=== PATIENT | female | born 1935 | race Caucasian/White ===

== ENCOUNTER 2020-01-28 09:47 | Outpatient (CLI) | payer MEDICARE, SELFPAY ==
[2020-01-28 12:26] LABS: Basophils # 0.1 10^3/uL (0.0-0.1); Basophils % 0.8 %; Eosinophils # 0.2 10^3/uL (0.0-0.8); Eosinophils % 2.9 %; Hematocrit 39.4 % (37.0-47.0); Hemoglobin 11.9 g/dL (11.5-15.3); Lymphocytes # 1.8 10^3/uL (0.8-4.8); Mean Corpuscular HGB Conc 30.2 g/dL (30.0-36.0); Mean Corpuscular Hemoglobin 24.2 pg (28.0-34.0); Mean Corpuscular Volume 80.1 fL (81-99); Mean Platelet Volume 8.7 fL (7.4-10.4); Monocytes # 0.4 10^3/uL (0.2-0.9); Monocytes % 5.3 %; Neutrophils % 68.9 %; Nucleated Red Blood Cells % 0 %; Platelet Count 454 10^3/cmm (130-400); Red Blood Count 4.92 10^6/uL (4.1-5.3)
[2020-01-28 12:47] LABS: Alanine Aminotransferase 14 U/L (0-33); Albumin Level 4.4 g/dL (3.5-5.2); Alkaline Phosphatase 67 IU/L (35-105); Anion Gap 13.6 (5-19); Aspartate Amino Transferase 23 U/L (0-32); Blood Urea Nitrogen 9 mg/dL (8-23); Calcium 9.4 mg/dL (8.5-10.5); Carbon Dioxide 30 mmol/L (22-29); Chloride 97 mmol/L (98-107); Ferritin 48 ng/mL (15-150); Globulin 3.8 g/dL (1.3-4.6); Glucose 113 mg/dL (65-115); Iron 36 ug/dL (37-145); Osmolality Calculated 281 mOsm/kg (285-295); Percent Saturation 10.3 % (20-50); Potassium 3.6 mmol/L (3.5-5.1); Sodium 137 mmol/L (136-145); Total Bilirubin 0.4 mg/dL (0.15-1.2); Total Iron Binding Capacity 349 mcg/dl; Total Protein 8.2 g/dL (6.6-8.7); Unsaturated Iron Binding 313 ug/dL (112-347)
--- NOTE | 2020-01-30 17:14 | ONC FU_ITS ---
Dr. Ramsey follow up note Patient: Natasha Gustafson Unit #: [id number]: 1935 Dicatated By: Megan Ramsey M.D.Date of Visit:Jan 28, 2020 Onc Med Follow-up/Prog Note History of Present Illness: Ms. Sj Kaur , is a 84-year-old female with a history of progressive generalized weakness and fatigue and dizziness went to hospital for evaluation on November 29, 2019, at that time, as per daughter, patient was found to have very low hemoglobin around 7 g, she was given 3 units of packed RBCs, as per daughter her hemoglobin improved up to 9 g and patient felt much better. Patient also underwent CT scan of the abdomen which showed soft tissue thickening involving the area of ileocecal valve but no evidence of metastatic disease, her CEA was checked and it was 1.4, and GI was consulted and underwent EGD and colonoscopy on December 04, 2019 which showed moderately/poorly differentiated adenocarcinoma in the ascending colon subsequently underwent exploratory laparotomy with right hemicolectomy on January 07, 2021 deploy report came back moderately differentiated adenocarcinoma with mucinous and micropapillary features, tumor invades through muscularis propria T2, clear surgical margins, lymphovascular is invasion seen, 5 out of 14 lymph nodes were positive for metastatic disease, N2 Her past medical history significant for hypertension, arthritis, CAD, weight loss,, patient denies alcohol use or smoking. Denies any diarrhea or constipation, denies any jaundice, denies any abdominal pain, denies any nausea vomiting denies any fever chills, appetite is good. Medications: amLODIPine Besylate 1 Tablet (of 5 mg) Oral daily, Aspirin 81 1 Tablet (of 81 mg) Tablet, chewable Oral daily, hydroCHLOROthiazide 1 Tablet (of 25 mg) Oral daily, Metoprolol Succinate ER 1 Tablet (of 25 mg) Tablet SR 24 HR Oral daily, Nitroglycerin 1 Tablet (of 0.4 mg) Tablet, sublingual Sublingual PRN, Rosuvastatin Calcium 1 Tablet (of 40 mg) Oral at bedtime Allergies: Latex Review of Systems: Review of Systems is not available for this patient. Vital Signs: Performed on Jan 28, 2020 11:31 Height - 53.00 in Weight - 120.6 lbs (HIGH) BSA - 1.38 sq.m BMI - 30.19 (HIGH) Temperature - 97.6 F (LOW) Pulse - 72 /min Respiration - 18 /min BP - 196/83 mm(hg) (HIGH) O2 Sat - 98 % Pain - 0 Performance Status: 0 - Fully active, able to carry on all predisease activities without restrictions. (ECOG) Physical Examination: ENMT - No mouth sores, no thrush, no jaundice, Respiratory - Lungs are clear, Cardiovascular - Regular rate and rhythm of heart, Abdomen - Soft, bowel sounds present, Extremities - No visible edema. Lab/Imaging: Most recent lab results are not available for this patient. 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 status post right hemicolectomy done on January 08, 2020 Tumor invades through muscularis propria T2 5 out of 14 lymph node positive for metastatic disease N2 Stage IIIb History of anemia History of arthritis Plan: Discussed with patient regarding her disease status, clinically patient has stage III disease, and is a candidate for adjuvant chemotherapy, considering her age role of oxaliplatin is debatable unless MSI MMR status shows deficient status in that case tumor is usually resistant to 5-FU alone, will check her MSI MMR status and if normal, may consider oral Xeloda for 6 to 8 months if tolerated. We will obtain baseline CBC CMP and then she will return to clinic in 4 weeks for further discussion based on MSI MMR status Signed By: Megan Ramsey M.D. <<Signature on File>>
== END 2020-01-28 09:48 | disposition home or self-care (01) ==
LOC: ONCMED 09:48
PROVIDERS: PCP Family Medicine; Referring Provider Surgery; Visit Provider Internal Medicine Hematology & Oncology
DX: C18.2 Malignant neoplasm of ascending colon (principal); C77.2 Secondary and unspecified malignant neoplasm of intra-abdominal lymph nodes; Z90.49 Acquired absence of other specified parts of digestive tract; Z86.2 Personal history of diseases of the blood and blood-forming organs and certain disorders involving the immune mechanism; Z87.39 Personal history of other diseases of the musculoskeletal system and connective tissue
CPT/HCPCS: 36415; 80053; 82728; 83540; 83550; 85025; 99203

== ENCOUNTER 2020-02-27 08:15 | Outpatient (CLI) | payer MEDICARE, SELFPAY ==
--- NOTE | 2020-02-27 12:00 | ONC FU_ITS ---
Dr. Ramsey follow up note Patient: Natasha Gustafson Unit #: [id number]: 1935 Dicatated By: Megan Ramsey M.D.Date of Visit:Feb 27, 2020 Onc Med Follow-up/Prog Note History of Present Illness: Ms. Sj Kaur , is a 84-year-old female with a history of progressive generalized weakness and fatigue and dizziness went to hospital for evaluation on November 29, 2019, at that time, as per daughter, patient was found to have very low hemoglobin around 7 g, she was given 3 units of packed RBCs, as per daughter her hemoglobin improved up to 9 g and patient felt much better. Patient also underwent CT scan of the abdomen which showed soft tissue thickening involving the area of ileocecal valve but no evidence of metastatic disease, her CEA was checked and it was 1.4, and GI was consulted and underwent EGD and colonoscopy on December 04, 2019 which showed moderately/poorly differentiated adenocarcinoma in the ascending colon subsequently underwent exploratory laparotomy with right hemicolectomy on January 07, 2021 deploy report came back moderately differentiated adenocarcinoma with mucinous and micropapillary features, tumor invades through muscularis propria T2, clear surgical margins, lymphovascular is invasion seen, 5 out of 14 lymph nodes were positive for metastatic disease, N2 With normal expression of DNA mismatch repair proteins Her past medical history significant for hypertension, arthritis, CAD, weight loss,, patient denies alcohol use or smoking. Denies any diarrhea or constipation, denies any jaundice, denies any abdominal pain, denies any nausea vomiting denies any fever chills, appetite is good. Came for follow-up, denies any specific complaints, except generalized weakness and fatigue otherwise no fever chills no nausea or vomiting no diarrhea or constipation no abdominal pain, no melena or hematochezia Medications: amLODIPine Besylate 1 Tablet (of 5 mg) Oral daily, Aspirin 81 1 Tablet (of 81 mg) Tablet, chewable Oral daily, hydroCHLOROthiazide 1 Tablet (of 25 mg) Oral daily, Metoprolol Succinate ER 1 Tablet (of 25 mg) Tablet SR 24 HR Oral daily, Nitroglycerin 1 Tablet (of 0.4 mg) Tablet, sublingual Sublingual PRN, Rosuvastatin Calcium 1 Tablet (of 40 mg) Oral at bedtime Allergies: Latex Review of Systems: Constitutional - Appetite is good and weight is stable. No fever, night sweats, or hot flashes. Energy level is poor, ENMT - No sinus congestion/drainage. No mouth sores. No sore throat or difficulty swallowing, Hematologic/Lymphatic - No abnormal bruising or bleeding, Respiratory - No shortness of breath. No cough. No pleuritic pain or hemoptysis, Cardiovascular - No angina pain. No palpitations, Gastrointestinal - No nausea or vomiting. No heartburn or acid reflux. No diarrhea or constipation. No blood in the stool or black stools, Genitourinary (F) - No dysuria or hematuria. No urinary frequency. No urgency or incontinence, Musculoskeletal - No joint or bone pain, Neurologic - No headache or dizziness. No numbness or tingling. No other focal neurologic symptoms, Psychiatric - No anxiety or depression. No insomnia. Vital Signs: Performed on Feb 27, 2020 08:43 Height - 53.00 in Weight - 121.4 lbs (HIGH) BSA - 1.38 sq.m BMI - 30.39 (HIGH) Temperature - 98.8 F Pulse - 78 /min Respiration - 24 /min BP - 136/70 mm(hg) O2 Sat - 97 % Pain - 0 Performance Status: 0 - Fully active, able to carry on all predisease activities without restrictions. (ECOG) Physical Examination: ENMT - No mouth sores, no thrush, no jaundice, Respiratory - Lungs are clear to auscultation, Cardiovascular - Regular rate and rhythm of heart, Abdomen - Soft, bowel sounds present, Extremities - No visible edema. Lab/Imaging: Most recent lab results are not available for this patient. 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 status post right hemicolectomy done on January 08, 2020 Tumor invades through muscularis propria T2 5 out of 14 lymph node positive for metastatic disease N2 Stage IIIb, Normal expression of DNA mismatch repair proteins History of anemia History of arthritis Plan: Discussed with patient regarding her Labs from January 28, 2020 which shows white blood count 8 hemoglobin 11.9 hematocrit 39.4 platelets 454,000 CMP within normal limits and iron studies shows iron saturation 10.3 ferritin 48 iron 36 TIBC 349 mismatch repair protein testing which showed normal expression in that case, considering her age and overall performance status and comorbid condition, will consider adjuvant chemotherapy with oral Xeloda alone. As far as mild iron deficiency anemia is concerned, patient was advised to start taking oral iron once a day, for better absorption with orange juice on empty stomach and will monitor her hemoglobin as well as iron stores. All the side effects possible benefits associated with Xeloda including but not limited to bone marrow suppression, nausea vomiting, diarrhea, hepatic toxicity, hand-foot syndrome, skin rash, mouth sores were mentioned further teaching done by chemotherapy nurse. At this point will consider starting her on thousand milligram per meter square twice daily day 1 through 14 and repeat every 21 days for 8 cycles. And she will return to clinic 2 weeks after initiation of oral Xeloda therapy with CBC and CMP. Signed By: Megan Ramsey M.D. <<Signature on File>>
== END 2020-02-27 08:16 | disposition home or self-care (01) ==
LOC: ONCMED 08:18
PROVIDERS: PCP Family Medicine; Visit Provider Internal Medicine Hematology & Oncology
DX: C18.2 Malignant neoplasm of ascending colon (principal); C77.2 Secondary and unspecified malignant neoplasm of intra-abdominal lymph nodes; D64.9 Anemia, unspecified; M19.90 Unspecified osteoarthritis, unspecified site; Z90.49 Acquired absence of other specified parts of digestive tract; Z79.899 Other long term (current) drug therapy
CPT/HCPCS: 99214

== ENCOUNTER 2020-03-03 14:13 | Outpatient (CLI) | payer MEDICARE, SELFPAY ==
[2020-03-03 16:02] LABS: Basophils % 0.4 %; Eosinophils # 0.1 10^3/uL (0.0-0.8); Eosinophils % 1.4 %; Hematocrit 36.4 % (37.0-47.0); Hemoglobin 11.2 g/dL (11.5-15.3); Lymphocytes # 1.1 10^3/uL (0.8-4.8); Lymphocytes % 16.2 %; Mean Corpuscular HGB Conc 30.8 g/dL (30.0-36.0); Mean Corpuscular Volume 78.1 fL (81-99); Mean Platelet Volume 8.5 fL (7.4-10.4); Monocytes # 0.4 10^3/uL (0.2-0.9); Monocytes % 5.8 %; Neutrophils # 5.24 10^3/uL (1.8-7.7); Neutrophils % 75.9 %; Nucleated Red Blood Cells % 0 %; Platelet Count 285 10^3/cmm (130-400); Red Blood Count 4.66 10^6/uL (4.1-5.3); Red Cell Distribution Width 18.6 % (12.1-15.1); White Blood Count 6.9 10^3/uL (4.0-10.0)
[2020-03-03 16:39] LABS: Carcinoembryonic Antigen 1.5 ng/mL (0.0-4.7)
[2020-03-03 17:03] LABS: Alanine Aminotransferase 15 U/L (0-33); Albumin Level 3.3 g/dL (3.5-5.2); Alkaline Phosphatase 60 IU/L (35-105); Anion Gap 15.6 (5-19); Aspartate Amino Transferase 32 U/L (0-32); Blood Urea Nitrogen 11 mg/dL (8-23); Calcium 8.6 mg/dL (8.5-10.5); Carbon Dioxide 26 mmol/L (22-29); Chloride 91 mmol/L (98-107); Globulin 3.3 g/dL (1.3-4.6); Glucose 112 mg/dL (65-115); Osmolality Calculated 268 mOsm/kg (285-295); Potassium 3.6 mmol/L (3.5-5.1); Sodium 129 mmol/L (136-145); Total Bilirubin 0.4 mg/dL (0.15-1.2); Total Protein 6.6 g/dL (6.6-8.7)
--- NOTE | 2020-03-08 10:28 | ONC FU_ITS ---
[facility] Patient Note Patient: aNtasha Gustafson Unit #: [id number]: 1935 Dictated By: Varinder MejiaDate of Visit: Mar 03, 2020 Onc MED Follow-Up/Prog Note Chief Complaint: Colon cancer History of Present Illness: Ms. Gustafson is an 84-year-old female with a history of progressive generalized weakness and fatigue and dizziness. She went to hospital for evaluation on November 29, 2019, at that time she was found to have a hemoglobin around 7 g. She was given 3 units of packed RBCs, as per daughter her hemoglobin improved up to 9 g and patient felt much better. Ms Gustafson underwent CT scan of the abdomen which showed soft tissue thickening involving the area of ileocecal valve but no evidence of metastatic disease, her CEA was checked and it was 1.4. 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 She subsequently underwent exploratory laparotomy with right hemicolectomy on January 08, 2020. The report came back as moderately differentiated adenocarcinoma with mucinous and micropapillary features, tumor invades through muscularis propria T2, clear surgical margins, lymphovascular is invasion seen, 5 out of 14 lymph nodes were positive for metastatic disease, N2 With normal expression of DNA mismatch repair proteins Her past medical history significant for hypertension, arthritis, CAD, weight loss. patient denies alcohol use or smoking. Was seen by Dr. Ramsey and it was recommended that she pursue treatment with single agent Xeloda. Her treatment would be day 1 through 14 of a 21-day cycle and the current plan is for 8 cycles. Ms. Gustafson is here today for follow-up. She has received her Xeloda and does plan to start it today or tomorrow. She has no new concerns. She denies any fever or chills. She denies any signs or symptoms of infection. She has had no known COVID exposure. She denies any COVID symptoms. She denies any personal COVID testing. She states she is eating good. She has not had diarrhea or constipation. She states she is taking iron and is tolerating it okay at this point. She denies any nausea or vomiting. She is had no skin rashes. She denies any hematuria. She has had no hematochezia or abdominal pain. Her last hemoglobin on our chart was from January 28, 2020 at which time was 11.9. Her ECOG is 1. Past Medical History: Anemia Arthritis Colon polyps Coronary artery disease Hypercholesterolemia Hypertension Osteoporosis Past Surgical History: Cardiac stents x 2 Cataract excision Excision of skin cancer from face Hysterectomy Left hip Allergies: Latex Medications: amLODIPine Besylate 1 Tablet (of 5 mg) Oral daily Aspirin 81 1 Tablet (of 81 mg) Tablet, chewable Oral daily hydroCHLOROthiazide 1 Tablet (of 25 mg) Oral daily Metoprolol Succinate ER 1 Tablet (of 25 mg) Tablet SR 24 HR Oral daily Nitroglycerin 1 Tablet (of 0.4 mg) Tablet, sublingual Sublingual PRN Rosuvastatin Calcium 1 Tablet (of 40 mg) Oral at bedtime Family History: Ms. Gustafson's father at age 68. Social History: Ms. Gustafson is and she is retired. Ms. Gustafson has never smoked. She has no history of drinking. Review Of Symptoms: Constitutional Denies fevers, chills, night sweats, excessive fatigue or weight loss. Allergic/Immunologic No reactions. Eyes Denies significant visual changes. No diplopia. No amaurosis. ENMT Denies changes in hearing, sore throat, mouth sores, difficulty or changes in swallowing ability, and/or sinus drainage. Hematologic/Lymphatic Denies easy bruising or bleeding. The patient denies any tender or palpable lymph nodes. Respiratory Denies dyspnea on exertion, chest pain, cough or hemoptysis. Denies orthopnea. Cardiovascular Denies anginal chest pain, palpitations or orthopnea. Gastrointestinal Denies nausea, vomiting, diarrhea, GI bleeding, or constipation. Denies change in bowel habits and/or stool color, no heartburn or early satiety. Genitourinary (F) No hematuria, hesitancy, incontinence, vaginal bleeding, discharge or other problems with urination. Musculoskeletal Denies joint pain, swelling or redness. No decreased range of motion. Integumentary Denies chronic rashes, inflammation, ulcerations or skin changes. Neurologic Denies headache, blurred vision, and no areas of focal weakness or numbness. Normal gait. No sensory problems. Psychiatric Denies insomnia, depression, oleksandr or mood swings. Vital Signs: Performed on Mar 03, 2020 15:07 Height - 53.00 in Weight - 123.0 lbs (HIGH) BSA - 1.39 sq.m BMI - 30.79 (HIGH) Temperature - 98.9 F (HIGH) Pulse - 84 /min Respiration - 20 /min BP - 136/69 mm(hg) O2 Sat - 95 % (LOW) Pain - 0,1 - No physically strenuous activity, but ambulatory and able to carry out light or sedentary work (e.g. office work, light house work). (ECOG) Physical Examination: Constitutional Alert, oriented, no acute distress. Skin pink, warm and dry. Head Normocephalic; atraumatic. Eyes Conjunctivae and sclerae are clear and without icterus. Pupils are reactive and equal. Neck Supple without masses or thyromegaly. No jugular venous distension. Hematologic/Lymphatic No petechiae or purpura. No tender or palpable lymph nodes in the cervical or supraclavicular areas. Respiratory Lungs are clear to auscultation without rhonchi or wheezing. Cardiovascular Regular rate and rhythm of heart without murmurs,clicks, gallops or rubs. Back/Spine Non-tender to palpation. Extremities No visible deformities, no cyanosis, clubbing or edema. Musculoskeletal No tenderness or swelling, normal range of motion without obvious weakness. Integumentary No rashes or lesions. Neurologic No sensory or motor deficits, normal cerebellar function, normal gait. Psychiatric Alert and oriented times three. Coherent speech. Verbalizes understanding of our discussions today. Laboratory:Test performed on Mar 03, 2020 15:50 Sodium 129 mmol/L Potassium 3.6 mmol/L Chloride 91 mmol/L CO2 26 mmol/L Anion Gap 15.6 BUN 11 mg/dL Creatinine 0.4 mg/dL Cr Clearance (Est) 90.5700 mL/min Glucose 112 mg/dL Osmolality - Calculated 268 mOsm/kg Calcium 8.6 mg/dL Protein, Total 6.6 g/dL Albumin 3.3 g/dL Globulin 3.3 g/dL Bilirubin, Total 0.4 mg/dL ALT (SGPT) 15 U/L AST (SGOT) 32 U/L Alkaline Phosphatase 60 IU/L WBC 6.9 10 3/uL RBC 4.66 10 6/uL HGB 11.2 g/dL HCT 36.4 % MCV 78.1 fL MCH 24.0 pg MCHC 30.8 g/dL RDW 18.6 % Platelet Count 285 10 3/cmm MPV 8.5 fL Neutrophils 5.24 10 3/uL Lymphocytes 1.1 10 3/uL Monocytes 0.4 10 3/uL Eosinophils 0.1 10 3/uL Basophils 0.0 10 3/uL Neutrophil % 75.9 % Lymphocyte % 16.2 % Monocyte % 5.8 % Eosinophil % 1.4 % Basophils % 0.4 % NRBC % 0 % CEA 1.5 ng/mL 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 In that case, considering her age and overall performance status and comorbid condition, will recommend adjuvant chemotherapy with oral Xeloda alone. At this point will consider starting her on thousand milligram per meter square twice daily day 1 through 14 and repeat every 21 days for 8 cycles. Plan: 1. Proceed with Xeloda 1300 mg twice daily 14 days on and 7 days off. 2. Compazine and Ativan prn antiemetics at home. 3. I requested baseline CBC, CMP today. 4. AVOID GRAPEFRUIT PRODUCTS WITH XELODA. 5. The patient and family were informed of chemotherapy plan and specific drugs were discussed. We also discussed how chemotherapy works and identified common side effects including alopecia; myelosuppression-including neutropenia, anemia, thrombocytopenia; peripheral neuropathy; fatigue; nausea; diarrhea; constipation; bleeding or bruising; skin changes-rash/dryness; mouth sores; drug hypersensitivity/allergic reactions or anaphylaxis and increased risk of blood clots. They have also been informed how to contact the clinic with side effects or symptoms, including but not limited to fever greater than 100.4???, chills, sore throat, bleeding or bruising that is not explained or mouth sores, cough, nasal discharge, diarrhea, constipation, nausea and/or vomiting not relieved with medications on hand at home, as well as any other concern or question they may have. Our hours are 8:00 a.m. to 4:30 p.m. on Sunday through and 8-12:00 on Sunday. However, someone is rhinestone setter 24 hours per day and they have been advised to contact the [facility] at if it is after hours. We have also discussed potential long-term side effects of chemotherapy including secondary cancers, infertility, pulmonary complications, cardiac complications, and again peripheral neuropathy. We have discussed that they certainly need to let us know before taking any antioxidants or herbal or further dietary supplements, as we are unsure of how these agents react with chemotherapy and we request that they avoid these products for now. They were informed that it is okay to take multivitamins at normal doses. They verbally state that they understand to take all medications as directed by their healthcare provider unless otherwise indicated. Instructions for oral care with baking soda and salt water rinses as well as a guide for use of [id number] medication were provided with the treatment plan. They have been given a written patient treatment plan, of which a copy is in the chart, as well as specific drug information. They have no questions and verbalized understanding and are willing to proceed with chemotherapy at this time. The majority of this visit was spent in face to face communication with this patient and/or his/her family in regards to plan of care, side effect identification and management. 6. We will plan to see her back in 2 weeks with CBC CMP. 7. Mrs. Gustafson and her grandson were encouraged to contact us in the interim should questions or problems arise. Signed By: Varinder Mejia-, CHEIKH Ramsey MD <<Signature on File>>
== END 2020-03-03 14:14 | disposition home or self-care (01) ==
LOC: ONCMED 14:15
PROVIDERS: PCP Family Medicine; Visit Provider Nurse Practitioner
DX: C18.2 Malignant neoplasm of ascending colon (principal); C77.2 Secondary and unspecified malignant neoplasm of intra-abdominal lymph nodes; D64.9 Anemia, unspecified; M19.90 Unspecified osteoarthritis, unspecified site; Z79.899 Other long term (current) drug therapy
CPT/HCPCS: 36415; 80053; 82378; 85025; 99215

== ENCOUNTER 2020-03-08 14:27 | Inpatient (IN) | payer MEDICARE, SELFPAY ==
[2020-03-08] VITALS (9 sets, daily range): BP systolic 125–159; BP diastolic 64–95; PULSE 80–102; RESP 16–28; TEMP 36.8–37.1; O2SAT 91–96; BMI 19.8
--- NOTE | 2020-03-08 15:14 | XR_ITS ---
WS: [id number] XR chest 1V portable [id number] REASON FOR EXAM: dyspnea/cough FINDINGS: Compared to previous chest x-ray of 11/29/2019 there has been development of interstitial infiltrativ e change in the lower lung alba and in the right mid lateral lung field. The heart is enlarged. The costophrenic angles and hemidiaphragms contours are obscured. XR/XR chest 1V portable [id number] IMPRESSION: Findings of interval development of congestive heart failure, less likely pneum onitis.
[2020-03-08 15:37] LABS: ABG PCO2 36.6 mmHg (35-45); Alveolar-Arterial Oxygen Gradi 5.3 mmHg (5-10); Arterial Blood Gas Hematocrit 34.3 % (37-47); Base Excess ABG 5.2 mmol/L (-2.0-2.0); Blood Gas Operator Identificat GD; Blood Gas Sample Site Brachial, right; Blood Gas Sample Type Arterial; Carboxyhemoglobin 1.1 %THgb (0.4-20.1); HCO3 ABG 28.6 mmol/L (22-26); HGB O2 Sat 90.8 % (95-100); Ionized Calcium Level - ABG 1.2 mmol/L (1.1-1.4); Methemoglobin 0.7 % (0.4-1.5); Oxygen Device ROOM AIR; Oxygen Saturation ABG 92.5; PO2 ABG 64.3 mmHg (80.0-100.0); Potassium Level - ABG 3.6 mmol/L (3.5-5.0); Total Hemoglobin 11.2 g/dL (12-16)
[2020-03-08 15:49] LABS: Basophils % 0.3 %; Eosinophils % 0.3 %; Hematocrit 36.4 % (37.0-47.0); Hemoglobin 11.2 g/dL (11.5-15.3); Lymphocytes # 0.8 10^3/uL (0.8-4.8); Mean Corpuscular HGB Conc 30.8 g/dL (30.0-36.0); Mean Corpuscular Hemoglobin 24.1 pg (28.0-34.0); Mean Corpuscular Volume 78.4 fL (81-99); Mean Platelet Volume 8.4 fL (7.4-10.4); Monocytes # 0.4 10^3/uL (0.2-0.9); Monocytes % 6.2 %; Neutrophils # 5.37 10^3/uL (1.8-7.7); Neutrophils % 80.7 %; Nucleated Red Blood Cells % 0 %; Platelet Count 283 10^3/cmm (130-400); Red Blood Count 4.64 10^6/uL (4.1-5.3); Red Cell Distribution Width 19.2 % (12.1-15.1); White Blood Count 6.7 10^3/uL (4.0-10.0)
--- NOTE | 2020-03-08 16:27 | ED_ITS ---
Documented by User: TALIB Segundo 03/08/20 17:18 HPI - SOB/Dyspnea General: Chief Complaint: Shortness of Breath/Dyspnea Stated Complaint: SOB, COUGH Time Seen by Provider: 03/08/20 16:01 History of Present Illness: HPI Narrative: 84-year-old female patient presents to the emergency department with complaints of no energy. She reports bowel resection completed January 08, 2020 and has not returned to baseline. She repo rts past 2 weeks with increased shortness of breath, cough, and decreased appetite. She reports weight loss with nausea at the smell of food. She states can tolerate oral fluids but is not able to eat solids with exception of pineapple chunks and grapes. 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 She reports night sweats and fever/chills at night. Has not measured her temperature. Reports under the care of Dr. Ramsey, was to start oral chemotherapy on 03/04/2020 but due to weakness, was not able to do so. She was advised by Dr. Ramsey's office to come to the emergency department for evaluation due to continued weakness and not feeling well. MD elicited complaint: shortness of breath and cough Onset (ago): week(s) (2) Timing: progressively worsening Severity: moderate Associated symptoms: Reports fever(s) and nausea; Deny abdominal pain, chest pain, extremity pain, palpitations or vomiting Treatment prior to arrival: none Review of Systems Const: Reports: fever(s), chills, change in appetite, fatigue, malaise and night sweats Eyes: Denies: change in vision or eye discomfort ENMT: Denies: throat pain, uvular edema, hoarseness, nasal discharge or nasal congestion Card: Denies: chest pain, palpitations, irregular heart rhythm or pre-syncope Resp: Reports: dyspnea and non-productive cough; Denies: wheezing GI: Reports: nausea and early satiety; Denies: abdominal pain, vomiting or bloating Musc: Denies: neck pain, back pain or extremity pain Skin/Breast: Denies: rash, pruritus, erythema or skin tenderness Neuro: Denies: headache(s), numbness in extremities or difficulty walking Psych: Denies: anxiety or depression PFS ED PFSH: Medical History (Updated 03/09/20 @ 01:23 by Coleman Alexa, [employer]) Ascending colon malignant neoplasm Status post right hemicolectomy on 01/08/2020. CAD (coronary artery disease) -s/p stenting x 2 (2005) -on ASA, statin Hypercholesteremia -continue statin -lipid panel noted Hypertension -close monitoring of vital signs -continue oral antihypertensives Iron deficiency anemia -recent blood transfusion due to worsening anemia (11/03/2019) -H/H stable -pending GI w/u by Dr. Lauren -on iron supplementation Postoperative anemia Status post transfusion. Hemoglobin 9.5. Skin cancer of face Vertigo -noted episode of N/V with change in position, nystagmus, has chronic tinnitus and is hard of hearing -orthostatics negative, close monitoring of vital signs -telemetry monitoring -Echo: EF=65%, G1DD, no RWMA, mild pulmonary HTN (39), mild TR -carotid US: no hemodynamically significant stenosis -noted anemia with stable Hg -CT head negative for acute findings; CXR unremarkable for acute changes -gentle IVF hydration; can d/c -fall precautions, up with assist -PT evaluation -antiemetics as needed -UA with pyuria and bacteria; will treat empirically due to patient's advanced age and symptoms -meclizine PRN Surgical History (Updated 03/08/20 @ 23:42 by Kenya Snyder RN) H/O heart artery stent H/O: hysterectomy History of left hip replacement Family History Denies family history of CAD (coronary artery disease) Social History (Updated 11/29/19 @ 17:48 by Inez Moe MD) Smoking and tobacco status: never smoked Alcohol intake: never Household members: spouse Marital status: Current occupational status: retired Physical Exam Const: COMMON NORMALS: no acute distress, patient oriented x3 and alert GENERAL APPEARANCE: cooperative, comfortable, frail appearing and well hydrated NUTRITIONAL APPEARANCE: thin ORIENTATION/CONSCIOUSNESS: Yes awake, Yes oriented to person, Yes oriented to place and Yes oriented to time HENMT: COMMON NORMALS: normocephalic, atraumatic, Normal external nose present and moist oral mucous membranes HEAD & SCALP: normocephalic and atraumatic NOSE: Normal external nose present THROAT: uvula midline; no uvular edema Eye: COMMON NORMALS: Equal, round and reactive pupils present and EOMs intact bilaterally GENERAL EYE: appearance normal, both eyes and all related structures PUPIL: Yes Equal, round and reactive pupils present Neck/C-Spine: COMMON NORMALS: full ROM and no lymphadenopathy GENERAL: Yes normal visual inspection and Yes trachea midline CERVICAL SPINE: Yes cervical ROM normal Lymph: LYMPHATIC: no lymphadenopathy noted Chest: COMMONS NORMALS: normal inspection of the chest and normal palpation of entire chest wall Resp: COMMON NORMALS: normal respiratory effort and clear to auscultation bilaterally EFFORT & INSPECTION: Yes able to speak in complete sentences and Yes symmetric chest movement AUSCULTATION: clear to auscultation bilaterally and diminished lung sounds bilateral in the lower lung alba Cardio: COMMON NORMALS: regular rhythm, S1 normal heart sound present, S2 normal heart sound present and Peripheral pulses 2+ throughout JUGULAR VENOUS DISTENTION: no JVD RHYTHM: regular rhythm HEART SOUNDS: S1 normal heart sound present and S2 normal heart sound present PERIPHERAL PULSES: Peripheral pulses 2+ throughout GI: COMMON NORMALS: Normal to inspection, nondistended, normoactive bowel sounds present, Soft to palpation and non-tender INSPECTION: Yes normal to inspection and Yes other (Midline scar present surrounding the umbilicus, clean dry and intact without erythema, nontender) PALPATION: Yes Soft to palpation : COMMON NORMALS: Yes no CVA tenderness BLADDER/KIDNEY EXAM: Yes no CVA tenderness Back/Pelvis: COMMON NORMALS: no CVA tenderness and thoracic and lumbar spine normal to inspection Extremity: COMMON NORMALS: normal to inspection and capillary refill normal Neuro: COMMON NORMALS: patient oriented x3 and no focal motor deficits SENSORIUM/ORIENTATION: Yes alert, Yes oriented to person, Yes oriented to place and Yes oriented to time Psych: COMMON NORMALS: mental status grossly normal, Normal thought process present and cooperative ACTIVITY/MOTOR BEHAVIOR: Yes appropriate eye contact THOUGHT PROCESS: Normal thought process present Skin: COMMON NORMALS: no rashes or lesions noted and turgor normal GENERAL SKIN EXAM: no rashes or lesions noted and turgor normal Course ED course: 84-year-old female patient presents to the emergency department with 2-week history of increased fatigue and shortness of breath. D-dimer elevated, Wells criteria for points for moderate risk, CT chest pending secondary to elevated d-dimer. She has been comfortable here in the emergency department. Transfer of care to Coleman Liu. Vital Signs: Vital signs: Vital Signs Temperature 98.7 F 03/09/20 00:00 Pulse Rate 80 03/09/20 00:00 Respiratory Rate 24 H 03/09/20 00:00 Blood Pressure 125/64 03/09/20 00:00 Pulse Oximetry 96 03/09/20 00:00 MDM - SOB/Dyspnea Lab Data: Labs: Lab Results 03/08/20 03/08/20 03/08/20 Range/Units 15:20 15:41 15:41 WBC 6.7 (4.0-10.0) 10^3/ uL RBC 4.64 (4.1-5.3) 10^6/u L Hgb 11.2 L (11.5-15.3) g/dL Hct 36.4 L (37.0-47.0) % MCV 78.4 L (81-99) fL MCH 24.1 L (28.0-34.0) pg MCHC 30.8 (30.0-36.0) g/dL RDW 19.2 H (12.1-15.1) % Plt Count 283 (130-400) 10^3/c mm MPV 8.4 (7.4-10.4) fL Neut % (Auto) 80.7 % Lymph % (Auto) 12.0 % [place] % (Auto) 6.2 % Eos % (Auto) 0.3 % Baso % (Auto) 0.3 % Neut # (Auto) 5.37 (1.8-7.7) 10^3/u L Lymph # (Auto) 0.8 (0.8-4.8) 10^3/u L [place] # (Auto) 0.4 (0.2-0.9) 10^3/u L Eos # (Auto) 0.0 (0.0-0.8) 10^3/u L Baso # (Auto) 0.0 (0.0-0.1) 10^3/u L Nucleated RBC % (a uto) 0 % Nucleated RBCs # 0.0 /100WBC D-Dimer (0-0.59) ug/mIFE U Specimen Type Arterial Sample Site Brachial, right ABG pH 7.50 H (7.35-7.45) ABG pCO2 36.6 (35-45) mmHg ABG pO2 64.3 L (80.0-100.0) mmH g ABG HCO3 28.6 H (22-26) mmol/L ABG O2 Saturation 92.5 ABG Base Excess 5.2 H (-2.0-2.0) mmol/ L Mc Test N/a A-a O2 Gradient 5.3 (5-10) mmHg Hematocrit 34.3 L (37-47) % Hgb O2 Saturation 90.8 L (95-100) % Carboxyhemoglobin 1.1 (0.4-20.1) %THgb Methemoglobin 0.7 (0.4-1.5) % Total Hemoglobin 11.2 L (12-16) g/dL Sodium 131.0 130 L (131-143) mmol/L Potassium 3.6 3.5 (3.5-5.0) mmol/L Glucose 105.0 103 (70-115) mg/dL Ionized Calcium 1.2 (1.1-1.4) mmol/L O2 Delivery Device Room air Glass Decorator ID Gd Chloride 93 L (98-107) mmol/L Carbon Dioxide 28 (22-29) mmol/L Anion Gap 12.5 (5-19) BUN 11 (8-23) mg/dL Creatinine 0.5 (0.5-0.9) mg/dL GFR Calculation Not Reportable Estimat Average Gl ucose Hemoglobin A1c (4.0-6.0) % Calculated Osmolal ity 270 L (285-295) mOsm/k g Calcium 8.4 L (8.5-10.5) mg/dL Total Bilirubin 0.4 (0.15-1.2) mg/dL AST 37 H (0-32) U/L ALT 15 (0-33) U/L Alkaline Phosphata se 64 (35-105) IU/L Troponin T Baselin e (0-10) ng/L Troponin T 120 Min [place] (0-10) ng/L Delta Troponin T (0-10) ABS# NT-Pro-B Natriuret Pep (0-450) pg/mL Total Protein 6.3 L (6.6-8.7) g/dL Albumin 3.1 L (3.5-5.2) g/dL Globulin 3.2 (1.3-4.6) g/dL Urine Color (Yellow) Urine Appearance (CLEAR) Urine pH (5-7) Ur Specific Gravit y (1.005-1.030) Urine Protein (Negative) Urine Glucose (UA) (Normal) Urine Ketones (Negative) Urine Blood (Negative) Urine Nitrate (Negative) Urine Bilirubin (Negative) Urine Urobilinogen (Negative) mg/dL Ur Leukocyte Adrianne ase (Negative) Urine RBC (0-2) /hpf Urine WBC (0-5) /hpf Ur Squamous Epith Cells (0-5) /hpf Amorphous Sediment Urine Bacteria (NONE) /hpf Urine Mucus /hpf SARS-CoV-2 Ag (Rap id) (Negative) 03/08/20 03/08/20 03/08/20 Range/Units 15:41 15:41 15:41 WBC (4.0-10.0) 10^3/ uL RBC (4.1-5.3) 10^6/u L Hgb (11.5-15.3) g/dL Hct (37.0-47.0) % MCV (81-99) fL MCH (28.0-34.0) pg MCHC (30.0-36.0) g/dL RDW (12.1-15.1) % Plt Count (130-400) 10^3/c mm MPV (7.4-10.4) fL Neut % (Auto) % Lymph % (Auto) % [place] % (Auto) % Eos % (Auto) % Baso % (Auto) % Neut # (Auto) (1.8-7.7) 10^3/u L Lymph # (Auto) (0.8-4.8) 10^3/u L [place] # (Auto) (0.2-0.9) 10^3/u L Eos # (Auto) (0.0-0.8) 10^3/u L Baso # (Auto) (0.0-0.1) 10^3/u L Nucleated RBC % (a uto) % Nucleated RBCs # /100WBC D-Dimer 3.32 H (0-0.59) ug/mIFE U Specimen Type Sample Site ABG pH (7.35-7.45) ABG pCO2 (35-45) mmHg ABG pO2 (80.0-100.0) mmH g ABG HCO3 (22-26) mmol/L ABG O2 Saturation ABG Base Excess (-2.0-2.0) mmol/ L Mc Test A-a O2 Gradient (5-10) mmHg Hematocrit (37-47) % Hgb O2 Saturation (95-100) % Carboxyhemoglobin (0.4-20.1) %THgb Methemoglobin (0.4-1.5) % Total Hemoglobin (12-16) g/dL Sodium (131-143) mmol/L Potassium (3.5-5.0) mmol/L Glucose (70-115) mg/dL Ionized Calcium (1.1-1.4) mmol/L O2 Delivery Device Glass Decorator ID Chloride (98-107) mmol/L Carbon Dioxide (22-29) mmol/L Anion Gap (5-19) BUN (8-23) mg/dL Creatinine (0.5-0.9) mg/dL GFR Calculation Estimat Average Gl ucose Hemoglobin A1c (4.0-6.0) % Calculated Osmolal ity (285-295) mOsm/k g Calcium (8.5-10.5) mg/dL Total Bilirubin (0.15-1.2) mg/dL AST (0-32) U/L ALT (0-33) U/L Alkaline Phosphata se (35-105) IU/L Troponin T Baselin e 56 H (0-10) ng/L Troponin T 120 Min [place] (0-10) ng/L Delta Troponin T (0-10) ABS# NT-Pro-B Natriuret Pep 216 (0-450) pg/mL Total Protein (6.6-8.7) g/dL Albumin (3.5-5.2) g/dL Globulin (1.3-4.6) g/dL Urine Color (Yellow) Urine Appearance (CLEAR) Urine pH (5-7) Ur Specific Gravit y (1.005-1.030) Urine Protein (Negative) Urine Glucose (UA) (Normal) Urine Ketones (Negative) Urine Blood (Negative) Urine Nitrate (Negative) Urine Bilirubin (Negative) Urine Urobilinogen (Negative) mg/dL Ur Leukocyte Adrianne ase (Negative) Urine RBC (0-2) /hpf Urine WBC (0-5) /hpf Ur Squamous Epith Cells (0-5) /hpf Amorphous Sediment Urine Bacteria (NONE) /hpf Urine Mucus /hpf SARS-CoV-2 Ag (Rap id) (Negative) 03/08/20 03/08/20 03/08/20 Range/Units 15:41 15:56 17:55 WBC (4.0-10.0) 10^3/ uL RBC (4.1-5.3) 10^6/u L Hgb (11.5-15.3) g/dL Hct (37.0-47.0) % MCV (81-99) fL MCH (28.0-34.0) pg MCHC (30.0-36.0) g/dL RDW (12.1-15.1) % Plt Count (130-400) 10^3/c mm MPV (7.4-10.4) fL Neut % (Auto) % Lymph % (Auto) % [place] % (Auto) % Eos % (Auto) % Baso % (Auto) % Neut # (Auto) (1.8-7.7) 10^3/u L Lymph # (Auto) (0.8-4.8) 10^3/u L [place] # (Auto) (0.2-0.9) 10^3/u L Eos # (Auto) (0.0-0.8) 10^3/u L Baso # (Auto) (0.0-0.1) 10^3/u L Nucleated RBC % (a uto) % Nucleated RBCs # /100WBC D-Dimer (0-0.59) ug/mIFE U Specimen Type Sample Site ABG pH (7.35-7.45) ABG pCO2 (35-45) mmHg ABG pO2 (80.0-100.0) mmH g ABG HCO3 (22-26) mmol/L ABG O2 Saturation ABG Base Excess (-2.0-2.0) mmol/ L Mc Test A-a O2 Gradient (5-10) mmHg Hematocrit (37-47) % Hgb O2 Saturation (95-100) % Carboxyhemoglobin (0.4-20.1) %THgb Methemoglobin (0.4-1.5) % Total Hemoglobin (12-16) g/dL Sodium (131-143) mmol/L Potassium (3.5-5.0) mmol/L Glucose (70-115) mg/dL Ionized Calcium (1.1-1.4) mmol/L O2 Delivery Device Glass Decorator ID Chloride (98-107) mmol/L Carbon Dioxide (22-29) mmol/L Anion Gap (5-19) BUN (8-23) mg/dL Creatinine (0.5-0.9) mg/dL GFR Calculation Estimat Average Gl ucose 120 Hemoglobin A1c 5.8 (4.0-6.0) % Calculated Osmolal ity (285-295) mOsm/k g Calcium (8.5-10.5) mg/dL Total Bilirubin (0.15-1.2) mg/dL AST (0-32) U/L ALT (0-33) U/L Alkaline Phosphata se (35-105) IU/L Troponin T Baselin e (0-10) ng/L Troponin T 120 Min [place] 54.05 H (0-10) ng/L Delta Troponin T -1.95 L (0-10) ABS# NT-Pro-B Natriuret Pep (0-450) pg/mL Total Protein (6.6-8.7) g/dL Albumin (3.5-5.2) g/dL Globulin (1.3-4.6) g/dL Urine Color Yellow (Yellow) Urine Appearance Sl hazy (CLEAR) Urine pH 5 (5-7) Ur Specific Gravit y 1.015 (1.005-1.030) Urine Protein Neg (Negative) Urine Glucose (UA) Norm (Normal) Urine Ketones 1+ H (Negative) Urine Blood Neg (Negative) Urine Nitrate Negative (Negative) Urine Bilirubin Neg (Negative) Urine Urobilinogen Norm (Negative) mg/dL Ur Leukocyte Adrianne ase 2+ H (Negative) Urine RBC 0-4 H (0-2) /hpf Urine WBC 55-80 H (0-5) /hpf Ur Squamous Epith Cells 0-4 H (0-5) /hpf Amorphous Sediment Not Reportable Urine Bacteria Trace (NONE) /hpf Urine Mucus 2+ /hpf SARS-CoV-2 Ag (Rap id) (Negative) 03/08/20 Range/Units 20:00 WBC (4.0-10.0) 10^3/ uL RBC (4.1-5.3) 10^6/u L Hgb (11.5-15.3) g/dL Hct (37.0-47.0) % MCV (81-99) fL MCH (28.0-34.0) pg MCHC (30.0-36.0) g/dL RDW (12.1-15.1) % Plt Count (130-400) 10^3/c mm MPV (7.4-10.4) fL Neut % (Auto) % Lymph % (Auto) % [place] % (Auto) % Eos % (Auto) % Baso % (Auto) % Neut # (Auto) (1.8-7.7) 10^3/u L Lymph # (Auto) (0.8-4.8) 10^3/u L [place] # (Auto) (0.2-0.9) 10^3/u L Eos # (Auto) (0.0-0.8) 10^3/u L Baso # (Auto) (0.0-0.1) 10^3/u L Nucleated RBC % (a uto) % Nucleated RBCs # /100WBC D-Dimer (0-0.59) ug/mIFE U Specimen Type Sample Site ABG pH (7.35-7.45) ABG pCO2 (35-45) mmHg ABG pO2 (80.0-100.0) mmH g ABG HCO3 (22-26) mmol/L ABG O2 Saturation ABG Base Excess (-2.0-2.0) mmol/ L Mc Test A-a O2 Gradient (5-10) mmHg Hematocrit (37-47) % Hgb O2 Saturation (95-100) % Carboxyhemoglobin (0.4-20.1) %THgb Methemoglobin (0.4-1.5) % Total Hemoglobin (12-16) g/dL Sodium (131-143) mmol/L Potassium (3.5-5.0) mmol/L Glucose (70-115) mg/dL Ionized Calcium (1.1-1.4) mmol/L O2 Delivery Device Glass Decorator ID Chloride (98-107) mmol/L Carbon Dioxide (22-29) mmol/L Anion Gap (5-19) BUN (8-23) mg/dL Creatinine (0.5-0.9) mg/dL GFR Calculation Estimat Average Gl ucose Hemoglobin A1c (4.0-6.0) % Calculated Osmolal ity (285-295) mOsm/k g Calcium (8.5-10.5) mg/dL Total Bilirubin (0.15-1.2) mg/dL AST (0-32) U/L ALT (0-33) U/L Alkaline Phosphata se (35-105) IU/L Troponin T Baselin e (0-10) ng/L Troponin T 120 Min [place] (0-10) ng/L Delta Troponin T (0-10) ABS# NT-Pro-B Natriuret Pep (0-450) pg/mL Total Protein (6.6-8.7) g/dL Albumin (3.5-5.2) g/dL Globulin (1.3-4.6) g/dL Urine Color (Yellow) Urine Appearance (CLEAR) Urine pH (5-7) Ur Specific Gravit y (1.005-1.030) Urine Protein (Negative) Urine Glucose (UA) (Normal) Urine Ketones (Negative) Urine Blood (Negative) Urine Nitrate (Negative) Urine Bilirubin (Negative) Urine Urobilinogen (Negative) mg/dL Ur Leukocyte Adrianne ase (Negative) Urine RBC (0-2) /hpf Urine WBC (0-5) /hpf Ur Squamous Epith Cells (0-5) /hpf Amorphous Sediment Urine Bacteria (NONE) /hpf Urine Mucus /hpf SARS-CoV-2 Ag (Rap id) Negative (Negative) Imaging Data^: CXR: Radiologist's impression: [address] [address] XRay Report Signed Patient: Natasha Gustafson #: [id number] : 1935cct#:[id number] Age/Sex: 84 / FADM Date: 03/08/20 Loc: ERRoom/Bed: Attending Dr: Ordering Provider/Ordering MD: Asad Torres DO Date of Service: 03/08/20 Procedure(s): XR chest 1V portable 19452 Accession Number(s): [id number] Report Number: [id number] WS: [id number] XR chest 1V portable [id number] REASON FOR EXAM: dyspnea/cough FINDINGS: Compared to previous chest x-ray of 11/29/2019 there has been development of interstitial infiltrative change in the lower lung alba and in the right mid lateral lung field. The heart is enlarged. The costophrenic angles and hemidiaphragms contours are obscured. XR/XR chest 1V portable [id number] IMPRESSION: Findings of interval development of congestive heart failure, less likely pneumonitis. Dictated By:Simón Dye Jr, MD Signed By:Simón Dye Jr MDSigned Date/Time:03/08/20 1551 DD/ 1548 Discharge Plan Discharge Patient Disposition: Admitted As Inpatient Admit Provider: Clayton Purvis Clinical Impression: Multifocal pneumonia Condition: Stable Interventions: ED Discharge Assessment Last Done: 03/08/20 22:19 ED Charges Last Done: 03/08/20 22:19 Discharge Date/Time: 03/08/20 22:55 Coding Level of Care Code ED Circulating Process Inspector for Chg Fwd Exam Comprehensive Documented by User: ARNIE Lorenzana 03/09/20 01:23 HPI - SOB/Dyspnea General: Chief Complaint: Shortness of Breath/Dyspnea Stated Complaint: SOB, COUGH Time Seen by Provider: 03/08/20 16:01 [facility] ED PFSH: Medical History (Updated 03/09/20 @ 01:23 by ARNIE Lorenzana) Ascending colon malignant neoplasm Status post right hemicolectomy on 01/08/2020. CAD (coronary artery disease) -s/p stenting x 2 (2005) -on ASA, statin Hypercholesteremia -continue statin -lipid panel noted Hypertension -close monitoring of vital signs -continue oral antihypertensives Iron deficiency anemia -recent blood transfusion due to worsening anemia (11/03/2019) -H/H stable -pending GI w/u by Dr. Lauren -on iron supplementation Postoperative anemia Status post transfusion. Hemoglobin 9.5. Skin cancer of face Vertigo -noted episode of N/V with change in position, nystagmus, has chronic tinnitus and is hard of hearing -orthostatics negative, close monitoring of vital signs -telemetry monitoring -Echo: EF=65%, G1DD, no RWMA, mild pulmonary HTN (39), mild TR -carotid US: no hemodynamically significant stenosis -noted anemia with stable Hg -CT head negative for acute findings; CXR unremarkable for acute changes -gentle IVF hydration; can d/c -fall precautions, up with assist -PT evaluation -antiemetics as needed -UA with pyuria and bacteria; will treat empirically due to patient's advanced age and symptoms -meclizine PRN Surgical History (Updated 03/08/20 @ 23:42 by Kenya Snyder, [place]) H/O heart artery stent H/O: hysterectomy History of left hip replacement Family History Denies family history of CAD (coronary artery disease) Social History (Updated 11/29/19 @ 17:48 by Inez Moe MD) Smoking and tobacco status: never smoked Alcohol intake: never Household members: spouse Marital status: Current occupational status: retired Course Vital Signs: Vital signs: Vital Signs Temperature 98.7 F 03/09/20 00:00 Pulse Rate 80 03/09/20 00:00 Respiratory Rate 24 H 03/09/20 00:00 Blood Pressure 125/64 03/09/20 00:00 Pulse Oximetry 96 03/09/20 00:00 MDM - SOB/Dyspnea MDM Narrative: Medical decision making narrative: I spoke with Dr. Kim about admission awaiting rapid COVID test Lab Data: Labs: Lab Results 03/08/20 03/08/20 03/08/20 Range/Units 15:20 15:41 15:41 WBC 6.7 (4.0-10.0) 10^3/ uL RBC 4.64 (4.1-5.3) 10^6/u L Hgb 11.2 L (11.5-15.3) g/dL Hct 36.4 L (37.0-47.0) % MCV 78.4 L (81-99) fL MCH 24.1 L (28.0-34.0) pg MCHC 30.8 (30.0-36.0) g/dL RDW 19.2 H (12.1-15.1) % Plt Count 283 (130-400) 10^3/c mm MPV 8.4 (7.4-10.4) fL Neut % (Auto) 80.7 % Lymph % (Auto) 12.0 % [place] % (Auto) 6.2 % Eos % (Auto) 0.3 % Baso % (Auto) 0.3 % Neut # (Auto) 5.37 (1.8-7.7) 10^3/u L Lymph # (Auto) 0.8 (0.8-4.8) 10^3/u L [place] # (Auto) 0.4 (0.2-0.9) 10^3/u L Eos # (Auto) 0.0 (0.0-0.8) 10^3/u L Baso # (Auto) 0.0 (0.0-0.1) 10^3/u L Nucleated RBC % (a uto) 0 % Nucleated RBCs # 0.0 /100WBC D-Dimer (0-0.59) ug/mIFE U Specimen Type Arterial Sample Site Brachial, right ABG pH 7.50 H (7.35-7.45) ABG pCO2 36.6 (35-45) mmHg ABG pO2 64.3 L (80.0-100.0) mmH g ABG HCO3 28.6 H (22-26) mmol/L ABG O2 Saturation 92.5 ABG Base Excess 5.2 H (-2.0-2.0) mmol/ L Mc Test N/a A-a O2 Gradient 5.3 (5-10) mmHg Hematocrit 34.3 L (37-47) % Hgb O2 Saturation 90.8 L (95-100) % Carboxyhemoglobin 1.1 (0.4-20.1) %THgb Methemoglobin 0.7 (0.4-1.5) % Total Hemoglobin 11.2 L (12-16) g/dL Sodium 131.0 130 L (131-143) mmol/L Potassium 3.6 3.5 (3.5-5.0) mmol/L Glucose 105.0 103 (70-115) mg/dL Ionized Calcium 1.2 (1.1-1.4) mmol/L O2 Delivery Device Room air Glass Decorator ID Gd Chloride 93 L (98-107) mmol/L Carbon Dioxide 28 (22-29) mmol/L Anion Gap 12.5 (5-19) BUN 11 (8-23) mg/dL Creatinine 0.5 (0.5-0.9) mg/dL GFR Calculation Not Reportable Estimat Average Gl ucose Hemoglobin A1c (4.0-6.0) % Calculated Osmolal ity 270 L (285-295) mOsm/k g Calcium 8.4 L (8.5-10.5) mg/dL Total Bilirubin 0.4 (0.15-1.2) mg/dL AST 37 H (0-32) U/L ALT 15 (0-33) U/L Alkaline Phosphata se 64 (35-105) IU/L Troponin T Baselin e (0-10) ng/L Troponin T 120 Min [place] (0-10) ng/L Delta Troponin T (0-10) ABS# NT-Pro-B Natriuret Pep (0-450) pg/mL Total Protein 6.3 L (6.6-8.7) g/dL Albumin 3.1 L (3.5-5.2) g/dL Globulin 3.2 (1.3-4.6) g/dL Urine Color (Yellow) Urine Appearance (CLEAR) Urine pH (5-7) Ur Specific Gravit y (1.005-1.030) Urine Protein (Negative) Urine Glucose (UA) (Normal) Urine Ketones (Negative) Urine Blood (Negative) Urine Nitrate (Negative) Urine Bilirubin (Negative) Urine Urobilinogen (Negative) mg/dL Ur Leukocyte Adrianne ase (Negative) Urine RBC (0-2) /hpf Urine WBC (0-5) /hpf Ur Squamous Epith Cells (0-5) /hpf Amorphous Sediment Urine Bacteria (NONE) /hpf Urine Mucus /hpf SARS-CoV-2 Ag (Rap id) (Negative) 03/08/20 03/08/20 03/08/20 Range/Units 15:41 15:41 15:41 WBC (4.0-10.0) 10^3/ uL RBC (4.1-5.3) 10^6/u L Hgb (11.5-15.3) g/dL Hct (37.0-47.0) % MCV (81-99) fL MCH (28.0-34.0) pg MCHC (30.0-36.0) g/dL RDW (12.1-15.1) % Plt Count (130-400) 10^3/c mm MPV (7.4-10.4) fL Neut % (Auto) % Lymph % (Auto) % [place] % (Auto) % Eos % (Auto) % Baso % (Auto) % Neut # (Auto) (1.8-7.7) 10^3/u L Lymph # (Auto) (0.8-4.8) 10^3/u L [place] # (Auto) (0.2-0.9) 10^3/u L Eos # (Auto) (0.0-0.8) 10^3/u L Baso # (Auto) (0.0-0.1) 10^3/u L Nucleated RBC % (a uto) % Nucleated RBCs # /100WBC D-Dimer 3.32 H (0-0.59) ug/mIFE U Specimen Type Sample Site ABG pH (7.35-7.45) ABG pCO2 (35-45) mmHg ABG pO2 (80.0-100.0) mmH g ABG HCO3 (22-26) mmol/L ABG O2 Saturation ABG Base Excess (-2.0-2.0) mmol/ L Mc Test A-a O2 Gradient (5-10) mmHg Hematocrit (37-47) % Hgb O2 Saturation (95-100) % Carboxyhemoglobin (0.4-20.1) %THgb Methemoglobin (0.4-1.5) % Total Hemoglobin (12-16) g/dL Sodium (131-143) mmol/L Potassium (3.5-5.0) mmol/L Glucose (70-115) mg/dL Ionized Calcium (1.1-1.4) mmol/L O2 Delivery Device Glass Decorator ID Chloride (98-107) mmol/L Carbon Dioxide (22-29) mmol/L Anion Gap (5-19) BUN (8-23) mg/dL Creatinine (0.5-0.9) mg/dL GFR Calculation Estimat Average Gl ucose Hemoglobin A1c (4.0-6.0) % Calculated Osmolal ity (285-295) mOsm/k g Calcium (8.5-10.5) mg/dL Total Bilirubin (0.15-1.2) mg/dL AST (0-32) U/L ALT (0-33) U/L Alkaline Phosphata se (35-105) IU/L Troponin T Baselin e 56 H (0-10) ng/L Troponin T 120 Min [place] (0-10) ng/L Delta Troponin T (0-10) ABS# NT-Pro-B Natriuret Pep 216 (0-450) pg/mL Total Protein (6.6-8.7) g/dL Albumin (3.5-5.2) g/dL Globulin (1.3-4.6) g/dL Urine Color (Yellow) Urine Appearance (CLEAR) Urine pH (5-7) Ur Specific Gravit y (1.005-1.030) Urine Protein (Negative) Urine Glucose (UA) (Normal) Urine Ketones (Negative) Urine Blood (Negative) Urine Nitrate (Negative) Urine Bilirubin (Negative) Urine Urobilinogen (Negative) mg/dL Ur Leukocyte Adrianne ase (Negative) Urine RBC (0-2) /hpf Urine WBC (0-5) /hpf Ur Squamous Epith Cells (0-5) /hpf Amorphous Sediment Urine Bacteria (NONE) /hpf Urine Mucus /hpf SARS-CoV-2 Ag (Rap id) (Negative) 03/08/20 03/08/20 03/08/20 Range/Units 15:41 15:56 17:55 WBC (4.0-10.0) 10^3/ uL RBC (4.1-5.3) 10^6/u L Hgb (11.5-15.3) g/dL Hct (37.0-47.0) % MCV (81-99) fL MCH (28.0-34.0) pg MCHC (30.0-36.0) g/dL RDW (12.1-15.1) % Plt Count (130-400) 10^3/c mm MPV (7.4-10.4) fL Neut % (Auto) % Lymph % (Auto) % [place] % (Auto) % Eos % (Auto) % Baso % (Auto) % Neut # (Auto) (1.8-7.7) 10^3/u L Lymph # (Auto) (0.8-4.8) 10^3/u L [place] # (Auto) (0.2-0.9) 10^3/u L Eos # (Auto) (0.0-0.8) 10^3/u L Baso # (Auto) (0.0-0.1) 10^3/u L Nucleated RBC % (a uto) % Nucleated RBCs # /100WBC D-Dimer (0-0.59) ug/mIFE U Specimen Type Sample Site ABG pH (7.35-7.45) ABG pCO2 (35-45) mmHg ABG pO2 (80.0-100.0) mmH g ABG HCO3 (22-26) mmol/L ABG O2 Saturation ABG Base Excess (-2.0-2.0) mmol/ L Mc Test A-a O2 Gradient (5-10) mmHg Hematocrit (37-47) % Hgb O2 Saturation (95-100) % Carboxyhemoglobin (0.4-20.1) %THgb Methemoglobin (0.4-1.5) % Total Hemoglobin (12-16) g/dL Sodium (131-143) mmol/L Potassium (3.5-5.0) mmol/L Glucose (70-115) mg/dL Ionized Calcium (1.1-1.4) mmol/L O2 Delivery Device Glass Decorator ID Chloride (98-107) mmol/L Carbon Dioxide (22-29) mmol/L Anion Gap (5-19) BUN (8-23) mg/dL Creatinine (0.5-0.9) mg/dL GFR Calculation Estimat Average Gl ucose 120 Hemoglobin A1c 5.8 (4.0-6.0) % Calculated Osmolal ity (285-295) mOsm/k g Calcium (8.5-10.5) mg/dL Total Bilirubin (0.15-1.2) mg/dL AST (0-32) U/L ALT (0-33) U/L Alkaline Phosphata se (35-105) IU/L Troponin T Baselin e (0-10) ng/L Troponin T 120 Min [place] 54.05 H (0-10) ng/L Delta Troponin T -1.95 L (0-10) ABS# NT-Pro-B Natriuret Pep (0-450) pg/mL Total Protein (6.6-8.7) g/dL Albumin (3.5-5.2) g/dL Globulin (1.3-4.6) g/dL Urine Color Yellow (Yellow) Urine Appearance Sl hazy (CLEAR) Urine pH 5 (5-7) Ur Specific Gravit y 1.015 (1.005-1.030) Urine Protein Neg (Negative) Urine Glucose (UA) Norm (Normal) Urine Ketones 1+ H (Negative) Urine Blood Neg (Negative) Urine Nitrate Negative (Negative) Urine Bilirubin Neg (Negative) Urine Urobilinogen Norm (Negative) mg/dL Ur Leukocyte Adrianne ase 2+ H (Negative) Urine RBC 0-4 H (0-2) /hpf Urine WBC 55-80 H (0-5) /hpf Ur Squamous Epith Cells 0-4 H (0-5) /hpf Amorphous Sediment Not Reportable Urine Bacteria Trace (NONE) /hpf Urine Mucus 2+ /hpf SARS-CoV-2 Ag (Rap id) (Negative) 03/08/20 Range/Units 20:00 WBC (4.0-10.0) 10^3/ uL RBC (4.1-5.3) 10^6/u L Hgb (11.5-15.3) g/dL Hct (37.0-47.0) % MCV (81-99) fL MCH (28.0-34.0) pg MCHC (30.0-36.0) g/dL RDW (12.1-15.1) % Plt Count (130-400) 10^3/c mm MPV (7.4-10.4) fL Neut % (Auto) % Lymph % (Auto) % [place] % (Auto) % Eos % (Auto) % Baso % (Auto) % Neut # (Auto) (1.8-7.7) 10^3/u L Lymph # (Auto) (0.8-4.8) 10^3/u L [place] # (Auto) (0.2-0.9) 10^3/u L Eos # (Auto) (0.0-0.8) 10^3/u L Baso # (Auto) (0.0-0.1) 10^3/u L Nucleated RBC % (a uto) % Nucleated RBCs # /100WBC D-Dimer (0-0.59) ug/mIFE U Specimen Type Sample Site ABG pH (7.35-7.45) ABG pCO2 (35-45) mmHg ABG pO2 (80.0-100.0) mmH g ABG HCO3 (22-26) mmol/L ABG O2 Saturation ABG Base Excess (-2.0-2.0) mmol/ L Mc Test A-a O2 Gradient (5-10) mmHg Hematocrit (37-47) % Hgb O2 Saturation (95-100) % Carboxyhemoglobin (0.4-20.1) %THgb Methemoglobin (0.4-1.5) % Total Hemoglobin (12-16) g/dL Sodium (131-143) mmol/L Potassium (3.5-5.0) mmol/L Glucose (70-115) mg/dL Ionized Calcium (1.1-1.4) mmol/L O2 Delivery Device Glass Decorator ID Chloride (98-107) mmol/L Carbon Dioxide (22-29) mmol/L Anion Gap (5-19) BUN (8-23) mg/dL Creatinine (0.5-0.9) mg/dL GFR Calculation Estimat Average Gl ucose Hemoglobin A1c (4.0-6.0) % Calculated Osmolal ity (285-295) mOsm/k g Calcium (8.5-10.5) mg/dL Total Bilirubin (0.15-1.2) mg/dL AST (0-32) U/L ALT (0-33) U/L Alkaline Phosphata se (35-105) IU/L Troponin T Baselin e (0-10) ng/L Troponin T 120 Min [place] (0-10) ng/L Delta Troponin T (0-10) ABS# NT-Pro-B Natriuret Pep (0-450) pg/mL Total Protein (6.6-8.7) g/dL Albumin (3.5-5.2) g/dL Globulin (1.3-4.6) g/dL Urine Color (Yellow) Urine Appearance (CLEAR) Urine pH (5-7) Ur Specific Gravit y (1.005-1.030) Urine Protein (Negative) Urine Glucose (UA) (Normal) Urine Ketones (Negative) Urine Blood (Negative) Urine Nitrate (Negative) Urine Bilirubin (Negative) Urine Urobilinogen (Negative) mg/dL Ur Leukocyte Adrianne ase (Negative) Urine RBC (0-2) /hpf Urine WBC (0-5) /hpf Ur Squamous Epith Cells (0-5) /hpf Amorphous Sediment Urine Bacteria (NONE) /hpf Urine Mucus /hpf SARS-CoV-2 Ag (Rap id) Negative (Negative) Discharge Plan Discharge Patient Disposition: Admitted As Inpatient Admit Provider: Clayton Purvis Clinical Impression: Multifocal pneumonia Condition: Stable Interventions: ED Discharge Assessment Last Done: 03/08/20 22:19 ED Charges Last Done: 03/08/20 22:19 Discharge Date/Time: 03/08/20 22:55 Coding Level of Care Code ED Circulating Process Inspector for Chg Fwd Exam Comprehensive
[2020-03-08 16:29] LABS: Glucose Urine UA Norm (Normal); Ketones Urine 1+ (Negative); Protein Urine Neg (Negative); Specific Gravity, Urine 1.015 (1.005-1.030); Urine Appearance SL Hazy (CLEAR); Urine Color Yellow (Yellow); pH Urine 5 (5-7)
[2020-03-08 16:30] LABS: Add Urine Microscopic? YES; Bilirubin Urine Neg (Negative); Blood Urine Neg (Negative); Leukocyte Esterase Urine 2+ (Negative); Nitrate Urine Negative (Negative); Urobilinogen Urine Norm (Negative)
[2020-03-08 16:33] LABS: Add Urine Culture? Yes; Bacteria Urine TRACE /hpf; Mucus Urine 2+ /hpf; RBC Urine 0-4 /hpf (0-2); Squamous Epithelial Cell Urine 0-4 /hpf (0-5); WBC Urine 55-80 /hpf (0-5)
--- NOTE | 2020-03-08 16:35 | ECG_ITS ---
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 Measurements Intervals [place] Rate: 86 P: 25 [place]: 183 QRS: 46 QRSD: 89 T: 39 QT: 361 QTc: 434 Interpretive Statements SINUS RHYTHM Some nonspecific T wave changes Compared to ECG 11/29/2019 15:06:06 First degree AV block no longer present Electronically Signed On 03-09-2020 20:51:55 CDT by Matthew Pandey M.D. [id number] f
[2020-03-08 16:36] LABS: Alanine Aminotransferase 15 U/L (0-33); Albumin Level 3.1 g/dL (3.5-5.2); Alkaline Phosphatase 64 IU/L (35-105); Anion Gap 12.5 (5-19); Aspartate Amino Transferase 37 U/L (0-32); Blood Urea Nitrogen 11 mg/dL (8-23); Calcium 8.4 mg/dL (8.5-10.5); Carbon Dioxide 28 mmol/L (22-29); Chloride 93 mmol/L (98-107); Globulin 3.2 g/dL (1.3-4.6); Glucose 103 mg/dL (65-115); Osmolality Calculated 270 mOsm/kg (285-295); Potassium 3.5 mmol/L (3.5-5.1); Sodium 130 mmol/L (136-145); Total Bilirubin 0.4 mg/dL (0.15-1.2); Total Protein 6.3 g/dL (6.6-8.7)
[2020-03-08 17:03] LABS: D Dimer 3.32 ug/mIFEU (0-0.59)
--- NOTE | 2020-03-08 17:09 | CTR_ITS ---
PROCEDURE INFORMATION: Exam: CT Angiography Chest With Contrast Exam date and time: 03/08/2020 6:01 PM Age: 84 years old Clinical indication: Shortness of breath; Prior surgery; Surgery type: Stents; Additional info: SOB, + CA TECHNIQUE: Imaging protocol: Computed tomographic angiography of the chest with intravenous contrast. 3D rendering (Not supervised by radiologist): MIP and/or 3D reconstructed images were created by the technologist. Radiation optimization: All CT scans at this facility use at least one of these dose optimization techniques: automated exposure control; mA and/or kV adjustment per patient size (includes targeted exams where dose is matched to clinical indication); or iterative reconstruction. Contrast material: OMNI 350; Contrast volume: 68 ml; Contrast route: INTRAVENOUS (IV); COMPARISON: CR XR chest 1V portable [id number] 03/08/2020 3:38 PM RADIATION DOSE METRICS: Total DLP (mGy-cm): 433.01 FINDINGS: Pulmonary arteries: Normal. No pulmonary emboli. Aorta: Unremarkable. No aortic aneurysm. No aortic dissection. 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 Moderate-severe stenosis in the proximal superior mesenteric artery. Thyroid: 1.2 cm right thyroid nodule. No follow-up is recommended. Lungs: Dense patchy consolidation involving the lower lobes and right middle lobe. Patchy ground-glass opacities in the posterior and peripheral right upper lobe. Mild atelectasis in the lingula. The left upper lobe is otherwise clear. Pleural space: Small bilateral pleural effusions. Heart: Cardiomegaly. Lymph nodes: Mediastinal and bilateral hilar lymph nodes, measuring up to 1.5 cm short axis. Calcified mediastinal lymph nodes. Bones/joints: Mild T4 and T5 compression fractures with kyphosis. Soft tissues: Unremarkable. CT/CT angio chest PE protcl [id number] IMPRESSION: 1. No evidence for pulmonary embolus. 2. Bilateral multilobar pneumonia versus aspiration. 3. Small bilateral pleural effusions. 4. Mediastinal and hilar lymphadenopathy is most likely reactive. 5. 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 COMMENTS: Consistent with the [employer]'s Incidental Findings Committee white paper (J Am Silas Radiol 2015): In patients aged 35 years and older with an incidental thyroid nodule equal to or greater than 1.[address], MRI or extrathyroidal US, further evaluation with dedicated thyroid US is recommended for patients with normal life expectancy and without comorbidities. For smaller nodules without suspicious features, no further evaluation or follow up is recommended. Radiation Dose CTDIVOL = (mGy): DLP = 433.01 (mGy-cm)
[2020-03-08] MEDS: sodium chloride 0.9% 1,000 ML 125 ML IV (18:01)
[2020-03-08] MEDS: cefTRIAXone 1,000 MG in sodium chloride 0.9% (plus) 50 ML 100 MG IV (18:01)
[2020-03-08] MEDS: iohexol 350 mg/mL 100 mL Btl IV (18:13)
[2020-03-08 18:25] LABS: Troponin 5 2HR 54.05 ng/L (0-10)
--- NOTE | 2020-03-08 18:35 | ECG_ITS ---
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 Measurements Intervals [place] Rate: 89 P: 63 [place]: 218 QRS: 61 QRSD: 80 T: 52 QT: 362 QTc: 440 Interpretive Statements SINUS RHYTHM WITH SINUS ARRHYTHMIA WITH FIRST DEGREE AV BLOCK MINIMAL ST DEPRESSION [0.025+ mV ST DEPRESSION] Compared to ECG 03/08/2020 16:43:16 First degree AV block now present ST (T wave) deviation now present Electronically Signed On 03-09-2020 20:57:56 CDT by Matthew Pandey M.D. [id number] f
[2020-03-08 18:51] LABS: Troponin(5th) Baseline 56 ng/L (0-10)
[2020-03-08 18:58] LABS: NT Pro B Type Natriuretic Pept 216 pg/mL (0-450)
[2020-03-08 19:42] LABS: Troponin 5 2HR Delta -1.95 ABS# (0-10)
--- NOTE | 2020-03-08 20:03 | PC.NURSE ---
PT swabbed for covid and test taken to lab.
[2020-03-08 20:32] LABS: SARS Covid-2 Antigen Negative (Negative)
--- NOTE | 2020-03-08 21:11 | P.HP_ITS ---
Providers/Chief Complaint Primary Care Provider: Scar Bedoya Jr, MD Chief Complaint: SOB, COUGH History of Present Illness Natasha Gustafson is a 84 year old female is a pleasant 84-year-old female with a past medical history of CAD status post stenting x2, hypertension, ascending colon malignant neoplasm status post right hemicolectomy who presents to [facility] due to complaints of fatigue, malaise, shortness of breath, cough, weakness, weight loss, poor appetite. Patient lives in [place], with her , who has moderate dementia, he relies on her. Patient tells me that she started to go downhill since her left hip replacement, she started to develop fatigue, weakness, shortness of breath. 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 She stated that she improved a bit after her surgery, but continues to have fatigue, weakness, malaise, weight loss, has roughly lost 20 pounds in the 6 months. She tells me that the reason that she came to the emergency room today was that she started to develop worsening shortness of breath, shortness of breath with exertion, nonproductive cough, fevers, chills. No lightheadedness, no dizziness, no nausea, no vomiting, no chest pain, no palpitations. Has a cardiac history, 2 stents placed in her heart, denies chest pain, denies palpitations, stents p laced in 2005. No lung history, no history of pulmonary embolism, no recent history of pneumonia. No history of strokes. States that she stays at home, no recent history of travel, no known exposure to COVID-19. No history of dysphagia, odynophagia, globus sensation, choking. Review of Systems Const: Denies: fever(s), chills, fatigue or malaise Eyes: Denies: change in vision or blurry vision ENMT: Denies: nasal congestion Resp: Denies: dyspnea, productive cough, non-productive cough or wheezing GI: Denies: abdominal pain, nausea, vomiting, hematemesis, diarrhea, con stipation, hematochezia or melena : Denies: flank pain, dysuria or urinary frequency Musc: Denies: neck pain or back pain Skin/Breast: Denies: rash Neuro: Denies: headache(s), dizziness or vertigo Psych: Denies: anxiety or depression Endo: Denies: polyuria or polydipsia Medications/Allergies Home Medications Medication Instructions Recorded Confirmed Last Taken Type amlodipine 5 mg PO DAILY 11/03/19 03/08/20 03/08/20 History aspirin [Aspir-81] 81 mg PO DAILY 11/03/19 03/08/20 03/08/20 History hydrochlorothiazide 25 mg PO DAILY 11/03/19 03/08/20 03/08/20 History metoprolol tartrate 25 mg PO DAILY 11/03/19 03/08/20 03/08/20 History rosuvastatin 40 mg PO QPM 11/03/19 03/08/20 03/07/20 History Zeal Powder 1 packet PO DAILY 11/29/19 03/08/20 01/05/20 History acetaminophen [Tylenol Extra 500 mg PO PRN 03/08/20 03/08/20 Unknown History Strength] capecitabine [Xeloda] See Rx Instructions .ROUTE .COMPLEX 03/08/20 03/08/20 Unknown History capecitabine [Xeloda] See Rx Instructions .ROUTE .COMPLEX 03/08/20 03/08/20 Unknown History lorazepam 0.5 - 1 mg PO Q4H PRN 03/08/20 03/08/20 Unknown History prochlorperazine maleate 10 mg PO Q4H PRN 03/08/20 03/08/20 Unknown History Allergies Allergy/AdvReac Type Severity Reaction Status Date / Time latex Allergy ALGY-Rash Verified 03/08/20 16:11 PFSH Acute PFSH: Medical History (Updated 03/08/20 @ 21:24 by Clayton Purvis MD) Ascending colon malignant neoplasm Status post right hemicolectomy on 01/08/2020. CAD (coronary artery disease) -s/p stenting x 2 (2005) -on ASA, statin Hypercholesteremia -continue statin -lipid panel noted Hypertension -close monitoring of vital signs -continue oral antihypertensives Iron deficiency anemia -recent blood transfusion due to worsening anemia (11/03/2019) -H/H stable -pending GI w/u by Dr. Lauren -on iron supplementation Postoperative anemia Status post transfusion. Hemoglobin 9.5. Skin cancer of face Vertigo -noted episode of N/V with change in position, nystagmus, has chronic tinnitus and is hard of hearing -orthostatics negative, close monitoring of vital signs -telemetry monitoring -Echo: EF=65%, G1DD, no RWMA, mild pulmonary HTN (39), mild TR -carotid US: no hemodynamically significant stenosis -noted anemia with stable Hg -CT head negative for acute findings; CXR unremarkable for acute changes -gentle IVF hydration; can d/c -fall precautions, up with assist -PT evaluation -antiemetics as needed -UA with pyuria and bacteria; will treat empirically due to patient's advanced age and symptoms -meclizine PRN Surgical History (Updated 11/29/19 @ 17:47 by Inez Moe MD) H/O heart artery stent H/O: hysterectomy History of left hip replacement Family History Denies family history of CAD (coronary artery disease) Social History (Updated 11/29/19 @ 17:48 by Inez Moe MD) Smoking and tobacco status: never smoked Alcohol intake: never Household members: spouse Marital status: Current occupational status: retired Vitals/I&O/Wt Last Vital Signs Temp 98.3 F 03/08/20 14:37 Pulse 91 03/08/20 19:56 Resp 18 03/08/20 19:56 BP 149/85 03/08/20 19:56 Pulse Ox 92 03/08/20 19:56 Weight last 48 hrs Weight 55.792 kg Physical Exam Const: COMMON NORMALS: no acute distress and patient oriented x3 GENERAL APPEARANCE: cooperative and comfortable HENMT: COMMON NORMALS: normocephalic HEAD & SCALP: normocephalic Eye: COMMON NORMALS: Equal, round and reactive pupils present and no papilledema GENERAL EYE: appearance normal, both eyes and all related structures PUPIL: Yes Equal, round and reactive pupils present Neck/C-Spine: COMMON NORMALS: full ROM, no lymphadenopathy, no JVD and Thyroid normal THYROID: Thyroid normal Lymph: LYMPHATIC: no lymphadenopathy noted Resp: COMMON NORMALS: No retractions, No use of accessory muscles and clear to auscultation bilaterally AUSCULTATION: crackles, rales and wheezes Cardio: COMMON NORMALS: no JVD, regular rate, regular rhythm, S1 normal heart sound present, S2 normal heart sound present, No gallops present (Cardio), No clicks present (Cardio) and No murmurs present (Cardio) RATE: regular rate RHYTHM: regular rhythm HEART SOUNDS: S1 normal heart sound present and S2 normal heart sound present GI: COMMON NORMALS: Normal to inspection, nondistended, normoactive bowel sounds present, Soft to palpation, non-tender and No hepatosplenomegaly present PALPATION: Yes Soft to palpation and Yes No hepatosplenomegaly present Extremity: COMMON NORMALS: normal to inspection, full ROM and no pedal edema Neuro: COMMON NORMALS: patient oriented x3, CN's II-XII intact bilaterally, moves all extremities and no focal motor deficits Psych: COMMON NORMALS: mental status grossly normal, Normal thought process present and cooperative THOUGHT PROCESS: Normal thought process present Data : 03/08/20 15:41 03/08/20 15:41 A&P Assessment and plan (1) Multifocal pneumonia: -Review of CT angiogram with contrast scan shows extensive multifocal pneumonia, possible underlying aspiration pneumonitis/pneumonia, bilateral pleural effusions -WBC 11.2, d-dimer 3.32, - saturating 90% 2 L nasal cannula -Pro-Paresh CRP are pending -Rapid COVID is negative -Has a history of colon cancer, status post surgical intervention, has not started chemotherapy yet Plan: -Admit to general medical floors -COVID precautions -Order COVID PCR -Broad-spectrum antibiotics azithromycin and Rocephin, sputum cultures, blood cultures -Monitor respiratory status, monitor clinical status -PT OT -Full code -Lovenox for DVT prophylaxis -I have kept patient on dysphasia diet, aspiration precautions, consider doing a barium swallow -I would also review scans with pulmonary tomorrow, given history of colon cance Status: Acute (2) UTI (urinary tract infection): -Urine culture, on Rocephin Status: Acute (3) Hyponatremia: -Likely secondary to dehydration, start start gentle IV hydration Status: Acute (4) NSTEMI (non-ST elevated myocardial infarction): -Has a history of 2 cardiac stents, last placed 2005 -First troponin 56, 120-minute 54.05 -EKG no acute ST-T wave changes -No active chest pain -Telemetry monitoring -Will trend troponins, serial EKGs, aspirin, statin, beta-juventino -We will order cardiac echocardiogram Status: Acute (5) Hypertension: Status: Inactive Qualifiers: Hypertension type: essential hypertension Qualified Code(s): I10 - Essential (primary) hypertension (6) Hypercholesteremia: Status: Inactive (7) CAD (coronary artery disease): Status: Inactive Qualifiers: Coronary Disease-Associated Artery/Lesion type: [place] artery [place] vs. transplanted heart: [place] heart Associated angina: without angina Qualified Code(s): I25.10 - Atherosclerotic heart disease of [place] coronary artery without angina pectoris (8) Ascending colon malignant neoplasm: -Status post right hemicolectomy, has not started chemotherapy as of yet Status: Resolved (9) Weakness: -Acute on chronic weakness, fatigue, weight loss -We will order CT scan of the abdomen given history of colon cancer status post resection Status: Acute Attestations Medical Necessity Statement*: Cards hospitalization, inpatient, greater than 2 midnights, for multifocal pneumonia, hyponatremia, UTI, and NSTEMI Coding Level of Care Code 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 transplanted heart: [place] heart Associated angina: without angina Ascending colon malignant neoplasm C18.2 Weakness R53.1
[2020-03-08 22:26] LABS: Troponin 5 6HR 51.15 ng/L (0-10)
[2020-03-08 22:32] LABS: Troponin 5 6HR Delta -4.85 ng/L (0-12)
--- NOTE | 2020-03-08 22:35 | ECG_ITS ---
[facility] Test Date: 2020-03-08 Pat Name: Natasha Gustafson Department: Room: 256 Gender: Female Clinical Unit Coordinator: : 1935 Requested By: Nisha Tamayo Order Number: [id number] Marly MD: Matthew Pandey M.D. Measurements Intervals [place] Rate: 82 P: 47 [place]: 209 QRS: 42 QRSD: 90 T: 37 QT: 378 QTc: 442 Interpretive Statements SINUS RHYTHM WITH OCCASIONAL SUPRAVENTRICULAR PREMATURE COMPLEXES Compared to ECG 03/08/2020 18:51:34 Sinus arrhythmia no longer present First degree AV block no longer present ST (T wave) deviation no longer present Electronically Signed On 03-10-2020 21:37:03 CDT by Matthew Pandey M.D. [id number]
[2020-03-08 23:22] LABS: NT Pro B Type Natriuretic Pept 188 pg/mL (0-450); Procalcitonin 0.07 ng/mL (0-0.5)
[2020-03-08 23:33] LABS: Ferritin 80 ng/mL (15-150)
[2020-03-08 23:36] LABS: Lactic Sepsis W/Reflex 1.4 mmol/L (0.5-2.2)
[2020-03-08 23:47] LABS: Estmated Average Glucose 120; Hemoglobin A1C 5.8 % (4.0-6.0)
[2020-03-09] VITALS: BP 125/64; PULSE 80; RESP 24; TEMP 37.1; O2SAT 96
[2020-03-09 00:05] LABS: Thyroid Stimulating Hormone 0.85 uIU/mL (0.27-4.20)
[2020-03-09 00:35] LABS: Influenza A by IFA Negative (Negative); Influenza B by IFA Negative (Negative)
[2020-03-09] MEDS: sodium chloride 0.9% 1,000 ML 75 ML IV ×2 (00:38→17:57)
[2020-03-09] MEDS: enoxaparin 40 mg/0.4 mL Syringe SUBCUT ×2 (00:38→22:37)
[2020-03-09 04:00] VITALS: BP 121/61; PULSE 71; RESP 17; TEMP 37.2; O2SAT 94
[2020-03-09 05:53] LABS: Basophils % 0.2 %; Eosinophils # 0.1 10^3/uL (0.0-0.8); Eosinophils % 1.4 %; Hematocrit 30.9 % (37.0-47.0); Hemoglobin 9.4 g/dL (11.5-15.3); Lymphocytes # 0.7 10^3/uL (0.8-4.8); Lymphocytes % 14.6 %; Mean Corpuscular HGB Conc 30.4 g/dL (30.0-36.0); Mean Corpuscular Hemoglobin 23.8 pg (28.0-34.0); Mean Corpuscular Volume 78.2 fL (81-99); Mean Platelet Volume 8.7 fL (7.4-10.4); Monocytes # 0.3 10^3/uL (0.2-0.9); Monocytes % 6.3 %; Neutrophils # 3.81 10^3/uL (1.8-7.7); Neutrophils % 77.3 %; Nucleated Red Blood Cells % 0 %; Platelet Count 251 10^3/cmm (130-400); Red Blood Count 3.95 10^6/uL (4.1-5.3); Red Cell Distribution Width 19.1 % (12.1-15.1); White Blood Count 4.9 10^3/uL (4.0-10.0)
[2020-03-09 06:21] LABS: Alanine Aminotransferase 12 U/L (0-33); Albumin Level 2.4 g/dL (3.5-5.2); Alkaline Phosphatase 53 IU/L (35-105); Anion Gap 9.4 (5-19); Aspartate Amino Transferase 29 U/L (0-32); Blood Urea Nitrogen 10 mg/dL (8-23); Calcium 7.7 mg/dL (8.5-10.5); Carbon Dioxide 26 mmol/L (22-29); Chloride 98 mmol/L (98-107); Globulin 2.7 g/dL (1.3-4.6); Glucose 88 mg/dL (65-115); Magnesium 1.8 mg/dL (1.7-2.3); Osmolality Calculated 268 mOsm/kg (285-295); Phosphorus 3.8 mg/dL (2.5-4.5); Potassium 3.4 mmol/L (3.5-5.1); Sodium 130 mmol/L (136-145); Total Bilirubin 0.3 mg/dL (0.15-1.2); Total Protein 5.1 g/dL (6.6-8.7)
[2020-03-09 08:00] VITALS: BP 111/64; PULSE 93; RESP 18; TEMP 36.4; O2SAT 95
[2020-03-09] MEDS: aspirin 81 mg EC Tablet PO (08:32)
[2020-03-09] MEDS: amlodipine 5 mg Tablet PO (08:32)
[2020-03-09] MEDS: azithromycin 500 MG in sodium chloride 0.9% 250 ML 250 MG IV (08:33)
[2020-03-09] MEDS: hydroCHLOROthiazide 25 mg Tablet PO (08:33)
[2020-03-09] MEDS: metoprolol tartrate 25 mg Tablet PO (08:33)
--- NOTE | 2020-03-09 10:00 | USCV_ITS ---
Natasha Gustafson Age: 84 Gender: F : 1935 Exam Date: 03/09/2020 10:35 Ordering Phys: Clayton Purvis MD Technologist: El Brown [place] [facility] [place] SOB BP: 121 / 61 HR: 71 Rhythm: Sinus Technical Quality: Adequate MEASUREMENTS (Male / Female) Normal Values 2D ECHO LV Diastolic Diameter PLAX 3.9 cm 4.2 - 5.9 / 3.9 - 5.3 cm LV Systolic Diameter PLAX 2.4 cm IVS Diastolic Thickness 1.2 cm 0.6 - 1.0 / 0.6 - 0.9 cm IVS Systolic Thickness 1.4 cm LVPW Diastolic Thickness 1.2 cm 0.6 - 1.0 / 0.6 - 0.9 cm LVPW Systolic Thickness 1.2 cm LVOT Diameter 1.9 cm LV Ejection Fraction 2D Teich 71.2 % LV Ejection Fraction MOD 2C 73.2 % LV Ejection Fraction 2C AL 73.3 % LA Diameter 2.8 cm LA Width 3.4 cm LA Height 4.6 cm RA Width 2.9 cm RA Height 3.9 cm Aorta at Sinotubular Diameter 1.1 cm M-MODE LV Diastolic Diameter MM 3.7 cm 4.2 - 5.9 / 3.9 - 5.3 cm LV Systolic Diameter MM 2.4 cm LV Ejection Fraction MM Teich 64.6 % IVS Diastolic Thickness MM 0.8 cm 0.6 - 1.0 / 0.6 - 0.9 cm IVS Systolic Thickness MM 1.4 cm LVPW Diastolic Thickness MM 1.2 cm 0.6 - 1.0 / 0.6 - 0.9 cm LVPW Systolic Thickness MM 1.7 cm RV Diastolic Diameter MM 1.6 cm Aortic Annulus Diameter 2.9 cm LA Ao Ratio MM 1.0 MV E Point Septal Separation 0.9 cm DOPPLER AV Peak Velocity 159.7 cm/s LVOT Peak Velocity 89.0 cm/s AV Area Cont Eq vti 1.6 cm squared AV Area Cont Eq pk 1.6 cm squared MV Area PHT 3.1 cm squared Mitral E to A Ratio 1.1 MV E' Velocity 51.5 cm/s Mitral E to MV E' Ratio 10.4 Mitral E to LV E' Lateral Ratio 10.6 Mitral E to LV E' Septal Ratio 10.2 TR Peak Velocity 260.0 cm/s TR Peak Gradient 27.0 mmHg TV Peak E Velocity 95.0 cm/s Right Atrial Pressure 3.0 mmHg Pulmonary Artery Systolic Pressu 30.0 mmHg PV Peak Velocity 90.0 cm/s FINDINGS Left Ventricle Normal left ventricular size and systolic function, EF 70 %. Mild left ventricular hypertrophy. Grade II/IV diastolic dysfunction, moderately elevated filling pressures. No regional wall motion abnormalities. Right Ventricle Normal right ventricular size and systolic function. Right Atrium Normal right atrial size. Left Atrium Mildly increased left atrial size. Mitral Valve Thickened mitral valve. Mild mitral annular calcification. Aortic Valve Thickened aortic valve. Tricuspid Valve Mild tricuspid valve regurgitation. Pulmonic Valve No pulmonic regurgitation. Pericardium No pericardial effusion. Aorta Normal aortic annulus size. CONCLUSIONS Normal left ventricular size and systolic function, EF 70 %. No regional wall motion abnormalities. Mild left ventricular hypertrophy. Grade II/IV diastolic dysfunction, moderately elevated filling pressures. Mildly increased left atrial size. Thickened mitral valve. Mild mitral annular calcification. Thickened aortic valve. There is no pericardial effusion. There are no intracardiac masses. No previous study is available for comparison. Dr Matthew Pandey MD [facility] (Electronically Signed) Final Date: 09 March 2020 20:22 S
[2020-03-09 16:00] VITALS: BP 113/55; PULSE 81; RESP 18; TEMP 37.2; O2SAT 94
[2020-03-09] MEDS: cefTRIAXone 1,000 MG in sodium chloride 0.9% (plus) 50 ML 100 MG IV (17:57)
[2020-03-09 20:00] VITALS: BP 136/55; PULSE 82; RESP 18; TEMP 36.9; O2SAT 94
--- NOTE | 2020-03-09 20:38 | PM.PN ---
Subjective Subjective: Interval history: She says she is doing all right. Has been walking in her room, and in fact walked to the restroom unassisted. Did not take oxygen with her, but did put the cannula back on after returning. Denies chest pain. Vitals/I&O/Wt Last Vital Signs Temp 98.9 F 03/09/20 16:00 Pulse 81 03/09/20 16:00 Resp 18 03/09/20 16:00 BP 113/55 03/09/20 16:00 Pulse Ox 94 03/09/20 16:00 03/09/20 03/09/20 03/09/20 06:59 14:59 22:59 Intake Total 1100 / 1100 400 / 1500 Output Total 125 / 125 Balance -125 / -125 1100 / 1100 400 / 1500 Weight last 48 hrs Weight 55.792 kg Physical Exam Const: COMMON NORMALS: no acute distress and patient oriented x3 HENMT: COMMON NORMALS: oropharynx normal Neck/C-Spine: COMMON NORMALS: no JVD Resp: COMMON NORMALS: normal respiratory effort AUSCULTATION: diminished lung sounds on the right Cardio: COMMON NORMALS: no JVD, regular rhythm, S1 normal heart sound present, S2 normal heart sound present and No murmurs present (Cardio) RHYTHM: regular rhythm HEART SOUNDS: S1 normal heart sound present and S2 normal heart sound present GI: COMMON NORMALS: Normal to inspection, nondistended, normoactive bowel sounds present, Soft to palpation and non-tender PALPATION: Yes Soft to palpation Extremity: COMMON NORMALS: no joint enlargement and no pedal edema Neuro: COMMON NORMALS: patient oriented x3 and moves all extremities Skin: COMMON NORMALS: no rashes or lesions noted GENERAL SKIN EXAM: no rashes or lesions noted Data : 03/09/20 05:30 03/09/20 05:30 Micro: Microbiology 03/08/20 23:10 Blood Culture - Preliminary Blood SPECIMEN COLLECTED 03/08/20 23:05 Blood Culture - Preliminary Blood SPECIMEN COLLECTED A&P Assessment and plan (1) Multifocal pneumonia: Oxygenation appears stable on several liters of nasal cannula flow. Symptomatically she is now feeling worse. Diminished air tree noted on the right. Pending COVID-19 PCR. Continue antibiotics. Follow cultures. Currently on dysphasia diet, aspiration precautions, consider doing a barium swallow Consider review scans with pulmonary tomorrow given history of colon cancer Status: Acute (2) UTI (urinary tract infection): -Urine culture, on Rocephin Status: Acute (3) Hyponatremia: Stay well. Hold further IVF. Status: Acute (4) NSTEMI (non-ST elevated myocardial infarction): No chest pain. Troponin moderately elevated every 56-54-51. No acute rise. Nonspecific ST changes. Suspect this may be more likely due to mismatch and demand supply. Echocardiogram with grade 2 diastolic dysfunction. No regional wall motion abnormalities. Continue current medications at this time. Limited but from nonemergent additional assessment for coronary disease. Status: Acute (5) Hypertension: At goal. Monitor. Status: Inactive Qualifiers: Hypertension type: essential hypertension Qualified Code(s): I10 - Essential (primary) hypertension (6) Hypercholesteremia: Statin Status: Inactive (7) CAD (coronary artery disease): Continue aspirin, statin, beta-juventino Status: Inactive Qualifiers: Coronary Disease-Associated Artery/Lesion type: [place] artery [place] vs. transplanted heart: [place] heart Associated angina: without angina Qualified Code(s): I25.10 - Atherosclerotic heart disease of [place] coronary artery without angina pectoris (8) Ascending colon malignant neoplasm: -Status post right hemicolectomy, has not started chemotherapy as of yet Status: Resolved (9) Weakness: -Acute on chronic weakness, fatigue, weight loss -CT scan of the abdomen with postoperative changes, no evidence of recurrent mass, progressed small bilateral pleural effusions, compressive atelectasis right greater than left, hazy infiltrates in the right middle lobe and lingula compatible with pneumonia. Correlate for viral pneumonia. Incidentally noted stable cholelithiasis. Diverticulosis. Status: Acute Attestations Medical Necessity Statement*: Continue admission for assessment management of pneumonia, UTI Coding Level of Care Code Acute Hospital Technician for [facility] Fwd Diagnoses Multifocal pneumonia J18.9 UTI (urinary tract infection) N39.0 Hyponatremia E87.1 NSTEMI (non-ST elevated myocardial infarction) I21.4 Hypertension I10 Hypertension type: essential hypertension Hypercholesteremia E78.00 CAD (coronary artery disease) I25.10 Coronary Disease-Associated Artery/Lesion type: [place] artery [place] vs. transplanted heart: [place] heart Associated angina: without angina Ascending colon malignant neoplasm C18.2 Weakness R53.1
--- NOTE | 2020-03-09 22:50 | CT_ITS ---
WS: [id number] CT ABDOMEN PELVIS TECHNIQUE: Noncontrast CT of the abdomen and pelvis with coronal and sagittal reformatted images. CLINICAL INFORMATION: weightloss, fatigue COMPARISON: December 04, 2019 DLP: 257.[address] scans at [facility] use at least one of these dose optimization techniques: automat ed exposure control; mA and/or kV adjustment per patient size (includes targeted exams where dose is matched to clinical indication); or iterative reconstruction. FINDINGS: Diffuse fatty infiltration of the liver. Prominent gallbladder calculus measuring 10 mm unchanged. No rmal GE junction. Normal noncontrast spleen. Noncontrast pancreas is normal. Adrenal glands are ag l. Small bilateral pleural effusions with compressive atelectasis in the right greater than left lung bases. This appears progressed since March 08, 2020. Additional hazy groundglass infiltrates in th e right middle lobe. Air bronchograms within both lower lobes. Additional subsegmental atelectasis an d slight infiltrates in the lingula. Adrenal glands are normal. No hydronephrosis. Residual contrast in the ureters and bladder. Ureters a re decompressed. Left LUIS degrades images in the pelvis. Sigmoid diverticulosis. No evidence of acute diverticulitis. Postoperative changes are new since the prior examination with ileocolic anastomosis. Cecum is normal in appearance. Normal colon. No evidence of large or small bowel obstruction. Aortic calcification. Normal caliber abdominal aorta. No abdominal or pelvic lymphadenopathy. No inguinal lymphadenopathy. Stable grade 1 anterolisthesis L [address]/CT abdomen pelvis wo con [id number] IMPRESSION: 1. Postoperative changes are new since the prior examination with ileocolic re section and anastomosis. 2. No evidence of recurrent mass or disease at the ileocecal junction or cecum . Normal small and large bowel. 3. Progressed small bilateral pleural effusions with compressive atelectasis i n the right greater than left lower lobes. Additional hazy infiltrates in the r ight middle lobe and lingula. Findings compatible with pneumonia. Recommend cor relation for viral pneumonia. 4. Cholelithiasis with stable prominent gallstone measuring 10 mm. 5. No abdominal or pelvic lymphadenopathy. 6. Residual contrast in the ureters and bladder. No hydronephrosis. 7. Sigmoid diverticulosis. No evidence of acute diverticulitis. 8. No other significant interval changes.
[2020-03-10] VITALS: BP 141/67; PULSE 87; RESP 17; TEMP 37; O2SAT 92
[2020-03-10 04:00] VITALS: BP 106/54; PULSE 77; RESP 19; TEMP 36.8; O2SAT 94
[2020-03-10 05:22] LABS: Basophils % 0.6 %; Eosinophils # 0.2 10^3/uL (0.0-0.8); Eosinophils % 3.7 %; Hemoglobin 9.2 g/dL (11.5-15.3); Lymphocytes # 0.8 10^3/uL (0.8-4.8); Lymphocytes % 15.9 %; Mean Corpuscular HGB Conc 30.7 g/dL (30.0-36.0); Mean Corpuscular Volume 78.1 fL (81-99); Monocytes # 0.3 10^3/uL (0.2-0.9); Monocytes % 6.3 %; Neutrophils # 3.75 10^3/uL (1.8-7.7); Neutrophils % 73.3 %; Nucleated Red Blood Cells % 0 %; Platelet Count 260 10^3/cmm (130-400); Red Blood Count 3.84 10^6/uL (4.1-5.3); Red Cell Distribution Width 19.2 % (12.1-15.1); White Blood Count 5.1 10^3/uL (4.0-10.0)
[2020-03-10 06:01] LABS: Alanine Aminotransferase 13 U/L (0-33); Albumin Level 2.1 g/dL (3.5-5.2); Alkaline Phosphatase 53 IU/L (35-105); Anion Gap 11.5 (5-19); Aspartate Amino Transferase 27 U/L (0-32); Blood Urea Nitrogen 10 mg/dL (8-23); Calcium 7.9 mg/dL (8.5-10.5); Carbon Dioxide 24 mmol/L (22-29); Chloride 101 mmol/L (98-107); Globulin 2.7 g/dL (1.3-4.6); Glucose 95 mg/dL (65-115); Magnesium 1.8 mg/dL (1.7-2.3); Osmolality Calculated 275 mOsm/kg (285-295); Phosphorus 3.5 mg/dL (2.5-4.5); Potassium 3.5 mmol/L (3.5-5.1); Sodium 133 mmol/L (136-145); Total Bilirubin 0.3 mg/dL (0.15-1.2); Total Protein 4.8 g/dL (6.6-8.7)
[2020-03-10 07:56] VITALS: BP 138/71; PULSE 110; RESP 20; TEMP 36.7; O2SAT 91
[2020-03-10] MEDS: azithromycin 500 MG in sodium chloride 0.9% 250 ML 250 MG IV ×2 (08:53→09:41)
[2020-03-10] MEDS: aspirin 81 mg EC Tablet PO (09:11)
[2020-03-10] MEDS: amlodipine 5 mg Tablet PO (09:11)
[2020-03-10] MEDS: hydroCHLOROthiazide 25 mg Tablet PO (09:11)
[2020-03-10] MEDS: metoprolol tartrate 25 mg Tablet PO (09:11)
[2020-03-10] MEDS: atorvastatin 40 mg Tablet PO (09:11)
[2020-03-10 11:35] VITALS: BP 110/61; PULSE 68; RESP 18; TEMP 36.7; O2SAT 97
[2020-03-10 15:22] VITALS: BP 118/59; PULSE 75; RESP 16; TEMP 36.7; O2SAT 96
[2020-03-10] MEDS: cefTRIAXone 1,000 MG in sodium chloride 0.9% (plus) 50 ML 100 MG IV (17:10)
--- NOTE | 2020-03-10 17:58 | PC.NURSE ---
pt has had a good day. pt has a cough but states can not cough any up. pt reports no pain or concerns.
[2020-03-10 20:00] VITALS: BP 148/62; PULSE 70; RESP 19; TEMP 36.8; O2SAT 94
--- NOTE | 2020-03-10 20:07 | PM.PN ---
Subjective Subjective: Interval history: She continues to cough. Says that she has been coughing some things off currently. Otherwise breathing is comfortable on nasal cannula. Denies new symptoms. No chest pain. Vitals/I&O/Wt Last Vital Signs Temp 98.1 F 03/10/20 15:22 Pulse 75 03/10/20 15:22 Resp 16 03/10/20 15:22 BP 118/59 03/10/20 15:22 Pulse Ox 96 03/10/20 15:22 03/10/20 03/10/20 03/10/20 06:59 14:59 22:59 Intake Total 1480 / 1480 Balance 1480 / 1480 Physical Exam Const: COMMON NORMALS: no acute distress, patient oriented x3 and alert ORIENTATION/CONSCIOUSNESS: Yes awake OTHER: Pleasant, conversant. Slightly hard of hearing. HENMT: COMMON NORMALS: oropharynx normal Neck/C-Spine: COMMON NORMALS: no JVD Resp: COMMON NORMALS: normal respiratory effort AUSCULTATION: rhonchi (Mild.) and diminished lung sounds on the right in the lower lung alba Cardio: COMMON NORMALS: no JVD, regular rhythm, S1 normal heart sound present, S2 normal heart sound present and No murmurs present (Cardio) RHYTHM: regular rhythm HEART SOUNDS: S1 normal heart sound present and S2 normal heart sound present GI: COMMON NORMALS: Normal to inspection, nondistended, normoactive bowel sounds present, Soft to palpation and non-tender PALPATION: Yes Soft to palpation Extremity: COMMON NORMALS: no joint enlargement and no pedal edema Neuro: COMMON NORMALS: patient oriented x3 and moves all extremities SENSORIUM/ORIENTATION: Yes alert Skin: COMMON NORMALS: no rashes or lesions noted GENERAL SKIN EXAM: no rashes or lesions noted Data : 03/10/20 05:00 03/10/20 05:00 Micro: Microbiology 03/08/20 15:56 Urine Culture - Preliminary Urine,Clean Catch Enterococcus species 03/09/20 22:46 Gram Stain - Final Sputum - Expectorated Sputum 03/08/20 23:10 Blood Culture - Preliminary Blood NEGATIVE TO DATE 03/08/20 23:05 Blood Culture - Preliminary Blood NEGATIVE TO DATE A&P Assessment and plan (1) Multifocal pneumonia: She is doing about the same. Still requiring oxygen. On 2 L. Sitting up at the side of the bed. Overall clinically to be stable. If remains stable, discussed with her we could backslash transition to oral antibiotic will discharge home tomorrow. She is not normally on oxygen, and so he is likely to require her oxygen on discharge, which will need to be assessed. Oxygenation appears stable on several liters of nasal cannula flow. Symptomatically she is now feeling worse. Diminished air tree noted on the right. Pending COVID-19 PCR. No PE. Continue antibiotics. Follow cultures. She is doing well on bedside swallow evaluation. Requested to advance her diet to regular consistency. Will get speech therapy to see her. Consider review scans with pulmonary given history of colon cancer Status: Acute (2) UTI (urinary tract infection): Enterococcus, 10-20,000. Small contamination. Status: Acute (3) Hyponatremia: Improving. Hold further IVF. Status: Acute (4) NSTEMI (non-ST elevated myocardial infarction): No chest pain. Troponin moderately elevated every 56-54-51. No acute rise. Nonspecific ST changes. Suspect this may be more likely due to mismatch and demand supply. Echocardiogram with grade 2 diastolic dysfunction. No regional wall motion abnormalities. Continue current medications at this time. Limited but from nonemergent additional assessment for coronary disease. Status: Acute (5) Hypertension: At goal. Monitor. Status: Inactive Qualifiers: Hypertension type: essential hypertension Qualified Code(s): I10 - Essential (primary) hypertension (6) Hypercholesteremia: Statin Status: Inactive (7) CAD (coronary artery disease): Continue aspirin, statin, beta-juventino Status: Inactive Qualifiers: Coronary Disease-Associated Artery/Lesion type: [place] artery [place] vs. transplanted heart: [place] heart Associated angina: without angina Qualified Code(s): I25.10 - Atherosclerotic heart disease of [place] coronary artery without angina pectoris (8) Ascending colon malignant neoplasm: -Status post right hemicolectomy, has not started chemotherapy as of yet Status: Resolved (9) Weakness: -Acute on chronic weakness, fatigue, weight loss -CT scan of the abdomen with postoperative changes, no evidence of recurrent mass, progressed small bilateral pleural effusions, compressive atelectasis right greater than left, hazy infiltrates in the right middle lobe and lingula compatible with pneumonia. Correlate for viral pneumonia. Incidentally noted stable cholelithiasis. Diverticulosis. Status: Acute Attestations Medical Necessity Statement*: Continue admission for assessment management of multilobar pneumonia, hypoxia. Coding Level of Care Code Acute [employer] Coke Drawer for [facility] Fwd Diagnoses Multifocal pneumonia J18.9 UTI (urinary tract infection) N39.0 Hyponatremia E87.1 NSTEMI (non-ST elevated myocardial infarction) I21.4 Hypertension I10 Hypertension type: essential hypertension Hypercholesteremia E78.00 CAD (coronary artery disease) I25.10 Coronary Disease-Associated Artery/Lesion type: [place] artery [place] vs. transplanted heart: [place] heart Associated angina: without angina Ascending colon malignant neoplasm C18.2 Weakness R53.1
[2020-03-10] MEDS: enoxaparin 40 mg/0.4 mL Syringe SUBCUT (22:40)
[2020-03-11] VITALS (7 sets, daily range): BP systolic 141–170; BP diastolic 59–83; PULSE 70–110; RESP 16–18; TEMP 36.6–37.4; O2SAT 89–93
[2020-03-11] MEDS: acetaminophen 500 mg Tablet PO (05:10)
--- NOTE | 2020-03-11 05:27 | PC.NURSE ---
This nurse called lab to verify Covid 19 PCR test. Holly from lab looked up the results in the computer and manual records and stated that there was no record of the Covid 19 PCR swab sent out. The only thing pending was the Interleukin 6 test. Holly from lab stated what she thinks happened is that since the Covid 19 PCR swab and the Interleukin 6 were on the same requisition, she believes only the Interleukin 6 test was sent out without realizing it had the second part of the requisition, which was a Covid 19 swab. This nurse spoke with Dr. Purvis regarding the incident requesting if he wants another swab on the pt, another Covid 19 PCR test was ordered. Information was relayed to pt about having another test ordered. Pt seemed a little frustrated because of the wait from when the test was to be sent out originally. Pt allowed this nurse to swab pt, but pt was tearful due to her frustration. This nurse spoke with Holly in Lab again to see if another order needed to be put in for the new swab. Holly stated that she was just going separate the previous requisition and place the Covid 19 PCR swab on a separate requisition. Swab was sent down to lab after speaking with Holly at 0519.
[2020-03-11 05:46] LABS: Basophils % 0.3 %; Eosinophils # 0.2 10^3/uL (0.0-0.8); Hematocrit 30.4 % (37.0-47.0); Hemoglobin 9.2 g/dL (11.5-15.3); Lymphocytes # 0.8 10^3/uL (0.8-4.8); Lymphocytes % 13.9 %; Mean Corpuscular HGB Conc 30.3 g/dL (30.0-36.0); Mean Corpuscular Hemoglobin 23.7 pg (28.0-34.0); Mean Corpuscular Volume 78.4 fL (81-99); Mean Platelet Volume 9.3 fL (7.4-10.4); Monocytes # 0.3 10^3/uL (0.2-0.9); Monocytes % 5.2 %; Neutrophils # 4.62 10^3/uL (1.8-7.7); Neutrophils % 77.1 %; Nucleated Red Blood Cells % 0 %; Platelet Count 283 10^3/cmm (130-400); Red Blood Count 3.88 10^6/uL (4.1-5.3); Red Cell Distribution Width 19.4 % (12.1-15.1)
[2020-03-11 06:34] LABS: Alanine Aminotransferase 15 U/L (0-33); Albumin Level 2.2 g/dL (3.5-5.2); Alkaline Phosphatase 61 IU/L (35-105); Aspartate Amino Transferase 31 U/L (0-32); Blood Urea Nitrogen 9 mg/dL (8-23); Calcium 8.2 mg/dL (8.5-10.5); Carbon Dioxide 23 mmol/L (22-29); Chloride 100 mmol/L (98-107); Globulin 2.7 g/dL (1.3-4.6); Glucose 92 mg/dL (65-115); Magnesium 1.8 mg/dL (1.7-2.3); Osmolality Calculated 272 mOsm/kg (285-295); Phosphorus 3.2 mg/dL (2.5-4.5); Sodium 132 mmol/L (136-145); Total Bilirubin 0.3 mg/dL (0.15-1.2); Total Protein 4.9 g/dL (6.6-8.7)
[2020-03-11 06:35] LABS: Anion Gap 12.7 (5-19); Potassium 3.7 mmol/L (3.5-5.1)
[2020-03-11] MEDS: aspirin 81 mg EC Tablet PO (10:11)
[2020-03-11] MEDS: metoprolol tartrate 25 mg Tablet PO (10:11)
[2020-03-11] MEDS: hydroCHLOROthiazide 25 mg Tablet PO (10:11)
[2020-03-11] MEDS: amlodipine 5 mg Tablet PO (10:11)
--- NOTE | 2020-03-11 10:35 | PC.SOCIAL ---
Pg 2 IMM Explained to pt Pg 2 IMM. No questions voiced. Provided pt a copy. Signed, dated, & timed a copy & placed in chart.
--- NOTE | 2020-03-11 13:04 | PM.DCS ---
Discharge Providers Date of Admission: 03/08/20 21:10 Date of Discharge: March 11, 2020 Attending Provider at Admission: Clayton Purvis MD Attending Provider at Discharge: Hima Santana Primary Care Provider: Scar Bedoya Jr, MD Diagnoses at Discharge Discharge Diagnosis (1) Multifocal pneumonia: Status: Acute Problem details: Noted on CT. No PE. Reviewed images with pulmonology, no obvious sign of metastatic lesions. Follow-up CT scan in 6 weeks for resolution. Follow-up with pulmonology in office. Home oxygen evaluation. At rest has been comfortable on room air. Coronavirus PCR test had to be resent and is pending at time of discharge, please follow-up results. Rapid antigen was negative. (2) UTI (urinary tract infection): Status: Acute Problem details: Concern for UTI on presentation to do dirty UA, but only small amount of enterococcus 10-20,000 CFU growing in urine, and may be contamination given she has had no urinary symptoms. Please follow-up for any symptomatology. (3) Hyponatremia: Status: Acute Problem details: Improved up to 132. However, for now HCTZ dose decreased down to 12.5. Please follow-up levels. (4) NSTEMI (non-ST elevated myocardial infarction): Status: Acute Problem details: Concern for non-STEMI with initial troponin 55. Flat trend with troponins in the 50s. No chest pain. No evidence of acute CA. Suspected demand ischemia. Please discuss further assessment for progression of coronary artery disease once she recovers from acute illness. (5) Hypertension: Status: Inactive Problem details: Due to HCTZ dose being decreased to 12.5 from amlodipine dose increased to 10 mg. Qualifiers: Hypertension type: essential hypertension Qualified Code(s): I10 - Essential (primary) hypertension (6) Hypercholesteremia: Status: Inactive Problem details: Continue statin. (7) CAD (coronary artery disease): Status: Inactive Problem details: -s/p stenting x 2 (2005) Qualifiers: Coronary Disease-Associated Artery/Lesion type: [place] artery [place] vs. transplanted heart: [place] heart Associated angina: without angina Qualified Code(s): I25.10 - Atherosclerotic heart disease of [place] coronary artery without angina pectoris (8) Ascending colon malignant neoplasm: Status: Resolved Problem details: Status post right hemicolectomy on 01/08/2020. Follow-up with oncology. (9) Weakness: Status: Acute Reason for Visit Reason for Visit: SOB, COUGH Hospital Course Hospital Course: Pleasant 84-year-old lady recently underwent hemicolectomy due to adenocarcinoma of the colon with clean margins at resection, with 5/14 lymph nodes involved. She has been following up with oncology with plans for adjuvant chemotherapy. She was admitted to the hospital due to symptoms of shortness of breath and cough with finding of multifocal pneumonia. Per review of imaging with pulmonology does not appear to have some nodules or masses, however, will order CT to follow-up for resolution in 6 weeks. No PE was seen on CTA chest. Mediastinal and hilar lymphadenopathy thought to be reactive. While in the hospital has been treated with Rocephin and azithromycin. Has been requiring low flow oxygen by nasal cannula, improving down to 2 L, and this morning has felt comfortable on room air (although saturation in the low 90s). Blood cultures have been negative. Sputum culture with few gram-positive cocci in clusters, final cultures pending. On presentation she was assessed by rapid COVID-19 antigen which was negative. PCR for COVID-19 was requested, but appears sample did not get collected, and so had to be reordered and recollected on it support consultant 03/11, and so is currently pending. She has overall been feeling much better, has been taking care of her ADLs, did well with therapy, and has been getting around the room. Her oxygen saturation has still been borderline, and she has been continued on IV antibiotics, however, got very upset about having to have COVID-19 testing done again, and also IV was lost, and declined to have the IV replaced, and insisted that she is returning home today. Discussed with her concerns for decrease in oxygenation. Discussed with her warning signs to watch for, as well as discussed with her son who said her family will be checking up on her. We will give her course of Levaquin to complete for pneumonia, and she is referred to pulmonology to follow-up in office. Please follow-up CT scan results to ensure resolution of pneumonia and no underlying lesions given colon cancer. Her COVID-19 results are currently pending as discussed with her and she is instructed to isolate for now until the results are available. She did state that she has been isolating at home, and so likelihood of her having COVID-19 is rather low. Still encouraged caution and to return to ER in case of any progression of symptoms or any concerns. Initially urinalysis was suspicious for possible UTI. She was treated with Rocephin here, however, cultures are growing only scant amount of enterococcus 10-20,000 CFU which is suspected to be rather contamination given she has had no urinary symptoms. Since Levaquin would not likely cover sufficiently for enterococcal infection, please reassess for any urinary symptoms that may suggest an active UTI. She is also noted to have improvement in hyponatremia which was seen on presentation, currently sodium level up to 132. Still to prevent further hyponatremia HCTZ dose was decreased to 12.5 mg, and amlodipine dose increased to 10 mg for now to aid in control of her blood pressures. On presentation her troponin was found to be mildly elevated up to 50, initially concern was for possible non-STEMI, but without acute rise in troponin, no chest pain, this was likely demand ischemia given acute infection, hypoxia. She does have history of coronary disease, and so was continued on CAD medications. Once she recovers from acute illness, please consider additional assessment with regards to coronary artery disease and possible progression. She is encouraged to resume follow-up with her oncologist in office. On CT abdomen pelvis incidentally noted to have stable 10 mm gallstone. Sigmoid diverticulosis. Please see report for full incidental findings. 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 Please see full report for details. Physical Exam Const: COMMON NORMALS: no acute distress, patient oriented x3 and alert ORIENTATION/CONSCIOUSNESS: Yes awake OTHER: Sitting up in chair, fully dressed in her home clothes. HENMT: COMMON NORMALS: oropharynx normal Neck/C-Spine: COMMON NORMALS: no JVD Resp: COMMON NORMALS: normal respiratory effort and clear to auscultation bilaterally AUSCULTATION: clear to auscultation bilaterally Cardio: COMMON NORMALS: no JVD, regular rhythm, S1 normal heart sound present, S2 normal heart sound present and No murmurs present (Cardio) RHYTHM: regular rhythm HEART SOUNDS: S1 normal heart sound present and S2 normal heart sound present GI: COMMON NORMALS: Normal to inspection, nondistended, normoactive bowel sounds present, Soft to palpation and non-tender PALPATION: Yes Soft to palpation Extremity: COMMON NORMALS: no joint enlargement and no pedal edema Neuro: COMMON NORMALS: patient oriented x3 and moves all extremities SENSORIUM/ORIENTATION: Yes alert Skin: COMMON NORMALS: no rashes or lesions noted GENERAL SKIN EXAM: no rashes or lesions noted Discharge Data Data Completed and Pending: Completed Studies During Hospitalization Category Date Time Status CT abdomen pelvis wo con [id number] Stat Cat Scan 03/09/20 22:[address] angio chest PE protcl [id number] Urge nt Cat Scan 03/08/20 17:09 Completed XR chest 1V sherry ble [id number] Stat Exams 03/08/20 15:14 Completed CV echo complete* [id number] Routine Ultrasound 03/09/20 10:00 Completed Pending at discharge Category Date Time Status Blood Culture Sta t Lab 03/08/20 23:10 Results Coronavirus Lab T est PTC Routine Lab 03/11/20 05:22 Received Interleukin 6 (IL -6) Serum Stat Lab 03/08/20 23:05 Received Sputum Culture an d Gram Stain Stat Lab 03/09/20 22:46 Results Urine Culture Sta t Lab 03/08/20 15:56 Results Labs from last 24 hours 03/11/20 03/11/20 03/11/20 05:22 04:57 04:57 WBC 6.0 RBC 3.88 L Hgb 9.2 L Hct 30.4 L MCV 78.4 L MCH 23.7 L MCHC 30.3 RDW 19.4 H Plt Count 283 MPV 9.3 Neut % (Auto) 77.1 Lymph % (Auto) 13.9 [place] % (Auto) 5.2 Eos % (Auto) 3.0 Baso % (Auto) 0.3 Neut # (Auto) 4.62 Lymph # (Auto) 0.8 [place] # (Auto) 0.3 Eos # (Auto) 0.2 Baso # (Auto) 0.0 Nucleated RBC % (a uto) 0 Nucleated RBCs # 0.0 Sodium 132 L Potassium 3.7 Chloride 100 Carbon Dioxide 23 Anion Gap 12.7 BUN 9 Creatinine 0.4 L GFR Calculation Not Reportable Glucose 92 Calculated Osmolal ity 272 L Calcium 8.2 L Phosphorus 3.2 Magnesium 1.8 Total Bilirubin 0.3 AST 31 ALT 15 Alkaline Phosphata se 61 Total Protein 4.9 L Albumin 2.2 L Globulin 2.7 Interleukin 6 Nasal/Oral COVID-1 9 PCR Pending 03/08/20 23:05 WBC RBC Hgb Hct MCV MCH MCHC RDW Plt Count MPV Neut % (Auto) Lymph % (Auto) [place] % (Auto) Eos % (Auto) Baso % (Auto) Neut # (Auto) Lymph # (Auto) [place] # (Auto) Eos # (Auto) Baso # (Auto) Nucleated RBC % (a uto) Nucleated RBCs # Sodium Potassium Chloride Carbon Dioxide Anion Gap BUN Creatinine GFR Calculation Glucose Calculated Osmolal ity Calcium Phosphorus Magnesium Total Bilirubin AST ALT Alkaline Phosphata se Total Protein Albumin Globulin Interleukin 6 Pending Nasal/Oral COVID-1 9 PCR Cancelled Vitals: Last Vital Signs Temp 97.8 F 03/11/20 12:00 Pulse 75 03/11/20 12:00 Resp 16 03/11/20 12:00 BP 145/80 03/11/20 12:00 Pulse Ox 92 03/11/20 12:00 Discharge Plan Discharge Patient Disposition: Home Condition: Fair Prescriptions: New levofloxacin 750 mg tablet 750 mg PO DAILY 7 Days Qty: 7 RF: 0 Continued prochlorperazine maleate 10 mg tablet 10 mg PO Q4H PRN (Reason: Nausea) RF: 0 Xeloda 500 mg Tablet See Rx Instructions .ROUTE .COMPLEX RF: 0 Tylenol Extra Strength 500 mg Tablet 500 mg PO PRN RF: 0 Xeloda 150 mg Tablet See Rx Instructions .ROUTE .COMPLEX RF: 0 lorazepam 1 mg tablet 0.5 - 1 mg PO Q4H PRN (Reason: Nausea) RF: 0 aspirin [Aspir-81] 81 mg Tablet,Delayed Release (Dr/Ec) 81 mg PO DAILY RF: 0 rosuvastatin 40 mg Tablet 40 mg PO QPM RF: 0 metoprolol tartrate 25 mg Tablet 25 mg PO DAILY RF: 0 Zeal Powder 1 packet PO DAILY RF: 0 Changed amlodipine 5 mg Tablet 10 mg PO DAILY Qty: 0 RF: 0 hydrochlorothiazide 25 mg Tablet 12.5 mg PO DAILY Qty: 0 RF: 0 Discharge Orders: Discharge Order (Routine); Ordered 03/11/20 Ordered By: Hima Santana Other Ambulatory Orders: CT chest wo con [id number] (Routine) Timeframe: 6 Weeks Facility: [facility] - Location: Rad[facility] Ordered By: Hima Santana DME: Oxygen (Order) Location: None Selected Ordered By: Hima Santana Referrals: Jessicar,Kingsley Philip MD [Physician] - 04/22/20 9:00 am (PNA, Hx colon cancer) Megan Ramsey MD [Staff Physician] - 03/17/20 2:30 pm Barcenas,ЮлияARNIE [Referring] - 03/18/20 10:00 am Discharge Diet: Regular Discharge Activity: Increase activity as tolerated, Limit activity as instructed and Oxygen as instructed Patient Instructions: Levofloxacin (By mouth), Hyponatremia, Myocardial Infarction (GEN), Urinary Tract Infection in Women (GEN), Coronary Artery Disease in Women (DC), Community-acquired Pneumonia (DC), Hypoxia (GEN), Using Oxygen at Home Activity Restrictions/Additional Instructions: Please be very cautious and do not overexert yourself. Please monitor your oxygen levels, target saturation 92% or above. If your saturation remains at 88% or below, especially even if you are just resting, please go to ER. Similarly if you are having increased frequency of breathing, getting very tired with basic activities, having any color change in your fingers or lips, any fainting episode or other concerning symptoms, please seek medical attention immediately. Your coronavirus test results are still pending, and are likely to be coming back tomorrow. Until they are back, please assume that you potentially (although small chance) may have the infection, and potentially may spread to others. So please isolate until the results are available. Please complete your antibiotic course. Please follow-up in [address] of the chest to confirm resolution of pneumonia, and follow-up with lung doctor in office. Please follow-up with your primary care provider within 1 week. Once you are feeling better resume follow-up with Dr. Ramsey in the office. Please continue to monitor your blood pressures at home, record values to bring to her appointment. For now your HCTZ dose is decreased down to 12.5 mg due to low sodium levels when you came into the hospital. This had improved (up to 132), but to prevent further decrease for now HCTZ will continue at a lower dose. Due to this for now your amlodipine dose is increased up to 10 mg to help with management of your blood pressure. During hospitalization your troponin was mildly elevated to around 50, without rise, however, please discuss with your primary care doctor for consideration of additional assessment for progression of coronary artery disease once you recover from pneumonia. Please also discuss with your primary care doctor regarding small amount of enterococcus growing in the urine. This was felt to be contamination, however, if you experience any urinary symptoms, please contact your doctor's office since antibiotic you are on is not likely to provide good coverage for infection with this organism. 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 transplanted heart: [place] heart Associated angina: without angina Ascending colon malignant neoplasm C18.2 Weakness R53.1
--- NOTE | 2020-03-11 16:43 | PC.NURSE ---
went over discharge instructions with pt, questions answered about dosage changes on home medications, instructions given on new medications along with Dr. Appointments gone over with pt. Pt had no other questions but on medication changes and this nurse answered them. Pt informed to call if any other questions arise.
[2020-03-11 22:15] LABS: Coronavirus Lab Test PTC Negative
[2020-03-12 22:38] LABS: Interleukin 6 (IL-6) Serum 39.42 pg/mL (<5.00)
== END 2020-03-11 16:46 | disposition home or self-care (01) | DRG 194 ==
LOC: ER 18:17 → MEDSURG 21:34
PROVIDERS: Family Medicine; Nurse Practitioner Family; Admitting Provider Family Medicine; PCP Family Medicine; Visit Provider Internal Medicine
DX: J18.9 Pneumonia, unspecified organism (principal); C18.2 Malignant neoplasm of ascending colon; N39.0 Urinary tract infection, site not specified; E87.1 Hypo-osmolality and hyponatremia; J90 Pleural effusion, not elsewhere classified; I24.8 Other forms of acute ischemic heart disease; I25.10 Atherosclerotic heart disease of native coronary artery without angina pectoris; Z95.5 Presence of coronary angioplasty implant and graft; I10 Essential (primary) hypertension; Z90.49 Acquired absence of other specified parts of digestive tract; Z96.642 Presence of left artificial hip joint; E78.00 Pure hypercholesterolemia, unspecified; D50.9 Iron deficiency anemia, unspecified; Z85.828 Personal history of other malignant neoplasm of skin; R42 Dizziness and giddiness; K80.20 Calculus of gallbladder without cholecystitis without obstruction; K57.30 Diverticulosis of large intestine without perforation or abscess without bleeding; Z79.82 Long term (current) use of aspirin; Z79.01 Long term (current) use of anticoagulants
CPT/HCPCS: 12345; 36415; 36600; 71045; 71275; 74176; 80051; 80053; 81001; 82728; 82810; 83036; 83520; 83605; 83735; 83880; 83986; 84100; 84145; 84443; 84484; 85025; 85378; 86140; 87040; 87070; 87077; 87086; 87186; 87205; 87426; 87635; 87804; 92610; 93005; 93306; 96372; 97161; 97165; 99283; J0456; J0696; J1650; J7030; J7050; Q9967

== ENCOUNTER 2020-03-22 14:15 | Inpatient (IN) | payer MEDICARE, SELFPAY ==
[2020-03-22] VITALS (7 sets, daily range): BP systolic 114–137; BP diastolic 53–70; PULSE 84–93; RESP 14–26; TEMP 36.8; O2SAT 95–99; BMI 19.8
--- NOTE | 2020-03-22 14:43 | PC.NURSE ---
Pt moved to room 5, titrated to 2LNC and is 96-99% on 2LNC. Pt placed on telemetry monitor.
--- NOTE | 2020-03-22 14:57 | ECG_ITS ---
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 Measurements Intervals [place] Rate: 87 P: 61 ND: 208 QRS: 41 QRSD: 92 T: 42 QT: 355 QTc: 427 Interpretive Statements SINUS RHYTHM WITH SINUS ARRHYTHMIA LOW QRS VOLTAGE IN PRECORDIAL LEADS [QRS DEFLECTION < 1.0 mV IN CHEST LEADS] Compared to ECG 03/08/2020 23:36:04 Low QRS voltage now present Electronically Signed On 03-22-2020 21:41:35 CDT by Matthew Pandey M.D. [id number]
--- NOTE | 2020-03-22 14:57 | XRR_ITS ---
PROCEDURE INFORMATION: Exam: XR Chest, 1 View Exam date and time: 03/22/2020 2:58 PM Age: 84 years old Clinical indication: Condition or disease; Lung condition and disease; Pneumonia TECHNIQUE: Imaging protocol: XR of the chest Views: 1 view. COMPARISON: CR XR chest 1V portable [id number] 03/08/2020 3:38 PM FINDINGS: Lungs: Right perihilar and lower lobe parenchymal consolidation consistent with pneumonia. Stable left lower lobe interstitial congestion. Pleural space: Bilateral lower lobe pleural effusion. This finding has increased since prior No pneumothorax. Heart/Mediastinum: Unremarkable. No cardiomegaly. Bones/joints: Unremarkable. XR/XR chest 1V portable [id number] IMPRESSION: 1. Right perihilar and lower lobe pneumonia increased since prior examination. 2. Left lower lobe interstitial congestion stable since prior 3. Bilateral lower lobe pleural effusion increased since prior
--- NOTE | 2020-03-22 15:26 | CTR_ITS ---
PROCEDURE INFORMATION: Exam: CT Angiography Chest With Contrast Exam date and time: 03/22/2020 3:40 PM Age: 84 years old Clinical indication: Shortness of breath; Prior surgery; Surgery type: Stents; Additional info: Pneumonia TECHNIQUE: Imaging protocol: Computed tomographic angiography of the chest with intravenous contrast. 3D rendering (Not supervised by radiologist): MIP and/or 3D reconstructed images were created by the technologist. Radiation optimization: All CT scans at this facility use at least one of these dose optimization techniques: automated exposure control; mA and/or kV adjustment per patient size (includes targeted exams where dose is matched to clinical indication); or iterative reconstruction. Contrast material: OMNI 350; Contrast volume: 70 ml; Contrast route: INTRAVENOUS (IV); COMPARISON: CT angio chest PE protcl [id number] 03/08/2020 6:06 PM RADIATION DOSE METRICS: Total DLP (mGy-cm): 494.11 FINDINGS: Pulmonary arteries: Pulmonary arteries are well opacified. Pulmonary arteries are normal in caliber. No filling defects are demonstrated. No evidence of pulmonary embolism. Aorta: Atherosclerosis of the thoracic aorta. No aortic aneurysm or dissection. Thyroid: Nonspecific 11 mm hypodense nodule in the right lobe of the thyroid. Lungs: Areas of consolidation are noted in the bilateral lower lobes, the right upper lobe, the right middle lobe, and the lingula. Pleural space: Small to moderate-sized bilateral pleural effusions. Heart: Mild cardiomegaly is noted. No pericardial effusion. Lymph nodes: Mildly enlarged, nonspecific mediastinal lymph nodes, measuring up to 1.4 cm short axis. Bones/joints: Old moderate T5 compression fracture. No acute osseous abnormality. Soft tissues: The soft tissues appear unremarkable. CT/CT angio chest PE protcl [id number] IMPRESSION: 1. No evidence of pulmonary embolism. 2. No evidence of aortic dissection. 3. Mildly enlarged, nonspecific mediastinal lymph nodes, measuring up to 1.4 cm short axis. This is likely reactive adenopathy. 4. Areas of consolidation are noted in the bilateral lower lobes, the right upper lobe, the right middle lobe, and the lingula. Overall pulmonary disease appears to have worsened slightly when compared to 03/08/2020. 5. Small to moderate-sized bilateral pleural effusions. The effusions have increased in size slightly when compared to 03/08/2020. 6. Nonspecific 11 mm hypodense nodule in the right lobe of the thyroid. No follow-up is required. 7. Mild cardiomegaly is noted. No pericardial effusion. COMMENTS: Consistent with the [employer]'s Incidental Findings Committee white paper (J Am Silas Radiol 2015): In patients aged 35 years and older with an incidental thyroid nodule equal to or greater than 1.[address], MRI or extrathyroidal US, further evaluation with dedicated thyroid US is recommended for patients with normal life expectancy and without comorbidities. For smaller nodules without suspicious features, no further evaluation or follow up is recommended. Radiation Dose CTDIVOL = (mGy): DLP = 494.11 (mGy-cm)
[2020-03-22 15:55] LABS: Add Urine Microscopic? YES; Bilirubin Urine Neg (Negative); Blood Urine 2+ (Negative); Glucose Urine UA Norm (Normal); Ketones Urine Negative (Negative); Leukocyte Esterase Urine Negative (Negative); Nitrate Urine Negative (Negative); Protein Urine Trace (Negative); Urine Appearance Cloudy (CLEAR); Urine Color Yellow (Yellow); Urobilinogen Urine Norm (Negative); pH Urine 5 (5-7)
[2020-03-22 15:56] LABS: RBC Urine 0-4 /hpf (0-2)
[2020-03-22 15:57] LABS: Bacteria Urine 1+ /hpf; Mucus Urine 1+ /hpf; Squamous Epithelial Cell Urine 0-4 /hpf (0-5); Transitional Epi Cells Urine 0-4 /hpf
[2020-03-22 15:58] LABS: Add Urine Culture? No; Amorphous Sediment Urine 1+ /hpf; Coarse Granular Casts Urine 25-40 /lpf
[2020-03-22 16:24] LABS: Basophils % 0.5 %; Eosinophils # 0.1 10^3/uL (0.0-0.8); Eosinophils % 0.8 %; Hematocrit 34.2 % (37.0-47.0); Hemoglobin 10.5 g/dL (11.5-15.3); Lymphocytes # 0.8 10^3/uL (0.8-4.8); Lymphocytes % 9.4 %; Mean Corpuscular HGB Conc 30.7 g/dL (30.0-36.0); Mean Corpuscular Hemoglobin 23.9 pg (28.0-34.0); Mean Corpuscular Volume 77.9 fL (81-99); Mean Platelet Volume 8.8 fL (7.4-10.4); Monocytes # 0.6 10^3/uL (0.2-0.9); Monocytes % 7.7 %; Neutrophils # 6.79 10^3/uL (1.8-7.7); Neutrophils % 81.4 %; Nucleated Red Blood Cells % 0 %; Platelet Count 290 10^3/cmm (130-400); Red Blood Count 4.39 10^6/uL (4.1-5.3); Red Cell Distribution Width 19.9 % (12.1-15.1); White Blood Count 8.3 10^3/uL (4.0-10.0)
[2020-03-22] MEDS: iohexol 350 mg/mL 100 mL Btl IV (16:29)
[2020-03-22 16:46] LABS: SARS Covid-2 Antigen Negative (Negative)
--- NOTE | 2020-03-22 16:57 | ECG_ITS ---
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 Measurements Intervals [place] Rate: 88 P: 63 MA: 226 QRS: 65 QRSD: 97 T: 62 QT: 358 QTc: 434 Interpretive Statements SINUS RHYTHM WITH FIRST DEGREE AV BLOCK WITH OCCASIONAL SUPRAVENTRICULAR PREMATURE COMPLEXES LOW QRS VOLTAGE IN PRECORDIAL LEADS [QRS DEFLECTION < 1.0 mV IN CHEST LEADS] Compared to ECG 03/22/2020 16:06:09 First degree AV block now present Sinus arrhythmia no longer present Electronically Signed On 03-22-2020 21:48:14 CDT by Matthew Pandey M.D. [id number]
[2020-03-22 17:05] LABS: Procalcitonin 0.12 ng/mL (0-0.5)
[2020-03-22 17:07] LABS: Troponin(5th) Baseline 141 ng/L (0-10)
[2020-03-22 17:16] LABS: Alanine Aminotransferase 34 U/L (0-33); Albumin Level 2.2 g/dL (3.5-5.2); Alkaline Phosphatase 69 IU/L (35-105); Aspartate Amino Transferase 70 U/L (0-32); Blood Urea Nitrogen 15 mg/dL (8-23); Calcium 7.5 mg/dL (8.5-10.5); Carbon Dioxide 25 mmol/L (22-29); Chloride 91 mmol/L (98-107); Globulin 3.1 g/dL (1.3-4.6); Glucose 96 mg/dL (65-115); Osmolality Calculated 265 mOsm/kg (285-295); Sodium 127 mmol/L (136-145); Total Bilirubin 0.3 mg/dL (0.15-1.2); Total Protein 5.3 g/dL (6.6-8.7)
[2020-03-22 17:39] LABS: Anion Gap 15.5 (5-19); Potassium 4.5 mmol/L (3.5-5.1)
--- NOTE | 2020-03-22 18:57 | ED_ITS ---
HPI - SOB/Dyspnea General: Chief Complaint: Shortness of Breath/Dyspnea Stated Complaint: SOB, WEAKNESS Time Seen by Provider: 03/22/20 14:29 History of Present Illness: HPI Narrative: This patient is an 84-year-old female who presents today with shortness of breath and weakness. She was here about a week ago with pneumonia. At that time she had negative Covid testing. She was sent home on Levaquin but feels like she continues to get worse. She was also started on oxygen during that hospitalization and has been on 2 L at home. Today per EMS her sat was in the high 80s on her normal 2 L. On 4 L she is in the mid 90s. She said she really has been able to eat or be active. She is frustrated that she is not getting any better. MD elicited complaint: shortness of breath and cough Pertinent past history: pneumonia Onset (ago): week(s) (2) Context: recent illness Timing: constant Severity: severe Exacerbating factors: lying flat and exertion Relieving factors: oxygen Associated symptoms: Deny abdominal pain, chest pain, fever(s), nausea or vomiting Review of Systems General: Reports: 10 or more systems reviewed and unremarkable except in HPI and below Const: Reports: fatigue and malaise; Denies: fever(s) or chills Eyes: Denies: change in vision ENMT: Denies: odynophagia Card: Denies: chest pain or swelling of feet/ankles Resp: Reports: dyspnea and productive cough; Denies: non-productive cough GI: Denies: abdominal pain, nausea or vomiting : Denies: flank pain or difficulty voiding Musc: Denies: neck pain or back pain Skin/Breast: Denies: rash Neuro: Reports: weakness in extremities (Generalized); Denies: headache(s) or numbness in extremities Harvey/Lymph: Denies: easy bruising or easy bleeding PFS ED PFSH: Medical History Ascending colon malignant neoplasm Status post right hemicolectomy on 01/08/2020. Follow-up with oncology. CAD (coronary artery disease) -s/p stenting x 2 (2005) Hypercholesteremia Continue statin. Hypertension Due to HCTZ dose being decreased to 12.5 from amlodipine dose increased to 10 mg. Iron deficiency anemia -recent blood transfusion due to worsening anemia (11/03/2019) -H/H stable -pending GI w/u by Dr. Lauren -on iron supplementation Postoperative anemia Status post transfusion. Hemoglobin 9.5. Skin cancer of face Vertigo -noted episode of N/V with change in position, nystagmus, has chronic tinnitus and is hard of hearing -orthostatics negative, close monitoring of vital signs -telemetry monitoring -Echo: EF=65%, G1DD, no RWMA, mild pulmonary HTN (39), mild TR -carotid US: no hemodynamically significant stenosis -noted anemia with stable Hg -CT head negative for acute findings; CXR unremarkable for acute changes -gentle IVF hydration; can d/c -fall precautions, up with assist -PT evaluation -antiemetics as needed -UA with pyuria and bacteria; will treat empirically due to patient's advanced age and symptoms -meclizine PRN Surgical History H/O heart artery stent H/O: hysterectomy History of left hip replacement Family History Denies family history of CAD (coronary artery disease) Social History Smoking and tobacco status: never smoked Alcohol intake: never Household members: spouse Marital status: Current occupational status: retired Physical Exam Const: COMMON NORMALS: no acute distress, patient oriented x3, no limitations and alert GENERAL APPEARANCE: cooperative HENMT: HEAD & SCALP: normal to inspection FACE & SINUS: normal facial exam Eye: GENERAL EYE: appearance normal, both eyes and all related structures Neck/C-Spine: COMMON NORMALS: supple, no meningeal signs and no JVD Chest: COMMONS NORMALS: normal inspection of the chest Resp: COMMON NORMALS: normal respiratory effort, No use of accessory muscles and clear to auscultation bilaterally AUSCULTATION: clear to auscultation bilaterally and diminished lung sounds (Bilateral bases) Cardio: COMMON NORMALS: no JVD, regular rate, regular rhythm and No murmurs present (Cardio) RATE: regular rate RHYTHM: regular rhythm GI: COMMON NORMALS: Normal to inspection, nondistended, normoactive bowel sounds present, Soft to palpation and non-tender INSPECTION: Yes normal to inspection AUSCULTATION: Yes normoactive bowel sounds PALPATION: Yes Soft to palpation Back/Pelvis: COMMON NORMALS: thoracic and lumbar spine normal to inspection Extremity: COMMON NORMALS: normal to inspection Neuro: COMMON NORMALS: patient oriented x3, moves all extremities, no focal motor deficits and no sensory deficits noted SENSORIUM/ORIENTATION: Yes alert MENINGEAL SIGNS: Yes no meningeal signs Psych: COMMON NORMALS: mental status grossly normal, cooperative and normal affect Skin: COMMON NORMALS: no rashes or lesions noted and turgor normal GENERAL SKIN EXAM: no rashes or lesions noted and turgor normal Course ED course: Patient had another Covid swab done which was negative. She had a repeat chest x-ray which showed worsening of the pneumonia. Repeat CT also showed worsening of the pneumonia and a significant effusion on both sides. She will be readmitted to the hospital. Have given her a dose of Zosyn. She will be admitted to Dr. Santana who knows her from her last admission. Vital Signs: Vital signs: Vital Signs Temperature 98.3 F 03/22/20 14:21 Pulse Rate 89 03/22/20 17:57 Respiratory Rate 26 H 03/22/20 17:57 Blood Pressure 114/59 03/22/20 17:57 Pulse Oximetry 95 03/22/20 17:57 MDM - SOB/Dyspnea Lab Data: Labs: Lab Results 03/22/20 03/22/20 03/22/20 Range/Units 15:18 16:10 16:10 WBC 8.3 (4.0-10.0) 10^3/ uL RBC 4.39 (4.1-5.3) 10^6/u L Hgb 10.5 L (11.5-15.3) g/dL Hct 34.2 L (37.0-47.0) % MCV 77.9 L (81-99) fL MCH 23.9 L (28.0-34.0) pg MCHC 30.7 (30.0-36.0) g/dL RDW 19.9 H (12.1-15.1) % Plt Count 290 (130-400) 10^3/c mm MPV 8.8 (7.4-10.4) fL Neut % (Auto) 81.4 % Lymph % (Auto) 9.4 % Glenn % (Auto) 7.7 % Eos % (Auto) 0.8 % Baso % (Auto) 0.5 % Neut # (Auto) 6.79 (1.8-7.7) 10^3/u L Lymph # (Auto) 0.8 (0.8-4.8) 10^3/u L Glenn # (Auto) 0.6 (0.2-0.9) 10^3/u L Eos # (Auto) 0.1 (0.0-0.8) 10^3/u L Baso # (Auto) 0.0 (0.0-0.1) 10^3/u L Nucleated RBC % (a uto) 0 % Nucleated RBCs # 0.0 /100WBC Sodium 127 L (136-145) mmol/L Potassium 4.5 (3.5-5.1) mmol/L Chloride 91 L (98-107) mmol/L Carbon Dioxide 25 (22-29) mmol/L Anion Gap 15.5 (5-19) BUN 15 (8-23) mg/dL Creatinine 0.5 (0.5-0.9) mg/dL GFR Calculation Not Reportable Glucose 96 (65-115) mg/dL Calculated Osmolal ity 265 L (285-295) mOsm/k g Calcium 7.5 L (8.5-10.5) mg/dL Total Bilirubin 0.3 (0.15-1.2) mg/dL AST 70 H (0-32) U/L ALT 34 H (0-33) U/L Alkaline Phosphata se 69 (35-105) IU/L Troponin T Baselin e (0-10) ng/L C-Reactive Protein 39.0 H (0.0-4.9) mg/L Total Protein 5.3 L (6.6-8.7) g/dL Albumin 2.2 L (3.5-5.2) g/dL Globulin 3.1 (1.3-4.6) g/dL Procalcitonin 0.12 (0-0.5) ng/mL Urine Color Yellow (Yellow) Urine Appearance Cloudy (CLEAR) Urine pH 5 (5-7) Ur Specific Gravit y 1.020 (1.005-1.030) Urine Protein Trace (Negative) Urine Glucose (UA) Norm (Normal) Urine Ketones Negative (Negative) Urine Blood 2+ H (Negative) Urine Nitrate Negative (Negative) Urine Bilirubin Neg (Negative) Urine Urobilinogen Norm (Negative) mg/dL Ur Leukocyte Adrianne ase Negative (Negative) Urine RBC 0-4 H (0-2) /hpf Urine WBC 5-10 H (0-5) /hpf Ur Squamous Epith Cells 0-4 H (0-5) /hpf Ur Transition Epit h Cell 0-4 /hpf Amorphous Sediment 1+ /hpf Urine Bacteria 1+ H (NONE) /hpf Coarse Granular Ca sts 25-40 H /lpf Urine Mucus 1+ /hpf SARS-CoV-2 Ag (Rap id) (Negative) 03/22/20 03/22/20 Range/Units 16:10 16:10 WBC (4.0-10.0) 10^3/ uL RBC (4.1-5.3) 10^6/u L Hgb (11.5-15.3) g/dL Hct (37.0-47.0) % MCV (81-99) fL MCH (28.0-34.0) pg MCHC (30.0-36.0) g/dL RDW (12.1-15.1) % Plt Count (130-400) 10^3/c mm MPV (7.4-10.4) fL Neut % (Auto) % Lymph % (Auto) % Glenn % (Auto) % Eos % (Auto) % Baso % (Auto) % Neut # (Auto) (1.8-7.7) 10^3/u L Lymph # (Auto) (0.8-4.8) 10^3/u L Glenn # (Auto) (0.2-0.9) 10^3/u L Eos # (Auto) (0.0-0.8) 10^3/u L Baso # (Auto) (0.0-0.1) 10^3/u L Nucleated RBC % (a uto) % Nucleated RBCs # /100WBC Sodium (136-145) mmol/L Potassium (3.5-5.1) mmol/L Chloride (98-107) mmol/L Carbon Dioxide (22-29) mmol/L Anion Gap (5-19) BUN (8-23) mg/dL Creatinine (0.5-0.9) mg/dL GFR Calculation Glucose (65-115) mg/dL Calculated Osmolal ity (285-295) mOsm/k g Calcium (8.5-10.5) mg/dL Total Bilirubin (0.15-1.2) mg/dL AST (0-32) U/L ALT (0-33) U/L Alkaline Phosphata se (35-105) IU/L Troponin T Baselin e 141 H* (0-10) ng/L C-Reactive Protein (0.0-4.9) mg/L Total Protein (6.6-8.7) g/dL Albumin (3.5-5.2) g/dL Globulin (1.3-4.6) g/dL Procalcitonin (0-0.5) ng/mL Urine Color (Yellow) Urine Appearance (CLEAR) Urine pH (5-7) Ur Specific Gravit y (1.005-1.030) Urine Protein (Negative) Urine Glucose (UA) (Normal) Urine Ketones (Negative) Urine Blood (Negative) Urine Nitrate (Negative) Urine Bilirubin (Negative) Urine Urobilinogen (Negative) mg/dL Ur Leukocyte Adrianne ase (Negative) Urine RBC (0-2) /hpf Urine WBC (0-5) /hpf Ur Squamous Epith Cells (0-5) /hpf Ur Transition Epit h Cell /hpf Amorphous Sediment /hpf Urine Bacteria (NONE) /hpf Coarse Granular Ca sts /lpf Urine Mucus /hpf SARS-CoV-2 Ag (Rap id) Negative (Negative) Discharge Plan Discharge Admit Provider: Hima Santana Coding Level of Care Code ED Emergency Veterinary Technician for g Aylin
[2020-03-22] MEDS: piperacillin-tazobactam 3.375 GM in sodium chloride 0.9% (plus) 50 ML IV (18:59)
[2020-03-22 19:04] LABS: Troponin 5 2HR 137.6 ng/L (0-10); Troponin 5 2HR Delta -3.4 ABS# (0-10)
--- NOTE | 2020-03-22 19:22 | P.HP_ITS ---
Providers/Chief Complaint Admitting Physician: Hima Santana Primary Care Provider: Scar Bedoya Jr, MD Chief Complaint: SOB, WEAKNESS History of Present Illness Natasha Gustafson is a 84 year old lady recently hospitalized for treatment of pneumonia, treated with Rocephin, azithromycin while in the hospital, assessed via rapid COVID-19 antigen as well as PCR testing, with both negative, with no growth on blood or sputum cultures, with improvement while in the hospital, on d ischarge was given course of Levaquin to take home, and set up with 2 L of oxygen by nasal cannula. Her images were reviewed at the time, without sign to suggest obvious metastatic disease given recent colon adenocarcinoma with noted positive lymph nodes on biopsy. She has been planned to start Xeloda with Dr. Ramsey, however, has not started so far. She returns to the hospital due to lack of improvement, continues to have weakness, shortness of breath, intermittent cough, although nonproductive. In ER she is noted to be afebrile, no leukocytosis, no tachycardia, somewhat more hypoxic than previously requiring 4 L of oxygen by nasal cannula. Noted to have consolidation in A number of loc ations on CTIncluding bilateral lower lobes, right upper lobe, right middle lobe, and lingula. Overall pulmonary disease is worse than during prior images. Mild cardiomegaly is noted. Again nonspecific mildly enlarged mediastinal lymph nodes thought to be reactive. 11 mm hypodense thyroid nodule, no follow- up required. No evidence of PE. Major vessels intact. Also noted small to moderate bilateral pleural effusions.She is also noted to have elevation of troponin at 141, with second result coming back at 137.6. She has no chest pain. EKG with nonspecific changes. She denies orthopnea, PND. Has had ankle swelling. Per discussion with her son she has had very poor oral intake/appetite. They will intermittently get her to drink half of Ensure, a little bit of broth. She has not been very active. Her sodium was noted to be low on most recent appointment. Per discussion with her grandson her amlodipine was recently decreased to 5 mg, HCTZ discontinued. Review of Systems Const: Reports: fatigue; Denies: fever(s), chills, body aches or malaise Eyes: Denies: change in vision or eye redness ENMT: Denies: throat pain, oral sores or ear or mastoid pain Card: Reports: edema; Denies: chest pain, pre-syncope or dyspnea on exertion Resp: Reports: dyspnea and non-productive cough; Denies: productive cough, change in phlegm color or hemoptysis GI: Denies: abdominal pain, nausea, vomiting, diarrhea, constipation, hematochezia or melena : Denies: flank pain, urinary frequency or hematuria Musc: Denies: back pain, joint swelling or joint redness Skin/Breast: Denies: rash, sores or new lesions Neuro: Denies: headache(s), numbness in extremities, weakness in extremities, dizziness, confusion or seizure-like activity Endo: Denies: polyuria or polydipsia Harvey/Lymph: Denies: easy bleeding or purpura All/Imm: Denies: urticaria, throat swelling or tongue swelling Medications/Allergies Home Medications Medication Instructions Recorded Confirmed Last Taken Type aspirin [Aspir-81] 81 mg PO DAILY 11/03/19 03/08/20 03/08/20 History metoprolol tartrate 25 mg PO DAILY 11/03/19 03/08/20 03/08/20 History rosuvastatin 40 mg PO QPM 11/03/19 03/08/20 03/07/20 History Zeal Powder 1 packet PO DAILY 11/29/19 03/08/20 01/05/20 History Tylenol Extra Strength 500 mg PO PRN 03/08/20 03/08/20 Unknown History Xeloda See Rx Instructions .ROUTE .COMPLEX 03/08/20 03/08/20 Unknown History Xeloda See Rx Instructions .ROUTE .COMPLEX 03/08/20 03/08/20 Unknown History lorazepam 0.5 - 1 mg PO Q4H PRN 03/08/20 03/08/20 Unknown History prochlorperazine maleate 10 mg PO Q4H PRN 03/08/20 03/08/20 Unknown History amlodipine 10 mg PO DAILY #0 tab 03/11/20 03/08/20 03/08/20 Rx hydrochlorothiazide 12.5 mg PO DAILY #0 tab 03/11/20 03/08/20 03/08/20 Rx Allergies Allergy/AdvReac Type Severity Reaction Status Date / Time atorvastatin [From Lipitor] Allergy ADR-Cough Verified 03/10/20 09:45 latex Allergy ALGY-Rash Verified 03/08/20 16:11 PFSH Acute PFSH: Medical History Ascending colon malignant neoplasm Status post right hemicolectomy on 01/08/2020. Follow-up with oncology. CAD (coronary artery disease) -s/p stenting x 2 (2005) Hypercholesteremia Continue statin. Hypertension Due to HCTZ dose being decreased to 12.5 from amlodipine dose increased to 10 mg. Iron deficiency anemia -recent blood transfusion due to worsening anemia (11/03/2019) -H/H stable -pending GI w/u by Dr. Lauren -on iron supplementation Postoperative anemia Status post transfusion. Hemoglobin 9.5. Skin cancer of face Vertigo -noted episode of N/V with change in position, nystagmus, has chronic tinnitus and is hard of hearing -orthostatics negative, close monitoring of vital signs -telemetry monitoring -Echo: EF=65%, G1DD, no RWMA, mild pulmonary HTN (39), mild TR -carotid US: no hemodynamically significant stenosis -noted anemia with stable Hg -CT head negative for acute findings; CXR unremarkable for acute changes -gentle IVF hydration; can d/c -fall precautions, up with assist -PT evaluation -antiemetics as needed -UA with pyuria and bacteria; will treat empirically due to patient's advanced age and symptoms -meclizine PRN Surgical History H/O heart artery stent H/O: hysterectomy History of left hip replacement Family History Denies family history of CAD (coronary artery disease) Social History Smoking and tobacco status: never smoked Alcohol intake: never Household members: spouse Marital status: Marital status details: Takes care of her at home who has Alzheimer's dementia. Current occupational status: retired Vitals/I&O/Wt Last Vital Signs Temp 98.3 F 03/22/20 14:21 Pulse 89 03/22/20 17:57 Resp 26 H 03/22/20 17:57 BP 114/59 03/22/20 17:57 Pulse Ox 95 03/22/20 17:57 Weight last 48 hrs Weight 55.792 kg Physical Exam Const: COMMON NORMALS: no acute distress and patient oriented x3 HENMT: COMMON NORMALS: oropharynx normal Neck/C-Spine: COMMON NORMALS: no JVD Resp: COMMON NORMALS: normal respiratory effort and clear to auscultation bilaterally AUSCULTATION: clear to auscultation bilaterally Cardio: COMMON NORMALS: no JVD, regular rhythm, S1 normal heart sound present, S2 normal heart sound present and No murmurs present (Cardio) RHYTHM: regular rhythm HEART SOUNDS: S1 normal heart sound present and S2 normal heart sound present GI: COMMON NORMALS: Normal to inspection, nondistended, normoactive bowel sounds present, Soft to palpation and non-tender PALPATION: Yes Soft to palpation Extremity: COMMON NORMALS: no joint enlargement and no pedal edema Neuro: COMMON NORMALS: patient oriented x3 and moves all extremities Skin: COMMON NORMALS: no rashes or lesions noted GENERAL SKIN EXAM: no rashes or lesions noted Data : 03/22/20 16:10 03/22/20 16:10 A&P Assessment and plan (1) Persistent pneumonia: Discussed with her, her son and her grandson. Appears to have worsened consolidation and multifocal distribution on CTA. No PE. Troponin somewhat elevated, but no chest pain. Discussed the possibility of ongoing pneumonia which did not respond to antibiotic, noncontributory less likely viral pneumonia which is still ongoing, or other indolent pneumonia. Discussed possibility of other causes, including CHF. We will admit her to the hospital, start on broad-spectrum antibiotics with cefepime, vancomycin, Levaquin for now. Cough is not productive, will see if RT is able to induce some sputum. Collect blood culture. Has history of colon cancer, although not currently on edith motherapy, plans were to start Xeloda which has not yet been initiated. Will request for galactomannan, B-D glucan. PJP, although probably less likely given he is not on immunosuppression, and degree of hypoxia. Discussed with her and family, highly doubt that there is ongoing viral infection. More likely possibility is superimposed bacterial infection. She was tested for COVID-19 with rapid antigen during this evaluation which was negative. Previously tested with rapid antigen and PCR both of which were negative. We will also assess by echocardiogram given peripheral edema, history of CAD, troponin elevation. It was discussed with her family, heart failure is a possibility given history of grade 2 diastolic dysfunction seen back in March. This may be a likely possibility as well given she has no signs of sepsis, procalcitonin is normal. Monitor volume status, ALYSSA, as well as hyponatremia. Status: Acute (2) Troponin level elevated: Troponin up to 141, subsequently 137. She has no chest pain. Has history of CAD. Currently as troponin without rise, suspicion is more likely for demand ischemia given worsened hypoxia. Assessed by LIVIA. Complete troponin EKG series. Continue CAD medications. As discussed previously would benefit from additional risk stratification by stress testing once her condition improves, unless starts or any other symptoms. Status: Acute (3) Lower extremity edema: Assess lower extremity duplex. No evidence of PE on CTA. Status: Acute (4) Hyponatremia: Down to 127. Discussed with her and her family. Difficult to pinpoint etiology. Poor oral intake, so may be low solute, but also appears to have lower extremity edema, concern for possible CHF, so possibility of fluid overload as well. In addition HCTZ was likely contributing, and discontinued at this time. Also possibility of SIADH secondary to ongoing pulmonary problem. Status: Acute Additional A&P Information Anxiety: Prescription with her grandson requests that we have Ativan available for which she takes at home as needed, previously was taking for nausea, but sometimes also taking for anxiety. Generalized weakness: Assess and treat for possible ongoing pneumonia as above, abscess or possible CHF as above. We will also check TSH. Check CK for possibility of rhabdomyolysis given she is on 40 mg Crestor, with AST elevation, troponin elevation. Incidentally noted mediastinal lymph nodes thought to be reactive. Incidentally noted thyroid nodule, no follow-up recommended. Adenocarcinoma of colon status post hemicolectomy, with noted positive lymph nodes on biopsy. Follows with Dr. Ramsey in office. Has not yet initiated Xeloda. 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 Abdomen is entirely soft on examination. Check lactic acid, however, suspicion for ischemic bowel is very low at this time. Previously incidentally noted 10 mm gallstone which was stable. No right upper quadrant discomfort at this time. HTN: Has been at goal. Monitor. For now hold amlodipine due to lower extremity edema. Hold HCTZ which was recently discontinued due to hyponatremia. Possible UTI noted during prior admission, although only 10-20,000 Enterococcus growing in urine and without symptoms. Still denies any symptoms, but due to generalized weakness will repeat urine culture. Check blood culture as well. Anemia, hemoglobin appears to be somewhat better than previously at 10.5. Previously known iron deficiency anemia for which arrangements were being made for iron infusions. Hold off for now until clears any ongoing infection. Attestations Medical Necessity Statement*: Admission of over 2 midnights is going to be needed versus management of persistent pneumonia, possible CHF, hyponatremia, troponin abnormality in a patient with recently resected colon malignancy and a number of comorbidities. Coding Level of Care Code Acute Photographic Plate Maker for [place] Diagnoses Persistent pneumonia J18.9 Troponin level elevated R77.8 Lower extremity edema R60.0 Hyponatremia E87.1
--- NOTE | 2020-03-22 19:30 | PC.NURSE ---
Patient arrived from ER. Patient oriented to the room and belongings with her. Call light in reach. Patient placed on telemetry and vitals obtained.
--- NOTE | 2020-03-22 20:39 | PC.PHAR ---
Pharmacokinetic dosing service Date: 03/22/20 Time: 2100 Objective: Patient: Natasha Gustafson Floor: 101-1 Age: 84 yo Serum creatinine: 0.5 mg/dL Height: 66.0 Inches Weight (kg): 55.792 Diagnosis: Relevant medical/social history: Cultures and sensitivities: Other labs: Assessment: IBW (kg): 59.30 Dosing wt(kg): 55.792 Estimated Creatinine clearance (ml/min): 72.5 CRCL method: Cockcroft and Gault using ibw(default). Drug selected: Vancomycin Loading dose (mg): 0 Vd (liters): 50.2 (factor used: 0.9 L/kg) Beny (hr-1): 0.065 Half life (hrs): 10.66 Recommended dose: 1000 mg Interval: 12 hrs Infusion time (hrs): 1.5 Predicted peak (mcg/mL): 35.0 Predicted trough (mcg/mL): 17.69 Total body weight is being used for vancomycin dosing. Renal function is stable [ ] /unstable [ ] Recommendations: Give Vancomycin 1000 mg q 12 hrs with an expected Cpeak of 35.0 mcg/ml and an expected Ctrough of 17.69 mcg/ml Renal dosing of other antibiotics (review renal dosing of other medications and list guidelines here): Thank you for the consult, will continue to follow. Signature: Mariaelena Nelson [facility]
[2020-03-22] MEDS: heparin 5,000 unit/mL INJ 1 mL 5000 UNIT SUBCUT (20:53)
[2020-03-22 20:57] LABS: Lactic Sepsis W/Reflex 1.1 mmol/L (0.5-2.2)
--- NOTE | 2020-03-22 20:57 | ECG_ITS ---
[facility] Test Date: 2020-03-23 Pat Name: Natasha Gustafson Department: Room: 101 Gender: Female Assistant Media Buyer: : 1935 Requested By: Cheyanne Thomson Order Number: [id number] Marly MD: Olga Lidia Steward M.D. Measurements Intervals [place] Rate: 89 P: 56 ND: 206 QRS: 36 QRSD: 90 T: 25 QT: 347 QTc: 424 Interpretive Statements SINUS RHYTHM WITH SINUS ARRHYTHMIA Compared to ECG 03/22/2020 17:45:26 First degree AV block no longer present Electronically Signed On 03-23-2020 16:34:56 CDT by Olga Lidia Steward M.D. [id number]
[2020-03-22] MEDS: cefepime 2,000 MG in sodium chloride 0.9% (plus) 50 ML 100 MG IV (21:35)
[2020-03-22] MEDS: vancomycin 1,000 MG in sodium chloride 0.9% 250 ML 250 MG IV (22:03)
[2020-03-22 22:38] LABS: Creatine Phosphokinase 228 U/L (26-192); NT Pro B Type Natriuretic Pept 254 pg/mL (0-450)
[2020-03-22] MEDS: levofloxacin-dextrose 5 % 750 MG/150 ML PREMIX 100 MG IV (23:26)
[2020-03-22 23:43] LABS: Troponin 5 6HR 134.1 ng/L (0-10); Troponin 5 6HR Delta -6.9 ng/L (0-12)
[2020-03-23] VITALS (9 sets, daily range): BP systolic 107–127; BP diastolic 47–70; PULSE 86–100; RESP 16–32; TEMP 36.7–36.9; O2SAT 90–100; BMI 21.3
[2020-03-23] MEDS: acetaminophen 325 mg Tablet 650 MG PO (02:20)
[2020-03-23] MEDS: heparin 5,000 unit/mL INJ 1 mL 5000 UNIT SUBCUT (04:39)
[2020-03-23 05:35] LABS: Basophils % 0.4 %; Eosinophils # 0.1 10^3/uL (0.0-0.8); Eosinophils % 0.8 %; Hematocrit 30.3 % (37.0-47.0); Hemoglobin 9.2 g/dL (11.5-15.3); Lymphocytes # 0.5 10^3/uL (0.8-4.8); Lymphocytes % 6.3 %; Mean Corpuscular HGB Conc 30.4 g/dL (30.0-36.0); Mean Corpuscular Hemoglobin 23.6 pg (28.0-34.0); Mean Corpuscular Volume 77.7 fL (81-99); Mean Platelet Volume 8.9 fL (7.4-10.4); Monocytes # 0.5 10^3/uL (0.2-0.9); Monocytes % 6.7 %; Neutrophils # 6.77 10^3/uL (1.8-7.7); Neutrophils % 85.3 %; Nucleated Red Blood Cells % 0 %; Platelet Count 263 10^3/cmm (130-400); Red Cell Distribution Width 19.9 % (12.1-15.1); White Blood Count 7.9 10^3/uL (4.0-10.0)
[2020-03-23 06:07] LABS: Alanine Aminotransferase 31 U/L (0-33); Albumin Level 1.8 g/dL (3.5-5.2); Alkaline Phosphatase 62 IU/L (35-105); Aspartate Amino Transferase 56 U/L (0-32); Blood Urea Nitrogen 15 mg/dL (8-23); Calcium 8.2 mg/dL (8.5-10.5); Carbon Dioxide 25 mmol/L (22-29); Chloride 95 mmol/L (98-107); Globulin 3.1 g/dL (1.3-4.6); Glucose 94 mg/dL (65-115); Osmolality Calculated 265 mOsm/kg (285-295); Sodium 127 mmol/L (136-145); Thyroid Stimulating Hormone 1.96 uIU/mL (0.27-4.20); Total Bilirubin 0.3 mg/dL (0.15-1.2); Total Protein 4.9 g/dL (6.6-8.7)
--- NOTE | 2020-03-23 07:00 | USCV_ITS ---
Natasha Gustafson Age: 84 Gender: F : 1935 Exam Date: 03/23/2020 05:59 Ordering Phys: Hima Santana MD Technologist: Caroline Goodrich Exam Location: [facility] – [place] Indication: SWELLING BP: 107 / 47 HR: 86 Rhythm: Sinus Technical Quality: Adequate MEASUREMENTS (Male / Female) Normal Values 2D ECHO LV Diastolic Diameter PLAX 2.9 cm 4.2 - 5.9 / 3.9 - 5.3 cm LV Systolic Diameter PLAX 2.5 cm LV Chamber Size 2.5 cm IVS Diastolic Thickness 1.5 cm 0.6 - 1.0 / 0.6 - 0.9 cm IVS Systolic Thickness 1.3 cm LVPW Diastolic Thickness 1.7 cm 0.6 - 1.0 / 0.6 - 0.9 cm LVPW Systolic Thickness 1.8 cm RV Chamber Size 3.6 cm LVOT Diameter 2.1 cm LV Ejection Fraction 2D Teich 35.4 % LV Ejection Fraction MOD 2C 62.7 % LV Ejection Fraction 2C AL 64.4 % LA Diameter 2.2 cm LA Width 2.3 cm LA Height 3.1 cm RA Width 2.2 cm RA Height 2.9 cm Aorta at Sinotubular Diameter 2.4 cm M-MODE LV Diastolic Diameter MM 5.0 cm 4.2 - 5.9 / 3.9 - 5.3 cm LV Systolic Diameter MM 3.4 cm LV Ejection Fraction MM Teich 59.8 % IVS Diastolic Thickness MM 0.8 cm 0.6 - 1.0 / 0.6 - 0.9 cm IVS Systolic Thickness MM 1.2 cm LVPW Diastolic Thickness MM 1.0 cm 0.6 - 1.0 / 0.6 - 0.9 cm LVPW Systolic Thickness MM 1.2 cm Aortic Annulus Diameter 2.7 cm LA Ao Ratio MM 0.9 MV E Point Septal Separation 0.3 cm FINDINGS Left Ventricle Normal left ventricular size and systolic function, EF 63 %. No regional wall motion abnormalities. Mild left ventricular hypertrophy. Right Ventricle Normal right ventricular size and systolic function. Right Atrium Normal right atrial size. Left Atrium Normal left atrial size. Mitral Valve No gross abnormalities noted Aortic Valve Thickened aortic valve. Tricuspid Valve Structurally normal tricuspid valve. Pulmonic Valve No gross abnormalities noted Pericardium No pericardial effusion. Aorta Normal aortic annulus size. CONCLUSIONS Normal left ventricular size and systolic function, EF 63 %. No regional wall motion abnormalities. Mild left ventricular hypertrophy. Thickened aortic valve. There is no pericardial effusion. There are no intracardiac masses. Compared to the study from 03/09/2020, there may not be a significant change Dr Matthew Pandey MD FAC (Electronically Signed) Final Date: 23 March 2020 17:18 S
--- NOTE | 2020-03-23 07:00 | USCV_ITS ---
Natasha Gustafson Age: 84 Gender: F : 1935 Exam Date: 03/23/2020 05:54 Ordering Phys: Hima Santana MD Technologist: Caroline Goodrich Exam Location: [facility] – [place] Indication: SWELLING HISTORY: Lower extremity swelling. PROCEDURES: Venous duplex imaging was performed in only the left lower extremity. The following venous structures were evaluated: common femoral vein, profunda vein, proximal portion of the greater saphenous vein, superficial femoral vein, and the popliteal vein. In addition, the posterior tibial and peroneal trunk were evaluated. Serial compression, augmentation maneuvers, and spectral Doppler flow evaluation were performed. FINDINGS: Normal 2-D Doppler and augmentation and compressibility throughout the lower extremity venous structures. Additional imaging through the proximal calf veins also reveals no thrombus. Limited evaluation of the greater saphenous vein is patent with no thrombus.. CONCLUSIONS No evidence of DVT in the above-mentioned identifiable veins. Dr Matthew Pandey MD [facility] (Electronically Signed) Final Date: 24 March 2020 20:00 S
--- NOTE | 2020-03-23 07:17 | P.CONIM_ITS ---
Providers/Reason For Consult Consulting Physican/Specialty*: Datar/Pulmonary Critical Care Reason for Consult*: persistent pneumonia with bilateral effusion Attending Physician: Hima Santana Primary Care Provider: Scar Bedoya Jr, MD History of Present Illness History of Present Illness Natasha Gustafson is a 84 year old lady with past medical history of moderately differentiated adenocarcinoma of ascending colon, HTN, arthritis, CAD, recently underwent exploratory laparotomy 01/08/2020 with right hemicolectomy on January 07, 2021 deploy report came back moderately differentiated adenocarcinoma with mucinous and micropapillary features, tumor invades through muscularis propria T2, clear surgical margins, lymphovascular is invasion seen, 5 out of 14 lymph nodes were positive for metastatic disease, N2 With normal expression of DNA mismatch repair proteins hospitalized in early march for treatment of pneumonia, treated with Rocephin, azithromycin while in the hospital, assessed via rapid COVID-19 antigen as well as PCR testing, with both negative, with no growth on blood or sputum cultures, with improvement while in the hospital, on discharge was given course of Levaquin to take home, and set up with 2 L of oxygen by nasal cannula. Her images were reviewed at the time, without sign to suggest obvious metastatic disease given recent colon adenocarcinoma with noted positive lymph nodes on biopsy. She has been planned to start Xeloda with Dr. Ramsey, however, has not started so far. She returns to the hospital due to lack of improvement, continues to have weakness, shortness of breath, intermittent cough, although nonproductive. In ER she is noted to be afebrile, no leukocytosis, no tachycardia, somewhat more hypoxic than previously requiring 4 L of oxygen by nasal cannula. Noted to have consolidation in A number of locations on CTIncluding bilateral lower lobes, right upper lobe, right middle lobe, and lingula. Overall pulmonary disease is worse than during prior images. Mild cardiomegaly is noted. Again nonspecific mildly enlarged mediastinal lymph nodes thought to be reactive. Also noted small to moderate bilateral pleural effusions. She is also noted to have elevation of troponin at 141, with second result coming back at 137.6. She has no chest pain. EKG with nonspecific changes. She denies orthopnea, PND but has ankle swelling. Pulmonary consulted for non resolving multifocal pneumonia and bilateral pleural effusions. Today at bedside pt, appears comfortable with mild respiratory distress saturating 92% on 5 L nasal cannula. Reported being short of breath and says that she is tired. Had Left lung thoracentesis today and drained 600 cc straw colored fluid adn sent for various labs. Review of Systems General: Reports: 10 or more systems reviewed and unremarkable except in HPI and below Meds/Allergies Home Medications and Allergies Home Medications Medication Instructions Recorded Confirmed Last Taken Type aspirin [Aspir-81] 81 mg PO DAILY 11/03/19 03/23/20 03/08/20 History metoprolol tartrate 25 mg PO DAILY 11/03/19 03/23/20 03/08/20 History rosuvastatin 40 mg PO QPM 11/03/19 03/23/20 03/07/20 History Zeal Powder 1 packet PO DAILY 11/29/19 03/23/20 01/05/20 History acetaminophen [Tylenol Extra 500 mg PO PRN 03/08/20 03/23/20 Unknown History Strength] capecitabine [Xeloda] See Rx Instructions .ROUTE .COMPLEX 03/08/20 03/23/20 Unknown History capecitabine [Xeloda] See Rx Instructions .ROUTE .COMPLEX 03/08/20 03/23/20 Unknown History lorazepam 0.5 - 1 mg PO Q4H PRN 03/08/20 03/23/20 Unknown History prochlorperazine maleate 10 mg PO Q4H PRN 03/08/20 03/23/20 Unknown History amlodipine 10 mg PO DAILY #0 tab 03/11/20 03/23/20 03/08/20 Rx hydrochlorothiazide 12.5 mg PO DAILY #0 tab 03/11/20 03/23/20 03/08/20 Rx sennosides-docusate sodium 1 - 2 tab PO PRN 03/23/20 03/23/20 Unknown History [Senna-S] Allergies Allergy/AdvReac Type Severity Reaction Status Date / Time atorvastatin [From Lipitor] Allergy ADR-Cough Verified 03/10/20 09:45 latex Allergy ALGY-Rash Verified 03/08/20 16:11 Current Medications Current Medications Generic Name Dose Route Start Last Admin Trade Name Freq PRN Reason Stop Dose Admin Acetaminophen 650 mg 03/22/20 19:27 03/23/20 02:20 Tylenol PO 650 mg Q6H PRN Administration Mild/Mod Pain Or Temp >/= 101 Heparin Sodium (Beef Lung) 5,000 unit 03/22/20 19:45 03/23/20 04:39 Heparin SUBCUT 5,000 unit Q8H LUIS E Administration Cefepime HCl 2,000 mg/ Sodium 50 mls @ 100 mls/hr 03/22/20 20:30 03/22/20 22:05 Chloride IV Infused Q12H LUIS E Infusion Protocol Levofloxacin/Dextrose 750 mg in 150 mls @ 100 mls/hr 03/22/20 21:30 03/23/20 01:46 Levaquin-D5w IV Infused Q24H LUIS E Infusion Protocol Vancomycin HCl 1,000 mg/ 250 mls @ 250 mls/hr 03/22/20 21:00 03/22/20 23:28 Sodium Chloride IV Infused Q12H LUIS E Infusion PFSH Acute PFSH: Medical History Ascending colon malignant neoplasm Status post right hemicolectomy on 01/08/2020. Follow-up with oncology. CAD (coronary artery disease) -s/p stenting x 2 (2005) Hypercholesteremia Continue statin. Hypertension Due to HCTZ dose being decreased to 12.5 from amlodipine dose increased to 10 mg. Iron deficiency anemia -recent blood transfusion due to worsening anemia (11/03/2019) -H/H stable -pending GI w/u by Dr. Lauren -on iron supplementation Postoperative anemia Status post transfusion. Hemoglobin 9.5. Skin cancer of face Vertigo -noted episode of N/V with change in position, nystagmus, has chronic tinnitus and is hard of hearing -orthostatics negative, close monitoring of vital signs -telemetry monitoring -Echo: EF=65%, G1DD, no RWMA, mild pulmonary HTN (39), mild TR -carotid US: no hemodynamically significant stenosis -noted anemia with stable Hg -CT head negative for acute findings; CXR unremarkable for acute changes -gentle IVF hydration; can d/c -fall precautions, up with assist -PT evaluation -antiemetics as needed -UA with pyuria and bacteria; will treat empirically due to patient's advanced age and symptoms -meclizine PRN Surgical History H/O heart artery stent H/O: hysterectomy History of left hip replacement Family History Denies family history of CAD (coronary artery disease) Social History Smoking and tobacco status: never smoked Alcohol intake: never Household members: spouse Marital status: Marital status details: Takes care of her at home who has Alzheimer's dementia. Current occupational status: retired Vitals/I&O/Wt Last Vital Signs Temp 98.0 F 03/23/20 06:40 Pulse 90 03/23/20 06:40 Resp 26 H 03/23/20 06:40 BP 118/62 03/23/20 06:40 Pulse Ox 94 03/23/20 06:40 03/22/20 03/23/20 03/23/20 22:59 06:59 14:59 Intake Total 170 / 170 520 / 690 Output Total 400 / 400 Balance 170 / 170 120 / 290 Weight last 48 hrs Weight 132 lb 5 oz Weight 123 lb Physical Exam Narrative: EXAM NARRATIVE: General: alert, mild respiratory distress saturating 92% on 5 L nasal cannula HEENT: conj clear, EOMI, PERRL, mmm, Neck: supple, no meningismus Heme: no cervical LAP Pulmonary: Reduced breath sounds bilaterally lower lungs cardiovascular: rrr, nl s1s2, no mrg Abdomen: soft, nt, nd, no r/g, bs+ Extremities: pulses +, no edema, no c/c : no CVA tenderness Skin: intact, no rash MSK: no back or neck pain Neurologic: grossly intact Data Micro: Micro: Microbiology 03/22/20 22:45 Blood Culture - Pr eliminary Blood SPECIMEN [facility] 03/22/20 22:40 Blood Culture - Pr eliminary Blood SPECIMEN [facility] Other Data: Other data: Reviewed imaging labs and other investigations in [facility] A&P Assessment and plan (1) Troponin level elevated: Status: Acute (2) Persistent pneumonia: Status: Acute (3) Multifocal pneumonia: Status: Acute (4) Ascending colon malignant neoplasm: Status: Acute (5) CAD (coronary artery disease): Status: Acute Qualifiers: Coronary Disease-Associated Artery/Lesion type: [place] artery [place] vs. transplanted heart: [place] heart Associated angina: without angina Qualified Code(s): I25.10 - Atherosclerotic heart disease of [place] coronary artery without angina pectoris (6) Pleural effusion, bilateral: Status: Acute # bilateral pleural effusions inpatient recently treated for community-a cquired pneumonia and repeat CT chest showing multifocal pneumonia of unclear etiology - afebrile, no leucocytosis. procalcitonin 0.12 -Currently saturating 92% on 5 L - Currently on vancomycin, cefepime, Levaquin, -Covid PCR negative, sputum cultures negative so far - Worsened consolidation and multifocal distribution on CTA. No PE. -Troponinemia but normal BNP; today echo normal LV systolic and diastolic function with EF 63% also clinically does not look volume overloaded; previous echo grade 2 diastolic dysfunction - underlying CHF less likely -Please send for MRSA nares; urine bacterial antigens, and Respiratory viral panel -With history of colon cancer, although not currently on chemotherapy, plans were to start Xeloda which has not yet been initiated. -We will follow-up on galactomannan, B-D glucan. PJP, although probably less likely given he is not on immunosuppression, and degree of hypoxia. -Status post left thoracentesis-600 cc straw-colored fluid drained and sent for cultures, cell count, fluid analysis, cytology - will follow up # Adenocarcinoma of colon status post hemicolectomy, with noted positive lymph nodes on biopsy. Follows with Dr. Ramsey in office. Has not yet initiated Xeloda. - recommendations conveyed to Hospitalist covering the patient. -Medical condition, labs, investigations, medications, and plan of care- everything explained in detail to the patient, son and grandson (upon pt request). Patient verbalized understanding and agreed with the plan of care. Consult Attestations Medical Necessity Statement: Multifocal pneumonia requiring iv antibiotics and o2 supplementation Time Spent in Patient Care: Greater than 35 minutes (>than 50% of time spent in counselling and/or direct pt care on unit) . 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 transplanted heart: [place] heart Associated angina: without angina Pleural effusion, bilateral J90 Time Spent (min) 90 Comment including bedside sono assesssment of pleural effusions, later thoracentesis
[2020-03-23] MEDS: cefepime 2,000 MG in sodium chloride 0.9% (plus) 50 ML 100 MG IV ×2 (08:23→20:38)
[2020-03-23] MEDS: metoprolol tartrate 25 mg Tablet 12.5 MG PO ×2 (08:28→18:02)
[2020-03-23] MEDS: aspirin 81 mg EC Tablet PO (08:28)
[2020-03-23] MEDS: vancomycin 1,000 MG in sodium chloride 0.9% 250 ML 250 MG IV ×2 (08:46→21:24)
--- NOTE | 2020-03-23 08:59 | PC.NURSE ---
Addendum entered by Anali Phan RN 03/23/20 11:11: verbal instructions given to hold next dose of heparin Original Note: Dr Murphy at bedside for assessment and discussion of plan of care ultra sound performed by Dr Murphy to check plural spaces, discussed with patient about a thoracentisis patient verbalizes understanding how ever would like for grandson to be called and it all explained to him
--- NOTE | 2020-03-23 13:57 | PC.NURSE ---
1315 patient refused to work with PT at this time
[2020-03-23] MEDS: LORazepam 0.5 mg Tablet PO (15:17)
--- NOTE | 2020-03-23 15:48 | PM.PN ---
Subjective Subjective: Interval history: She is doing about the same. Feeling generally weak. Coughing. Breathing is not at baseline. Had a good discussion with the pulmonology doctor this morning, subsequently also discussed with her grandson and she says both were in agreement with proceeding with thoracentesis. Vitals/I&O/Wt Last Vital Signs Temp 98.1 F 03/23/20 15:05 Pulse 99 03/23/20 15:05 Resp 32 H 03/23/20 15:05 BP 124/58 03/23/20 15:05 Pulse Ox 98 03/23/20 15:05 03/23/20 03/23/20 03/23/20 06:59 14:59 22:59 Intake Total 520 / 690 780 / 780 Output Total 400 / 400 400 / 400 Balance 120 / 290 380 / 380 Weight last 48 hrs Weight 60.016 kg Weight 55.792 kg Physical Exam Const: COMMON NORMALS: no acute distress and patient oriented x3 HENMT: COMMON NORMALS: oropharynx normal Neck/C-Spine: COMMON NORMALS: no JVD Resp: COMMON NORMALS: normal respiratory effort AUSCULTATION: diminished lung sounds bilateral in the lower lung alba Cardio: COMMON NORMALS: no JVD, S1 normal heart sound present, S2 normal heart sound present and No murmurs present (Cardio) RATE: tachycardic HEART SOUNDS: S1 normal heart sound present and S2 normal heart sound present GI: COMMON NORMALS: Normal to inspection, nondistended, normoactive bowel sounds present, Soft to palpation and non-tender PALPATION: Yes Soft to palpation Extremity: COMMON NORMALS: no joint enlargement and no pedal edema Neuro: COMMON NORMALS: patient oriented x3 and moves all extremities Skin: COMMON NORMALS: no rashes or lesions noted GENERAL SKIN EXAM: no rashes or lesions noted Data : 03/23/20 05:11 03/23/20 05:11 Micro: Microbiology 03/22/20 22:45 Blood Culture - Preliminary Blood SPECIMEN COLLECTED 03/22/20 22:40 Blood Culture - Preliminary Blood SPECIMEN COLLECTED A&P Assessment and plan (1) Persistent pneumonia: She is afebrile. No leukocytosis. Reports she continues to cough. Nonproductive cough. RT will attempt to induce a sample for sputum (also discussed with her grandson yesterday.) Assess by pulmonology today. She is agreeable to proceed with thoracentesis. For now continue broad-spectrum antibiotics. Procalcitonin is 0.12. May still have infection, however, cytology will be added to pleural fluid studies as well per discussion with pulmonology due to concern whether there may be some malignant involvement. Worsened consolidation and multifocal distribution on CTA. No PE. Troponin somewhat elevated, but no chest pain. Discussed the possibility of ongoing pneumonia which did not respond to antibiotic, noncontributory less likely viral pneumonia which is still ongoing, or other indolent pneumonia. Discussed possibility of other causes, including CHF. Lower extremity edema appears better today after holding amlodipine. So far no organism on blood culture. Has history of colon cancer, although not currently on chemotherapy, plans were to start Xeloda which has not yet been initiated. I requested for galactomannan, B-D glucan. PJP, although probably less likely given he is not on immunosuppression, and degree of hypoxia. Doubt that there is ongoing viral infection. More likely possibility is superimposed bacterial infection. She was tested for COVID-19 with rapid antigen during this evaluation which was negative. Previously tested with rapid antigen and PCR both of which were negative. Also requested echocardiogram given peripheral edema, history of CAD, troponin elevation. Here BNP was normal, however, and otherwise does not have orthopnea. I do not see JVD. LE edema is much better today. Does have history of grade 2 diastolic dysfunction seen back in March. Status: Acute (2) Troponin level elevated: Troponin up to 141, subsequently 137, then 134. She has no chest pain. Has history of CAD. Currently as troponin without rise, suspicion is more likely for demand ischemia given worsened hypoxia. Assessed by TTE. Continue CAD medications. Hold statin for now given CK elevation, generalized weakness, transaminitis. Would benefit from additional risk stratification by stress testing once her condition improves, unless starts or any other symptoms. Status: Acute (3) Lower extremity edema: Pending lower extremity duplex. No evidence of PE on CTA. Status: Acute (4) Hyponatremia: Sodium stable at 127. At this time continue regular diet. Will be going for thoracentesis today. To avoid large sodium shifts we will hold off for now on any diuretic. Difficult to pinpoint etiology. Poor oral intake, so may be low solute, but also appears to have lower extremity edema, concern for possible CHF, so possibility of fluid overload as well although this appears less likely. In addition HCTZ was likely contributing, and discontinued at this time. Also possibility of SIADH secondary to ongoing pulmonary problem. Status: Acute Additional A&P Information Generalized weakness: Hold statin for now given generalized weakness, CK elevation, transaminitis. Possible statin induced myopathy. Assess and treat for possible ongoing pneumonia as above, assess for possible CHF as above. TSH is normal. Incidentally noted mediastinal lymph nodes thought to be reactive. Incidentally noted thyroid nodule, no follow-up recommended. Adenocarcinoma of colon status post hemicolectomy, with noted positive lymph nodes on biopsy. Follows with Dr. Ramsey in office. Has not yet initiated Xeloda. 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 Abdomen is entirely soft on examination. Normal lactic acid, suspicion for acutely ischemic bowel is very low at this time. Previously incidentally noted 10 mm gallstone which was stable. No right upper quadrant discomfort at this time. HTN: Has been at goal. Monitor. For now hold amlodipine due to lower extremity edema. Hold HCTZ which was recently discontinued due to hyponatremia. Possible UTI noted during prior admission, although only 10-20,000 Enterococcus growing in urine and without symptoms. Still denies any symptoms, but due to generalized weakness will repeat urine culture. Blood culture in process. Anemia, hemoglobin appears stable. Previously known iron deficiency anemia for which arrangements were being made for iron infusions. Hold off for now until clears any ongoing infection. Anxiety: Prescription with her grandson requests that we have Ativan available for which she takes at home as needed, previously was taking for nausea, but sometimes also taking for anxiety. Attestations Medical Necessity Statement*: Continue admission for assessment management of persistent pneumonia unresponsive to prior treatment, generalized weakness, hyponatremia, recently resected colon malignancy. 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
--- NOTE | 2020-03-23 16:00 | PC.NURSE ---
spoke with Dr starr and a supply list was given to get ready for procedure that was discussed with patient this morning during rounding awaiting further instructions
--- NOTE | 2020-03-23 18:08 | XRR_ITS ---
PROCEDURE INFORMATION: Exam: XR Chest, 1 View Exam date and time: 03/23/2020 6:46 PM Age: 84 years old Clinical indication: Screening exam; Other screening; Additional info: Post thoracentesis TECHNIQUE: Imaging protocol: XR of the chest Views: 1 view. COMPARISON: CR XR chest 1V portable [id number] 03/22/2020 3:11 PM FINDINGS: Lungs: There is bibasilar consolidation especially on the right side which is consistent with pneumonia. The left basilar consolidation has improved when compared to previous study from 03/22/2020. Pleural space: Bilateral pleural effusions are present greater on the right side. The right effusion has increase since previous study but there has been significant decrease in the left effusion. No pneumothorax is seen. Heart/Mediastinum: The heart is enlarged but unchanged. There is calcification of the aortic arch. Bones/joints: Unremarkable. XR/XR chest 1V portable [id number] IMPRESSION: 1. Bibasilar pneumonia with bilateral pleural effusions. 2. When compared to previous study there is significant improvement of the left basilar consolidation and effusion.
--- NOTE | 2020-03-23 18:19 | P.OP_ITS ---
Operative Report Date of procedure: March 23, 2020 Pulmonary & Critical Care Medicine Procedure - Thoracentesis Procedure: Thoracentesis Indication: Left Pleural effusion Fish Conservationist(s): Kingsley Murphy MD Consent: Signed and placed in chart Anesthesia: 10 cc 1% lidocaine without epinephrine Description: Left pleural effusion was localized using ultrasound guidance and the site was marked accordingly. After chlorhexidine skin prep, area was draped in a sterile manner. 1% lidocaine was used for local anesthesia. Thoracentesis catheter was then inserted into the pleural space with aspiration of 600 cc of pleural fluid. Appearance was straw colored. Ultrasound guidance used: yes. Image saved to ultrasound machine EBL: 5 cc Complications: None CXR: pending Pre-op Diagnosis: Pneumonia
--- NOTE | 2020-03-23 20:12 | PC.NURSE ---
Rounding: Patient resting in bed. patient states she is breathing much better. patient denies any pain.
[2020-03-23 20:18] LABS: Body Fluid Polynuclear #Cells 0.015; Body Fluid WBC 100 /uL; Monocytes # Body Fluid 0.085; RBC, Body Fluid 0 10^3/uL
[2020-03-23 20:46] LABS: Albumin Body Fluid 1.1 g/dL; Amylase Body Fluid 21 U/L; Cholesterol Body Fluid 12 mg/dL (0-200); Fluid Alkaline Phos. 14 IU/L; LDH Body Fluid 139 U/L; Triglycerides Body Fluid 10 mg/dL (0-150); Uric Acid Body Fluid 3 mg/dL
--- NOTE | 2020-03-23 21:30 | PC.NURSE ---
Patient request for something dry lips. Orders received for lanolin PRN from Dr. Morin. Read back verbal order.
[2020-03-23 21:49] LABS: Apprearance, Body Fluid CLEAR; Color, Body Fluid YELLOW
[2020-03-23] MEDS: lanolin oint 7 gm 1 APPLIC TOPICAL (21:51)
[2020-03-23] MEDS: levofloxacin-dextrose 5 % 750 MG/150 ML PREMIX 100 MG IV (22:35)
[2020-03-24] VITALS (11 sets, daily range): BP systolic 111–140; BP diastolic 53–81; PULSE 80–98; RESP 16–30; TEMP 36.4–37; O2SAT 89–99; BMI 21.6
[2020-03-24] MEDS: LORazepam 0.5 mg Tablet PO (00:09)
[2020-03-24 05:21] LABS: Basophils % 0.4 %; Eosinophils # 0.1 10^3/uL (0.0-0.8); Eosinophils % 1.7 %; Hematocrit 32.8 % (37.0-47.0); Hemoglobin 9.9 g/dL (11.5-15.3); Lymphocytes # 0.7 10^3/uL (0.8-4.8); Lymphocytes % 8.1 %; Mean Corpuscular HGB Conc 30.2 g/dL (30.0-36.0); Mean Corpuscular Hemoglobin 23.6 pg (28.0-34.0); Mean Corpuscular Volume 78.1 fL (81-99); Mean Platelet Volume 9.4 fL (7.4-10.4); Monocytes # 0.6 10^3/uL (0.2-0.9); Monocytes % 6.9 %; Neutrophils # 6.66 10^3/uL (1.8-7.7); Neutrophils % 82.5 %; Nucleated Red Blood Cells % 0 %; Platelet Count 301 10^3/cmm (130-400); Red Cell Distribution Width 20.1 % (12.1-15.1); White Blood Count 8.1 10^3/uL (4.0-10.0)
[2020-03-24 05:55] LABS: Alanine Aminotransferase 30 U/L (0-33); Albumin Level 1.8 g/dL (3.5-5.2); Alkaline Phosphatase 59 IU/L (35-105); Anion Gap 11.1 (5-19); Aspartate Amino Transferase 53 U/L (0-32); Blood Urea Nitrogen 16 mg/dL (8-23); Calcium 8.3 mg/dL (8.5-10.5); Carbon Dioxide 25 mmol/L (22-29); Chloride 96 mmol/L (98-107); Globulin 3.1 g/dL (1.3-4.6); Glucose 91 mg/dL (65-115); Osmolality Calculated 267 mOsm/kg (285-295); Potassium 4.1 mmol/L (3.5-5.1); Sodium 128 mmol/L (136-145); Total Bilirubin 0.3 mg/dL (0.15-1.2); Total Protein 4.9 g/dL (6.6-8.7)
[2020-03-24 06:18] LABS: Lactate Dehydrogenase 335 U/L (135-214)
[2020-03-24] MEDS: metoprolol tartrate 25 mg Tablet 12.5 MG PO ×2 (08:48→18:32)
[2020-03-24] MEDS: cefepime 2,000 MG in sodium chloride 0.9% (plus) 50 ML 100 MG IV ×2 (08:48→20:43)
[2020-03-24] MEDS: aspirin 81 mg EC Tablet PO (08:48)
[2020-03-24] MEDS: vancomycin 1,000 MG in sodium chloride 0.9% 250 ML 250 MG IV ×2 (09:28→21:43)
[2020-03-24] MEDS: FUROsemide 10 mg/mL SDV 2mL 20 MG IVP (20:43)
[2020-03-24] MEDS: acetaminophen 325 mg Tablet 650 MG PO (21:43)
--- NOTE | 2020-03-24 21:50 | PM.PN ---
Subjective Subjective: Interval history: She is not feeling much better. Denies chest pain. Noted to be generally weak by nursing staff. Vitals/I&O/Wt Last Vital Signs Temp 98.1 F 03/24/20 20:00 Pulse 82 03/24/20 20:00 Resp 23 H 03/24/20 20:00 BP 114/65 03/24/20 20:00 Pulse Ox 93 03/24/20 20:00 03/24/20 03/24/20 03/24/20 06:59 14:59 22:59 Intake Total 350 / 1430 420 / 420 Output Total 200 / 855 100 / 100 350 / 450 Balance 150 / 575 320 / 320 -350 / -30 Weight last 48 hrs Weight 60.781 kg Weight 60.016 kg Physical Exam Const: COMMON NORMALS: no acute distress and patient oriented x3 HENMT: COMMON NORMALS: oropharynx normal Neck/C-Spine: COMMON NORMALS: no JVD Resp: COMMON NORMALS: normal respiratory effort AUSCULTATION: diminished lung sounds bilateral in the lower lung alba Cardio: COMMON NORMALS: no JVD, S1 normal heart sound present, S2 normal heart sound present and No murmurs present (Cardio) RATE: tachycardic HEART SOUNDS: S1 normal heart sound present and S2 normal heart sound present GI: COMMON NORMALS: Normal to inspection, nondistended, normoactive bowel sounds present, Soft to palpation and non-tender PALPATION: Yes Soft to palpation Extremity: COMMON NORMALS: no joint enlargement GENERAL: Yes edema (trace) Neuro: COMMON NORMALS: patient oriented x3 and moves all extremities Skin: COMMON NORMALS: no rashes or lesions noted GENERAL SKIN EXAM: no rashes or lesions noted Data : 03/24/20 04:50 03/24/20 04:50 Micro: Microbiology 03/23/20 11:45 Gram Stain - Final Sputum - Expectorated Sputum Sputum Culture - Preliminary 03/22/20 15:18 Urine Culture - Preliminary Urine,Clean Catch Staphylococcus sp coag neg 03/23/20 17:45 Gram Stain - Final Pleural Fluid 03/24/20 04:10 Bacterial Antigens - Final Urine,Voided 03/22/20 22:45 Blood Culture - Preliminary Blood NEGATIVE TO DATE 03/22/20 22:40 Blood Culture - Preliminary Blood NEGATIVE TO DATE A&P Assessment and plan (1) Persistent pneumonia: Pleurl fluid appears to be transudative. Discussed w patient and pulmonology. Will give a dose of Lasix and reassess response. Continue broad spectrum antibiotics. Follow up ID studies. She is afebrile. No leukocytosis. Reports she continues to cough. Nonproductive cough. RT will attempt to induce a sample for sputum (also discussed with her grandson yesterday.) Assess by pulmonology today. She is agreeable to proceed with thoracentesis. For now continue broad-spectrum antibiotics. Procalcitonin is 0.12. May still have infection, however, cytology will be added to pleural fluid studies as well per discussion with pulmonology due to concern whether there may be some malignant involvement, although probably less likely with fluid analysis. Follow up cytology. Worsened consolidation and multifocal distribution on CTA. No PE. Troponin somewhat elevated, but no chest pain. Discussed the possibility of ongoing pneumonia which did not respond to antibiotic, noncontributory less likely viral pneumonia which is still ongoing, or other indolent pneumonia. Less convincing but still possible CHF. Lower extremity edema appears better today after holding amlodipine. So far no organism on blood culture. Has history of colon cancer, although not currently on chemotherapy, plans were to start Xeloda which has not yet been initiated. I requested for galactomannan, B-D glucan. PJP, although probably less likely given he is not on immunosuppression, and degree of hypoxia. Doubt that there is ongoing viral infection. More likely possibility is superimposed bacterial infection. She was tested for COVID-19 with rapid antigen during this evaluation which was negative. Previously tested with rapid antigen and PCR both of which were negative. Urine bacterial antigens. MRSA PCR. Viral panel. Status: Acute (2) Troponin level elevated: Troponin up to 141, subsequently 137, then 134. She has no chest pain. Has history of CAD. Currently as troponin without rise, suspicion is more likely for demand ischemia given worsened hypoxia. Normal EF on TTE. No RWMA. Continue CAD medications. Hold statin for now given CK elevation, generalized weakness, transaminitis. Would benefit from additional risk stratification by stress testing once her condition improves, unless starts or any other symptoms. Status: Acute (3) Lower extremity edema: No DVT on lower extremity duplex. No evidence of PE on CTA. Status: Acute (4) Hyponatremia: Sodium stable at 127. Lasix challenge. Reassess. At this time continue regular diet. Difficult to pinpoint etiology. Poor oral intake, so may be low solute, but also appears to have lower extremity edema, concern for possible CHF, so possibility of fluid overload as well although this appears less likely. In addition HCTZ was likely contributing, and discontinued at this time. Also possibility of SIADH secondary to ongoing pulmonary problem. Status: Acute Additional A&P Information Generalized weakness: Hold statin for now given generalized weakness, CK elevation, transaminitis. Possible statin induced myopathy. Assess and treat for possible ongoing pneumonia as above, assess for possible CHF as above. TSH is normal. Coagulase negative staph in urine. Possible UTI: Continue vancomycin. Follow culture. Repeat blood culture. Incidentally noted mediastinal lymph nodes thought to be reactive. Incidentally noted thyroid nodule, no follow-up recommended. Adenocarcinoma of colon status post hemicolectomy, with noted positive lymph nodes on biopsy. Follows with Dr. Ramsey in office. Has not yet initiated Xeloda. 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 Abdomen is entirely soft on examination. Normal lactic acid, suspicion for acutely ischemic bowel is very low at this time. Previously incidentally noted 10 mm gallstone which was stable. No right upper quadrant discomfort at this time. HTN: Has been at goal. Monitor. For now hold amlodipine due to lower extremity edema. Hold HCTZ which was recently discontinued due to hyponatremia. Possible UTI noted during prior admission, although only 10-20,000 Enterococcus growing in urine and without symptoms. Anemia, hemoglobin appears stable. Previously known iron deficiency anemia for which arrangements were being made for iron infusions. Hold off for now until clears any ongoing infection. Anxiety: Prescription with her grandson requests that we have Ativan available for which she takes at home as needed, previously was taking for nausea, but sometimes also taking for anxiety. Attestations Medical Necessity Statement*: Continue admission of persistent pneumonia, generalized weakness. Coding Level of Care Code Acute Coke Handling Supervisor for Chg Fwd Diagnoses Persistent pneumonia J18.9 Troponin level elevated R77.8 Lower extremity edema R60.0 Hyponatremia E87.1
--- NOTE | 2020-03-24 22:22 | PC.NURSE ---
Lasix retimed by pharmacy and late due to [facility] being down
[2020-03-24] MEDS: levofloxacin-dextrose 5 % 750 MG/150 ML PREMIX 100 MG IV (22:56)
[2020-03-25] VITALS (8 sets, daily range): BP systolic 110–130; BP diastolic 55–75; PULSE 82–90; RESP 19–30; TEMP 36.3–36.7; O2SAT 92–99
[2020-03-25] MEDS: LORazepam 0.5 mg Tablet PO ×3 (00:12→22:58)
--- NOTE | 2020-03-25 00:44 | PC.NURSE ---
Patient stated her IV was uncomfortable during Levaquin infusion. Noticed IV catheter was kinked and partially out. NO redness or swelling noted to site. IV to RAC was discontinued with catheter intact and dressing applied. patient tolerated well.
[2020-03-25 05:08] LABS: Basophils % 0.4 %; Eosinophils # 0.2 10^3/uL (0.0-0.8); Eosinophils % 2.3 %; Hematocrit 30.7 % (37.0-47.0); Hemoglobin 9.3 g/dL (11.5-15.3); Lymphocytes # 0.7 10^3/uL (0.8-4.8); Lymphocytes % 9.4 %; Mean Corpuscular HGB Conc 30.3 g/dL (30.0-36.0); Mean Corpuscular Hemoglobin 23.8 pg (28.0-34.0); Mean Corpuscular Volume 78.5 fL (81-99); Mean Platelet Volume 9.9 fL (7.4-10.4); Monocytes # 0.6 10^3/uL (0.2-0.9); Monocytes % 8.1 %; Neutrophils # 5.97 10^3/uL (1.8-7.7); Neutrophils % 79.4 %; Nucleated Red Blood Cells % 0 %; Platelet Count 301 10^3/cmm (130-400); Red Blood Count 3.91 10^6/uL (4.1-5.3); Red Cell Distribution Width 20.3 % (12.1-15.1); White Blood Count 7.5 10^3/uL (4.0-10.0)
[2020-03-25 05:43] LABS: Alanine Aminotransferase 30 U/L (0-33); Albumin Level 1.8 g/dL (3.5-5.2); Alkaline Phosphatase 58 IU/L (35-105); Aspartate Amino Transferase 51 U/L (0-32); Blood Urea Nitrogen 19 mg/dL (8-23); Calcium 8.4 mg/dL (8.5-10.5); Carbon Dioxide 25 mmol/L (22-29); Chloride 94 mmol/L (98-107); Glucose 89 mg/dL (65-115); Osmolality Calculated 266 mOsm/kg (285-295); Sodium 127 mmol/L (136-145); Total Bilirubin 0.3 mg/dL (0.15-1.2); Total Protein 4.8 g/dL (6.6-8.7)
[2020-03-25 05:50] LABS: Anion Gap 12.2 (5-19); Potassium 4.2 mmol/L (3.5-5.1)
--- NOTE | 2020-03-25 06:14 | PC.NURSE ---
End of shift: Patient remians alert oriented. Patient has rested well. Denies any pain or needs at this time.
--- NOTE | 2020-03-25 08:09 | P.PN_ITS ---
Subjective Subjective: Interval history: complaining of weakness says her breathing is somewhat improved after left thoracentesis Vitals/I&O/Wt Last Vital Signs Temp 97.8 F 03/25/20 07:40 Pulse 89 03/25/20 07:40 Resp 28 H 03/25/20 07:40 BP 125/55 03/25/20 07:40 Pulse Ox 95 03/25/20 07:40 03/24/20 03/25/20 03/25/20 22:59 06:59 14:59 Intake Total 300 / 720 Output Total 350 / 450 250 / 700 Balance -350 / -30 50 / 20 Weight last 48 hrs Weight 137 lb 9.6 oz Weight 134 lb Physical Exam Narrative: EXAM NARRATIVE: General: alert, mild respiratory distress saturating 92% on 6 L nasal cannula HEENT: conj clear, EOMI, PERRL, mmm, Neck: supple, no meningismus Heme: no cervical LAP Pulmonary: improved breath sounds on left side, reduced on right lower lungs cardiovascular: rrr, nl s1s2, no mrg Abdomen: soft, nt, nd, no r/g, bs+ Extremities: pulses +, no edema, no c/c : no CVA tenderness Skin: intact, no rash MSK: no back or neck pain Neurologic: grossly intact Data : 03/25/20 03:52 03/25/20 03:52 Micro: Microbiology 03/24/20 23:15 Blood Culture - Preliminary Blood SPECIMEN COLLECTED 03/24/20 23:10 Blood Culture - Preliminary Blood SPECIMEN COLLECTED 03/23/20 11:45 Gram Stain - Final Sputum - Expectorated Sputum Sputum Culture - Preliminary 03/22/20 15:18 Urine Culture - Preliminary Urine,Clean Catch Staphylococcus sp coag neg 03/23/20 17:45 Gram Stain - Final Pleural Fluid 03/24/20 04:10 Bacterial Antigens - Final Urine,Voided A&P Assessment and plan (1) Troponin level elevated: Status: Acute (2) Persistent pneumonia: Status: Acute (3) Multifocal pneumonia: Status: Acute (4) Ascending colon malignant neoplasm: Status: Acute (5) CAD (coronary artery disease): Status: Acute Qualifiers: Associated angina: without angina Coronary Disease-Associated Artery/Lesion type: [place] artery [place] vs. transplanted heart: [place] heart Qualified Code(s): I25.10 - Atherosclerotic heart disease of [place] coronary artery without angina pectoris (6) Pleural effusion, bilateral: Status: Acute # bilateral pleural effusions inpatient recently treated for community- acquired pneumonia and repeat CT chest showing multifocal pneumonia of unclear etiology - afebrile, no leucocytosis. procalcitonin 0.12 -Currently saturating 92% on 3 L - Currently on vancomycin, cefepime, Levaquin, - -Covid PCR negative, sputum cultures negative so far - Worsened consolidation and multifocal distribution on CTA. No PE. - Please send for urine bacterial antigens, MRSA nares and if negative can DC vancomycin; , and Respiratory viral panel pending -With history of colon cancer, although not currently on chemotherapy, plans were to start Xeloda which has not yet been initiated. -We will follow-up on galactomannan, B-D glucan, Induced sputum for PCP -Status post left thoracentesis-600 cc straw-colored fluid drained - transudative in nature - awaiting culture and cytology results -Troponinemia but normal BNP; today echo normal LV systolic and diastolic func tion with EF 63% also clinically does not look volume overloaded; previous echo grade 2 diastolic dysfunction - can give lasix 20 mg daily as pleural effusions are transudative - monitor sodium as pt it is 127 now - please repeat BNP, Troponin and UA # complaing of weakness - likely due to Adenocarcinoma of colon status post hemicolectomy, with noted positive lymph nodes on biopsy. - Follows with Dr. Ramsey in office. Has not yet initiated Xeloda. - recommendations conveyed to Hospitalist covering the patient. -Medical condition, labs, investigations, medications, and plan of care- everything explained in detail to the patient, son and grandson (upon pt request ). Patient verbalized understanding and agreed with the plan of care. Attestations Medical Necessity Statement*: Acute hypoxic respiratory failure requiring 6 L of oxygen due to underlying pneumonia/ CHF exacerbation in patient with recent diagnosis of adenocarcinoma of colon polyp Time Spent in Patient Care: 16 - 35 minutes (>than 50% of time spent in counselling and/or direct pt care on unit) . Coding Level of Care Code Acute Instructional Technology Coach for g Fwd Diagnoses Troponin level elevated R77.8 Persistent pneumonia J18.9 Multifocal pneumonia J18.9 Ascending colon malignant neoplasm C18.2 CAD (coronary artery disease) I25.10 Associated angina: without angina Coronary Disease-Associated Artery/Lesion type: [place] artery [place] vs. transplanted heart: [place] heart Pleural effusion, bilateral J90
[2020-03-25] MEDS: cefepime 2,000 MG in sodium chloride 0.9% (plus) 50 ML 100 MG IV (08:38)
[2020-03-25] MEDS: aspirin 81 mg EC Tablet PO (08:39)
[2020-03-25] MEDS: metoprolol tartrate 25 mg Tablet 12.5 MG PO ×2 (08:39→17:59)
--- NOTE | 2020-03-25 09:22 | DCPLANNER ---
IMM completed on 03/25/2020 @ 0914. Copy of rights given to pt.
[2020-03-25] MEDS: vancomycin 1,000 MG in sodium chloride 0.9% 250 ML 250 MG IV ×2 (10:36→20:13)
--- NOTE | 2020-03-25 15:50 | XR_ITS ---
WS: [id number] Portable AP upright chest, 03/25/2020 Clinical Data: hypoxia Comparison: Chest, 03/23/2020. Findings: The right basilar consolidation along with right pleural effusion remain the same. There is no change in the left basilar consolidation and left effusion. The heart is enlarged. The aortic arc h and the descending aorta show calcification and tortuosity. Monitor leads are on the chest wall. XR/XR chest 1V portable [id number] Impression: 1. No change in bibasilar pneumonia and bilateral pleural effusions with more c onsolidation on the right than the left. 2. Cardiomegaly.
--- NOTE | 2020-03-25 15:51 | ECG_ITS ---
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 Measurements Intervals [place] Rate: 90 P: 41 NC: 207 QRS: 23 QRSD: 88 T: 15 QT: 349 QTc: 429 Interpretive Statements SINUS RHYTHM WITH SINUS ARRHYTHMIA Compared to ECG 03/23/2020 00:19:43 No significant changes Electronically Signed On 03-25-2020 18:21:37 CDT by Rajan Holt M.D. [id number] f
--- NOTE | 2020-03-25 15:55 | PC.NURSE ---
Pt called and stated she does not feel good. Pt stated, I just feel weak. Pt looked weak and tired, noted increase work of breathing and holding her chest. Asked her if she has any chest pain or chest discomfort, she replied, It feels indigestion. When I drink the water it feels like it stopped here. I want my nerve pill. while pointing to her sternum. Noted VS= HR sinus tachycardia in 95 to 110s, SpO2=84 to 86% on 4 L/min NC, BP-116/66, coarse crackles on bilateral lungs. Called RT to bedside. Notified Dr. Santana via voalte phone on pt's condition/assessment. He discuss in putting orders for stat portable Xray, Trops, EKGs. Dr. livingstoned to give Ativan as prn order. RT increase oxygen to 6 L/min NC. Spo2 increase to 92 to 95%.
[2020-03-25] MEDS: acetaminophen 325 mg Tablet 650 MG PO (16:03)
[2020-03-25] MEDS: pantoprazole DR 40 mg Tablet PO (16:03)
[2020-03-25] MEDS: enoxaparin 40 mg/0.4 mL Syringe SUBCUT (16:04)
--- NOTE | 2020-03-25 16:17 | PC.NURSE ---
HR-90-95s Sinus Tach SpO2-93-97% on 5 L via NC in humidifier. Repositioned pt on right side minimally as pt tolerated it well. Will keep monitoring.
[2020-03-25 17:16] LABS: Troponin(5th) Baseline 136 ng/L (0-10)
--- NOTE | 2020-03-25 17:51 | ECG_ITS ---
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 Measurements Intervals [place] Rate: 85 P: 58 TN: 216 QRS: 23 QRSD: 101 T: 28 QT: 370 QTc: 442 Interpretive Statements SINUS RHYTHM WITH SINUS ARRHYTHMIA WITH FIRST DEGREE AV BLOCK Compared to ECG 03/25/2020 15:54:48 First degree AV block now present Electronically Signed On 03-25-2020 18:27:25 CDT by Rajan Holt M.D. [id number] f
[2020-03-25 18:31] LABS: Troponin 5 2HR 133.5 ng/L (0-10); Troponin 5 2HR Delta -2.5 ABS# (0-10)
[2020-03-25 19:07] LABS: NT Pro B Type Natriuretic Pept 464 pg/mL (0-450)
--- NOTE | 2020-03-25 19:10 | P.PN_ITS ---
Subjective Subjective: Interval history: This morning she did not feel a whole little better. Denies any pain. Has been having some cough. Vitals/I&O/Wt Last Vital Signs Temp 98.0 F 03/25/20 18:58 Pulse 85 03/25/20 18:58 Resp 22 H 03/25/20 18:58 BP 110/75 03/25/20 18:58 Pulse Ox 95 03/25/20 18:58 03/25/20 03/25/20 03/25/20 06:59 14:59 22:59 Intake Total 300 / 720 860 / 860 Output Total 250 / 700 300 / 300 Balance 50 / 20 560 / 560 Weight last 48 hrs Weight 62.414 kg Weight 60.781 kg Physical Exam Const: COMMON NORMALS: no acute distress and patient oriented x3 HENMT: COMMON NORMALS: oropharynx normal Neck/C-Spine: COMMON NORMALS: no JVD Resp: COMMON NORMALS: normal respiratory effort AUSCULTATION: diminished lung sounds on the right in the lower lung alba Cardio: COMMON NORMALS: no JVD, S1 normal heart sound present, S2 normal heart sound present and No murmurs present (Cardio) RATE: tachycardic HEART SOUNDS: S1 normal heart sound present and S2 normal heart sound present GI: COMMON NORMALS: Normal to inspection, nondistended, normoactive bowel sounds present, Soft to palpation and non-tender PALPATION: Yes Soft to palpation Extremity: COMMON NORMALS: no joint enlargement GENERAL: Yes edema (trace) Neuro: COMMON NORMALS: patient oriented x3 and moves all extremities Skin: COMMON NORMALS: no rashes or lesions noted GENERAL SKIN EXAM: no rashes or lesions noted Data : 03/25/20 03:52 03/25/20 03:52 Micro: Microbiology 03/23/20 17:45 Gram Stain - Final Pleural Fluid Anaerobic Culture - Preliminary Body Fluid Culture - Preliminary 03/23/20 11:45 Gram Stain - Final Sputum - Expectorated Sputum Sputum Culture - Final 03/24/20 23:15 Blood Culture - Preliminary Blood SPECIMEN COLLECTED 03/24/20 23:10 Blood Culture - Preliminary Blood SPECIMEN COLLECTED A&P Assessment and plan (1) Persistent pneumonia: She has not been feeling a whole lot better. This afternoon transiently felt worse, was requiring some more oxygen up to 6 L by nasal cannula, subsequently a little bit better and back to full 4 L. Denies chest pain. Chest x-ray repeated with stable appearance of pneumonia, pleural effusions with more consolidation on the right than the left. Troponin and EKG checked. Troponin I 36-133. BNP 426. Giving her additional dose of 20 mg IV Lasix. Discussed with pulmonology. Continue empiric coverage with antibiotics at this time. They may try to draw out fluid on the right with thoracentesis tomorrow. Discussed also with her grandson as well. Discussed also regarding coagulase- negative staph in urine, although blood cultures have been negative so far. Discussed regarding incidental finding of celiac trunk and SMA stenosis during last admission, although she has had no abdominal pain and her lactic acid was normal. Do not suspect intestinal ischemia, and not sure this would influence findings in the lung. However, if there should be elevation of troponin, chest pain, or other concerning symptoms maintain low threshold for initiation of treatment for ischemic heart disease/months, including therapeutic anticoagul ation. He is in agreement. Per discussion with him and pulmonology service we will go and repeat c oronavirus PCR. Discussed also the last admission on CT noticed may be an appearance of possible aspiration. I did not observe her coughing while having some of her dinner, however, given persistent findings suspicious of pneumonia, worsened right side, will additionally assess by MBS. Follow up ID studies including viral panel, pleural fluid, blood, sputum, pneumocystis PCR. For now continue broad-spectrum antibiotics. Procalcitonin is 0.12. May still have infection, however, cytology will be added to pleural fluid studies as well per discussion with pulmonology due to concern whether there may be some malignant involvement, although probably less likely with fluid analysis. Follow up cytology. Status: Acute (2) Troponin level elevated: Troponin up to 141, subsequently 137, then 134. She has no chest pain. Has history of CAD. Currently as troponin without rise, suspicion is more likely for demand ischemia given worsened hypoxia. Normal EF on repeat limited TTE. No RWMA. Continue CAD medications. Hold statin for now given CK elevation, generalized weakness, transaminitis. Would benefit from additional risk stratification by stress testing once her condition improves, unless starts or any other symptoms. Discussed with her grandson per her request. Status: Acute (3) Lower extremity edema: No DVT on lower extremity duplex. No evidence of PE on CTA. Status: Acute (4) Hyponatremia: Sodium stable at 127. Lasix challenge. Reassess. At this time continue regular diet. Difficult to pinpoint etiology. Poor oral intake, so may be low solute, but also appears to have lower extremity edema, concern for possible CHF, so possibility of fluid overload as well although this appears less likely. In addition HCTZ was likely contributing, and discontinued at this time. Also possibility of SIADH secondary to ongoing pulmonary problem. Status: Acute Additional A&P Information Generalized weakness: Hold statin for now given generalized weakness, CK elevation, transaminitis. Possible statin induced myopathy. Assess and treat for possible ongoing pneumonia as above, assess for possible CHF as above. TSH is normal. Coagulase negative staph in urine. Discussed with her grandson. Continue empiric coverage with vancomycin at this time. Follow-up final urine control. Possible UTI: Continue vancomycin. Follow culture. Repeated blood culture. No blood cultures positive from last ordered this admission. Consider CT abdomen pelvis with oral contrast if recurrent UTI with Enterococcus. Incidentally noted mediastinal lymph nodes thought to be reactive. Incidentally noted thyroid nodule, no follow-up recommended. Adenocarcinoma of colon status post hemicolectomy, with noted positive lymph nodes on biopsy. Follows with Dr. Ramsey in office. Has not yet initiated Xeloda. 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 Abdomen is entirely soft on examination. Normal lactic acid, suspicion for acutely ischemic bowel is very low at this time. Previously incidentally noted 10 mm gallstone which was stable. No right upper quadrant discomfort at this time. HTN: Has been at goal. Monitor. For now hold amlodipine due to lower extremity edema. Hold HCTZ which was recently discontinued due to hyponatremia. Possible UTI noted during prior admission, although only 10-20,000 Enterococcus growing in urine and without symptoms. Anemia, hemoglobin appears stable. Previously known iron deficiency anemia for which arrangements were being made for iron infusions. Hold off for now until clears any ongoing infection. Anxiety: Ativan available for which she takes at home as needed, previously was taking for nausea, but sometimes also taking for anxiety. Attestations Medical Necessity Statement*: Continue admission for assessment management of hypoxia, generalized weakness, persistent pneumonia. Coding Level of Care Code Acute Automat Car Attendant for [facility] Fwd Diagnoses Persistent pneumonia J18.9 Troponin level elevated R77.8 Lower extremity edema R60.0 Hyponatremia E87.1
[2020-03-25] MEDS: FUROsemide 10 mg/mL SDV 2mL 20 MG IVP (19:33)
[2020-03-25 20:27] LABS: Add Urine Microscopic? NO
[2020-03-25 20:46] LABS: Glucose Urine UA Norm (Normal); Protein Urine Neg (Negative); Specific Gravity, Urine 1.015 (1.005-1.030); Urine Appearance Clear (CLEAR); Urine Color Yellow (Yellow)
[2020-03-25 20:47] LABS: Bilirubin Urine Neg (Negative); Blood Urine Neg (Negative); Ketones Urine 1+ (Negative); Leukocyte Esterase Urine Negative (Negative); Nitrate Urine Negative (Negative); Urobilinogen Urine Norm (Negative)
[2020-03-25] MEDS: levofloxacin-dextrose 5 % 750 MG/150 ML PREMIX 100 MG IV (21:17)
--- NOTE | 2020-03-25 22:36 | PC.NURSE ---
Patient resting in bed with eyes closed. No complaints of pain at this time. Call light within reach. Continue care.
[2020-03-25 22:38] LABS: Troponin 5 6HR Delta 11.5 ng/L (0-12)
[2020-03-25 22:48] LABS: Troponin 5 6HR 147.5 ng/L (0-10)
[2020-03-26] VITALS (8 sets, daily range): BP systolic 101–146; BP diastolic 59–91; PULSE 84–98; RESP 16–27; TEMP 36.1–36.8; O2SAT 92–97
--- NOTE | 2020-03-26 01:02 | PC.NURSE ---
Patient reports being restless despite taking ativan. Patient lying in room with eyes open requesting Tylenol to help relax. Administered per orders, continue care.
[2020-03-26] MEDS: acetaminophen 325 mg Tablet 650 MG PO (01:08)
[2020-03-26 05:02] LABS: Basophils % 0.4 %; Eosinophils # 0.2 10^3/uL (0.0-0.8); Eosinophils % 3.2 %; Hematocrit 28.6 % (37.0-47.0); Hemoglobin 8.9 g/dL (11.5-15.3); Lymphocytes # 0.6 10^3/uL (0.8-4.8); Lymphocytes % 8.5 %; Mean Corpuscular HGB Conc 31.1 g/dL (30.0-36.0); Mean Corpuscular Volume 77.1 fL (81-99); Mean Platelet Volume 9.4 fL (7.4-10.4); Monocytes # 0.6 10^3/uL (0.2-0.9); Monocytes % 7.5 %; Neutrophils # 6.03 10^3/uL (1.8-7.7); Neutrophils % 79.9 %; Nucleated Red Blood Cells % 0 %; Platelet Count 300 10^3/cmm (130-400); Red Blood Count 3.71 10^6/uL (4.1-5.3); Red Cell Distribution Width 20.1 % (12.1-15.1); White Blood Count 7.6 10^3/uL (4.0-10.0)
[2020-03-26 05:32] LABS: Alanine Aminotransferase 30 U/L (0-33); Albumin Level 1.8 g/dL (3.5-5.2); Alkaline Phosphatase 55 IU/L (35-105); Anion Gap 9.8 (5-19); Aspartate Amino Transferase 46 U/L (0-32); Blood Urea Nitrogen 20 mg/dL (8-23); Calcium 8.2 mg/dL (8.5-10.5); Carbon Dioxide 25 mmol/L (22-29); Chloride 97 mmol/L (98-107); Globulin 2.7 g/dL (1.3-4.6); Glucose 100 mg/dL (65-115); Osmolality Calculated 269 mOsm/kg (285-295); Potassium 3.8 mmol/L (3.5-5.1); Sodium 128 mmol/L (136-145); Total Bilirubin 0.2 mg/dL (0.15-1.2); Total Protein 4.5 g/dL (6.6-8.7)
--- NOTE | 2020-03-26 06:12 | PC.NURSE ---
SHIFT SUMMARY: Patient restless in the beginning of the shift, and requested medication to help rest. Staff repositioned patient several times to try to make comfortable. Patient finally was able to go to sleep around 0200. Patient rested quietly for the remainder of the shift. Patients troponin levels were elevated, Dr. Morin notified, no new orders received. Patient is currently resting in bed with eyes closed, no s/s of distress noted. Call light within reach. Continue care.
[2020-03-26] MEDS: cefepime 2,000 MG in sodium chloride 0.9% (plus) 50 ML 100 MG IV (09:10)
[2020-03-26] MEDS: aspirin 81 mg EC Tablet PO (09:11)
[2020-03-26] MEDS: pantoprazole DR 40 mg Tablet PO (09:11)
[2020-03-26] MEDS: metoprolol tartrate 25 mg Tablet 12.5 MG PO ×2 (09:12→18:25)
[2020-03-26] MEDS: vancomycin 1,000 MG in sodium chloride 0.9% 250 ML 150 MG IV (10:05)
--- NOTE | 2020-03-26 13:22 | PM.PN ---
Subjective Subjective: Interval history: Patient examined difficulty breathing and he was saturating 92% on 6 L of oxygen. Hospitalist was concerned about respiratory status and so checked with ultrasound at bedside and removed 900 cc of straw-colored fluid from right chest as well. Patient tolerated procedure well and she reported slight improvement in her breathing. Immediate post procedure chest x-ray did not show any complications. Otherwise patient is still complaining of weakness and decreased appetite all could be secondary to her underlying cancer. She has been trying to drink some Ensure and Glucerna Vitals/I&O/Wt Last Vital Signs Temp 97 F L 03/26/20 08:00 Pulse 88 03/26/20 08:04 Resp 27 H 03/26/20 08:00 BP 113/65 03/26/20 08:00 Pulse Ox 97 03/26/20 08:04 03/25/20 03/26/20 03/26/20 22:59 06:59 14:59 Intake Total 250 / 1110 150 / 1260 460 / 460 Balance 250 / 810 150 / 960 460 / 460 Weight last 48 hrs Weight 136 lb 3.2 oz Weight 137 lb 9.6 oz Physical Exam Narrative: EXAM NARRATIVE: General: alert, mild respiratory distress saturating 96-97% on 3 L nasal cannula HEENT: conj clear, EOMI, PERRL, mmm, Neck: supple, no meningismus Heme: no cervical LAP Pulmonary: improved breath sounds bilaterally after thoracentesis cardiovascular: rrr, nl s1s2, no mrg Abdomen: soft, nt, nd, no r/g, bs+ Extremities: pulses +, 1+ pedal edema, no c/c : no CVA tenderness Skin: intact, no rash MSK: no back or neck pain Neurologic: grossly intact Data : 03/26/20 04:48 03/26/20 04:48 Micro: Microbiology 03/22/20 15:18 Urine Culture - Final Urine,Clean Catch Staphylococcus epidermidis 03/25/20 13:40 MRSA Culture - Final Nose 03/23/20 17:45 Gram Stain - Final Pleural Fluid Anaerobic Culture - Preliminary Body Fluid Culture - Preliminary 03/23/20 17:45 Fungal Smear - Preliminary Pleural Fluid 03/23/20 17:45 Mycobacterial Smear - Preliminary Body Fluids - Pleura,Lt Lung 03/24/20 23:15 Blood Culture - Preliminary Blood NEGATIVE TO DATE 03/24/20 23:10 Blood Culture - Preliminary Blood NEGATIVE TO DATE 03/23/20 11:45 Gram Stain - Final Sputum - Expectorated Sputum Sputum Culture - Final A&P Assessment and plan (1) Troponin level elevated: Status: Acute (2) Persistent pneumonia: Status: Acute (3) Multifocal pneumonia: Status: Acute (4) Ascending colon malignant neoplasm: Status: Acute (5) CAD (coronary artery disease): Status: Acute Qualifiers: Associated angina: without angina Coronary Disease-Associated Artery/Lesion type: [place] artery [place] vs. transplanted heart: [place] heart Qualified Code(s): I25.10 - Atherosclerotic heart disease of [place] coronary artery without angina pectoris (6) Pleural effusion, bilateral: Status: Acute # bilateral pleural effusions inpatient recently treated for community-acquired pneumonia and repeat CT chest showing multifocal pneumonia of unclear etiology - afebrile, no leucocytosis. procalcitonin 0.12 -Postprocedure patient is saturating 96-97% 3 L nasal cannula -All cultures negative so far, urine bacterial antigens, MRSA nares negative,Covid PCR negative -Respiratory viral panel pending -Recommended to DC vancomycin other antibiotics as patient does not have any fevers or leukocytosis -CTA on admission showed worsened consolidation and multifocal distribution with no PE. Bilateral pleural effusions -Left thoracentesis yielded 600 cc of straw-colored fluid which was transudative on 03/23/2020 -Due to respiratory discomfort and concern for trapped lung -attempted right side thoracentesis today 03/26/2020 and able to drain 800 cc. Patient tolerated procedure well no trapped lung from previous infection which can also yield persistent transudative fluid. -Bilateral effusions are transudative -likely secondary to CHF/hypoalbuminemia -In the context of troponinemia with elevated BNP; although this admission echo normal LV systolic and diastolic function with EF 63%; previous echo grade 2 diastolic dysfunction - can give lasix 40 mg daily as pleural effusions are transudative - monitor sodium as pt it is 127 now -Albumin 1.8-strongly recommend to give protein supplements - With history of colon cancer, although not currently on chemotherapy, plans were to start Xeloda which has not yet been initiated. -Follow-up on galactomannan, B-D glucan, Induced sputum for PCP -Awaiting cytology for bilateral pleural effusions but with transudative fluid so does not expect to be malignant - #Adenocarcinoma of colon status post hemicolectomy, with noted positive lymph nodes on biopsy. - Follows with Dr. Ramsey in office. Has not yet initiated Xeloda. - recommendations conveyed to Hospitalist covering the patient. -Medical condition, labs, investigations, medications, and plan of care-everything explained in detail to the patient, son and grandson (upon pt request). Patient verbalized understanding and agreed with the plan of care. Attestations Medical Necessity Statement*: Bilateral pleural effusion likely secondary to hypoalbuminemia/CHF. Patient requiring O2 supplementation. Time Spent in Patient Care: Greater than 35 minutes (>than 50% of time spent in counselling and/or direct pt care on unit). 75 minutes including time spent for ultrasound-guided right thoracentesis Coding Level of Care Code Established Pt Acute [place] Tower Loader for Chg Fwd Patient Type Established History Comprehensive Exam Comprehensive Medical Decision Making Moderate Complexity Diagnoses Troponin level elevated R77.8 Persistent pneumonia J18.9 Multifocal pneumonia J18.9 Ascending colon malignant neoplasm C18.2 CAD (coronary artery disease) I25.10 Associated angina: without angina Coronary Disease-Associated Artery/Lesion type: [place] artery [place] vs. transplanted heart: [place] heart Pleural effusion, bilateral J90 Time Spent (min) 75 Comment Including time spent for right thoracentesis
--- NOTE | 2020-03-26 15:27 | XRR_ITS ---
PROCEDURE INFORMATION: Exam: XR Chest, 1 View Exam date and time: 03/26/2020 3:44 PM Age: 84 years old Clinical indication: Condition or disease; Other: Post thoracentesis; Additional info: Post thoracentesis, SOB TECHNIQUE: Imaging protocol: XR of the chest Views: 1 view. COMPARISON: CR XR chest 1V portable [id number] 03/25/2020 3:55 PM FINDINGS: Lungs: Improving aeration in both lungs suggesting resolving atelectasis/pneumonia. Pleural space: Near complete resolution of a right pleural effusion after thoracentesis. Stable small left pleural effusion. No pneumothorax. Heart/Mediastinum: Stable moderate enlargement of the cardiac silhouette. Mediastinal contours are unremarkable. Vasculature: Stable vascular calcifications in the aorta. Stable tortuosity of the aorta. Bones/joints: Unremarkable for age. XR/XR chest 1V portable [id number] IMPRESSION: 1. Improving aeration in both lungs suggesting resolving atelectasis/pneumonia. Recommend followup chest imaging in 4-6 weeks to insure resolution of these findings. 2. Near complete resolution of a right pleural effusion after thoracentesis. No pneumothorax. 3. Stable small left pleural effusion. 4. Incidental/nonacute findings are listed in the report.
--- NOTE | 2020-03-26 15:35 | PM.OP ---
Operative Report Date of procedure: March 26, 2020 Pulmonary & Critical Care Medicine Procedure - Right side Thoracentesis Procedure: Thoracentesis Indication: Right pleural effusion; concern for trapped lung in view of recent infection [employer](s): Kingsley Murphy MD Consent: Signed and placed in chart Anesthesia: 10 cc 1% lidocaine without epinephrine Description: Right pleural effusion was localized using ultrasound guidance and the site was marked accordingly. After chlorhexidine skin prep, area was draped in a sterile manner. 1% lidocaine was used for local anesthesia. Thoracentesis catheter was then inserted into the pleural space with aspiration of 800 cc of pleural fluid. Appearance was straw-colored. Patient tolerated procedure well. Ultrasound guidance used: Yes. Image saved to ultrasound machine yes. EBL: 5 cc Complications: None CXR: No pneumothorax Pre-op Diagnosis: Pneumonia
--- NOTE | 2020-03-26 16:36 | P.PN_ITS ---
Subjective Subjective: Interval history: This morning states that her breathing's not feeling very good. Denies chest pressure. Says could not get comfortable in bed with her bottom hurting and occasional back ache. When asked about cough says - some. Appetite is not very good. She has been trying to drink some Ensure, although says it is very sweet. Asked about Ensure clear, although unfortunately I do not see that we have this available. Discussed with her we could try Glucerna and she agrees. Vitals/I&O/Wt Last Vital Signs Temp 97 F L 03/26/20 08:00 Pulse 90 03/26/20 15:02 Resp 18 03/26/20 15:02 BP 146/91 03/26/20 15:02 Pulse Ox 92 03/26/20 15:02 03/26/20 03/26/20 03/26/20 06:59 14:59 22:59 Intake Total 150 / 1260 700 / 700 Output Total 280 / 280 Balance 150 / 960 420 / 420 Weight last 48 hrs Weight 61.779 kg Weight 62.414 kg Physical Exam Const: COMMON NORMALS: no acute distress, patient oriented x3 and alert ORIENTATION/CONSCIOUSNESS: Yes awake OTHER: Conversant. HENMT: COMMON NORMALS: oropharynx normal Neck/C-Spine: COMMON NORMALS: no JVD Resp: COMMON NORMALS: normal respiratory effort AUSCULTATION: diminished lung sounds on the right in the lower lung alba Cardio: COMMON NORMALS: no JVD, S1 normal heart sound present, S2 normal heart sound present and No murmurs present (Cardio) RATE: tachycardic HEART SOUNDS: S1 normal heart sound present and S2 normal heart sound present GI: COMMON NORMALS: Normal to inspection, nondistended, normoactive bowel sounds present, Soft to palpation and non-tender PALPATION: Yes Soft to palpation Extremity: COMMON NORMALS: no joint enlargement GENERAL: Yes edema (trace) Neuro: COMMON NORMALS: patient oriented x3 and moves all extremities SENSORIUM/ORIENTATION: Yes alert Skin: COMMON NORMALS: no rashes or lesions noted GENERAL SKIN EXAM: no rashes or lesions noted Data : 03/26/20 04:48 03/26/20 04:48 Micro: Microbiology 03/22/20 15:18 Urine Culture - Final Urine,Clean Catch Staphylococcus epidermidis 03/25/20 13:40 MRSA Culture - Final Nose 03/23/20 17:45 Gram Stain - Final Pleural Fluid Anaerobic Culture - Preliminary Body Fluid Culture - Preliminary 03/23/20 17:45 Fungal Smear - Preliminary Pleural Fluid 03/23/20 17:45 Mycobacterial Smear - Preliminary Body Fluids - Pleura,Lt Lung 03/24/20 23:15 Blood Culture - Preliminary Blood NEGATIVE TO DATE 03/24/20 23:10 Blood Culture - Preliminary Blood NEGATIVE TO DATE 03/23/20 11:45 Gram Stain - Final Sputum - Expectorated Sputum Sputum Culture - Final A&P Assessment and plan (1) Persistent pneumonia: With hypoxia, although oxygen requirement appears to be variable. Requiring up to 6 L last night, day down to 3. Subjectively breathing still does not feel very good. Occasional cough. Underwent additional thoracentesis on the right side today with pulmonology. Additional pleural fluid studies sent. She did well. Appreciate assessment of IVC. Per discussion may benefit from some diuresis. Blood pressure has been steady. Will give 40 mg IV Lasix at this time has she appears to be in positive balance, and not losing weight. Monitor sodium. With hypoalbuminemia. She has been having poor appetite and oral intake. Denies any pain with oral intake. Has been trying to drink some Ensure, but says it is very sweet. We will switch up to Glucerna. Continue to encourage protein supplementation. Troponin series 136-133-147. Will recheck additional level. Has had no chest pain. Continue aspirin, beta-juventino. Would benefit from additional assessment by stress testing once able to tolerate. BNP 426. Pending coronavirus PCR. Could not have MBS, but did well with FEES. Follow up ID studies including viral panel, pleural fluid, blood, sputum, pneumocystis PCR. For now continue broad-spectrum antibiotics. Procalcitonin is 0.12. May still have infection, however, cytology will be added to pleural fluid studies as well per discussion with pulmonology due to concern whether there may be some malignant involvement, although probably less likely with fluid analysis. Follow up cytology. Status: Acute (2) Troponin level elevated: Troponin series 136-133-147. Will recheck additional level. Has had no chest pain. Continue aspirin, beta-juventino. Would benefit from additional assessment by stress testing once able to tolerate. Does not appear to regain a whole lot of strength after holding statin. Recheck CK. Suspicion is more likely for demand ischemia given worsened hypoxia. Normal EF on repeat limited TTE. No RWMA. Continue CAD medications. Holding statin for now given CK elevation, generalized weakness, transaminitis. Would benefit from additional risk stratification by stress testing once her condition improves, unless starts or any other symptoms. Status: Acute (3) Lower extremity edema: No DVT on lower extremity duplex. No evidence of PE on CTA. Status: Acute (4) Hyponatremia: Sodium stable at 128. Lasix challenge. 40 mg today. Reassess. At this time continue regular diet. Difficult to pinpoint etiology. Poor oral intake, so may be low solute, but also appears to have lower extremity edema, concern for possible CHF, so possibility of fluid overload as well although this appears less likely. In addition HCTZ was likely contributing, and discontinued at this time. Also possibility of SIADH secondary to ongoing pulmonary problem. Status: Acute Additional A&P Information Generalized weakness: Hold statin for now given generalized weakness, CK elevation, transaminitis. Possible statin induced myopathy. Assess and treat for possible ongoing pneumonia as above, assess for possible CHF as above. TSH is normal. Staph epidermidis in urine. Continue empiric coverage with vancomycin at this time. Possible UTI: Staph epidermidis in urine culture 60-70,000 on 03/22. Continue vancomycin. Continue vancomycin. Enterococcus growing in urine during prior admission only 10-20,000 on 03/08. Follow repeated blood cultures. No blood cultures positive from last or this admission. Incidentally noted mediastinal lymph nodes thought to be reactive. Incidentally noted thyroid nodule, no follow-up recommended. Adenocarcinoma of colon status post hemicolectomy, with noted positive lymph nodes on biopsy. Follows with Dr. Ramsey in office. Has not yet initiated Xeloda. 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 Abdomen is entirely soft on examination. Normal lactic acid, suspicion for acutely ischemic bowel is very low at this time. Previously incidentally noted 10 mm gallstone which was stable. No right upper quadrant discomfort at this time. HTN: Has been at goal. Monitor. For now hold amlodipine due to lower extremity edema. Hold HCTZ which was recently discontinued due to hyponatremia. Anemia, hemoglobin appears stable. Previously known iron deficiency anemia for which arrangements were being made for iron infusions. Hold off for now until clears any ongoing infection. Anxiety: Ativan available for which she takes at home as needed, previously was taking for nausea, but sometimes also taking for anxiety. Attestations Medical Necessity Statement*: Continue admission for assessment management of respiratory failure, persistent pneumonia, acute CHF with preserved ejection fraction, generalized weakness, functional decline. 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
[2020-03-26 16:46] LABS: Body Fluid Polynuclear #Cells 0.012; Body Fluid WBC 61 /uL; Monocytes # Body Fluid 0.049; RBC, Body Fluid 0 10^3/uL
[2020-03-26] MEDS: enoxaparin 40 mg/0.4 mL Syringe SUBCUT (16:54)
[2020-03-26] MEDS: FUROsemide 10 mg/mL SDV 4mL 40 MG IVP (16:54)
[2020-03-26 17:14] LABS: Amylase Body Fluid 20 U/L; Apprearance, Body Fluid CLEAR; Cholesterol Body Fluid 12 mg/dL (0-200); Color, Body Fluid PALE YELLOW; Fluid Alkaline Phos. 13 IU/L; LDH Body Fluid 116 U/L; Triglycerides Body Fluid 9 mg/dL (0-150); Uric Acid Body Fluid 3 mg/dL
[2020-03-26 17:15] LABS: Total Protein Pleural Fluid 1.9 g/dL
[2020-03-26 22:03] LABS: Vancomycin Trough 23.6 ug/mL (10-15)
[2020-03-26] MEDS: levofloxacin-dextrose 5 % 750 MG/150 ML PREMIX 100 MG IV (22:35)
--- NOTE | 2020-03-26 22:58 | PC.NURSE ---
VANCOMYCIN TROUGH 23.6 PHARMACY TO HOLD 2100 VANCOMYCIN DOSE. WILL CONTINUE TO MONITOR.
--- NOTE | 2020-03-26 23:01 | PC.NURSE ---
ASSUMED CARE AT SHIFT CHANGE. PT IS WEAK AND HARD OF HEARING. PT DENIES PAIN. PT NEEDED SOME ASSISTANCE TO BSC. WILL CONTINUE TO MONITOR.
[2020-03-27] VITALS (7 sets, daily range): BP systolic 110–131; BP diastolic 55–72; PULSE 77–95; RESP 12–26; TEMP 36.7–37; O2SAT 86–99; BMI 21.9
[2020-03-27] MEDS: LORazepam 0.5 mg Tablet PO ×2 (00:12→16:07)
--- NOTE | 2020-03-27 01:27 | PC.PHAR ---
Pharmacokinetic dosing service Date: 03/27/20 Time: 129 Patient: Sj Kaur Floor: 101-1 Weight: 61.779 Kilograms Vancomycin single level analysis: Current dose being given: 1000 mg Current dosing interval: 12 hrs Current infusion time (hrs): 1 Single level Trough Data: Trough level obtained: 23.6 mcg/ml Timing of trough - # of hrs before next dose: 0.15 Hrs Desired peak: 40 mcg/ml Desired trough: 15 mcg/ml Diagnosis: Relevant medical/social history: Cultures and sensitivities: Other labs: Estimated PK Parameters: New rate constant (rodri): 0.058 hr-1 Half-life: 11.95 Hours Vd from levels: 43.25 Liters (0.7 L/kg) CLvanco= 2.509 L/hr Estimated New Dose and Interval Recommended dose: 1150.1 mg Recommended interval: 17.9 Hrs Patient response: Patient is responding to treatment [yes/no] wbc decreasing, S/SX reduced [yes/no] Renal function is stable/unstable Recommendations: Give Vancomycin 1000 mg q 18 hrs. Infuse over 1.5 hrs Expected Cpeak: 34.2 mcg/mL Expected Ctrough: 13.1 mcg/mL AUC 0-24 /RANDALL Data: RANDALL 0.5 mcg/mL: AUC/RANDALL: 1062.8 RANDALL 1.0 mcg/mL: AUC/RANDALL: 531.4 Recommended labs and intervals: Measure Bun and Scr 3 times/week. Renal dosing of other antibiotics (review renal dosing of other medications and list guidelines here): Thank you for the consult, will continue to follow. Signature: Mariaelena Nelson [facility]
[2020-03-27] MEDS: vancomycin 1,000 MG in sodium chloride 0.9% 250 ML 250 MG IV (03:46)
--- NOTE | 2020-03-27 05:20 | PC.NURSE ---
PT STILL FEELS EXHAUSTED. PT DENIES PAIN. PT IS STILL WEAK AND NEEDS SBA. WILL CONTINUE TO MONITOR.
[2020-03-27 07:48] LABS: Basophils % 0.4 %; Eosinophils # 0.1 10^3/uL (0.0-0.8); Eosinophils % 0.5 %; Hematocrit 28.9 % (37.0-47.0); Hemoglobin 8.7 g/dL (11.5-15.3); Lymphocytes # 0.8 10^3/uL (0.8-4.8); Mean Corpuscular HGB Conc 30.1 g/dL (30.0-36.0); Mean Corpuscular Hemoglobin 23.8 pg (28.0-34.0); Mean Corpuscular Volume 79.2 fL (81-99); Mean Platelet Volume 8.7 fL (7.4-10.4); Monocytes # 0.8 10^3/uL (0.2-0.9); Monocytes % 8.9 %; Neutrophils # 7.66 10^3/uL (1.8-7.7); Neutrophils % 81.9 %; Nucleated Red Blood Cells % 0 %; Platelet Count 268 10^3/cmm (130-400); Red Blood Count 3.65 10^6/uL (4.1-5.3); Red Cell Distribution Width 20.6 % (12.1-15.1); White Blood Count 9.4 10^3/uL (4.0-10.0)
[2020-03-27 08:21] LABS: Creatine Phosphokinase 153 U/L (26-192)
[2020-03-27 08:22] LABS: Alanine Aminotransferase 27 U/L (0-33); Albumin Level 1.9 g/dL (3.5-5.2); Alkaline Phosphatase 51 IU/L (35-105); Anion Gap 11.1 (5-19); Aspartate Amino Transferase 42 U/L (0-32); Blood Urea Nitrogen 22 mg/dL (8-23); Calcium 7.9 mg/dL (8.5-10.5); Carbon Dioxide 23 mmol/L (22-29); Chloride 97 mmol/L (98-107); Globulin 2.6 g/dL (1.3-4.6); Glucose 95 mg/dL (65-115); Osmolality Calculated 267 mOsm/kg (285-295); Potassium 4.1 mmol/L (3.5-5.1); Sodium 127 mmol/L (136-145); Total Bilirubin 0.3 mg/dL (0.15-1.2); Total Protein 4.5 g/dL (6.6-8.7)
[2020-03-27 08:36] LABS: Troponin T (5th) Once 154 ng/L (0-10)
[2020-03-27] MEDS: cefepime 2,000 MG in sodium chloride 0.9% (plus) 50 ML 100 MG IV (09:32)
[2020-03-27] MEDS: metoprolol tartrate 25 mg Tablet 12.5 MG PO ×2 (09:34→17:19)
[2020-03-27] MEDS: aspirin 81 mg EC Tablet PO (09:34)
[2020-03-27] MEDS: pantoprazole DR 40 mg Tablet PO (09:34)
[2020-03-27] MEDS: enoxaparin 60 mg/0.6 mL Syringe SUBCUT ×2 (10:57→21:08)
--- NOTE | 2020-03-27 12:59 | DCPLANNER ---
Pg 2 of IM updated and reviewed with pt. No questions. Copy provided.
--- NOTE | 2020-03-27 14:58 | PC.NURSE ---
pt working with physical therapy. oxygen saturation noted to be in 80's. pt turned up to 5 L and saturation in 90's. nurse then helped pt to bedside commode and oxygen dropping to high 80's. when pt was back in bed resting saturation recovered but took a decent amount of time to get back to mid 90's. call light within reach and will continue to monitor.
--- NOTE | 2020-03-27 18:12 | PC.NURSE ---
pt coughed up mucus into tissue. there was some blood tinge to it. pt informed to let staff know if this happened again. pt thought the blood tinge came from her nose, but pt noted to have a sore on her lip. will continue to monitor.
--- NOTE | 2020-03-27 19:42 | P.PN_ITS ---
Subjective Subjective: Interval history: Reports she has been somewhat weak, gets tired with exertion. Shortness of breath is perhaps slightly better. Is currently no chest pain, but was may be having some earlier which was vague. Denies that it feels like chest pressure or that it is sharp. Vitals/I&O/Wt Last Vital Signs Temp 98.1 F 03/27/20 18:53 Pulse 77 03/27/20 18:53 Resp 18 03/27/20 18:53 BP 113/60 03/27/20 18:53 Pulse Ox 97 03/27/20 18:53 03/27/20 03/27/20 03/27/20 06:59 14:59 22:59 Intake Total 400 / 1150 410 / 410 100 / 510 Output Total 600 / 880 400 / 400 Balance -200 / 270 100 / 110 Weight last 48 hrs Weight 61.643 kg Weight 61.779 kg Physical Exam Const: COMMON NORMALS: no acute distress, patient oriented x3 and alert ORIENTATION/CONSCIOUSNESS: Yes awake HENMT: COMMON NORMALS: oropharynx normal Neck/C-Spine: COMMON NORMALS: no JVD Resp: COMMON NORMALS: normal respiratory effort and clear to auscultation bilaterally AUSCULTATION: clear to auscultation bilaterally Cardio: COMMON NORMALS: no JVD, S1 normal heart sound present, S2 normal heart sound present and No murmurs present (Cardio) RATE: tachycardic HEART SOUNDS: S1 normal heart sound present and S2 normal heart sound present GI: COMMON NORMALS: Normal to inspection, nondistended, normoactive bowel sounds present, Soft to palpation and non-tender PALPATION: Yes Soft to palpation Extremity: COMMON NORMALS: no joint enlargement GENERAL: Yes edema (trace) Neuro: COMMON NORMALS: patient oriented x3 and moves all extremities SENSORIUM/ORIENTATION: Yes alert Skin: COMMON NORMALS: no rashes or lesions noted GENERAL SKIN EXAM: no rashes or lesions noted Data : 03/27/20 07:42 03/27/20 07:42 Micro: Microbiology 03/23/20 17:45 Gram Stain - Final Pleural Fluid Anaerobic Culture - Preliminary Body Fluid Culture - Final 03/26/20 15:20 Gram Stain - Final Pleural Fluid Body Fluid Culture - Preliminary A&P Assessment and plan (1) Persistent pneumonia: Discussed with her and her grandson. Findings so far are not supportive of bacterial infection. Prescription with pulmonology discontinued antibiotics. Today appears to have higher troponin still at 154. Has been somewhat vague about chest discomfort. No overt chest pain or pressure. Initiate treatment for possible non-STEMI with therapeutic anticoagulation. Continue aspirin. Beta-juventino. Appreciate additional assessment by cardiology. Discussed with her and her grandson. With hypoxia, although oxygen requirement appears to be variable. 3-5L today. Subjectively breathing perhaps slightly better. Does still get coughing spells. Tired easily. Underwent additional thoracentesis on the right side 03/26 with pulmonology. Additional pleural fluid studies sent. She did well. With hypoalbuminemia. Continue to encourage oral intake with protein supplementation. Troponin elevated. Continue aspirin, beta-juventino. Would benefit from javier tional assessment by stress testing once able to tolerate. BNP 426. Pending coronavirus PCR. Did well with FEES. Follow up ID studies including viral panel, pleural fluid, blood, sputum, pneumocystis PCR. For now continue broad-spectrum antibiotics. Procalcitonin is 0.12. May still have infection, however, cytology will be added to pleural fluid studies as well per discussion with pulmonology due to concern whether there may be some malignant involvement, although probably less likely with fluid analysis. Follow up cytology. Status: Acute (2) Troponin level elevated: Today appears to have higher troponin still at 154. Has been somewhat vague about chest discomfort. No overt chest pain or pressure. Initiate treatment for possible non-STEMI with therapeutic anticoagulation. Continue aspirin. Beta-juventino. Appreciate additional assessment by cardiology. Discussed with her and her grandson. Continue aspirin, beta-juventino. Would benefit from additional assessment by stress testing once able to tolerate. Does not appear to regain a whole lot of strength after holding statin. Recheck CK normal. Normal EF on repeat limited TTE. No RWMA. Status: Acute (3) Lower extremity edema: No DVT on lower extremity duplex. No evidence of PE on CTA. Status: Acute (4) Hyponatremia: Sodium stable at 127-128. Lasix challenge. Repeat 40 mg today. Reassess. Continue regular diet. Difficult to pinpoint etiology. Poor oral intake, so may be low solute, but also appears to have lower extremity edema, concern for possible CHF, so possibility of fluid overload as well although this appears less likely. In addition HCTZ was likely contributing, and discontinued at this time. Also possibility of SIADH secondary to ongoing pulmonary problem. Status: Acute Additional A&P Information Generalized weakness: Hold statin for now given generalized weakness, CK elevation, transaminitis. Possible statin induced myopathy. Assess and treat for possible ongoing pneumonia as above, assess for possible CHF as above. TSH is normal. Staph epidermidis in urine. Continue empiric coverage with vancomycin at this time. Treat possible NSTEMI. Additional cardiac assessment. Possible UTI: Staph epidermidis in urine culture 60-70,000 on 03/22. Continue vancomycin. Completed 5d vancomycin. Enterococcus growing in urine during prior admission only 10-20,000 on 03/08. No blood cultures positive from last or this admission. Incidentally noted mediastinal lymph nodes thought to be reactive. Incidentally noted thyroid nodule, no follow-up recommended. Adenocarcinoma of colon status post hemicolectomy, with noted positive lymph nodes on biopsy. Follows with Dr. Ramsey in office. Has not yet initiated Xeloda. 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 Abdomen is entirely soft on examination. Normal lactic acid, suspicion for acutely ischemic bowel is very low at this time. Previously incidentally noted 10 mm gallstone which was stable. No right upper quadrant discomfort at this time. HTN: Has been at goal. Monitor. For now hold amlodipine due to lower extremity edema. Hold HCTZ which was recently discontinued due to hyponatremia. Anemia, hemoglobin appears stable. Previously known iron deficiency anemia for which arrangements were being made for iron infusions. Hold off for now until clears any ongoing infection. Anxiety: Ativan available for which she takes at home as needed, previously was taking for nausea, but sometimes also taking for anxiety. Attestations Medical Necessity Statement*: Continue admission for assessment and management of possible non-STEMI, hypoxia, generalized weakness, possible persistent pneumonia, hyponatremia. Coding Level of Care Code Acute [employer] Diagnoses Persistent pneumonia J18.9 Troponin level elevated R77.8 Lower extremity edema R60.0 Hyponatremia E87.1
[2020-03-27 20:23] LABS: Adenovirus Not Detected (Not Detected); Human Metapneumovirus Not Detected (Not Detected); Human Parainflu Virus 1 Not Detected (Not Detected); Human Parainflu Virus 2 Not Detected (Not Detected); Human Parainflu Virus 3 Not Detected (Not Detected); Human Rsv A Not Detected (Not Detected); Influenza A Not Detected (Not Detected); Influenza B Not Detected (Not Detected); Rhinovirus/Enterovirus Not Detected (Not Detected)
[2020-03-27] MEDS: FUROsemide 10 mg/mL SDV 4mL 40 MG IVP (21:09)
--- NOTE | 2020-03-27 21:32 | PC.NURSE ---
ASSUMED CARE AT SHIFT CHANGE. PT DENIES PAIN. PT HAS 0 C/O. PT STATES THAT THEY JUST WANT SOME SLEEP. WILL CONTINUE TO MONITOR.
--- NOTE | 2020-03-27 21:42 | P.CONIM_ITS ---
Providers/Reason For Consult Consulting Physican/Specialty*: Dr. Steward, cardiology Reason for Consult*: Elevated troponin Attending Physician: Hima Santana Primary Care Provider: Scar Bedoya Jr, MD History of Present Illness History of Present Illness Natasha Gustafson is a 84 year old female with PMHx of CAD s/p stents x 2 in 2005, recent hospitalization for pneumonia, treated with Rocephin, azithromycin with rapid COVID-19 antigen as well as PCR testing negative. She has h/o recent colon adenocarcinoma with noted positive lymph nodes on biopsy being followed by Dr. Ramsey. She returned to the hospital due to continued weakness, shortness of breath, intermittent non productive cough. In ER she was noted to be afebrile, no leukocytosis, no tachycardia, somewhat more hypoxic than previously requiring 4 L of oxygen by nasal cannula. She was also noted to have elevation of troponin at 141 peaked to 153. She has had no chest pain. EKG with no ST-T wave changes. She denies orthopnea, PND. + ankle swelling. I have been asked to evaluate the patient due to elevated troponin. Review of Systems General: Reports: 10 or more systems reviewed and unremarkable except in HPI and below Const: Reports: fever(s) (subjective), body aches, fatigue and malaise; Denies: chills ENMT: Denies: epistaxis Card: Denies: chest pain, palpitations, irregular heart rhythm or orthopnea Resp: Reports: dyspnea and non-productive cough GI: Denies: diarrhea or hematochezia : Denies: dysuria or hematuria Musc: Reports: extremity swelling Skin/Breast: Denies: rash Neuro: Denies: headache(s) Psych: Reports: depression Harvey/Lymph: Denies: petechiae or purpura Meds/Allergies Home Medications and Allergies Home Medications Medication Instructions Recorded Confirmed Last Taken Type aspirin [Aspir-81] 81 mg PO DAILY 11/03/19 03/23/20 03/08/20 History metoprolol tartrate 25 mg PO DAILY 11/03/19 03/23/20 03/08/20 History rosuvastatin 40 mg PO QPM 11/03/19 03/23/20 03/07/20 History Zeal Powder 1 packet PO DAILY 11/29/19 03/23/20 01/05/20 History acetaminophen [Tylenol Extra 500 mg PO PRN 10/05/20 10/20/20 Unknown History Strength] capecitabine [Xeloda] See Rx Instructions .ROUTE .COMPLEX 03/08/20 03/23/20 Unknown History capecitabine [Xeloda] See Rx Instructions .ROUTE .COMPLEX 03/08/20 03/23/20 Unknown History lorazepam 0.5 - 1 mg PO Q4H PRN 03/08/20 03/23/20 Unknown History prochlorperazine maleate 10 mg PO Q4H PRN 03/08/20 03/23/20 Unknown History amlodipine 10 mg PO DAILY #0 tab 03/11/20 03/23/20 03/08/20 Rx hydrochlorothiazide 12.5 mg PO DAILY #0 tab 03/11/20 03/23/20 03/08/20 Rx sennosides-docusate sodium 1 - 2 tab PO PRN 03/23/20 03/23/20 Unknown History [Senna-S] Allergies Allergy/AdvReac Type Severity Reaction Status Date / Time atorvastatin [From Lipitor] Allergy ADR-Cough Verified 03/10/20 09:45 latex Allergy ALGY-Rash Verified 03/08/20 16:11 Current Medications Current Medications Generic Name Dose Route Start Last Admin Trade Name Freq PRN Reason Stop Dose Admin Acetaminophen 650 mg 03/22/20 19:27 03/26/20 01:08 Tylenol PO 650 mg Q6H PRN Administration Mild/Mod Pain Or Temp >/= 101 Aspirin 81 mg 03/23/20 09:00 03/27/20 09:34 Aspirin Ec PO 81 mg DAILY LUIS E Administration Enoxaparin Sodium 60 mg 03/27/20 10:00 03/27/20 21:08 Lovenox SUBCUT 60 mg Q12H LUIS E Administration Lanolin 1 applic 03/23/20 21:30 03/23/20 21:51 Lanolin Oint TOPICAL 1 applic PRN PRN Administration DRYNESS Lorazepam 0.5 mg 03/22/20 19:43 03/27/20 16:07 Ativan PO 0.5 mg Q5H PRN Administration ANXIETY Metoprolol Tartrate 12.5 mg 03/23/20 09:00 03/27/20 17:19 Lopressor PO 12.5 mg BID LUIS E Administration Pantoprazole Sodium 40 mg 03/25/20 15:55 03/27/20 09:34 Protonix PO 40 mg DAILY LUIS E Administration PFSH Acute PFSH: Medical History Ascending colon malignant neoplasm Status post right hemicolectomy on 01/08/2020. Follow-up with oncology. CAD (coronary artery disease) -s/p stenting x 2 (2005) Hypercholesteremia Continue statin. Hypertension Due to HCTZ dose being decreased to 12.5 from amlodipine dose increased to 10 mg. Iron deficiency anemia -recent blood transfusion due to worsening anemia (11/03/2019) -H/H stable -pending GI w/u by Dr. Lauren -on iron supplementation Postoperative anemia Status post transfusion. Hemoglobin 9.5. Skin cancer of face Vertigo -noted episode of N/V with change in position, nystagmus, has chronic tinnitus and is hard of hearing -orthostatics negative, close monitoring of vital signs -telemetry monitoring -Echo: EF=65%, G1DD, no RWMA, mild pulmonary HTN (39), mild TR -carotid US: no hemodynamically significant stenosis -noted anemia with stable Hg -CT head negative for acute findings; CXR unremarkable for acute changes -gentle IVF hydration; can d/c -fall precautions, up with assist -PT evaluation -antiemetics as needed -UA with pyuria and bacteria; will treat empirically due to patient's advanced age and symptoms -meclizine PRN Surgical History H/O heart artery stent H/O: hysterectomy History of left hip replacement Family History Denies family history of CAD (coronary artery disease) Social History Smoking and tobacco status: never smoked Alcohol intake: never Household members: spouse Marital status: Marital status details: Takes care of her at home who has Alzheimer's dementia. Current occupational status: retired Vitals/I&O/Wt Last Vital Signs Temp 98.1 F 03/27/20 18:53 Pulse 77 03/27/20 18:53 Resp 18 03/27/20 18:53 BP 113/60 10/24/20 18:53 Pulse Ox 97 03/27/20 18:53 03/27/20 03/27/20 03/27/20 06:59 14:59 22:59 Intake Total 400 / 1150 410 / 410 160 / 570 Output Total 600 / 880 400 / 400 100 / 500 Balance -200 / 270 60 / 70 Weight last 48 hrs Weight 135 lb 14.4 oz Weight 136 lb 3.2 oz Physical Exam Const: COMMON NORMALS: no acute distress, patient oriented x3 and alert GENERAL APPEARANCE: cooperative, comfortable, well kempt and well hydrated HENMT: COMMON NORMALS: normocephalic, atraumatic, hearing grossly normal bilaterally, external ears normal and Normal external nose present HEAD & SCALP: normocephalic and atraumatic FACE & SINUS: normal facial exam; no edema NOSE: Normal external nose present EXTERNAL EAR: Yes external ears normal Eye: COMMON NORMALS: Equal, round and reactive pupils present, EOMs intact bilaterally, conjunctivae normal and no scleral icterus GENERAL EYE: appearance normal, both eyes and all related structures ALIGNMENT: Yes alignment normal PERIORBITAL: periorbital findings normal EYELID: eyelids normal CONJUNCTIVA: Yes conjunctivae normal SCLERA: sclerae normal P UPIL: Yes Equal, round and reactive pupils present Neck/C-Spine: COMMON NORMALS: no lymphadenopathy, supple and no JVD GENERAL: Yes normal visual inspection, Yes trachea midline and No Mass present (neck) CAROTIDS: Yes normal carotid upstroke CERVICAL SPINE: Yes cervical ROM normal Chest: COMMONS NORMALS: normal inspection of the chest and normal palpation of entire chest wall CHEST: Yes Symmetrical chest wall rise, No mass, No tenderness and No rash Resp: AUSCULTATION: crackles (bilateral coarse crackles), no rales, no rhonchi, no wheezes and vesicular breath sounds OTHER: decreased bilateral air entry more at bases Cardio: COMMON NORMALS: no JVD, regular rate, regular rhythm, S1 normal heart sound present, S2 normal heart sound present and Peripheral pulses 2+ throughout PALPATION: normal PMI RATE: regular rate RHYTHM: regular rhythm HEART SOUNDS: S1 normal heart sound present, S2 normal heart sound present, no gallops and no murmurs BRUITS: no carotid bruits PERIPHERAL PULSES: Peripheral pulses 2+ throughout, radial pulses present, posterior tibial pulses present and dorsalis pedis present GI: COMMON NORMALS: Soft to palpation AUSCULTATION: Yes normoactive bowel sounds PALPATION: Yes Soft to palpation, No Tenderness to palpation present (GI), No Guarding due to palpation present (GI) and No Rigid due to palpation Extremity: GENERAL: No calf tenderness, No cyanosis, Yes edema (trace) and No pallor Neuro: COMMON NORMALS: patient oriented x3 and no focal motor deficits SENSORIUM/ORIENTATION: Yes alert Psych: COMMON NORMALS: Normal thought process present and speech normal APPEARANCE: Yes well kempt SPEECH: Yes normal speech MOOD & AFFECT: Yes euthymic mood THOUGHT PROCESS: Normal thought process present THOUGHT CONTENT: Yes Normal thought content present Skin: HAIR: normal NAILS: normal and no clubbing Data Micro: Micro: Microbiology 03/23/20 17:45 Gram Stain - Final Pleural Fluid Anaerobic Culture - Preliminary Body Fluid Culture - Final 03/26/20 15:20 Gram Stain - Final Pleural Fluid Body Fluid Culture - Preliminary Imaging^: CTA Chest: Radiologist's impression: IMPRESSION: 1. No evidence of pulmonary embolism. 2. No evidence of aortic dissection. 3. Mildly enlarged, nonspecific mediastinal lymph nodes, measuring up to 1.4 cm short axis. This is likely reactive adenopathy. 4. Areas of consolidation are noted in the bilateral lower lobes, the right upper lobe, the right middle lobe, and the lingula. Overall pulmonary disease appears to have worsened slightly when compared to 03/08/2020. 5. Small to moderate-sized bilateral pleural effusions. The effusions have increased in size slightly when compared to 03/08/2020. 6. Nonspecific 11 mm hypodense nodule in the right lobe of the thyroid. No follow-up is required. 7. Mild cardiomegaly is noted. No pericardial effusion. CXR: Radiologist's impression: IMPRESSION: 1. Improving aeration in both lungs suggesting resolving atelectasis/pneumonia. Recommend followup chest imaging in 4-6 weeks to insure resolution of these findings. 2. Near complete resolution of a right pleural effusion after thoracentesis. No pneumothorax. 3. Stable small left pleural effusion. 4. Incidental/nonacute findings are listed in the report. # TTE (03/09/20) CONCLUSIONS Normal left ventricular size and systolic function, EF 70 %. No regional wall motion abnormalities. Mild left ventricular hypertrophy. Grade II/IV diastolic dysfunction, moderately elevated filling pressures. Mildly increased left atrial size. Thickened mitral valve. Mild mitral annular calcification. Thickened aortic valve. There is no pericardial effusion. There are no intracardiac masses. No previous study is available for comparison. A&P Assessment and plan (1) CHF (NYHA class III, ACC/AHA stage C): Acute diastolic CHF. -received lasix 40 mg IV x 1 earlier. -I will get her started on lasix 40 mg iV BID. -f/u on BMP. I/O charting. Status: Acute (2) Troponin level elevated: NSTEMI -continue ASA, metoprolol and lovenox. -Plan for further testing once she is diursed some. Status: Acute (3) Pleural effusion, bilateral: s/p Left thoracentesis that yielded 600 cc of straw-colored fluid on 03/23/2020 -s/p right sided thoracentesis on 03/26/2020 with drainage of 800 cc. -Bilateral effusions ( transudative) Status: Acute (4) Multifocal pneumonia: Antibiotics have been stopped. Status: Acute (5) CAD (coronary artery disease): Status: Acute Qualifiers: Coronary Disease-Associated Artery/Lesion type: [place] artery [place] vs. transplanted heart: [place] heart Associated angina: without angina Qualified Code(s): I25.10 - Atherosclerotic heart disease of [place] coronary artery without angina pectoris (6) Ascending colon malignant neoplasm: Status post right hemicolectomy on 01/08/2020. Status: Acute Additional A&P Information Hyponatremia Anemia Thank you for allowing me to participate in patient's care. Please feel free to call with questions or concerns. Coding Level of Care Code New Pt Acute [employer] Patient Type New History Comprehensive Exam Comprehensive Medical Decision Making High Complexity Diagnoses CHF (NYHA class III, ACC/AHA stage C) I50.9 Troponin level elevated R77.8 Pleural effusion, bilateral J90 Multifocal pneumonia J18.9 CAD (coronary artery disease) I25.10 Coronary Disease-Associated Artery/Lesion type: [place] artery [place] vs. transplanted heart: [place] heart Associated angina: without angina Ascending colon malignant neoplasm C18.2 Time Spent (min) 45
[2020-03-28 03:05] VITALS: BP 130/62; PULSE 79; RESP 23; TEMP 36.8; O2SAT 97
[2020-03-28 05:17] LABS: Basophils # 0.1 10^3/uL (0.0-0.1); Basophils % 0.6 %; Eosinophils # 0.1 10^3/uL (0.0-0.8); Hematocrit 30.8 % (37.0-47.0); Hemoglobin 9.4 g/dL (11.5-15.3); Lymphocytes # 0.7 10^3/uL (0.8-4.8); Lymphocytes % 9.1 %; Mean Corpuscular HGB Conc 30.5 g/dL (30.0-36.0); Mean Corpuscular Hemoglobin 24.1 pg (28.0-34.0); Mean Platelet Volume 8.9 fL (7.4-10.4); Monocytes # 0.8 10^3/uL (0.2-0.9); Monocytes % 10.1 %; Neutrophils % 78.4 %; Nucleated Red Blood Cells % 0 %; Platelet Count 267 10^3/cmm (130-400); Red Cell Distribution Width 20.7 % (12.1-15.1); White Blood Count 7.8 10^3/uL (4.0-10.0)
[2020-03-28 05:36] LABS: Alanine Aminotransferase 31 U/L (0-33); Albumin Level 1.8 g/dL (3.5-5.2); Alkaline Phosphatase 58 IU/L (35-105); Anion Gap 11.8 (5-19); Aspartate Amino Transferase 45 U/L (0-32); Blood Urea Nitrogen 25 mg/dL (8-23); Calcium 8.3 mg/dL (8.5-10.5); Carbon Dioxide 24 mmol/L (22-29); Chloride 98 mmol/L (98-107); Globulin 3.1 g/dL (1.3-4.6); Glucose 99 mg/dL (65-115); Osmolality Calculated 274 mOsm/kg (285-295); Potassium 3.8 mmol/L (3.5-5.1); Sodium 130 mmol/L (136-145); Total Bilirubin 0.3 mg/dL (0.15-1.2); Total Protein 4.9 g/dL (6.6-8.7)
--- NOTE | 2020-03-28 06:07 | PC.NURSE ---
PT STATES THAT THEY FEEL A LITTLE BIT BETTER. DENIES PAIN AT THIS TIME. PT STATES THAT THEY JUST WANT TO SLEEP A LITTLE LONGER. WILL CONTINUE TO MONITOR.
--- NOTE | 2020-03-28 07:00 | PC.NURSE ---
while performing assessment pt stated that she couldnt get comfortable and was anxious. vital signs stable and offered prn with other medications when nurse brought them back and pt agreed that she needed something for anxiety. will administer prn with morning meds. call light within reach, will continue to monitor.
[2020-03-28 08:00] VITALS: BP 104/63; PULSE 104; RESP 26; TEMP 36.5; O2SAT 93
[2020-03-28] MEDS: LORazepam 0.5 mg Tablet PO ×2 (08:12→22:29)
[2020-03-28] MEDS: FUROsemide 10 mg/mL SDV 4mL 40 MG IVP ×2 (08:12→20:34)
[2020-03-28] MEDS: aspirin 81 mg EC Tablet PO (08:12)
[2020-03-28] MEDS: pantoprazole DR 40 mg Tablet PO (08:13)
[2020-03-28] MEDS: metoprolol tartrate 25 mg Tablet 12.5 MG PO ×2 (08:13→18:36)
--- NOTE | 2020-03-28 08:39 | PC.NURSE ---
pt assisted to bedside commode with stand by assist. and then transferred back to bed. pt oxygen saturation dropped with exertion but recovered when back resting in bed. pt coughing up clear thick sputum while nurse was in the room. call light placed within reach, will continue to monitor.
[2020-03-28] MEDS: enoxaparin 60 mg/0.6 mL Syringe SUBCUT ×2 (09:30→22:29)
[2020-03-28 10:34] LABS: Coronavirus Lab Test PTC Negative
--- NOTE | 2020-03-28 11:18 | PM.PN ---
Subjective Subjective: Interval history: She had a urine output of 1100 mL. She continues to have shortness of breath and appears tachypneic. Medications: Reviewed: Yes Medication Review Details: Current Medications Acetaminophen (Tylenol) 650 mg PO Q6H PRN PRN Reason: Mild/Mod Pain Or Temp >/= 101 Last Admin: 03/26/20 01:08 Dose: 650 mg Documented by: Aspirin (Aspirin) 325 mg PO DAILY [facility] Enoxaparin Sodium (Lovenox) 60 mg SUBCUT Q12H [facility] Last Admin: 03/27/20 21:08 Dose: 60 mg Documented by: Furosemide (Lasix) 40 mg IVP Q12H [facility] Last Admin: 03/28/20 08:12 Dose: 40 mg Documented by: Lanolin (Lanolin Oint) 1 applic TOPICAL PRN PRN PRN Reason: DRYNESS Last Admin: 03/23/20 21:51 Dose: 1 applic Documented by: Lorazepam (Ativan) 0.5 mg PO Q5H PRN PRN Reason: ANXIETY Last Admin: 03/28/20 08:12 Dose: 0.5 mg Documented by: Metoprolol Tartrate (Lopressor) 12.5 mg PO BID [facility] Last Admin: 03/28/20 08:13 Dose: 12.5 mg Documented by: Nitroglycerin (Nitro-Bid) 0.5 inch TOPICAL Q6H [facility] Pantoprazole Sodium (Protonix) 40 mg PO DAILY [facility] Last Admin: 03/28/20 08:13 Dose: 40 mg Documented by: Vitals/I&O/Wt Last Vital Signs Temp 97.7 F 03/28/20 08:00 Pulse 104 H 03/28/20 08:00 Resp 26 H 03/28/20 08:00 BP 104/63 03/28/20 08:00 Pulse Ox 93 03/28/20 08:00 03/27/20 03/28/20 03/28/20 22:59 06:59 14:59 Intake Total 160 / 570 100 / 100 Output Total 100 / 500 600 / 600 Balance 60 / 70 -500 / -500 Weight last 48 hrs Weight 133 lb 11.2 oz Weight 135 lb 14.4 oz Physical Exam Const: COMMON NORMALS: no acute distress, patient oriented x3 and alert GENERAL APPEARANCE: cooperative, comfortable, well kempt and well hydrated HENMT: COMMON NORMALS: normocephalic, atraumatic, hearing grossly normal bilaterally, external ears normal and Normal external nose present HEAD & SCALP: normocephalic and atraumatic FACE & SINUS: normal facial exam; no edema NOSE: Normal external nose present EXTERNAL EAR: Yes external ears normal Eye: COMMON NORMALS: Equal, round and reactive pupils present, EOMs intact bilaterally, conjunctivae normal and no scleral icterus GENERAL EYE: appearance normal, both eyes and all related structures ALIGNMENT: Yes alignment normal PERIORBITAL: periorbital findings normal EYELID: eyelids normal CONJUNCTIVA: Yes conjunctivae normal SCLERA: sclerae normal PUPIL: Yes Equal, round and reactive pupils present Neck/C-Spine: COMMON NORMALS: no lymphadenopathy, supple and no JVD GENERAL: Yes normal visual inspection, Yes trachea midline and No Mass present (neck) CAROTIDS: Yes normal carotid upstroke CERVICAL SPINE: Yes cervical ROM normal Chest: COMMONS NORMALS: normal inspection of the chest and normal palpation of entire chest wall CHEST: Yes Symmetrical chest wall rise, No mass, No tenderness and No rash Resp: AUSCULTATION: crackles (bilateral coarse crackles), no rales, no rhonchi and no wheezes OTHER: decreased bilateral air entry more at bases Cardio: COMMON NORMALS: no JVD, regular rate, regular rhythm, S1 normal heart sound present, S2 normal heart sound present and Peripheral pulses 2+ throughout PALPATION: normal PMI RATE: regular rate RHYTHM: regular rhythm HEART SOUNDS: S1 normal heart sound present, S2 normal heart sound present, no gallops and no murmurs BRUITS: no carotid bruits PERIPHERAL PULSES: Peripheral pulses 2+ throughout, radial pulses present, posterior tibial pulses present and dorsalis pedis present GI: COMMON NORMALS: Soft to palpation AUSCULTATION: Yes normoactive bowel sounds PALPATION: Yes Soft to palpation, No Tenderness to palpation present (GI), No Guarding due to palpation present (GI) and No Rigid due to palpation Extremity: GENERAL: No calf tenderness, No cyanosis, Yes edema (trace) and No pallor Neuro: COMMON NORMALS: patient oriented x3 and no focal motor deficits SENSORIUM/ORIENTATION: Yes alert Psych: COMMON NORMALS: Normal thought process present and speech normal APPEARANCE: Yes well kempt SPEECH: Yes normal speech MOOD & AFFECT: Yes euthymic mood THOUGHT PROCESS: Normal thought process present THOUGHT CONTENT: Yes Normal thought content present Skin: HAIR: normal NAILS: normal and no clubbing Data : 03/28/20 04:55 03/28/20 04:55 Other Labs: Laboratory Tests 03/25/20 03/25/20 03/25/20 16:10 17:40 17:40 Sodium Chloride BUN Creatinine Calcium AST Troponin T Gen 5 ng/L Troponin T Baseline 136 H* Troponin T 120 Minute 133.5 H Troponin T Hi Sens 6Hr NT-Pro-B Natriuret Pep 464 H Total Protein Albumin 03/25/20 03/27/20 03/27/20 22:00 07:42 07:42 Sodium 127 L Chloride 97 L BUN 22 Creatinine 0.8 Calcium 7.9 L AST 42 H Troponin T Gen 5 ng/L 154 H* Troponin T Baseline Troponin T 120 Minute Troponin T Hi Sens 6Hr 147.5 H NT-Pro-B Natriuret Pep Total Protein 4.5 L Albumin 1.9 L Micro: Microbiology 03/26/20 15:20 Gram Stain - Final Pleural Fluid Body Fluid Culture - Preliminary 03/22/20 22:45 Blood Culture - Final Blood NO GROWTH AFTER 5 DAYS 03/22/20 22:40 Blood Culture - Final Blood NO GROWTH AFTER 5 DAYS 03/23/20 17:45 Gram Stain - Final Pleural Fluid Anaerobic Culture - Preliminary Body Fluid Culture - Final A&P Assessment and plan (1) CHF (NYHA class III, ACC/AHA stage C): Acute diastolic CHF. -received lasix 40 mg IV x 1 earlier. -I will get her started on lasix 40 mg iV BID. -f/u on BMP. I/O charting. Status: Acute (2) Troponin level elevated: NSTEMI -continue ASA, metoprolol and lovenox. -Plan for further testing once she is diursed some. Status: Acute (3) Pleural effusion, bilateral: s/p Left thoracentesis that yielded 600 cc of straw-colored fluid on 03/23/2020 -s/p right sided thoracentesis on 03/26/2020 with drainage of 800 cc. -Bilateral effusions ( transudative) Status: Acute (4) Multifocal pneumonia: Antibiotics have been stopped. Status: Acute (5) CAD (coronary artery disease): Status: Acute Qualifiers: Coronary Disease-Associated Artery/Lesion type: [place] artery [place] vs. 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 Status: Acute Additional A&P Information Hyponatremia Anemia Thank you for allowing me to participate in patient's care. Please feel free to call with questions or concerns. Attestations Medical Necessity Statement*: As per primary team. Coding Level of Care Code Acute Benzene Operator for [facility] Diagnoses CHF (NYHA class III, ACC/AHA stage C) I50.9 Troponin level elevated R77.8 Pleural effusion, bilateral J90 Multifocal pneumonia J18.9 CAD (coronary artery disease) I25.10 Coronary Disease-Associated Artery/Lesion type: [place] artery [place] vs. transplanted heart: [place] heart Associated angina: without angina Ascending colon malignant neoplasm C18.2
[2020-03-28] MEDS: nitroglycerin 1 gm/inch oint Pkt 0.5 INCH TOPICAL ×3 (11:38→22:30)
[2020-03-28 11:41] VITALS: BP 107/57; PULSE 86; RESP 15; TEMP 36.5; O2SAT 98
--- NOTE | 2020-03-28 14:38 | PM.PN ---
Subjective Subjective: Interval history: Reports has not been feeling much better. Says had an episode of some discomfort in her earlier. Denies any current chest pain or pressure. Still having episodes of cough. Feels like she cannot spit up phlegm. Vitals/I&O/Wt Last Vital Signs Temp 97.7 F 03/28/20 11:41 Pulse 86 03/28/20 11:41 Resp 15 03/28/20 11:41 BP 107/57 03/28/20 11:41 Pulse Ox 98 03/28/20 11:41 03/27/20 03/28/20 03/28/20 22:59 06:59 14:59 Intake Total 160 / 570 200 / 200 Output Total 100 / 500 850 / 850 Balance 60 / 70 -650 / -650 Weight last 48 hrs Weight 60.645 kg Weight 61.643 kg Physical Exam Const: COMMON NORMALS: no acute distress, patient oriented x3 and alert ORIENTATION/CONSCIOUSNESS: Yes awake OTHER: Sitting up in bed. Having some breakfast. HENMT: COMMON NORMALS: oropharynx normal Neck/C-Spine: COMMON NORMALS: no JVD Resp: COMMON NORMALS: normal respiratory effort and clear to auscultation bilaterally AUSCULTATION: clear to auscultation bilaterally Cardio: COMMON NORMALS: no JVD, S1 normal heart sound present, S2 normal heart sound present and No murmurs present (Cardio) RATE: tachycardic HEART SOUNDS: S1 normal heart sound present and S2 normal heart sound present GI: COMMON NORMALS: Normal to inspection, nondistended, normoactive bowel sounds present, Soft to palpation and non-tender PALPATION: Yes Soft to palpation Extremity: COMMON NORMALS: no joint enlargement GENERAL: Yes edema (trace) Neuro: COMMON NORMALS: patient oriented x3 and moves all extremities SENSORIUM/ORIENTATION: Yes alert Skin: COMMON NORMALS: no rashes or lesions noted GENERAL SKIN EXAM: no rashes or lesions noted Data : 03/28/20 04:55 03/28/20 04:55 Micro: Microbiology 03/23/20 17:45 Gram Stain - Final Pleural Fluid Anaerobic Culture - Preliminary Body Fluid Culture - Final 03/26/20 15:20 Gram Stain - Final Pleural Fluid Body Fluid Culture - Preliminary 03/22/20 22:45 Blood Culture - Final Blood NO GROWTH AFTER 5 DAYS 03/22/20 22:40 Blood Culture - Final Blood NO GROWTH AFTER 5 DAYS A&P Assessment and plan (1) Hypoxia: Continues on 5 L nasal cannula. Saturating in high 90s. Continues to have generalized weakness. Is somewhat vague about her respiratory symptoms, but does get dyspnea on exertion, reports persistent episodes of cough. Feels like she cannot bring up sputum. Is off antibiotics. Afebrile. No leukocytosis. Blood cultures negative. Pleural fluid from 03/26 sterile. 03/23 fluid without acid-fast bacilli so far. No fungi. No bacterial growth. Few normal silvano on sputum culture 03/23. MRSA PCR negative. Negative urine bacterial antigens, Legionella. Repeat coronavirus PCR negative. Extended viral panel negative. Pending PJP. Fungitell. Galactomannan. Left side fluid cytology negative for malignancy. Has been having some remaining peripheral edema. BNP was higher at 464. Rising troponin. Additional Lasix given last night. Appreciate business technology architect Lasix 40 mg IV twice daily for acute diastolic CHF. Additional assessment for non-STEMI once respiratory status and volume status optimized. At this time continue medical treatment. Status: Acute (2) Persistent pneumonia: Discussed with her and her grandson. Findings so far are not supportive of bacterial and possibly other infectious etiology. Per discussion with pulmonology monitoring off antibiotics. Did well with no noted aspiration on FEES. Follow up ID studies including viral panel, pleural fluid mycobacterial and fungal, blood, sputum, pneumocystis PCR. Follow-up cytology. For now continue off antibiotics. Procalcitonin is 0.12. May still have infection, however, malignancy is also possibility, although based on pleural fluids appears less likely. Status: Acute (3) Troponin level elevated: Continue medical management of possible non-STEMI. Additional assessment to be done once respiratory status and volume status are better. Continue aspirin, beta-juventino. Would benefit from additional assessment by stress testing once able to tolerate. Does not appear to regain a whole lot of strength after holding statin. Recheck CK normal. Normal EF on repeat limited TTE. No RWMA. Status: Acute (4) Lower extremity edema: No DVT on lower extremity duplex. No evidence of PE on CTA. Status: Acute (5) Hyponatremia: With improvement with diuresis. Reassess. Continue regular diet. Difficult to pinpoint etiology. Poor oral intake, so may be low solute, but also appears to have lower extremity edema, concern for possible CHF, so possibility of fluid overload as well although this appears less likely. In addition HCTZ was likely contributing, and discontinued at this time. Also possibility of SIADH secondary to ongoing pulmonary problem. Status: Acute Additional A&P Information Generalized weakness: Hold statin for now given generalized weakness, CK elevation, transaminitis. Possible statin induced myopathy. Assess and treat for possible ongoing pneumonia as above, assess for possible CHF as above. TSH is normal. Staph epidermidis in urine. Continue empiric coverage with vancomycin at this time. Treat possible NSTEMI. Additional cardiac assessment. Possible UTI: Staph epidermidis in urine culture 60-70,000 on 03/22. Completed 5d vancomycin. Enterococcus growing in urine during prior admission only 10-20,000 on 03/08. No blood cultures positive from last or this admission. Incidentally noted mediastinal lymph nodes thought to be reactive. Incidentally noted thyroid nodule, no follow-up recommended. Adenocarcinoma of colon status post hemicolectomy, with noted positive lymph nodes on biopsy. Follows with Dr. Ramsey in office. Has not yet initiated Xeloda. 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 Abdomen is entirely soft on examination. Normal lactic acid, suspicion for acutely ischemic bowel is very low at this time. Previously incidentally noted 10 mm gallstone which was stable. No right upper quadrant discomfort at this time. HTN: Has been at goal. Monitor. For now hold amlodipine due to lower extremity edema. Hold HCTZ which was recently discontinued due to hyponatremia. Anemia, hemoglobin appears stable. Previously known iron deficiency anemia for which arrangements were being made for iron infusions. Hold off for now until clears any ongoing infection. Anxiety: Ativan available for which she takes at home as needed, previously was taking for nausea, but sometimes also taking for anxiety. Attestations Medical Necessity Statement*: Continue admission for assessment of management of hypoxia, additional assessment of pulmonary condition which appears to be persistent, with dyspnea on exertion, cough, generalized weakness. Continue assess management of possible non-STEMI, acute diastolic CHF. Coding Level of Care Code Acute Environmental Health Inspector for [facility] Diagnoses Hypoxia R09.02 Persistent pneumonia J18.9 Troponin level elevated R77.8 Lower extremity edema R60.0 Hyponatremia E87.1
[2020-03-28 16:00] VITALS: BP 130/63; PULSE 89; RESP 9; TEMP 36.3; O2SAT 97
--- NOTE | 2020-03-28 17:20 | PC.NURSE ---
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 nurse informed family that she would let the dr know this. dr oakley notified, and family at bedside during visiting hours.
[2020-03-28] MEDS: guaiFENesin 600 mg Tablet PO (18:36)
[2020-03-28 19:07] VITALS: PULSE 94; O2SAT 96
--- NOTE | 2020-03-28 19:25 | PC.NURSE ---
ASSUMED CARE AT SHIFT CHANGE. PT C/O PAIN IN HAND THAT IS WRAPPED IN COBAN. COBAN IN PLACE TO SECURE IV. REWRAPPED IV. PT STATES THAT IS MUCH BETTER, BUT WOULD LIKE SOME TYLENOL. PT RESTING IN BED. WILL CONTINUE TO MONITOR.
[2020-03-28] MEDS: acetaminophen 325 mg Tablet 650 MG PO (19:34)
--- NOTE | 2020-03-28 19:39 | PC.NURSE ---
PRN TYLENOL WAS GIVEN FOR PAIN IN THE LEFT HAND 08/11. WILL CONTINUE TO MONITOR.
[2020-03-28 19:41] VITALS: BP 123/61; PULSE 85; RESP 12; TEMP 36.5; O2SAT 98
[2020-03-29] VITALS: BP 109/51; PULSE 73; RESP 15; TEMP 36.4; O2SAT 95
[2020-03-29 04:00] VITALS: BP 132/62; PULSE 85; RESP 17; TEMP 36.4; O2SAT 95
[2020-03-29] MEDS: nitroglycerin 1 gm/inch oint Pkt 0.5 INCH TOPICAL ×3 (04:57→17:22)
[2020-03-29 05:40] LABS: Basophils # 0.1 10^3/uL (0.0-0.1); Basophils % 0.7 %; Eosinophils # 0.2 10^3/uL (0.0-0.8); Eosinophils % 2.9 %; Hematocrit 29.2 % (37.0-47.0); Hemoglobin 9.2 g/dL (11.5-15.3); Lymphocytes # 0.7 10^3/uL (0.8-4.8); Lymphocytes % 9.5 %; Mean Corpuscular HGB Conc 31.5 g/dL (30.0-36.0); Mean Corpuscular Hemoglobin 24.4 pg (28.0-34.0); Mean Corpuscular Volume 77.5 fL (81-99); Mean Platelet Volume 9.4 fL (7.4-10.4); Monocytes # 0.7 10^3/uL (0.2-0.9); Monocytes % 8.9 %; Neutrophils # 5.91 10^3/uL (1.8-7.7); Neutrophils % 77.6 %; Nucleated Red Blood Cells % 0 %; Platelet Count 270 10^3/cmm (130-400); Red Blood Count 3.77 10^6/uL (4.1-5.3); Red Cell Distribution Width 20.8 % (12.1-15.1); White Blood Count 7.6 10^3/uL (4.0-10.0)
[2020-03-29 05:57] VITALS: BMI 21.7
--- NOTE | 2020-03-29 05:58 | PC.NURSE ---
PT STATES THAT THEY FEEL A LITTLE BIT BETTER. PT STATES THAT THEY JUST NEED TO GET A BIT STRONGER BEFORE GOING HOME. DENIES PAIN AT THIS TIME. PT WANT TO SLEEP A LITTLE LONGER. WILL CONTINUE TO MONITOR.
[2020-03-29 06:04] LABS: Alanine Aminotransferase 31 U/L (0-33); Alkaline Phosphatase 69 IU/L (35-105); Anion Gap 8.6 (5-19); Aspartate Amino Transferase 42 U/L (0-32); Blood Urea Nitrogen 30 mg/dL (8-23); Calcium 8.5 mg/dL (8.5-10.5); Carbon Dioxide 28 mmol/L (22-29); Chloride 96 mmol/L (98-107); Globulin 2.8 g/dL (1.3-4.6); Glucose 97 mg/dL (65-115); Osmolality Calculated 274 mOsm/kg (285-295); Potassium 3.6 mmol/L (3.5-5.1); Sodium 129 mmol/L (136-145); Total Bilirubin 0.3 mg/dL (0.15-1.2); Total Protein 4.8 g/dL (6.6-8.7)
[2020-03-29 07:03] VITALS: BP 124/70; PULSE 88; RESP 24; TEMP 36.7; O2SAT 98
--- NOTE | 2020-03-29 07:30 | PC.NURSE ---
pt up to chair to eat breakfast. pt tolerated well. call light within reach, will continue to monitor.
[2020-03-29] MEDS: metoprolol tartrate 25 mg Tablet 12.5 MG PO ×2 (09:06→17:21)
[2020-03-29] MEDS: pantoprazole DR 40 mg Tablet PO (09:06)
[2020-03-29] MEDS: guaiFENesin 600 mg Tablet PO ×2 (09:06→17:20)
[2020-03-29] MEDS: aspirin 325 mg Tablet PO (09:06)
[2020-03-29] MEDS: FUROsemide 10 mg/mL SDV 4mL 40 MG IVP (09:06)
--- NOTE | 2020-03-29 09:11 | PC.SOCIAL ---
IMM Updated Updated pt on Pg 2 IMM. Provided pt a copy. No questions voiced. Signed, dated, & timed copy in chart.
[2020-03-29] MEDS: enoxaparin 60 mg/0.6 mL Syringe SUBCUT ×2 (10:03→22:14)
[2020-03-29 10:54] VITALS: BP 101/58; PULSE 83; RESP 29; TEMP 36.3; O2SAT 100
--- NOTE | 2020-03-29 11:22 | P.PN_ITS ---
Subjective Subjective: Interval history: clinically stayed same. seen in chair and says that sitting makes her feel better. Otherwise no appetite, trying to take 2 ensure daily. offered no new complaints. Medications: Reviewed: Yes Medication Review Details: Current Medications Acetaminophen (Tylenol) 650 mg PO Q6H PRN PRN Reason: Mild/Mod Pain Or Temp >/= 101 Last Admin: 03/26/20 01:08 Dose: 650 mg Documented by: Aspirin (Aspirin) 325 mg PO DAILY [facility] Enoxaparin Sodium (Lovenox) 60 mg SUBCUT Q12H [facility] Last Admin: 03/27/20 21:08 Dose: 60 mg Documented by: Furosemide (Lasix) 40 mg IVP Q12H [facility] Last Admin: 03/28/20 08:12 Dose: 40 mg Documented by: Lanolin (Lanolin Oint) 1 applic TOPICAL PRN PRN PRN Reason: DRYNESS Last Admin: 03/23/20 21:51 Dose: 1 applic Documented by: Lorazepam (Ativan) 0.5 mg PO Q5H PRN PRN Reason: ANXIETY Last Admin: 03/28/20 08:12 Dose: 0.5 mg Documented by: Metoprolol Tartrate (Lopressor) 12.5 mg PO BID [facility] Last Admin: 03/28/20 08:13 Dose: 12.5 mg Documented by: Nitroglycerin (Nitro-Bid) 0.5 inch TOPICAL Q6H [facility] Pantoprazole Sodium (Protonix) 40 mg PO DAILY [facility] Last Admin: 03/28/20 08:13 Dose: 40 mg Documented by: Vitals/I&O/Wt Last Vital Signs Temp 97.4 F L 03/29/20 10:54 Pulse 83 03/29/20 10:54 Resp 29 H 03/29/20 10:54 BP 101/58 03/29/20 10:54 Pulse Ox 100 03/29/20 10:54 03/28/20 03/29/20 03/29/20 22:59 06:59 14:59 Output Total 400 / 1250 800 / 2050 400 / 400 Balance -400 / -1050 -800 / -1850 -400 / -400 Weight last 48 hrs Weight 134 lb 3.2 oz Weight 133 lb 11.2 oz Physical Exam Narrative: EXAM NARRATIVE: General: alert, mild respiratory distress saturating >95% on 3 L nasal cannula HEENT: conj clear, EOMI, PERRL, mmm, Neck: supple, no meningismus Heme: no cervical LAP Pulmonary: improved breath sounds bilaterally after thoracentesis cardiovascular: rrr, nl s1s2, no mrg Abdomen: soft, nt, nd, no r/g, bs+ Extremities: pulses +, 2+ pedal edema, no c/c : no CVA tenderness Skin: intact, no rash MSK: no back or neck pain Neurologic: grossly intact Data : 03/29/20 05:16 03/29/20 05:16 Micro: Microbiology 03/23/20 17:45 Gram Stain - Final Pleural Fluid Anaerobic Culture - Preliminary Body Fluid Culture - Final 03/26/20 15:20 Gram Stain - Final Pleural Fluid Body Fluid Culture - Preliminary A&P Assessment and plan (1) Troponin level elevated: Status: Acute (2) Persistent pneumonia: Status: Acute (3) Multifocal pneumonia: Status: Acute (4) Ascending colon malignant neoplasm: Status: Acute (5) CAD (coronary artery disease): Status: Acute Qualifiers: Coronary Disease-Associated Artery/Lesion type: [place] artery [place] vs. transplanted heart: [place] heart Associated angina: without angina Qualified Code(s): I25.10 - Atherosclerotic heart disease of [place] coronary artery without angina pectoris (6) Pleural effusion, bilateral: Status: Acute # Transudative bilateral pleural effusions likely due to diastolic heart failure vs hypoalbumnemia - afebrile, no leucocytosis. procalcitonin 0.12 -Postprocedure patient is saturating 96-97% 3 L nasal cannula -All cultures negative so far, urine bacterial antigens, MRSA nares negative,Covid PCR negative -Respiratory viral panel negative -off antibiotics; no fever, no leucocytosis and clinically unchanged -CTA on admission showed worsened consolidation and multifocal distribution with no PE. Bilateral pleural effusions -Left thoracentesis yielded 600 cc of straw-colored fluid which was transudative on 03/23/2020 -Due to respiratory discomfort and concern for trapped lung -attempted right side thoracentesis 03/26/2020 and able to drain 800 cc. Patient tolerated procedure well no trapped lung from previous infection which can also yield persistent transudative fluid. -Bilateral effusions are transudative -likely secondary to CHF/hypoalbuminemia -In the context of troponinemia with elevated BNP; although this admission echo normal LV systolic and diastolic function with EF 63%; previous echo grade 2 diastolic dysfunction - - Lasix as tolerated - can give lasix 40 mg daily as pleural effusions are transudative - monitor sodium as pt it is 127 now -Albumin 1.8 >. 2 -strongly recommend to give protein supplements - With history of colon cancer, although not currently on chemotherapy, plans were to start Xeloda which has not yet been initiated. -Follow-up on galactomannan, B-D glucan, Induced sputum for PCP - although now seems less likely fungal -Awaiting cytology for right pleural effusions but with transudative fluid does not expect to be malignant - #Adenocarcinoma of colon status post hemicolectomy, with noted positive lymph nodes on biopsy. - Follows with Dr. Ramsey in office. Has not yet initiated Xeloda. - recommendations conveyed to Hospitalist covering the patient. -Medical condition, labs, investigations, medications, and plan of care- everything explained in detail to the patient, son and grandson (upon pt request). Patient verbalized understanding and agreed with the plan of care. Attestations Medical Necessity Statement*: Bilateral pleural effusions likely due to di astolic heart failure/hypoalbunemia in a pt with recently diagnosis of [place] adenocarcinoma Time Spent in Patient Care: 16 - 35 minutes (>than 50% of time spent in counselling and/or direct pt care on unit) . Critical Care Time: Critical Care Time (min): 25 Coding Level of Care Code Acute Ore Roaster for [facility] Diagnoses Troponin level elevated R77.8 Persistent pneumonia J18.9 Multifocal pneumonia J18.9 Ascending colon malignant neoplasm C18.2 CAD (coronary artery disease) I25.10 Coronary Disease-Associated Artery/Lesion type: [place] artery [place] vs. transplanted heart: [place] heart Associated angina: without angina Pleural effusion, bilateral J90
--- NOTE | 2020-03-29 12:13 | XR_ITS ---
WS: [id number] Exam: XR chest 1V portable [id number] Date/Time of Exam: 03/29/2020 12:13 PM Reason For Exam: hypoxia Comparison 03/26/2020. The heart enlarged. There is pulmonary vascular congestion suggesting CHF. Increasing infiltrate seen in the lower two thirds of the right lung since prior study. Increasing bilateral pleural effusions. No pneumothorax. Monitoring leads superimpose the chest. The mediastinum and bony thorax are unremar kable. XR/XR chest 1V portable [id number] IMPRESSION: 1. Cardiac enlargement with pulmonary vascular congestion suggesting CHF. 2. Increasing airspace infiltrates in the right lung since prior study. Superim posed pneumonia is not excluded. 3. Increasing bilateral pleural effusion since previous exam.
[2020-03-29 14:54] LABS: Magnesium 1.8 mg/dL (1.7-2.3)
--- NOTE | 2020-03-29 15:39 | P.PN_ITS ---
Subjective Subjective: Interval history: She had a urine output of 2000 mL. She continues to have shortness of breath and appears tachypneic while speaking. She was seen sitting in the chair. Medications: Reviewed: Yes Medication Review Details: Current Medications Acetaminophen (Tylenol) 650 mg PO Q6H PRN PRN Reason: Mild/Mod Pain Or Temp >/= 101 Last Admin: 03/26/20 01:08 Dose: 650 mg Documented by: Aspirin (Aspirin) 325 mg PO DAILY [facility] Enoxaparin Sodium (Lovenox) 60 mg SUBCUT Q12H [facility] Last Admin: 03/27/20 21:08 Dose: 60 mg Documented by: Furosemide (Lasix) 40 mg IVP Q12H [facility] Last Admin: 03/28/20 08:12 Dose: 40 mg Documented by: Lanolin (Lanolin Oint) 1 applic TOPICAL PRN PRN PRN Reason: DRYNESS Last Admin: 03/23/20 21:51 Dose: 1 applic Documented by: Lorazepam (Ativan) 0.5 mg PO Q5H PRN PRN Reason: ANXIETY Last Admin: 03/28/20 08:12 Dose: 0.5 mg Documented by: Metoprolol Tartrate (Lopressor) 12.5 mg PO BID [facility] Last Admin: 03/28/20 08:13 Dose: 12.5 mg Documented by: Nitroglycerin (Nitro-Bid) 0.5 inch TOPICAL Q6H [facility] Pantoprazole Sodium (Protonix) 40 mg PO DAILY [facility] Last Admin: 03/28/20 08:13 Dose: 40 mg Documented by: Vitals/I&O/Wt Last Vital Signs Temp 97.4 F L 03/29/20 10:54 Pulse 83 03/29/20 10:54 Resp 29 H 03/29/20 10:54 BP 101/58 03/29/20 10:54 Pulse Ox 100 03/29/20 10:54 03/29/20 03/29/20 03/29/20 06:59 14:59 22:59 Output Total 800 / 2050 400 / 400 Balance -800 / -1850 -400 / -400 Weight last 48 hrs Weight 134 lb 3.2 oz Weight 133 lb 11.2 oz Physical Exam Const: COMMON NORMALS: patient oriented x3 and alert GENERAL APPEARANCE: cooperative, comfortable, well kempt and well hydrated NUTRITIONAL APPEARANCE: thin ORIENTATION/CONSCIOUSNESS: Yes Other orientation findings OTHER: appears in respiratory distres HENMT: COMMON NORMALS: normocephalic, atraumatic, external ears normal and Normal external nose present HEAD & SCALP: normocephalic and atraumatic FACE & SINUS: normal facial exam; no edema NOSE: Normal external nose present EXTERNAL EAR: Yes external ears normal Eye: COMMON NORMALS: Equal, round and reactive pupils present, EOMs intact bilaterally, conjunctivae normal and no scleral icterus GENERAL EYE: appearance normal, both eyes and all related structures ALIGNMENT: Yes alignment normal PERIORBITAL: periorbital findings normal EYELID: eyelids normal CONJUNCTIVA: Yes conjunctivae normal SCLERA: sclerae normal PUPIL: Yes Equal, round and reactive pupils present Neck/C-Spine: COMMON NORMALS: no lymphadenopathy, supple and no JVD GENERAL: Yes normal visual inspection, Yes trachea midline and No Mass present (neck) CAROTIDS: Yes normal carotid upstroke CERVICAL SPINE: Yes cervical ROM normal Chest: COMMONS NORMALS: normal inspection of the chest and normal palpation of entire chest wall CHEST: Yes Symmetrical chest wall rise, No mass, No tenderness and No rash Resp: AUSCULTATION: crackles (bilateral coarse crackles), no rales, no rhonchi and no wheezes OTHER: decreased bilateral air entry more at bases Cardio: COMMON NORMALS: no JVD, regular rate, regular rhythm, S1 normal heart sound present, S2 normal heart sound present and Peripheral pulses 2+ throughout PALPATION: normal PMI RATE: regular rate RHYTHM: regular rhythm HEART SOUNDS: S1 normal heart sound present, S2 normal heart sound present, no gallops and no murmurs BRUITS: no carotid bruits PERIPHERAL PULSES: Mary pheral pulses 2+ throughout, radial pulses present, posterior tibial pulses present and dorsalis pedis present GI: COMMON NORMALS: Soft to palpation AUSCULTATION: Yes normoactive bowel sounds PALPATION: Yes Soft to palpation, No Tenderness to palpation present (GI), No Guarding due to palpation present (GI) and No Rigid due to palpation Extremity: GENERAL: No calf tenderness, No cyanosis, Yes edema (trace-1+) and No pallor Neuro: COMMON NORMALS: patient oriented x3 SENSORIUM/ORIENTATION: Yes alert Psych: COMMON NORMALS: Normal thought process present and speech normal APPEARANCE: Yes well kempt SPEECH: Yes normal speech MOOD & AFFECT: Yes euthymic mood THOUGHT PROCESS: Normal thought process present THOUGHT CONTENT: Yes Normal thought content present Skin: HAIR: normal NAILS: normal and no clubbing Data : 03/29/20 05:16 03/29/20 05:16 Micro: Microbiology 03/26/20 15:20 Gram Stain - Final Pleural Fluid Body Fluid Culture - Final 03/23/20 17:45 Gram Stain - Final Pleural Fluid Anaerobic Culture - Preliminary Body Fluid Culture - Final A&P Assessment and plan (1) Hypoxia: -However unclear as to what the underlying etiology of her hypoxia is. -COVID ruled out. Antibiotics D/C ed as no fever, cx negative and no other markers per [facility]. -Currently being diuresed. -Bilateral pleural effusion drained. -Cx and cytology negative so far. -On 3-4 L of oxygen Status: Acute (2) CHF (NYHA class III, ACC/AHA stage C): Acute diastolic CHF. -received lasix 40 mg IV x 1 earlier. -continue with IV lasix today. May have to hold. CXR with worsening effusion and pulmonary congestion. -f/u on BMP. I/O charting. Status: Acute (3) Troponin level elevated: NSTEMI -She does have prior h/o CAD, EKG with no acute abnormality. -ischemia causing decompensated CHF is a possibility. -continue ASA, metoprolol and lovenox. -Plan for further testing once she is diursed some. Status: Acute (4) Pleural effusion, bilateral: s/p Left thoracentesis that yielded 600 cc of straw-colored fluid on 03/23/2020 -s/p right sided thoracentesis on 03/26/2020 with drainage of 800 cc. -Bilateral effusions ( transudative) Status: Acute (5) Multifocal pneumonia: Antibiotics have been stopped. Status: Acute (6) CAD (coronary artery disease): Status: Acute Qualifiers: Coronary Disease-Associated Artery/Lesion type: [place] artery [place] vs. 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 Status: Acute Additional A&P Information Hyponatremia Anemia Thank you for allowing me to participate in patient's care. Please feel free to call with questions or concerns. Attestations Medical Necessity Statement*: Continue admission for hypoxia, non-STEMI and CHF. 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 transplanted heart: [place] heart Associated angina: without angina Ascending colon malignant neoplasm C18.2 Time Spent (min) 40 Comment Greater than 50% time spent talking to the patient and family.
[2020-03-29 16:00] VITALS: BP 129/64; PULSE 88; RESP 16; TEMP 37.1; O2SAT 98
[2020-03-29] MEDS: acetaminophen 325 mg Tablet 650 MG PO (17:21)
--- NOTE | 2020-03-29 17:45 | PC.NURSE ---
pt assisted to bedside commode and wanted to go back to bed. pt was stand by assist only. pt tolerated activity okay. oxygen saturation dips into high 80's with exertion. call light within reach, will continue to monitor.
--- NOTE | 2020-03-29 17:47 | PC.NURSE ---
pt has visitor at bedside. medications administered as order and prn tylenol for bottom aching. call light within reach, will continue to monitor.
[2020-03-29 19:31] VITALS: BP 120/65; PULSE 83; RESP 24; TEMP 36.6; O2SAT 96
--- NOTE | 2020-03-29 20:14 | P.PN_ITS ---
Subjective Subjective: Interval history: Today she is sitting up in chair, box of Ensure opening for her with straw in place. Says that she is actually feeling a tiny bit better today. Oxygen has been actually a little bit better as well. She also did better today with drinking protein supplement then last several days, this is also confirmed by her nurse. She denies chest pain. Discussed with her checked in again with [facility], and still no beds available. She states he is not sure that she actually wants to transfer, and definitely would not want to have to redo any tests. Vitals/I&O/Wt Last Vital Signs Temp 98 F 03/29/20 19:31 Pulse 83 03/29/20 19:31 Resp 24 H 03/29/20 19:31 BP 120/65 03/29/20 19:31 Pulse Ox 96 03/29/20 19:31 03/29/20 03/29/20 03/29/20 06:59 14:59 22:59 Intake Total 150 / 150 Output Total 800 / 2050 400 / 400 150 / 550 Balance -800 / -1850 -400 / -400 0 / -400 Weight last 48 hrs Weight 60.872 kg Weight 60.645 kg Physical Exam Const: COMMON NORMALS: no acute distress, patient oriented x3 and alert ORIENTATION/CONSCIOUSNESS: Yes awake OTHER: Sitting up in chair. Today in better spirits. Hard of hearing. HENMT: COMMON NORMALS: oropharynx normal Neck/C-Spine: COMMON NORMALS: no JVD Resp: COMMON NORMALS: normal respiratory effort AUSCULTATION: diminished lung sounds (Mildly) Cardio: COMMON NORMALS: no JVD, S1 normal heart sound present, S2 normal heart sound present and No murmurs present (Cardio) RATE: tachycardic HEART SOUNDS: S1 normal heart sound present and S2 normal heart sound present GI: COMMON NORMALS: Normal to inspection, nondistended, normoactive bowel sounds present, Soft to palpation and non-tender PALPATION: Yes Soft to palpation Extremity: COMMON NORMALS: no joint enlargement GENERAL: Yes edema (2+) Neuro: COMMON NORMALS: patient oriented x3 and moves all extremities SENSORIUM/ORIENTATION: Yes alert Skin: COMMON NORMALS: no rashes or lesions noted GENERAL SKIN EXAM: no rashes or lesions noted Data : 03/29/20 05:16 03/29/20 05:16 Micro: Microbiology 10/20/20 17:45 Gram Stain - Final Pleural Fluid Anaerobic Culture - Preliminary Body Fluid Culture - Final 03/26/20 15:20 Gram Stain - Final Pleural Fluid Body Fluid Culture - Final A&P Assessment and plan (1) Hypoxia: Today she is actually feeling a tiny bit better. Chest x-ray per discussion with with pulmonology with repeat. Appears to be somewhat worse than yesterday, however, per discussion findings most likely related to CHF. General keyanna afebrile, without leukocytosis. If spike fevers, or developing signs of sepsis, restart antibiotics. While sitting upright appears to have pretty pronounced bilateral lower extrem ity edema. He is responding well to diuresis, and today documented in negative balance, although intake does not seem accurate. Continue to diurese. Encourage oral protein intake. Oxygenation with some improvement, despite vascular congestive changes and some return of pleural effusions on chest x-ray. Now on 4 L nasal cannula. Saturating in high 90s. Generalized weakness. Is somewhat vague about her respiratory symptoms, but does get dyspnea on exertion, reports persistent episodes of cough. Feels like she cannot bring up sputum. Mucinex, cough syrup ordered. Is off antibiotics. Afebrile. No leukocytosis. Blood cultures negative. Pleural fluid from 03/26 sterile. 03/23 fluid without acid-fast bacilli so far. No fungi. No bacterial growth. Few normal silvano on sputum culture 03/23. MRSA PCR negative. Negative urine bacterial antigens, Legionella. Repeat coronavirus PCR negative. Extended viral panel negative. Pending PJP. Fungitell. Galactomannan. Left side fluid cytology negative for malignancy. Has been having some remaining peripheral edema. BNP was higher at 464. Rising troponin. Additional Lasix given last night. 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 Additional assessment for non-STEMI once respiratory status and volume status optimized. At this time continue medical treatment. There was request related to by nursing staff from family to see if there is possibly transfer to [facility] where her business practices supervisor is, Dr. Beltran. We have asked yesterday and today, and no abdominal or telemetry beds have been a vailable. She states is not very much interested in transfer is only if would have to redo any tests. At this time agreeable to continue care here, would revisit again with patient and family and if still interested re check in case beds become available. Status: Acute (2) Persistent pneumonia: As discussed with her and her grandson previously, as well as with her son yesterday findings so far are not supportive of bacterial and possibly other infectious etiology. Per discussion with pulmonology monitoring off antibiotics. Did well with no noted aspiration on FEES. Follow up ID studies including viral panel, pleural fluid mycobacterial and fungal, blood, sputum, pneumocystis PCR. Follow-up cytology from the right. No malignancy noted on cytology from the left For now continue off antibiotics. Procalcitonin is 0.12. May still have infection, however, malignancy is also possibility, although based on pleural fluids appears less likely. Status: Acute (3) Troponin level elevated: Continue medical management of possible non-STEMI. Additional assessment to be done once respiratory status and volume status are better. Continue aspirin, beta-juventino. Would benefit from additional assessment by stress testing once able to tolerate. Does not appear to regain a whole lot of strength after holding statin. Recheck CK normal. Normal EF on repeat limited TTE. No RWMA. Status: Acute (4) Lower extremity edema: No DVT on lower extremity duplex. No evidence of PE on CTA. Status: Acute (5) Hyponatremia: With improvement with diuresis. Reassess. Continue regular diet. Difficult to pinpoint etiology. Poor oral intake, so may be low solute, but also appears to have lower extremity edema, concern for possible CHF, so possibility of fluid overload as well although this appears less likely. In addition HCTZ was likely contributing, and discontinued at this time. Also possibility of SIADH secondary to ongoing pulmonary problem. Status: Acute Additional A&P Information Generalized weakness: Today perhaps slightly better. Continue treatment of CHF. Possible non-STEMI. Held statin for now given generalized weakness, CK elevation, transaminitis on admit. Possible statin induced myopathy. Assess and treat for possible ongoing pneumonia as above, assess for possible CHF as above. TSH is normal. Staph epidermidis in urine. Completed 5 days of coverage with vancomycin. Possible UTI: Staph epidermidis in urine culture 60-70,000 on 03/22. Completed 5d vancomycin. Enterococcus growing in urine during prior admission only 10-2 0,000 on 03/08. No blood cultures positive from last or this admission. Incidentally noted mediastinal lymph nodes thought to be reactive. Incidentally noted thyroid nodule, no follow-up recommended. Adenocarcinoma of colon status post hemicolectomy, with noted positive lymph nodes on biopsy. Follows with Dr. Ramsey in office. Has not yet initiated Xeloda. 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 Abdomen is entirely soft on examination. Normal lactic acid, suspicion for acutely ischemic bowel is very low at this time. Previously incidentally noted 10 mm gallstone which was stable. No right upper quadrant discomfort at this time. HTN: Has been at goal. Monitor. For now hold amlodipine due to lower extremity edema. Hold HCTZ which was recently discontinued due to hyponatremia. Anemia, hemoglobin appears stable. Previously known iron deficiency anemia for which arrangements were being made for iron infusions. Hold off for now until clears any ongoing infection. Anxiety: Ativan available for which she takes at home as needed, previously was taking for nausea, but sometimes also taking for anxiety. Attestations Medical Necessity Statement*: Continue admission for assessment management of hypoxia, generalized weakness, CHF, possible non-STEMI, additional evaluation of recurrent pulmonary opacities in the setting of prior pneumonia, in the setting of recent treatment for colon malignancy, with a number of additional comorbidities as stated above. 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
[2020-03-29] MEDS: LORazepam 0.5 mg Tablet PO (22:21)
[2020-03-30] VITALS (9 sets, daily range): BP systolic 105–132; BP diastolic 58–70; PULSE 80–95; RESP 16–26; TEMP 36.5–36.9; O2SAT 92–98
[2020-03-30] MEDS: nitroglycerin 1 gm/inch oint Pkt 0.5 INCH TOPICAL ×5 (00:18→23:47)
[2020-03-30 04:59] LABS: Basophils # 0.1 10^3/uL (0.0-0.1); Basophils % 0.7 %; Eosinophils # 0.4 10^3/uL (0.0-0.8); Hematocrit 31.1 % (37.0-47.0); Hemoglobin 9.4 g/dL (11.5-15.3); Lymphocytes # 0.9 10^3/uL (0.8-4.8); Mean Corpuscular HGB Conc 30.2 g/dL (30.0-36.0); Mean Corpuscular Hemoglobin 24.1 pg (28.0-34.0); Mean Corpuscular Volume 79.7 fL (81-99); Mean Platelet Volume 9.5 fL (7.4-10.4); Monocytes # 0.6 10^3/uL (0.2-0.9); Monocytes % 8.6 %; Neutrophils # 5.37 10^3/uL (1.8-7.7); Neutrophils % 73.2 %; Nucleated Red Blood Cells % 0 %; Platelet Count 270 10^3/cmm (130-400); White Blood Count 7.3 10^3/uL (4.0-10.0)
--- NOTE | 2020-03-30 05:08 | PC.NURSE ---
End of shift: Patient has rested well this shift. Gotten up with stand by assist to BSC. PAtient vitals are stable.
[2020-03-30 05:37] LABS: Alanine Aminotransferase 27 U/L (0-33); Albumin Level 1.9 g/dL (3.5-5.2); Alkaline Phosphatase 65 IU/L (35-105); Anion Gap 8.9 (5-19); Aspartate Amino Transferase 38 U/L (0-32); Blood Urea Nitrogen 32 mg/dL (8-23); Calcium 8.4 mg/dL (8.5-10.5); Carbon Dioxide 27 mmol/L (22-29); Chloride 98 mmol/L (98-107); Globulin 2.9 g/dL (1.3-4.6); Glucose 92 mg/dL (65-115); Osmolality Calculated 277 mOsm/kg (285-295); Potassium 3.9 mmol/L (3.5-5.1); Sodium 130 mmol/L (136-145); Total Bilirubin 0.3 mg/dL (0.15-1.2); Total Protein 4.8 g/dL (6.6-8.7)
[2020-03-30] MEDS: aspirin 325 mg Tablet PO (08:27)
[2020-03-30] MEDS: FUROsemide 10 mg/mL SDV 4mL 40 MG IVP (08:27)
[2020-03-30] MEDS: guaiFENesin 600 mg Tablet PO ×2 (08:27→17:14)
[2020-03-30] MEDS: pantoprazole DR 40 mg Tablet PO (08:28)
[2020-03-30] MEDS: metoprolol tartrate 25 mg Tablet 12.5 MG PO ×2 (08:28→17:14)
--- NOTE | 2020-03-30 10:52 | PM.PN ---
Subjective Subjective: Interval history: No acute events overnight. On examination patient sitting in chair, hard of hearing. States she is not hungry and confirms poor appetite. States she feels bloated when she eats. Denies of having nausea, vomiting. Complaining of bowel movements mostly diarrhea whenever she goes to pass urine. Has remained hemodynamically stable and afebrile. Saturating 94% on 4 L nasal cannula oxygen supplementation. Vitals/I&O/Wt Last Vital Signs Temp 97.8 F 03/30/20 07:20 Pulse 83 03/30/20 07:20 Resp 20 H 03/30/20 07:20 BP 127/67 03/30/20 07:20 Pulse Ox 97 03/30/20 07:20 03/29/20 03/30/20 03/30/20 22:59 06:59 14:59 Intake Total 150 / 150 100 / 250 120 / 120 Output Total 350 / 750 200 / 950 Balance -200 / -600 -100 / -700 120 / 120 Weight last 48 hrs Weight 60.328 kg Weight 60.872 kg Physical Exam Const: COMMON NORMALS: no acute distress, patient oriented x3 and alert ORIENTATION/CONSCIOUSNESS: Yes awake OTHER: Sitting up in chair. Today in better spirits. Hard of hearing. HENMT: COMMON NORMALS: oropharynx normal Neck/C-Spine: COMMON NORMALS: no JVD Resp: COMMON NORMALS: normal respiratory effort AUSCULTATION: diminished lung sounds (Mildly) on the right in the lower lung alba Cardio: COMMON NORMALS: no JVD, S1 normal heart sound present, S2 normal heart sound present and No murmurs present (Cardio) RATE: tachycardic HEART SOUNDS: S1 normal heart sound present and S2 normal heart sound present GI: COMMON NORMALS: Normal to inspection, nondistended, normoactive bowel sounds present, Soft to palpation and non-tender PALPATION: Yes Soft to palpation Extremity: COMMON NORMALS: no joint enlargement GENERAL: Yes edema (2+) Neuro: COMMON NORMALS: patient oriented x3 and moves all extremities SENSORIUM/ORIENTATION: Yes alert Skin: COMMON NORMALS: no rashes or lesions noted GENERAL SKIN EXAM: no rashes or lesions noted Data : 03/30/20 04:15 03/30/20 04:15 Micro: Microbiology 03/24/20 23:15 Blood Culture - Final Blood NO GROWTH AFTER 5 DAYS 03/24/20 23:10 Blood Culture - Final Blood NO GROWTH AFTER 5 DAYS 03/23/20 17:45 Gram Stain - Final Pleural Fluid Anaerobic Culture - Preliminary Body Fluid Culture - Final 03/26/20 15:20 Gram Stain - Final Pleural Fluid Body Fluid Culture - Final A&P Assessment and plan (1) Hypoxia: Status: Acute (2) Pleural effusion, bilateral: Status: Acute (3) Edema due to hypoalbuminemia: Status: Acute (4) Persistent pneumonia: As discussed with her and her grandson previously, as well as with her son yesterday findings so far are not supportive of bacterial and possibly other infectious etiology. Per discussion with pulmonology monitoring off antibiotics. Did well with no noted aspiration on FEES. Follow up ID studies including viral panel, pleural fluid mycobacterial and fungal, blood, sputum, pneumocystis PCR. Follow-up cytology from the right. No malignancy noted on cytology from the left For now continue off antibiotics. Procalcitonin is 0.12. May still have infection, however, malignancy is also possibility, although based on pleural fluids appears less likely. Status: Acute (5) Troponin level elevated: Continue medical management of possible non-STEMI. Additional assessment to be done once respiratory status and volume status are better. Continue aspirin, beta-juventino. Would benefit from additional assessment by stress testing once able to tolerate. Does not appear to regain a whole lot of strength after holding statin. Recheck CK normal. Normal EF on repeat limited TTE. No RWMA. Status: Acute (6) CAD (coronary artery disease): Status: Acute Qualifiers: Associated angina: without angina Coronary Disease-Associated Artery/Lesion type: [place] artery [place] vs. transplanted heart: [place] heart Qualified Code(s): I25.10 - Atherosclerotic heart disease of [place] coronary artery without angina pectoris (7) Ascending colon malignant neoplasm: Status: Acute (8) Hyponatremia: With improvement with diuresis. Reassess. Continue regular diet. Difficult to pinpoint etiology. Poor oral intake, so may be low solute, but also appears to have lower extremity edema, concern for possible CHF, so possibility of fluid overload as well although this appears less likely. In addition HCTZ was likely contributing, and discontinued at this time. Also possibility of SIADH secondary to ongoing pulmonary problem. Status: Acute (9) Lower extremity edema: No DVT on lower extremity duplex. No evidence of PE on CTA. Status: Acute Additional A&P Information Hypoxia: Multifactorial. Most likely a combination of bilateral pleural effusion, congestive heart failure along with hypoalbuminemia and osmotic diarrhea in setting of colon cancer. CTA chest ruled out PE. Chances of persistent pneumonia are low at present. Procalcitonin negative, blood culture, fluid cultures from thoracocentesis have remained negative. Studies regarding bacterial antigen, Legionella, PCP, Fungitell, galactomannan, viral panel, coronavirus PCR and antigen have remained negative. Patient has been off antibiotics for last 3 to 4 days and has remained hemodynamically stable, afebrile without leukocytosis. Patient had thoracocentesis done bilaterally on March 23 and March 26. Fluid cytology negative for malignancy bilaterally. Patient developing CONTRERAS along with contraction alkalosis now. On examination looks euvolemic to mildly dehydrated. Will discuss with cardiology regarding decreasing the dose of Lasix to 40 mg IV daily. Strict input output charting. Charted urine output around 915 last 24 hours. Daily weights. For hypoalbuminemia: Patient has poor oral intake. Patient complains of feeling bloated and decreased appetite at present. Will add Remeron 15 mg daily for now as appetite enhancer. We will continue to monitor. Continue with protein shakes along with each meal. Change diet to GI soft diet for now. Stool studies to rule out infectious cause. Once C. difficile is negative can start patient on Lomotil to decrease the osmotic diarrhea. Oxygen supplementation keeping saturation over 90%. Physical therapy/Occupational Therapy evaluation and treatment. Patient does have incidental mediastinal lymph nodes which are thought to be reactive. Though unlikely but will check MARGARITA levels to rule out sarcoidosis. Elevated troponin: Concerns of non-ST elevation on admission. Continue with home dose of aspirin and beta-juventino. Holding statins for now given severe deconditioning. No regional wall motion abnormality and a normal EF seen on echocardiogram. Patient has received full dose Lovenox for 4 days now. Will discuss with cardiology regarding twitching over to prophylactic dose. Generalized weakness: Severe generalized deconditioning: TSH within normal limits. CPK normal. We will check vitamin B12 and folate levels as well. Most likely because of combination of depression along with prolonged multiple admissions and baseline colon cancer in setting of hyponatremia. Staph epidermidis in urine. Completed 5 days of coverage with vancomycin. Hyponatremia: Resolving. Start patient on 1 g salt tablets. Incidentally noted mediastinal lymph nodes thought to be reactive. Incidentally noted thyroid nodule, no follow-up recommended. Adenocarcinoma of colon status post hemicolectomy, with noted positive lymph nodes on biopsy. Follows with Dr. Ramsey in office. Has not yet initiated Xeloda. 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 Abdomen is entirely soft on examination. Normal lactic acid, suspicion for acutely ischemic bowel is very low at this time. Previously incidentally noted 10 mm gallstone which was stable. No right upper quadrant discomfort at this time. HTN: Has been at goal. Monitor. For now hold amlodipine due to lower extremity edema. Hold HCTZ which was recently discontinued due to hyponatremia. Anemia, hemoglobin appears stable. Previously known iron deficiency anemia for which arrangements were being made for iron infusions. Hold off for now until clears any ongoing infection. Anxiety: Ativan available for which she takes at home as needed, previously was taking for nausea, but sometimes also taking for anxiety. Discharge planning: We will get physical therapy and Occupational Therapy evaluation. We will discuss with family regarding possible discharge to SNF for further rehabilitation because of severe generalized deconditioning. Limited resuscitation. Full dose Lovenox for now for non-ST elevation NM. GI soft high-protein diet. Patient's care discussed in detail with her grandson Mr. Ferguson on [phone]. All the questions were answered. He will be getting in touch with his whole family and updating them regarding her health. Attestations Medical Necessity Statement*: Further hospitalization for management of hypoxia due to bilateral pleural effusion, congestive heart failure, CONTRERAS, severe generalized deconditioning, hyponatremia Time Spent in Patient Care: Greater than 35 minutes (>than 50% of time spent in counselling and/or direct pt care on unit). 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 transplanted heart: [place] heart Ascending colon malignant neoplasm C18.2 Hyponatremia E87.1 Lower extremity edema R60.0
[2020-03-30] MEDS: enoxaparin 60 mg/0.6 mL Syringe SUBCUT ×2 (11:01→21:03)
--- NOTE | 2020-03-30 12:34 | P.PN_ITS ---
Subjective Subjective: Interval history: She had a urine output of 950 mL. She continues to have shortness of breath and appears tachypneic while speaking. She was seen sitting in the chair. She expresses desire to go to [facility] but does not want to go through all the tests. Medications: Reviewed: Yes Medication Review Details: Current Medications Acetaminophen (Tylenol) 650 mg PO Q6H PRN PRN Reason: Mild/Mod Pain Or Temp >/= 101 Last Admin: 03/26/20 01:08 Dose: 650 mg Documented by: Aspirin (Aspirin) 325 mg PO DAILY [facility] Enoxaparin Sodium (Lovenox) 60 mg SUBCUT Q12H [facility] Last Admin: 03/27/20 21:08 Dose: 60 mg Documented by: Furosemide (Lasix) 40 mg IVP Q12H [facility] Last Admin: 03/28/20 08:12 Dose: 40 mg Documented by: Lanolin (Lanolin Oint) 1 applic TOPICAL PRN PRN PRN Reason: DRYNESS Last Admin: 03/23/20 21:51 Dose: 1 applic Documented by: Lorazepam (Ativan) 0.5 mg PO Q5H PRN PRN Reason: ANXIETY Last Admin: 03/28/20 08:12 Dose: 0.5 mg Documented by: Metoprolol Tartrate (Lopressor) 12.5 mg PO BID [facility] Last Admin: 03/28/20 08:13 Dose: 12.5 mg Documented by: Nitroglycerin (Nitro-Bid) 0.5 inch TOPICAL Q6H LUIS E Pantoprazole Sodium (Protonix) 40 mg PO DAILY [facility] Last Admin: 03/28/20 08:13 Dose: 40 mg Documented by: Vitals/I&O/Wt Last Vital Signs Temp 97.8 F 03/30/20 07:20 Pulse 95 03/30/20 12:32 Resp 18 03/30/20 12:31 BP 127/67 03/30/20 07:20 Pulse Ox 92 03/30/20 12:31 03/29/20 03/30/20 03/30/20 22:59 06:59 14:59 Intake Total 150 / 150 100 / 250 120 / 120 Output Total 350 / 750 200 / 950 150 / 150 Balance -200 / -600 -100 / -700 -30 / -30 Weight last 48 hrs Weight 133 lb Weight 134 lb 3.2 oz Physical Exam Const: COMMON NORMALS: patient oriented x3 and alert GENERAL APPEARANCE: cooperative, comfortable, well kempt and well hydrated NUTRITIONAL APPEARANCE: thin ORIENTATION/CONSCIOUSNESS: Yes Other orientation findings OTHER: appears in respiratory distres HENMT: COMMON NORMALS: normocephalic, atraumatic, external ears normal and Normal external nose present HEAD & SCALP: normocephalic and atraumatic FACE & SINUS: normal facial exam; no edema NOSE: Normal external nose present EXTERNAL EAR: Yes external ears normal Eye: COMMON NORMALS: Equal, round and reactive pupils present, EOMs intact bilaterally, conjunctivae normal and no scleral icterus GENERAL EYE: appearance normal, both eyes and all related structures ALIGNMENT: Yes alignment normal PERIORBITAL: periorbital findings normal EYELID: eyelids normal CONJUNCTIVA: Yes conjunctivae normal SCLERA: sclerae normal PUPIL: Yes Equal, round and reactive pupils present Neck/C-Spine: COMMON NORMALS: no lymphadenopathy, supple and no JVD GENERA L: Yes normal visual inspection, Yes trachea midline and No Mass present (neck) CAROTIDS: Yes normal carotid upstroke CERVICAL SPINE: Yes cervical ROM normal Chest: COMMONS NORMALS: normal inspection of the chest and normal palpation of entire chest wall CHEST: Yes Symmetrical chest wall rise, No mass, No tenderness and No rash Resp: AUSCULTATION: crackles (bilateral coarse crackles), no rales, no rhonchi and no wheezes OTHER: decreased bilateral air entry more at bases Cardio: COMMON NORMALS: no JVD, regular rate, regular rhythm, S1 normal heart sound present, S2 normal heart sound present and Peripheral pulses 2+ throughout PALPATION: normal PMI RATE: regular rate RHYTHM: regular rhythm HEART SOUNDS: S1 normal heart sound present, S2 normal heart sound present, no gallops and no murmurs BRUITS: no carotid bruits PERIPHERAL PULSES: Peripheral pulses 2+ throughout, radial pulses present, posterior tibial pulses present and dorsalis pedis present GI: COMMON NORMALS: Soft to palpation AUSCULTATION: Yes normoactive bowel sounds PALPATION: Yes Soft to palpation, No Tenderness to palpation present (GI), No Guarding due to palpation present (GI) and No Rigid due to palpation Extremity: GENERAL: No calf tenderness, No cyanosis, Yes edema (trace-1+) and No pallor Neuro: COMMON NORMALS: patient oriented x3 SENSORIUM/ORIENTATION: Yes alert Psych: COMMON NORMALS: Normal thought process present and speech normal APPEARANCE: Yes well kempt SPEECH: Yes normal speech MOOD & AFFECT: Yes euthymic mood THOUGHT PROCESS: Normal thought process present THOUGHT CONTENT: Yes Normal thought content present Skin: HAIR: normal NAILS: normal and no clubbing Data : 03/30/20 04:15 03/30/20 04:15 Micro: Microbiology 03/24/20 23:15 Blood Culture - Final Blood NO GROWTH AFTER 5 DAYS 03/24/20 23:10 Blood Culture - Final Blood NO GROWTH AFTER 5 DAYS 03/23/20 17:45 Gram Stain - Final Pleural Fluid Anaerobic Culture - Preliminary Body Fluid Culture - Final 03/26/20 15:20 Gram Stain - Final Pleural Fluid Body Fluid Culture - Final A&P Assessment and plan (1) Hypoxia: -However unclear as to what the underlying etiology of her hypoxia is. -COVID ruled out. Antibiotics D/C ed as no fever, cx negative and no other markers per Dr. Murphy. Viral PNA is still a possibility. -Currently being diuresed. -Bilateral pleural effusion drained. -Cx and cytology negative so far. -On 3-4 L of oxygen Status: Acute (2) CHF (NYHA class III, ACC/AHA stage C): Acute diastolic CHF. -received lasix 40 mg IV x 1 earlier. -continue with IV lasix daily. May have to hold. CXR with worsening effusion and pulmonary congestion. -f/u on BMP. I/O charting. Status: Acute (3) Troponin level elevated: NSTEMI, I am not sure this is type 1 NSTEMI we are dealing with here. Normal lexiscan stres test in 05/2019 before hip Sx per patient. I will request fro records from [facility] in [facility]. -She does have prior h/o CAD, EKG with no acute abnormality. -ischemia causing decompensated CHF is a possibility; but less likely. -continue ASA, metoprolol. May stop lovenox. -Plan for further testing once she is diuresed some. Status: Acute (4) Pleural effusion, bilateral: s/p Left thoracentesis that yielded 600 cc of straw-colored fluid on 03/23/2020 -s/p right sided thoracentesis on 03/26/2020 with drainage of 800 cc. -Bilateral effusions ( transudative) . -Hypoalbunemia likely is contributing as well. Status: Acute (5) Multifocal pneumonia: Antibiotics have been stopped. Status: Acute (6) CAD (coronary artery disease): Status: Acute Qualifiers: Coronary Disease-Associated Artery/Lesion type: [place] artery [place] vs. transplanted heart: [place] heart Associated angina: without angina Qualified Code(s): I25.10 - Atherosclerotic heart disease of [place] coronary artery without angina pectoris (7) Ascending colon malignant neoplasm: Status post right hemicolectomy on 01/08/2020. Status: Acute Additional A&P Information Hyponatremia Anemia Hypoalbunemia I had a long discussion with her son Lang by bedside. Thank you for allowing me to participate in patient's care. Please feel free to call with questions or concerns. 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 transplanted heart: [place] heart Associated angina: without angina Ascending colon malignant neoplasm C18.2
[2020-03-30] MEDS: sodium chloride 1 gm Tablet PO (17:14)
[2020-03-30] MEDS: ferrous sulfate EC 325 mg Tablet PO (17:14)
[2020-03-30 18:46] LABS: Vitamin B12 413 pg/mL (232-1245)
[2020-03-30 18:46] LABS: Folate Level 10.2 ng/mL (4.8-37.3)
--- NOTE | 2020-03-30 19:27 | PC.NURSE ---
Rounding: Patient up to bed side commode with assistance. Patient is alert and oriented. vitals are stable.
[2020-03-30] MEDS: acetaminophen 325 mg Tablet 650 MG PO (19:53)
[2020-03-30] MEDS: mirtazapine 15 mg Tablet PO (21:03)
--- NOTE | 2020-03-30 23:39 | PC.NURSE ---
Unable to measure urine void due to toilet paper.
[2020-03-31] VITALS (7 sets, daily range): BP systolic 105–148; BP diastolic 56–82; PULSE 83–94; RESP 8–32; TEMP 36.6–36.8; O2SAT 91–99
--- NOTE | 2020-03-31 05:00 | USCV_ITS ---
Natasha Gustafson Age: 84 Gender: F : 1935 Exam Date: 03/31/2020 06:15 Ordering Phys: Alfonso William MD Technologist: Gabrielle Nick Exam Location: [facility] [place] Indication: Obstruction, low urinary output Aortic Velocity @ SMA (cm/s) 159 RIGHT KIDNEY LEFT KIDNEY Velocity (cm/s) Velocity (cm/s) Sys/Street Sys/Street Resistive Index Resistive Index 91.7 / 21.2 0.77 Proximal Renal Artery 114.7 / 24.7 0.78 128.8 / 24.7 0.81 Mid Renal Artery 105.8 / 30.0 0.72 88.2 / 15.9 0.82 Distal Renal Artery 127.0 / 26.5 0.79 65.2 / 15.8 0.76 Hilar 38.7 / 6.1 0.84 35.8 / 8.0 0.78 Upper Pole 34.9 / 7.5 0.78 34.5 / 8.0 0.77 Mid Pole 43.8 / 9.6 0.78 37.2 / 8.4 0.78 Lower Pole 50.6 / 12.3 0.76 0.80 Renal Aortic Ratio 0.80 Accleration Index (cm/sec2) 879.00 Hilar 761.00 842.00 Upper Pole 830.00 785.00 Mid Pole 848.00 921.00 Lower Pole 895.00 110.3 Kidney Length (mm) 116.3 FINDINGS No comparisons. No evidence of abdominal aortic aneurysm. Mild atherosclerosis. There is no evidence of hemodynamically significant right renal artery stenosis. There is no evidence of hemodynamically significant left renal artery stenosis. CONCLUSIONS There is no sonographic evidence of hemodynamically significant renal artery stenosis bilaterally. No hydronephrosis or obstruction. Dr. Mayda Lutz DO (Electronically Signed) Final Date: 31 March 2020 08:10 Amended: 31 March 2020 08:59 C
[2020-03-31 05:06] LABS: Basophils # 0.1 10^3/uL (0.0-0.1); Basophils % 0.7 %; Eosinophils # 0.4 10^3/uL (0.0-0.8); Eosinophils % 5.8 %; Hematocrit 29.9 % (37.0-47.0); Lymphocytes # 0.8 10^3/uL (0.8-4.8); Lymphocytes % 10.9 %; Mean Corpuscular HGB Conc 30.1 g/dL (30.0-36.0); Mean Corpuscular Hemoglobin 24.1 pg (28.0-34.0); Mean Corpuscular Volume 79.9 fL (81-99); Monocytes # 0.6 10^3/uL (0.2-0.9); Monocytes % 7.7 %; Neutrophils # 5.38 10^3/uL (1.8-7.7); Neutrophils % 74.2 %; Nucleated Red Blood Cells % 0 %; Platelet Count 259 10^3/cmm (130-400); Red Blood Count 3.74 10^6/uL (4.1-5.3); Red Cell Distribution Width 21.3 % (12.1-15.1); White Blood Count 7.3 10^3/uL (4.0-10.0)
[2020-03-31 05:45] LABS: Alanine Aminotransferase 28 U/L (0-33); Alkaline Phosphatase 66 IU/L (35-105); Anion Gap 8.9 (5-19); Aspartate Amino Transferase 38 U/L (0-32); Blood Urea Nitrogen 35 mg/dL (8-23); Calcium 8.1 mg/dL (8.5-10.5); Carbon Dioxide 29 mmol/L (22-29); Chloride 98 mmol/L (98-107); Globulin 2.8 g/dL (1.3-4.6); Glucose 89 mg/dL (65-115); Osmolality Calculated 281 mOsm/kg (285-295); Potassium 3.9 mmol/L (3.5-5.1); Sodium 132 mmol/L (136-145); Total Bilirubin 0.2 mg/dL (0.15-1.2); Total Protein 4.8 g/dL (6.6-8.7)
[2020-03-31 05:46] LABS: Magnesium 1.9 mg/dL (1.7-2.3); Phosphorus 3.2 mg/dL (2.5-4.5)
[2020-03-31] MEDS: nitroglycerin 1 gm/inch oint Pkt 0.5 INCH TOPICAL ×4 (05:55→23:21)
[2020-03-31] MEDS: guaiFENesin 600 mg Tablet PO ×2 (08:19→17:51)
[2020-03-31] MEDS: aspirin 325 mg Tablet PO (08:19)
[2020-03-31] MEDS: pantoprazole DR 40 mg Tablet PO (08:19)
[2020-03-31] MEDS: metoprolol tartrate 25 mg Tablet 12.5 MG PO ×2 (08:19→17:51)
[2020-03-31] MEDS: ferrous sulfate EC 325 mg Tablet PO ×2 (08:19→17:51)
[2020-03-31] MEDS: sodium chloride 1 gm Tablet PO ×2 (08:19→17:51)
[2020-03-31] MEDS: FUROsemide 10 mg/mL SDV 4mL 40 MG IVP (08:20)
--- NOTE | 2020-03-31 09:29 | DCPLANNER ---
IMM completed on 03/31/2020 @ 0906. Copy of rights given to pt.
--- NOTE | 2020-03-31 09:58 | P.PN_ITS ---
Subjective Subjective: Interval history: Patient seen multiple times during the day today. On examination today morning patient was having her breakfast. She states she is feeling a lot better and looks better as well. She is on 2 L saturating 94%. She states and looks a little more alert and energetic today. She is on GI soft diet which she states she is able to eat better but slowly. Seen again in the evening today at that time patient is on room air saturating 94%. Patient's son at bedside. We discussed in detail regarding safe discharge planning. They stated they would rather take patient home with home health. States son and [id number] lives [address] away from the home and will be there 25/12 to take care of Ms. Kaur at present. They both want home health if possible. We discussed in detail that unfortunately because of severe generalized deconditioning with baseline carcinoma patient would get back to her baseline if possible very gradually in the next couple of months for which she would need to maintain her oral intake. Also discussed in detail that given her baseline deconditioning and illness patient is at high risk of readmission. Both patient and son verbalized understanding. They state they are happy that patient is doing better at present. Vitals/I&O/Wt Last Vital Signs Temp 98.2 F 03/31/20 07:07 Pulse 85 03/31/20 07:07 Resp 24 H 03/31/20 07:07 BP 133/82 03/31/20 07:07 Pulse Ox 99 03/31/20 07:07 03/30/20 03/31/20 03/31/20 22:59 06:59 14:59 Intake Total 680 / 800 80 / 80 Output Total 300 / 450 300 / 300 Balance 380 / 350 -220 / -220 Weight last 48 hrs Weight 60.373 kg Weight 60.328 kg Physical Exam Const: COMMON NORMALS: no acute distress, patient oriented x3 and alert ORIENTATION/CONSCIOUSNESS: Yes awake OTHER: Sitting up in chair. Today in better spirits. Hard of hearing. HENMT: COMMON NORMALS: oropharynx normal Neck/C-Spine: COMMON NORMALS: no JVD Resp: COMMON NORMALS: normal respiratory effort AUSCULTATION: diminished lung sounds (Mildly) on the right in the lower lung alba Cardio: COMMON NORMALS: no JVD, S1 normal heart sound present, S2 normal heart sound present and No murmurs present (Cardio) RATE: tachycardic HEART SOUNDS: S1 normal heart sound present and S2 normal heart sound present GI: COMMON NORMALS: Normal to inspection, nondistended, normoactive bowel sounds present, Soft to palpation and non-tender PALPATION: Yes Soft to palpation Extremity: COMMON NORMALS: no joint enlargement GENERAL: Yes edema (2+) Neuro: COMMON NORMALS: patient oriented x3 and moves all extremities SENSORIUM/ORIENTATION: Yes alert Skin: COMMON NORMALS: no rashes or lesions noted GENERAL SKIN EXAM: no rashes or lesions noted Data : 03/31/20 04:08 03/31/20 04:08 Micro: Microbiology 03/23/20 17:45 Gram Stain - Final Pleural Fluid Anaerobic Culture - Preliminary Body Fluid Culture - Final 03/30/20 11:54 Stool Lactoferrin - Final Stool C.difficile Toxin B Gene (PCR) - Final Occult Blood (FIT) - Final A&P Assessment and plan (1) Hypoxia: Status: Acute (2) Pleural effusion, bilateral: Status: Acute (3) Edema due to hypoalbuminemia: Status: Acute (4) Troponin level elevated: Status: Acute (5) CAD (coronary artery disease): Status: Acute Qualifiers: Associated angina: without angina Coronary Disease-Associated Artery/Lesion type: [place] artery [place] vs. transplanted heart: [place] heart Qualified Code(s): I25.10 - Atherosclerotic heart disease of [place] coronary artery without angina pectoris (6) Ascending colon malignant neoplasm: Status: Acute (7) Hyponatremia: Status: Acute (8) Lower extremity edema: No DVT on lower extremity duplex. No evidence of PE on CTA. Status: Acute Additional A&P Information Hypoxia: Multifactorial. Most likely a combination of bilateral pleural effusion, congestive heart failure along with hypoalbuminemia and osmotic diarrhea in setting of colon cancer. CTA chest ruled out PE. Chances of persistent pneumonia are low at present. Procalcitonin negative, blood culture, fluid cultures from thoracocentesis have remained negative. Studies regarding bacterial antigen, Legionella, PCP, Fungitell, galactomannan, viral panel, coronavirus PCR and antigen have remained negative. Patient has been off antibiotics for last 3 to 4 days and has remained hemodynamically stable, afebrile without leukocytosis. Patient had thoracocentesis done bilaterally on March 23 and March 26. Fluid cytology negative for malignancy bilaterally. CONTRERAS resolving today. Creatinine back to baseline. On examination looks euvolemic to mildly dehydrated. Urine studies appreciated. Renal ultrasound and Doppler negative for renal artery stenosis or any obstructive uropathy. Continue with Lasix 40 mg IV daily. Strict input output charting. Daily weights. For hypoalbuminemia: Patient has poor oral intake. Patient complains of feeling bloated and decreased appetite at present. Continue with Remeron as appetite enhancer. We will continue to monitor. Patient tolerating GI soft diet better. We will continue the same for now. Stool studies negative for any infectious process. Lomotil as needed. Most likely diarrhea due to osmotic process from colon cancer. Wean oxygen supplementation keeping saturation over 90%. Physical therapy/Occupational Therapy evaluation and treatment. Patient does have incidental mediastinal lymph nodes which are thought to be reactive. MARGARITA levels awaited. Elevated troponin: Concerns of non-ST elevation on admission. Continue with home dose of aspirin and beta-juventino. Holding statins for now given severe deconditioning. No regional wall motion abnormality and a normal EF seen on echocardiogram. Stop full dose Lovenox and changed to prophylactic dose. Greatly appreciate cardiology and pulmonology recommendations. Generalized weakness: Severe generalized deconditioning: TSH within normal limits. CPK normal. We will check vitamin B12 and folate levels as well. Most likely because of combination of depression along with prolonged multiple admissions and baseline colon cancer in setting of hyponatremia. Staph epidermidis in urine. Completed 5 days of coverage with vancomycin. Hyponatremia: Resolving. Continue with 1 g salt tablets twice daily. Incidentally noted mediastinal lymph nodes thought to be reactive. Incidentally noted thyroid nodule, no follow-up recommended. Adenocarcinoma of colon status post hemicolectomy, with noted positive lymph nodes on biopsy. Follows with Dr. Ramsey in office. Has not yet initiated Xeloda. 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 Abdomen is entirely soft on examination. Normal lactic acid, suspicion for acutely ischemic bowel is very low at this time. Previously incidentally noted 10 mm gallstone which was stable. No right upper quadrant discomfort at this time. HTN: Has been at goal. Monitor. For now hold amlodipine due to lower extremity edema. Hold HCTZ which was recently discontinued due to hyponatremia. Anemia, hemoglobin appears stable. Previously known iron deficiency anemia for which arrangements were being made for iron infusions. Hold off for now until clears any ongoing infection. Anxiety: Ativan available for which she takes at home as needed, previously was taking for nausea, but sometimes also taking for anxiety. Discharge planning: We will get physical therapy and Occupational Therapy evaluation. I have discussed above family would like to take patient home with home health. They verbalized understanding patient is severely generalized deconditioning and would need 24/7 care which they state they will be able to provide. They verbalized understanding of high risk for readmission. Limited resuscitation. Full dose Lovenox for now for non-ST elevation VT. GI soft high-protein diet. Patient's care discussed in detail with her son at bedside today all the questions were answered. Attestations Medical Necessity Statement*: Patient needs further hospitalization for management of hypoxia due to recurrent bilateral pleural effusion, congestive heart failure due to hypoproteinemia in setting of colon cancer leading to severe generalized deconditioning. Time Spent in Patient Care: Greater than 35 minutes (>than 50% of time spent in counselling and/or direct pt care on unit) . 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 transplanted heart: [place] heart Ascending colon malignant neoplasm C18.2 Hyponatremia E87.1 Lower extremity edema R60.0
[2020-03-31] MEDS: acetaminophen 325 mg Tablet 650 MG PO ×2 (16:18→23:37)
--- NOTE | 2020-03-31 17:20 | PM.PN ---
Subjective Subjective: Interval history: She had a urine output of 1000 mL. She continues to have shortness of breath and appears tachypneic while speaking. She was seen laying in bed. On RA SaO2 88-90% She expresses desire to go to [place] but does not want to go through all the tests. Medications: Reviewed: Yes Medication Review Details: Current Medications Acetaminophen (Tylenol) 650 mg PO Q6H PRN PRN Reason: Mild/Mod Pain Or Temp >/= 101 Last Admin: 03/26/20 01:08 Dose: 650 mg Documented by: Aspirin (Aspirin) 325 mg PO DAILY [facility] Enoxaparin Sodium (Lovenox) 60 mg SUBCUT Q12H [facility] Last Admin: 03/27/20 21:08 Dose: 60 mg Documented by: Furosemide (Lasix) 40 mg IVP Q12H [facility] Last Admin: 03/28/20 08:12 Dose: 40 mg Documented by: Lanolin (Lanolin Oint) 1 applic TOPICAL PRN PRN PRN Reason: DRYNESS Last Admin: 03/23/20 21:51 Dose: 1 applic Documented by: Lorazepam (Ativan) 0.5 mg PO Q5H PRN PRN Reason: ANXIETY Last Admin: 03/28/20 08:12 Dose: 0.5 mg Documented by: Metoprolol Tartrate (Lopressor) 12.5 mg PO BID [facility] Last Admin: 03/28/20 08:13 Dose: 12.5 mg Documented by: Nitroglycerin (Nitro-Bid) 0.5 inch TOPICAL Q6H LUIS E Pantoprazole Sodium (Protonix) 40 mg PO DAILY [facility] Last Admin: 03/28/20 08:13 Dose: 40 mg Documented by: Vitals/I&O/Wt Last Vital Signs Temp 97.9 F 03/31/20 15:38 Pulse 93 03/31/20 15:38 Resp 32 H 03/31/20 15:38 BP 132/71 03/31/20 15:38 Pulse Ox 97 03/31/20 15:38 03/31/20 03/31/20 03/31/20 06:59 14:59 22:59 Intake Total 560 / 560 Output Total 800 / 800 Balance -240 / -240 Weight last 48 hrs Weight 133 lb 1.6 oz Weight 133 lb Physical Exam Const: COMMON NORMALS: patient oriented x3 and alert GENERAL APPEARANCE: cooperative, comfortable, well kempt and well hydrated NUTRITIONAL APPEARANCE: thin ORIENTATION/CONSCIOUSNESS: Yes Other orientation findings HENMT: COMMON NORMALS: normocephalic, atraumatic, external ears normal and Normal external nose present HEAD & SCALP: normocephalic and atraumatic FACE & SINUS: normal facial exam; no edema NOSE: Normal external nose present EXTERNAL EAR: Yes external ears normal Eye: COMMON NORMALS: Equal, round and reactive pupils present, EOMs intact bilaterally, conjunctivae normal and no scleral icterus GENERAL EYE: appearance normal, both eyes and all related structures ALIGNMENT: Yes alignment normal PERIORBITAL: periorbital findings normal EYELID: eyelids normal CONJUNCTIVA: Yes conjunctivae normal SCLERA: sclerae normal PUPIL: Yes Equal, round and reactive pupils present Neck/C-Spine: COMMON NORMALS: no lymphadenopathy, supple and no JVD GENERAL: Yes normal visual inspection CAROTIDS: Yes normal carotid upstroke CERVICAL SPINE: Yes cervical ROM normal Chest: COMMONS NORMALS: normal inspection of the chest and normal palpation of entire chest wall CHEST: Yes Symmetrical chest wall rise, No mass, No tenderness and No rash Resp: AUSCULTATION: crackles (bilateral coarse crackles), no rales, no rhonchi and no wheezes OTHER: decreased bilateral air entry more at bases Cardio: COMMON NORMALS: no JVD, regular rate, regular rhythm, S1 normal heart sound present, S2 normal heart sound present and Peripheral pulses 2+ throughout PALPATION: normal PMI RATE: regular rate RHYTHM: regular rhythm HEART SOUNDS: S1 normal heart sound present, S2 normal heart sound present, no gallops and no murmurs BRUITS: no carotid bruits PERIPHERAL PULSES: Peripheral pulses 2+ throughout, radial pulses present, posterior tibial pulses present and dorsalis pedis present GI: COMMON NORMALS: Soft to palpation AUSCULTATION: Yes normoactive bowel sounds PALPATION: Yes Soft to palpation, No Tenderness to palpation present (GI), No Guarding due to palpation present (GI) and No Rigid due to palpation Extremity: GENERAL: No calf tenderness, No cyanosis, Yes edema (1-2+ edema) and No pallor Neuro: COMMON NORMALS: patient oriented x3 SENSORIUM/ORIENTATION: Yes alert Psych: COMMON NORMALS: Normal thought process present and speech normal APPEARANCE: Yes well kempt SPEECH: Yes normal speech MOOD & AFFECT: Yes euthymic mood THOUGHT PROCESS: Normal thought process present THOUGHT CONTENT: Yes Normal thought content present Skin: HAIR: normal NAILS: normal and no clubbing Data : 03/31/20 04:08 03/31/20 04:08 Micro: Microbiology 03/30/20 11:54 Stool Lactoferrin - Final Stool Enteric Pathogens (PCR) - Final Parasite Antigen Panel - Final C.difficile Toxin B Gene (PCR) - Final Occult Blood (FIT) - Final 03/23/20 17:45 Gram Stain - Final Pleural Fluid Anaerobic Culture - Preliminary Body Fluid Culture - Final A&P Assessment and plan (1) Hypoxia: -improved. COVID ruled out. Antibiotics D/C ed as no fever, cx negative and no other markers per Dr. Murphy. Viral PNA is still a possibility +/- decompensated HFpEF -Currently being diuresed. -Bilateral pleural effusion drained. -Cx and cytology negative so far. -OnRA. Status: Acute (2) CHF (NYHA class III, ACC/AHA stage C): Acute diastolic CHF. -continue with IV lasix daily. May have to hold. CXR with worsening effusion and pulmonary congestion. -f/u on BMP. I/O charting. Status: Acute (3) Troponin level elevated: NSTEMI, I do not believe this is type 1 NSTEMI we are dealing with here. Normal lexiscan stres test in 05/2019 before hip Sx per patient. I have not received records from [facility]. -She does have prior h/o CAD, EKG with no acute abnormality. -ischemia causing decompensated CHF is a possibility; but less likely. -continue ASA, metoprolol. May stop lovenox. -Plan for further testing once she is diuresed some as an outpatient based on records obtained. Status: Acute (4) Pleural effusion, bilateral: s/p Left thoracentesis that yielded 600 cc of straw-colored fluid on 03/23/2020 -s/p right sided thoracentesis on 03/26/2020 with drainage of 800 cc. -Bilateral effusions ( transudative) . -Hypoalbunemia likely is contributing as well. Status: Acute (5) Multifocal pneumonia: Antibiotics have been stopped. Status: Acute (6) CAD (coronary artery disease): Status: Acute Qualifiers: Coronary Disease-Associated Artery/Lesion type: [place] artery [place] vs. transplanted heart: [place] heart Associated angina: without angina Qualified Code(s): I25.10 - Atherosclerotic heart disease of [place] coronary artery without angina pectoris (7) Ascending colon malignant neoplasm: Status post right hemicolectomy on 01/08/2020. Status: Acute Additional A&P Information Hyponatremia Anemia Hypoalbunemia I had a long discussion with her son Lang by bedside. Thank you for allowing me to participate in patient's care. Please feel free to call with questions or concerns. Attestations Medical Necessity Statement*: As per primary team. Coding Level of Care Code Acute Home Care Associate for [facility] Fwd Diagnoses Hypoxia R09.02 CHF (NYHA class III, ACC/AHA stage C) I50.9 Troponin level elevated R77.8 Pleural effusion, bilateral J90 Multifocal pneumonia J18.9 CAD (coronary artery disease) I25.10 Coronary Disease-Associated Artery/Lesion type: [place] artery [place] vs. transplanted heart: [place] heart Associated angina: without angina Ascending colon malignant neoplasm C18.2
--- NOTE | 2020-03-31 19:00 | PC.NURSE ---
Rounding: Patient placed on 2L nasal cannula due to sustaining 84% on room air while resting in bed on her back. after 2L she is sustaining 92% and states she doesnt feel short of breath any more.
[2020-03-31] MEDS: enoxaparin 40 mg/0.4 mL Syringe SUBCUT (20:41)
[2020-03-31] MEDS: mirtazapine 15 mg Tablet PO (20:41)
[2020-04-01] VITALS (8 sets, daily range): BP systolic 100–144; BP diastolic 56–75; PULSE 75–93; RESP 14–28; TEMP 36.6–36.9; O2SAT 92–97
[2020-04-01] MEDS: nitroglycerin 1 gm/inch oint Pkt 0.5 INCH TOPICAL (04:34)
[2020-04-01 05:59] LABS: Magnesium 1.9 mg/dL (1.7-2.3)
[2020-04-01 06:00] LABS: Phosphorus 3.1 mg/dL (2.5-4.5)
[2020-04-01] MEDS: metoprolol tartrate 25 mg Tablet PO ×2 (08:51→17:39)
[2020-04-01] MEDS: guaiFENesin 600 mg Tablet PO ×2 (08:51→17:39)
[2020-04-01] MEDS: aspirin 325 mg Tablet PO (08:51)
[2020-04-01] MEDS: ferrous sulfate EC 325 mg Tablet PO ×2 (08:51→17:39)
[2020-04-01] MEDS: sodium chloride 1 gm Tablet PO ×2 (08:51→17:39)
[2020-04-01] MEDS: pantoprazole DR 40 mg Tablet PO (08:51)
[2020-04-01] MEDS: FUROsemide 10 mg/mL SDV 4mL 40 MG IVP (08:52)
--- NOTE | 2020-04-01 10:42 | PM.PN ---
Subjective Subjective: Interval history: No events overnight. Patient sitting comfortably in chair having her breakfast. She states she feels full very soon after eating. Discussed with her in detail regarding need of having multiple small meals and taking her time. She is on 2 L maintaining 96% denies any chest pain, nausea, vomiting. Looks more alert today as compared to yesterday. Medications: Reviewed: Yes Vitals/I&O/Wt Last Vital Signs Temp 98.4 F 04/01/20 10:31 Pulse 75 04/01/20 10:31 Resp 28 H 04/01/20 10:31 BP 100/56 04/01/20 10:31 Pulse Ox 96 04/01/20 10:31 03/31/20 04/01/20 04/01/20 22:59 06:59 14:59 Intake Total 597 / 1157 300 / 1457 120 / 120 Output Total 550 / 1350 200 / 200 Balance 47 / -193 300 / 107 -80 / -80 Weight last 48 hrs Weight 60.146 kg Weight 60.373 kg Physical Exam Const: COMMON NORMALS: no acute distress, patient oriented x3 and alert ORIENTATION/CONSCIOUSNESS: Yes awake OTHER: Sitting up in chair. Today in better spirits. Hard of hearing. HENMT: COMMON NORMALS: oropharynx normal Neck/C-Spine: COMMON NORMALS: no JVD Resp: COMMON NORMALS: normal respiratory effort AUSCULTATION: diminished lung sounds (Mildly) on the right in the lower lung alba Cardio: COMMON NORMALS: no JVD, S1 normal heart sound present, S2 normal heart sound present and No murmurs present (Cardio) RATE: tachycardic HEART SOUNDS: S1 normal heart sound present and S2 normal heart sound present GI: COMMON NORMALS: Normal to inspection, nondistended, normoactive bowel sounds present, Soft to palpation and non-tender PALPATION: Yes Soft to palpation Extremity: COMMON NORMALS: no joint enlargement GENERAL: Yes edema (2+) Neuro: COMMON NORMALS: patient oriented x3 and moves all extremities SENSORIUM/ORIENTATION: Yes alert Skin: COMMON NORMALS: no rashes or lesions noted GENERAL SKIN EXAM: no rashes or lesions noted Data : 03/31/20 04:08 04/01/20 04:45 Micro: Microbiology 03/23/20 17:45 Gram Stain - Final Pleural Fluid Anaerobic Culture - Final Body Fluid Culture - Final 03/30/20 11:54 Stool Lactoferrin - Final Stool Enteric Pathogens (PCR) - Final Parasite Antigen Panel - Final C.difficile Toxin B Gene (PCR) - Final Occult Blood (FIT) - Final A&P Assessment and plan (1) Hypoxia: Status: Acute (2) Pleural effusion, bilateral: Status: Acute (3) Edema due to hypoalbuminemia: Status: Acute (4) Troponin level elevated: Status: Acute (5) CAD (coronary artery disease): Status: Acute Qualifiers: Associated angina: without angina Coronary Disease-Associated Artery/Lesion type: [place] artery [place] vs. transplanted heart: [place] heart Qualified Code(s): I25.10 - Atherosclerotic heart disease of [place] coronary artery without angina pectoris (6) Ascending colon malignant neoplasm: Status: Acute (7) Hyponatremia: Status: Acute (8) Lower extremity edema: No DVT on lower extremity duplex. No evidence of PE on CTA. Status: Acute Additional A&P Information Hypoxia: Multifactorial. Most likely a combination of bilateral pleural effusion, congestive heart failure along with hypoalbuminemia and osmotic diarrhea in setting of colon cancer. CTA chest ruled out PE. Chances of persistent pneumonia are low at present. Procalcitonin negative, blood culture, fluid cultures from thoracocentesis have remained negative. Studies regarding bacterial antigen, Legionella, PCP, Fungitell, galactomannan, viral panel, coronavirus PCR and antigen have remained negative. Patient has been off antibiotics for last 3 to 4 days and has remained hemodynamically stable, afebrile without leukocytosis. Patient had thoracocentesis done bilaterally on March 23 and March 26. Fluid cytology negative for malignancy bilaterally. CONTRERAS: Resolved. Creatinine back to baseline. Patient looks euvolemic. Urine studies appreciated. Renal ultrasound and Doppler negative for renal artery stenosis or any obstructive uropathy. Changed to oral Lasix 40 mg daily Strict input output charting. Daily weights. For hypoalbuminemia: Patient has poor oral intake. Patient complains of feeling bloated and decreased appetite at present. Continue with Remeron as appetite enhancer. We will continue to monitor. Patient tolerating GI soft diet better. We will continue the same for now. Stool studies negative for any infectious process. Lomotil as needed. Most likely diarrhea due to osmotic process from colon cancer. Wean oxygen supplementation keeping saturation over 90%. Physical therapy/Occupational Therapy evaluation and treatment. Patient does have incidental mediastinal lymph nodes which are thought to be reactive. MARGARITA levels awaited. Elevated troponin: Concerns of non-ST elevation on admission. Continue with home dose of aspirin and beta-juventino. Holding statins for now given severe deconditioning. No regional wall motion abnormality and a normal EF seen on echocardiogram. Greatly appreciate cardiology and pulmonology recommendations. Generalized weakness: Severe generalized deconditioning: TSH within normal limits. CPK normal. We will check vitamin B12 and folate levels as well. Most likely because of combination of depression along with prolonged multiple admissions and baseline colon cancer in setting of hyponatremia. Staph epidermidis in urine. Completed 5 days of coverage with vancomycin. Hyponatremia: Resolving. Continue with 1 g salt tablets twice daily. Incidentally noted mediastinal lymph nodes thought to be reactive. Incidentally noted thyroid nodule, no follow-up recommended. Adenocarcinoma of colon status post hemicolectomy, with noted positive lymph nodes on biopsy. Follows with Dr. Ramsey in office. Has not yet initiated Xeloda. 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 Abdomen is entirely soft on examination. Normal lactic acid, suspicion for acutely ischemic bowel is very low at this time. Previously incidentally noted 10 mm gallstone which was stable. No right upper quadrant discomfort at this time. HTN: Has been at goal. Monitor. For now hold amlodipine due to lower extremity edema. Hold HCTZ which was recently discontinued due to hyponatremia. Continue with metoprolol at current dose. Anemia, hemoglobin appears stable. Previously known iron deficiency anemia for which arrangements were being made for iron infusions. Hold off for now until clears any ongoing infection. Anxiety: Ativan available for which she takes at home as needed, previously was taking for nausea, but sometimes also taking for anxiety. Discharge planning: Most likely discharge tomorrow after further adjustment of medications. Patient will be going home with home health as per my discussion with son at bedside yesterday. They verbalized understanding patient is severely generalized deconditioning and would need 24/7 care which they state they will be able to provide. They verbalized understanding of high risk for readmission. Limited resuscitation. Lovenox at prophylactic dose. GI soft high-protein diet. Attestations Medical Necessity Statement*: Patient needs further hospitalization for resolving hyponatremia, treatment and adjustment of medications for hypoxia due to CHF and hypoalbuminemia. Time Spent in Patient Care: Greater than 35 minutes (>than 50% of time spent in counselling and/or direct pt care on unit). Coding Level of Care Code Acute Clay Temperer for Santosg Fwd Exam Comprehensive Diagnoses Hypoxia R09.02 Pleural effusion, bilateral J90 Edema due to hypoalbuminemia E88.09 Troponin level elevated R77.8 CAD (coronary artery disease) I25.10 Associated angina: without angina Coronary Disease-Associated Artery/Lesion type: [place] artery [place] vs. transplanted heart: [place] heart Ascending colon malignant neoplasm C18.2 Hyponatremia E87.1 Lower extremity edema R60.0
--- NOTE | 2020-04-01 10:57 | PC.NURSE ---
patient sitting up in chair no distress or pain noted, patient provided peanut butter and gram crackers; encouraged to snack to increase protein intake
[2020-04-01 11:22] LABS: Alanine Aminotransferase 27 U/L (0-33); Albumin Level 1.9 g/dL (3.5-5.2); Alkaline Phosphatase 60 IU/L (35-105); Anion Gap 10.4 (5-19); Aspartate Amino Transferase 42 U/L (0-32); Blood Urea Nitrogen 37 mg/dL (8-23); Carbon Dioxide 27 mmol/L (22-29); Chloride 100 mmol/L (98-107); Globulin 2.5 g/dL (1.3-4.6); Glucose 87 mg/dL (65-115); Osmolality Calculated 284 mOsm/kg (285-295); Potassium 4.4 mmol/L (3.5-5.1); Sodium 133 mmol/L (136-145); Total Bilirubin 0.2 mg/dL (0.15-1.2); Total Protein 4.4 g/dL (6.6-8.7)
[2020-04-01 11:42] LABS: Angiotensin Converting Enzyme 42 U/L (9-67)
--- NOTE | 2020-04-01 12:46 | P.PN_ITS ---
Subjective Subjective: Interval history: She feels better. She looks better as well. Her oxygen saturation is ranging 92 to 94% on 2 L of oxygen via nasal cannula. Her only complaint today is decreased hearing in spite of hearing aids. Urine output 1350 mL Medications: Reviewed: Yes Medication Review Details: Current Medications Acetaminophen (Tylenol) 650 mg PO Q6H PRN PRN Reason: Mild/Mod Pain Or Temp >/= 101 Last Admin: 03/31/20 23:37 Dose: 650 mg Documented by: Albuterol/Ipratropium (Duoneb) 3 ml INHALATION Q6H.RESPIRATORY LUIS E Aspirin (Aspirin) 325 mg PO DAILY [facility] Last Admin: 04/01/20 08:51 Dose: 325 mg Documented by: Benzonatate (Tessalon Pearls) 100 mg PO TID PRN PRN Reason: COUGH Enoxaparin Sodium (Lovenox) 40 mg SUBCUT Q24H [facility] Last Admin: 03/31/20 20:41 Dose: 40 mg Documented by: Ferrous Sulfate (Ferrous Sulfate) 325 mg PO BIDWM [facility] Last Admin: 04/01/20 08:51 Dose: 325 mg Documented by: Fluticasone Propionate (Flonase) 1 spray NASAL BID [facility] Furosemide (Lasix) 40 mg IVP DAILY [facility] Last Admin: 04/01/20 08:52 Dose: 40 mg Documented by: Guaifenesin (Mucinex) 600 mg PO BID [facility] Last Admin: 04/01/20 08:51 Dose: 600 mg Documented by: Lanolin (Lanolin Oint) 1 applic TOPICAL PRN PRN PRN Reason: DRYNESS Last Admin: 03/23/20 21:51 Dose: 1 applic Documented by: Lorazepam (Ativan) 0.5 mg PO Q5H PRN PRN Reason: ANXIETY Last Admin: 03/29/20 22:21 Dose: 0.5 mg Documented by: Metoprolol Tartrate (Lopressor) 25 mg PO BID [facility] Last Admin: 04/01/20 08:51 Dose: 25 mg Documented by: Mirtazapine (Remeron) 15 mg PO BEDTIME [facility] Last Admin: 03/31/20 20:41 Dose: 15 mg Documented by: Nitroglycerin (Nitrostat) 0.4 mg SUBLINGUAL Q5M PRN PRN Reason: CHEST PAIN Pantoprazole Sodium (Protonix) 40 mg PO DAILY [facility] Last Admin: 04/01/20 08:51 Dose: 40 mg Documented by: Sodium Chloride (Salt Tab) 1 gm PO BID [facility] Last Admin: 04/01/20 08:51 Dose: 1 gm Documented by: Vitals/I&O/Wt Last Vital Signs Temp 98.4 F 04/01/20 10:31 Pulse 75 04/01/20 10:31 Resp 28 H 04/01/20 10:31 BP 100/56 04/01/20 10:31 Pulse Ox 96 04/01/20 10:31 03/31/20 04/01/20 04/01/20 22:59 06:59 14:59 Intake Total 597 / 1157 300 / 1457 120 / 120 Output Total 550 / 1350 200 / 200 Balance 47 / -193 300 / 107 -80 / -80 Weight last 48 hrs Weight 132 lb 9.6 oz Weight 133 lb 1.6 oz Physical Exam Const: COMMON NORMALS: patient oriented x3 and alert GENERAL APPEARANCE: cooperative, comfortable, well kempt and well hydrated NUTRITIONAL APPEARANCE: thin ORIENTATION/CONSCIOUSNESS: Yes Other orientation findings HENMT: COMMON NORMALS: normocephalic, atraumatic, external ears normal and Normal external nose present HEAD & SCALP: normocephalic and atraumatic FACE & SINUS: normal facial exam; no edema NOSE: Normal external nose present EXTERNAL EAR: Yes external ears normal Eye: COMMON NORMALS: Equal, round and reactive pupils present, EOMs intact bilaterally, conjunctivae normal and no scleral icterus GENERAL EYE: appearance normal, both eyes and all related structures ALIGNMENT: Yes alignment normal PERIORBITAL: periorbital findings normal EYELID: eyelids normal CONJUNCTIVA: Yes conjunctivae normal SCLERA: sclerae normal PUPIL: Yes Equal, round and reactive pupils present Neck/C-Spine: COMMON NORMALS: no lymphadenopathy, supple and no JVD GENERAL: Yes normal visual inspection CAROTIDS: Yes normal carotid upstroke CERVICAL SPINE: Yes cervical ROM normal Chest: COMMONS NORMALS: normal inspection of the chest and normal palpation of entire chest wall CHEST: Yes Symmetrical chest wall rise, No mass, No tenderness and No rash Resp: AUSCULTATION: crackles (bilateral basal crackles ), no rales, no rhonchi and no wheezes OTHER: decreased bilateral air entry more at bases (improved) Cardio: COMMON NORMALS: no JVD, regular rate, regular rhythm, S1 normal heart sound present, S2 normal heart sound present and Peripheral pulses 2+ throughout PALPATION: normal PMI RATE: regular rate RHYTHM: regular rhythm HEART SOUNDS: S1 normal heart sound present, S2 normal heart sound present, no gallops and no murmurs BRUITS: no carotid bruits PERIPHERAL PULSES: Peripheral pulses 2+ throughout, radial pulses present, posterior tibial pulses present and dorsalis pedis present GI: COMMON NORMALS: Soft to palpation AUSCULTATION: Yes normoactive bowel sounds PALPATION: Yes Soft to palpation, No Tenderness to palpation present (GI), No Guarding due to palpation present (GI) and No Rigid due to palpation Extremity: GENERAL: No calf tenderness, No cyanosis, Yes edema (1+ leg edema) and No pallor Neuro: COMMON NORMALS: patient oriented x3 SENSORIUM/ORIENTATION: Yes alert Psych: COMMON NORMALS: Normal thought process present and speech normal APPEARANCE: Yes well kempt SPEECH: Yes normal speech MOOD & AFFECT: Yes euthymic mood THOUGHT PROCESS: Normal thought process present THOUGHT CONTENT: Yes Normal thought content present Skin: HAIR: normal NAILS: normal and no clubbing Data : 03/31/20 04:08 04/01/20 04:45 Micro: Microbiology 03/23/20 17:45 Gram Stain - Final Pleural Fluid Anaerobic Culture - Final Body Fluid Culture - Final 03/30/20 11:54 Stool Lactoferrin - Final Stool Enteric Pathogens (PCR) - Final Parasite Antigen Panel - Final C.difficile Toxin B Gene (PCR) - Final Occult Blood (FIT) - Final A&P Assessment and plan (1) Hypoxia: -improved. COVID ruled out. Antibiotics D/C ed as no fever, cx negative. Viral PNA is still a possibility + decompensated HFpEF -Currently being diuresed. -Bilateral pleural effusion drained. -Cx and cytology negative so far. -On 2 L of O2. Status: Acute (2) CHF (NYHA class III, ACC/AHA stage C): Acute diastolic CHF. - Change to Lasix 40 mg p.o. starting tomorrow. -Plan for chest x-ray tomorrow morning. -f/u on BMP. I/O charting. Status: Acute (3) Troponin level elevated: NSTEMI, I do not believe this is type 1 NSTEMI we are dealing with here. Normal lexiscan stres test in 05/2019 before hip Sx per patient. I have not received records from [facility] in [facility]. -She does have prior h/o CAD, EKG with no acute abnormality. -ischemia causing decompensated CHF is a possibility; but less likely. -continue ASA, metoprolol. -Plan for further testing once she is diuresed as an outpatient if needed based on records obtained. 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 Status: Acute (4) Pleural effusion, bilateral: s/p Left thoracentesis that yielded 600 cc of straw-colored fluid on 03/23/2020 -s/p right sided thoracentesis on 03/26/2020 with drainage of 800 cc. -Bilateral effusions ( transudative) . -Hypoalbunemia likely is contributing as well. Status: Acute (5) CAD (coronary artery disease): Status: Acute Qualifiers: Coronary Disease-Associated Artery/Lesion type: [place] artery [place] vs. transplanted heart: [place] heart Associated angina: without angina Qualified Code(s): I25.10 - Atherosclerotic heart disease of [place] coronary artery without angina pectoris (6) Ascending colon malignant neoplasm: Status post right hemicolectomy on 01/08/2020. Status: Acute Additional A&P Information Hyponatremia: She was started on salt tablets; would need close monitoring. Anemia Hypoalbunemia Generalized deconditioning I had a long discussion with her son Lang by bedside. Thank you for allowing me to participate in patient's care. Please feel free to call with questions or concerns. Attestations Medical Necessity Statement*: As per primary team Coding Level of Care Code Acute Circus Trainer for Chg Fwd Diagnoses Hypoxia R09.02 CHF (NYHA class III, ACC/AHA stage C) I50.9 Troponin level elevated R77.8 Pleural effusion, bilateral J90 CAD (coronary artery disease) I25.10 Coronary Disease-Associated Artery/Lesion type: [place] artery [place] vs. transplanted heart: [place] heart Associated angina: without angina Ascending colon malignant neoplasm C18.2
[2020-04-01] MEDS: ipratropium-albuterol 3 mL Neb INHALATION ×2 (16:22→20:16)
[2020-04-01] MEDS: fluticasone nasal spray 16gm Btl 1 SPRAY NASAL (17:40)
--- NOTE | 2020-04-01 20:23 | PC.NURSE ---
Patient has been educated to not get up without assistance. Patient has been educated on how to use her call light and has it within reach. Will monitor.
[2020-04-01] MEDS: enoxaparin 40 mg/0.4 mL Syringe SUBCUT (20:52)
[2020-04-01] MEDS: mirtazapine 15 mg Tablet PO (20:52)
[2020-04-02] VITALS (11 sets, daily range): BP systolic 112–155; BP diastolic 60–73; PULSE 82–97; RESP 16–22; TEMP -12.7–36.8; O2SAT 87–98
[2020-04-02] MEDS: ipratropium-albuterol 3 mL Neb INHALATION ×2 (03:13→08:21)
[2020-04-02 05:29] LABS: Basophils # 0.1 10^3/uL (0.0-0.1); Basophils % 0.7 %; Eosinophils # 0.3 10^3/uL (0.0-0.8); Eosinophils % 3.3 %; Hematocrit 27.9 % (37.0-47.0); Hemoglobin 8.5 g/dL (11.5-15.3); Lymphocytes # 0.9 10^3/uL (0.8-4.8); Lymphocytes % 11.1 %; Mean Corpuscular HGB Conc 30.5 g/dL (30.0-36.0); Mean Corpuscular Hemoglobin 24.3 pg (28.0-34.0); Mean Corpuscular Volume 79.7 fL (81-99); Mean Platelet Volume 9.6 fL (7.4-10.4); Monocytes # 0.6 10^3/uL (0.2-0.9); Monocytes % 7.4 %; Neutrophils # 6.24 10^3/uL (1.8-7.7); Neutrophils % 76.6 %; Nucleated Red Blood Cells % 0 %; Platelet Count 222 10^3/cmm (130-400); Red Cell Distribution Width 22.3 % (12.1-15.1); White Blood Count 8.1 10^3/uL (4.0-10.0)
[2020-04-02 06:08] LABS: Phosphorus 3.7 mg/dL (2.5-4.5)
[2020-04-02 06:09] LABS: Alanine Aminotransferase 28 U/L (0-33); Albumin Level 2.1 g/dL (3.5-5.2); Alkaline Phosphatase 62 IU/L (35-105); Anion Gap 10.5 (5-19); Aspartate Amino Transferase 42 U/L (0-32); Blood Urea Nitrogen 36 mg/dL (8-23); Calcium 8.2 mg/dL (8.5-10.5); Carbon Dioxide 27 mmol/L (22-29); Chloride 102 mmol/L (98-107); Globulin 2.8 g/dL (1.3-4.6); Glucose 92 mg/dL (65-115); Osmolality Calculated 288 mOsm/kg (285-295); Potassium 4.5 mmol/L (3.5-5.1); Sodium 135 mmol/L (136-145); Total Bilirubin 0.2 mg/dL (0.15-1.2); Total Protein 4.9 g/dL (6.6-8.7)
[2020-04-02 06:10] LABS: Magnesium 1.9 mg/dL (1.7-2.3)
--- NOTE | 2020-04-02 06:56 | XR_ITS ---
WS: [id number] Exam: XR chest 1V portable 19803 Date/Time of Exam: 04/02/2020 6:56 AM Reason For Exam: Hyoxia, CHF Comparison 03/29/2020. Cardiac enlargement with pulmonary vascular congestion and bilateral pleural effusions suggesting CHF . Bilateral pulmonary infiltrates noted. There is been some increase in right-sided pleural effusion but no other significant change in the overall appearance of the chest. The mediastinum is not widene d. Bony elements are intact. Monitoring leads superimpose the chest. XR/XR chest 1V portable 31003 IMPRESSION: 1. There is been some increase in right-sided pleural effusion since the last e xam but no other overall change in the appearance of the chest.
[2020-04-02] MEDS: pantoprazole DR 40 mg Tablet PO (07:57)
[2020-04-02] MEDS: sodium chloride 1 gm Tablet PO (07:57)
[2020-04-02] MEDS: guaiFENesin 600 mg Tablet PO (07:57)
[2020-04-02] MEDS: FUROsemide 40 mg Tablet PO ×2 (07:57→14:06)
[2020-04-02] MEDS: aspirin 81 mg EC Tablet PO (07:57)
[2020-04-02] MEDS: fluticasone nasal spray 16gm Btl 1 SPRAY NASAL (07:58)
[2020-04-02] MEDS: ferrous sulfate EC 325 mg Tablet PO (07:58)
[2020-04-02] MEDS: metoprolol tartrate 25 mg Tablet PO (07:58)
--- NOTE | 2020-04-02 12:16 | P.DS_ITS ---
Discharge Providers Date of Admission: 03/22/20 18:12 Date of Discharge: April 02, 2020 Attending Provider at Admission: Hima Santana Attending Provider at Discharge: Alfonso William MD Consults: Cardiology: Dr. Steward Pulmonology: : Datar Primary Care Provider: Scar Bedoya Jr, MD Diagnoses at Discharge Discharge Diagnosis (1) Hypoxia: Status: Acute (2) Pleural effusion, bilateral: Status: Acute (3) Edema due to hypoalbuminemia: Status: Acute (4) Troponin level elevated: Status: Acute (5) CAD (coronary artery disease): Status: Acute Permanent problem details: -s/p stenting x 2 (2005) Qualifiers: Associated angina: without angina Coronary Disease-Associated Artery/Lesion type: [place] artery [place] vs. transplanted heart: [place] heart Qualified Code(s): I25.10 - Atherosclerotic heart disease of [place] coronary artery without angina pectoris (6) Ascending colon malignant neoplasm: Status: Acute Permanent problem details: Status post right hemicolectomy on 01/08/2020. Follow-up with oncology. (7) Hyponatremia: Status: Acute (8) Lower extremity edema: Status: Acute Reason for Visit Reason for Visit: SOB, WEAKNESS Hospital Course Discharge Summary: Natasha Gustafson is a 84 year old lady with past medical history of moderately differentiated adenocarcinoma of ascending colon, HTN, arthritis, CAD, recently underwent exploratory laparotomy 01/08/2020 with right hemicolectomy on January 07, 2021 deploy report came back moderately differentiated adenocarcinoma with mucinous and micropapillary features, tumor invades through muscularis propria T2, clear surgical margins, lymphovascular is invasion seen, 5 out of 14 lymph nodes were positive for metastatic disease, N2 With normal expression of DNA mismatch repair proteins hospitalized in early march for treatment of pneumonia, treated with Rocephin, azithromycin while in the hospital, assessed via rapid COVID-19 antigen as well as PCR testing, with both negative, with no growth on blood or sputum cultures, with improvement while in the hospital, on discharge was given course of Levaquin to take home, and set up with 2 L of oxygen by nasal cannula. Her images were reviewed at the time, without sign to suggest obvious metastatic disease given recent colon adenocarcinoma with noted positive lymph nodes on biopsy. She has been planned to start Xeloda with Dr. Ramsey, however, has not started so far. She returns to the hospital due to lack of improvement, continues to have weakness, shortness of breath, intermittent cough, although nonproductive. In ER she is noted to be afebrile, no leukocytosis, no tachycardia, somewhat more h ypoxic than previously requiring 4 L of oxygen by nasal cannula. Noted to have consolidation in A number of locations on CT including bilateral lower lobes, right upper lobe, right middle lobe, and lingula. Overall pulmonary disease is worse than during prior images. Per discussion with her son she has had very poor oral intake/appetite. They will intermittently get her to drink half of Ensure, a little bit of broth. She has not been very active. Her sodium was noted to be low on most recent appointment. Per discussion with her grandson her amlodipine was recently decreased to 5 mg, HCTZ discontinued. She was admitted to the hospital for further management of acute hypoxic respiratory failure. At first she was started on treatment with broad-spectrum antibiotics for possible persistent pneumonia and IV diuretics for component of CHF. Pulmonology and cardiology were consulted. Echocardiogram done on March 09 showed an EF of 70% with grade 2 diastolic dysfunction with mild LVH with mildly increased LA size. CT scan done on admission showed bilateral pleural effusion. Hypoxia on admission is thought to be multifactorial and is most likely a combination of bilateral pleural effusion, congestive heart failure along with hypoalbuminemia and osmotic diarrhea in setting of colon cancer. CTA chest ruled out PE. Chances of persistent pneumonia are low at present. Procalcitonin negative, blood culture, fluid cultures from thoracocentesis have remained negative. Studies regarding bacterial antigen, Legionella, PCP, Fungitell, galactomannan, viral panel, coronavirus PCR and antigen have remained negative. Patient underwent thoracocentesis from both sides on March 23 and . Fluid studies from thoracocentesis was transudative and negative for any malignancy. Even after thoracocentesis patient had reaccumulation of pleural fluid which is believed most likely because of lung entrapment. Patient has been off antibiotics for at least 5 days without any change in leukocytosis or any signs of fever or sepsis. Patient's diuretics were adjusted. Her diuresis was challenging because of intravascular depletion state and developing of CONTRERAS during hospitalization. Lasix was changed to oral and gradually CONTRERAS resolved. During hospitalization she was also found to be hyponatremic. SIADH was ruled out. She was started on oral salt tablets after which her sodium levels improved. It is believed patient's symptoms are greatly due to hypoalbuminemia due to decreased oral intake for which Remeron was started and she was transitioned over to GI soft diet which he tolerated well and her oral intake was mildly improved. Patient had worsening of her hearing trouble even though she was using her hearing aid for which she was advised to follow-up with ENT as an outpatient. Due to multiple long hospitalizations patient has developed severe generalized weakness and deconditioning. For safe discharge placement to SNF was discussed with family in detail. Patient and her son states that both son and the [id number] lives nearby and will be available 25/12 to take care of her going forward. They believe patient would do better coming home with home health. We did discuss that given the baseline health and multiple comorbidities along with severe generalized deconditioning patient is at high risk of readmission. They verbalized understanding and are willing to take her home with home health at present. She is been discharged hemodynamically stable condition with advice to follow-up with a primary care provider within next 4 to 7 days, cardiology within next 2 weeks and to repeat her CMP in 1 week. Patient is to repeat a chest x-ray as an outpatient in 1 to 2 weeks to see progression of the pleural effusion. Both patient and patient's family have been explained in detail regarding possible danger signs when they would need to get her back to the hospital. Home oxygen evaluation has been done prior to discharge. Physical Exam Const: COMMON NORMALS: no acute distress, patient oriented x3 and alert ORIENTATION/CONSCIOUSNESS: Yes awake OTHER: Sitting up in chair. Today in better spirits. Hard of hearing. HENMT: COMMON NORMALS: oropharynx normal Neck/C-Spine: COMMON NORMALS: no JVD Resp: COMMON NORMALS: normal respiratory effort AUSCULTATION: diminished lung sounds (Mildly) on the right in the lower lung alba Cardio: COMMON NORMALS: no JVD, S1 normal heart sound present, S2 normal heart sound present and No murmurs present (Cardio) RATE: tachycardic HEART SOUNDS: S1 normal heart sound present and S2 normal heart sound present GI: COMMON NORMALS: Normal to inspection, nondistended, normoactive bowel sounds present, Soft to palpation and non-tender PALPATION: Yes Soft to palpation Extremity: COMMON NORMALS: no joint enlargement GENERAL: Yes edema (2+) Neuro: COMMON NORMALS: patient oriented x3 and moves all extremities SENSORIUM/ORIENTATION: Yes alert Skin: COMMON NORMALS: no rashes or lesions noted GENERAL SKIN EXAM: no rashes or lesions noted Discharge Data Data Completed and Pending: Completed Studies During Hospitalization Category Date Time Status CT angio chest PE protcl 02106 Urge nt Cat Scan 03/22/20 15:26 Completed CXRP [XR chest 1V portable [id number]] S tat Exams 03/26/20 15:27 Completed XR chest 1V sherry ble [id number] Routine Exams 03/23/20 18:08 Completed XR chest 1V sherry ble 22535 Routine Exams 03/29/20 12:13 Completed XR chest 1V sherry ble [id number] Routine Exams 04/02/20 06:56 Completed XR chest 1V sherry ble 14204 Stat Exams 03/22/20 14:57 Completed XR chest 1V sherry ble [id number] Stat Exams 03/25/20 15:50 Completed CV echo limited 9 3308 Routine Ultrasound 03/23/20 07:00 Completed CV renal doppler 52487 Routine Ultrasound 03/31/20 05:00 [place] [id number] Routin e Ultrasound 03/23/20 07:00 Completed Pending at discharge Category Date Time Status Fungal Culture no t HR/SK/BL Routine Lab 03/23/20 17:45 Results Mycobacteria, Cul ture w/Fluor Routi ne Lab 03/23/20 17:45 Results Cytology [PTH] Ro utine Pth 03/23/20 18:13 Received Cytology [PTH] Ro utine Pth 03/26/20 15:20 Received Labs from last 24 hours 04/02/20 04/02/20 04/02/20 04:59 04:59 04:59 WBC 8.1 RBC 3.50 L Hgb 8.5 L Hct 27.9 L MCV 79.7 L MCH 24.3 L MCHC 30.5 RDW 22.3 H Plt Count 222 MPV 9.6 Neut % (Auto) 76.6 Lymph % (Auto) 11.1 [place] % (Auto) 7.4 Eos % (Auto) 3.3 Baso % (Auto) 0.7 Neut # (Auto) 6.24 Lymph # (Auto) 0.9 [place] # (Auto) 0.6 Eos # (Auto) 0.3 Baso # (Auto) 0.1 Nucleated RBC % (a uto) 0 Nucleated RBCs # 0.0 Sodium 135 L Potassium 4.5 Chloride 102 Carbon Dioxide 27 Anion Gap 10.5 BUN 36 H Creatinine 0.9 GFR Calculation Not Reportable Glucose 92 Calculated Osmolal ity 288 Calcium 8.2 L Phosphorus 3.7 Magnesium Total Bilirubin 0.2 AST 42 H ALT 28 Alkaline Phosphata se 62 Total Protein 4.9 L Albumin 2.1 L Globulin 2.8 04/02/20 04:59 WBC RBC Hgb Hct MCV MCH MCHC RDW Plt Count MPV Neut % (Auto) Lymph % (Auto) [place] % (Auto) Eos % (Auto) Baso % (Auto) Neut # (Auto) Lymph # (Auto) [place] # (Auto) Eos # (Auto) Baso # (Auto) Nucleated RBC % (a uto) Nucleated RBCs # Sodium Potassium Chloride Carbon Dioxide Anion Gap BUN Creatinine GFR Calculation Glucose Calculated Osmolal ity Calcium Phosphorus Magnesium 1.9 Total Bilirubin AST ALT Alkaline Phosphata se Total Protein Albumin Globulin Vitals: Last Vital Signs Temp 98.2 F 04/02/20 12:00 Pulse 89 04/02/20 12:00 Resp 16 04/02/20 12:00 BP 112/60 04/02/20 12:00 Pulse Ox 98 04/02/20 12:00 Discharge Plan Discharge Patient Disposition: Home Health Service Condition: Stable Prescriptions: New pantoprazole 40 mg Tablet,Delayed Release (Dr/Ec) 40 mg PO DAILY Qty: 30 RF: 0 ferrous sulfate 325 mg (65 mg iron) Tablet,Delayed Release (Dr/Ec) 325 mg PO BIDWM Qty: 60 RF: 0 sodium chloride 1 gram Tablet 1 g PO BID Qty: 14 RF: 0 ipratropium-albuterol 0.5 mg-3 mg(2.5 mg base)/3 mL Solution For Nebulization 3 ml inhalation Q6H.RESPIRATORY 14 Days Qty: 90 RF: 0 fluticasone propionate 50 mcg/actuation [place],Suspension 1 spray nasal BID Qty: 30 RF: 0 Ensure High Protein Liquid See Rx Instructions .ROUTE .COMPLEX Qty: 5688 RF: 0 guaifenesin [Mucinex] 600 mg Tablet Extended Release 12hr 600 mg PO BID PRN (Reason: cough) Qty: 10 RF: 0 mirtazapine 15 mg Tablet 15 mg PO BEDTIME Qty: 30 RF: 0 furosemide 40 mg Tablet 40 mg PO 08,1400 Qty: 60 RF: 0 Continued prochlorperazine maleate 10 mg tablet 10 mg PO Q4H PRN (Reason: Nausea) RF: 0 capecitabine [Xeloda] 500 mg Tablet See Rx Instructions .ROUTE .COMPLEX RF: 0 acetaminophen [Tylenol Extra Strength] 500 mg Tablet 500 mg PO PRN RF: 0 capecitabine [Xeloda] 150 mg Tablet See Rx Instructions .ROUTE .COMPLEX RF: 0 lorazepam 1 mg tablet 0.5 - 1 mg PO Q4H PRN (Reason: Nausea) RF: 0 aspirin [Aspir-81] 81 mg Tablet,Delayed Release (Dr/Ec) 81 mg PO DAILY RF: 0 Ze[place] Powder 1 packet PO DAILY RF: 0 Senna-S 8.6-50 mg Tablet 1 - 2 tab PO PRN RF: 0 Changed metoprolol tartrate 25 mg Tablet 25 mg PO BIDWM Qty: 0 RF: 0 Discontinued amlodipine 5 mg Tablet 10 mg PO DAILY Qty: 0 RF: 0 hydrochlorothiazide 25 mg Tablet 12.5 mg PO DAILY Qty: 0 RF: 0 rosuvastatin 40 mg Tablet 40 mg PO QPM RF: 0 Discharge Orders: Discharge Order (Routine); Ordered 04/02/20 Ordered By: Alfonso William Other Ambulatory Orders: DME: Nebulizer with Neb Kit (Order) Location: None Selected Ordered By: Alfonso William Referrals: Vlad Chaudhary MD [Physician] - 1 week Scar Bedoya Jr, MD [Primary Care Provider] - 4-7 days Olga Lidia Steward MD [Physician] - 2 weeks Discharge Diet: GI Soft Discharge Activity: Resume usual activity and Increase activity as tolerated Activity Restrictions/Additional Instructions: Please continue with GI soft high-protein diet. Please follow-up with the primary care provider within next 4 to 7 days and repeat a CMP. Please follow-up with cardiology in 2 weeks. Discharge Attestations Time Spent in Discharge Care*: greater than 30 min Specific Discharge Activities: Specific discharge activities: educating patient, discussing with pcp/other providers, discussing with case folder/social workers/dc planners, documenting/other paperwork and evaluating patient/reviewing data Status at Discharge: Cognitive status at discharge: cognitively intact , Behavioral status at discharge: cooperative and independent in ADL's , Functional status at discharge: uses cane/walker Overall status at discharge: patient has a new baseline Quality Metrics Clinical Quality Measures During this hospital stay, did patient experience: None Coding Level of Care Code Acute Can Stacker for Santosg Fwd Exam Comprehensive Diagnoses Hypoxia R09.02 Pleural effusion, bilateral J90 Edema due to hypoalbuminemia E88.09 Troponin level elevated R77.8 CAD (coronary artery disease) I25.10 Associated angina: without angina Coronary Disease-Associated Artery/Lesion type: [place] artery [place] vs. transplanted heart: [place] heart Ascending colon malignant neoplasm C18.2 Hyponatremia E87.1 Lower extremity edema R60.0
--- NOTE | 2020-04-02 12:34 | DCPLANNER ---
IMM completed on 04/02/2020 @ 12:05pm. Copy of Medicare rights given to pt.
--- NOTE | 2020-04-02 14:14 | P.PN_ITS ---
Subjective Subjective: Interval history: She feels well and is eager to go home. Medications: Reviewed: Yes Medication Review Details: Current Medications Acetaminophen (Tylenol) 650 mg PO Q6H PRN PRN Reason: Mild/Mod Pain Or Temp >/= 101 Last Admin: 03/31/20 23:37 Dose: 650 mg Documented by: Albuterol/Ipratropium (Duoneb) 3 ml INHALATION Q6H.RESPIRATORY [facility] Last Admin: 04/02/20 08:21 Dose: 3 ml Documented by: Aspirin (Aspirin Ec) 81 mg PO DAILY [facility] Last Admin: 04/02/20 07:57 Dose: 81 mg Documented by: Benzonatate (Tessalon Pearls) 100 mg PO TID PRN PRN Reason: COUGH Enoxaparin Sodium (Lovenox) 40 mg SUBCUT Q24H [facility] Last Admin: 04/01/20 20:52 Dose: 40 mg Documented by: Ferrous Sulfate (Ferrous Sulfate) 325 mg PO BIDWM [facility] Last Admin: 04/02/20 07:58 Dose: 325 mg Documented by: Fluticasone Propionate (Flonase) 1 spray NASAL BID [facility] Last Admin: 04/02/20 07:58 Dose: 1 spray Documented by: Furosemide (Lasix) 40 mg PO 08,1400 [facility] Last Admin: 04/02/20 14:06 Dose: 40 mg Documented by: Guaifenesin (Mucinex) 600 mg PO BID [facility] Last Admin: 04/02/20 07:57 Dose: 600 mg Documented by: Lanolin (Lanolin Oint) 1 applic TOPICAL PRN PRN PRN Reason: DRYNESS Last Admin: 03/23/20 21:51 Dose: 1 applic Documented by: Lorazepam (Ativan) 0.5 mg PO Q5H PRN PRN Reason: ANXIETY Last Admin: 03/29/20 22:21 Dose: 0.5 mg Documented by: Metoprolol Tartrate (Lopressor) 25 mg PO BID [facility] Last Admin: 04/02/20 07:58 Dose: 25 mg Documented by: Mirtazapine (Remeron) 15 mg PO BEDTIME [facility] Last Admin: 04/01/20 20:52 Dose: 15 mg Documented by: Nitroglycerin (Nitrostat) 0.4 mg SUBLINGUAL Q5M PRN PRN Reason: CHEST PAIN Pantoprazole Sodium (Protonix) 40 mg PO DAILY [facility] Last Admin: 04/02/20 07:57 Dose: 40 mg Documented by: Sodium Chloride (Salt Tab) 1 gm PO BID [facility] Last Admin: 04/02/20 07:57 Dose: 1 gm Documented by: Vitals/I&O/Wt Last Vital Signs Temp 98.2 F 04/02/20 12:00 Pulse 89 04/02/20 12:00 Resp 16 04/02/20 12:00 BP 112/60 04/02/20 12:00 Pulse Ox 98 04/02/20 12:00 04/01/20 04/02/20 04/02/20 22:59 06:59 14:59 Intake Total 140 / 260 400 / 660 459 / 459 Output Total 550 / 1250 200 / 200 Balance -410 / -990 400 / -590 259 / 259 Weight last 48 hrs Weight 136 lb Weight 132 lb 9.6 oz Physical Exam Const: COMMON NORMALS: patient oriented x3 and alert GENERAL APPEARANCE: cooperative, comfortable, well kempt and well hydrated NUTRITIONAL APPEARANCE: thin ORIENTATION/CONSCIOUSNESS: Yes Other orientation findings HENMT: COMMON NORMALS: normocephalic, atraumatic and external ears normal HEAD & SCALP: normocephalic and atraumatic FACE & SINUS: normal facial exam; no edema EXTERNAL EAR: Yes external ears normal Eye: COMMON NORMALS: Equal, round and reactive pupils present, EOMs intact bilaterally, conjunctivae normal and no scleral icterus GENERAL EYE: appearance normal, both eyes and all related structures ALIGNMENT: Yes alignment normal EYELID: eyelids normal CONJUNCTIVA: Yes conjunctivae normal SCLERA: sclerae normal PUPIL: Yes Equal, round and reactive pupils present Neck/C-Spine: COMMON NORMALS: no lymphadenopathy, supple and no JVD GENERAL: Yes normal visual inspection CAROTIDS: Yes normal carotid upstroke CERVICAL SPINE: Yes cervical ROM normal Chest: COMMONS NORMALS: normal inspection of the chest and normal palpation of entire chest wall CHEST: Yes Symmetrical chest wall rise, No mass, No tenderness and No rash Resp: AUSCULTATION: crackles (bilateral basal crackles ), no rales, no rhonchi and no wheezes OTHER: decreased bilateral air entry more at bases (improved) Cardio: COMMON NORMALS: no JVD, regular rate, regular rhythm, S1 normal heart sound present, S2 normal heart sound present and Peripheral pulses 2+ throughout PALPATION: normal PMI RATE: regular rate RHYTHM: regular rhythm HEART SOUNDS: S1 normal heart sound present, S2 normal heart sound present, no gallops and no murmurs BRUITS: no carotid bruits PERIPHERAL PULSES: Peripheral pulses 2+ throughout, radial pulses present, posterior tibial pulses present and dorsalis pedis present GI: COMMON NORMALS: Soft to palpation AUSCULTATION: Yes normoactive bowel sounds PALPATION: Yes Soft to palpation, No Tenderness to palpation present (GI), No Guarding due to palpation present (GI) and No Rigid due to palpation Extremity: GENERAL: No calf tenderness, No cyanosis, Yes edema (1+ leg edema) and No pallor Neuro: COMMON NORMALS: patient oriented x3 SENSORIUM/ORIENTATION: Yes alert Psych: COMMON NORMALS: Normal thought process present and speech normal APPEARANCE: Yes well kempt SPEECH: Yes normal speech MOOD & AFFECT: Yes euthymic mood THOUGHT PROCESS: Normal thought process present THOUGHT CONTENT: Yes Normal thought content present Skin: HAIR: normal NAILS: normal and no clubbing Data : 04/02/20 04:59 04/02/20 04:59 A&P Assessment and plan (1) Hypoxia: -improved. COVID ruled out. Antibiotics D/C ed as no fever, cx negative. + decompensated HFpEF -Currently being diuresed. -Bilateral pleural effusion drained. -Cx and cytology negative so far. -On 2 L of O2. Status: Acute (2) CHF (NYHA class III, ACC/AHA stage C): Acute diastolic CHF. - Change to Lasix 40 mg BID. -Chest x-ray with worsening right pleural effusion. -f/u on BMP. I/O charting. -f/u BMP and CBC in 1 week. Status: Acute (3) Troponin level elevated: NSTEMI, I do not believe this is type 1 NSTEMI we are dealing with here. Normal lexiscan stres test in 05/2019 before hip Sx per patient. I have not received records from [facility] in [facility]. -She does have prior h/o CAD, EKG with no acute abnormality. -ischemia causing decompensated CHF is a possibility; but less likely. -continue ASA, metoprolol. -Plan for further testing as an outpatient if needed based on records obtained. -She would like to follow-up with her primary court of appeals judge Dr. Beltran at [facility] on discharge. -Advise to be followed up in 2-3 weeks with cardiology. Status: Acute (4) Pleural effusion, bilateral: s/p Left thoracentesis that yielded 600 cc of straw-colored fluid on 03/23/2020 -s/p right sided thoracentesis on 03/26/2020 with drainage of 800 cc. -Bilateral effusions ( transudative) . -Hypoalbunemia likely is contributing as well. Status: Acute (5) CAD (coronary artery disease): Status: Acute Qualifiers: Coronary Disease-Associated Artery/Lesion type: [place] artery [place] vs. transplanted heart: [place] heart Associated angina: without angina Qualified Code(s): I25.10 - Atherosclerotic heart disease of [place] coronary artery without angina pectoris (6) Ascending colon malignant neoplasm: Status post right hemicolectomy on 01/08/2020. Status: Acute Additional A&P Information Hyponatremia: She was started on salt tablets; would need close monitoring. Anemia Hypoalbunemia Generalized deconditioning I had a long discussion with her son Lang by bedside. Thank you for allowing me to participate in patient's care. Please feel free to call with questions or concerns. Attestations Medical Necessity Statement*: As per primary team Coding Level of Care Code Established Pt Acute Backing In Machine Tender for Chg Fwd Patient Type Established History Comprehensive Exam Comprehensive Medical Decision Making High Complexity Diagnoses Hypoxia R09.02 CHF (NYHA class III, ACC/AHA stage C) I50.9 Troponin level elevated R77.8 Pleural effusion, bilateral J90 CAD (coronary artery disease) I25.10 Coronary Disease-Associated Artery/Lesion type: [place] artery [place] vs. transplanted heart: [place] heart Associated angina: without angina Ascending colon malignant neoplasm C18.2 Time Spent (min) 30
--- NOTE | 2020-04-02 16:00 | PC.NURSE ---
Discharge to home Appointments made for pt. New meds sent to [facility]. O2 set-up from [facility] Pt and family informed on home health services. Discharge papers provided to pt. Ushered via wheelchair.
== END 2020-04-02 16:06 | disposition home health service (06) | DRG 193 ==
LOC: ER 15:17 → CSU 18:24
PROVIDERS: Internal Medicine Cardiovascular Disease; Internal Medicine Pulmonary Disease; Admitting Provider Internal Medicine; Emergency Provider Emergency Medicine; PCP Family Medicine; Visit Provider Student in an Organized Health Care Education/Training Program
DX: J18.9 Pneumonia, unspecified organism (principal); J96.01 Acute respiratory failure with hypoxia; I50.31 Acute diastolic (congestive) heart failure; I21.4 Non-ST elevation (NSTEMI) myocardial infarction; C18.2 Malignant neoplasm of ascending colon; C77.2 Secondary and unspecified malignant neoplasm of intra-abdominal lymph nodes; E87.1 Hypo-osmolality and hyponatremia; I77.4 Celiac artery compression syndrome; N17.9 Acute kidney failure, unspecified; N39.0 Urinary tract infection, site not specified; J90 Pleural effusion, not elsewhere classified; Z99.81 Dependence on supplemental oxygen; E04.1 Nontoxic single thyroid nodule; Z90.49 Acquired absence of other specified parts of digestive tract; I25.10 Atherosclerotic heart disease of native coronary artery without angina pectoris; Z95.5 Presence of coronary angioplasty implant and graft; E78.00 Pure hypercholesterolemia, unspecified; I11.0 Hypertensive heart disease with heart failure; D50.9 Iron deficiency anemia, unspecified; Z85.828 Personal history of other malignant neoplasm of skin; Z96.642 Presence of left artificial hip joint; M79.89 Other specified soft tissue disorders; F41.9 Anxiety disorder, unspecified; R19.7 Diarrhea, unspecified; E88.09 Other disorders of plasma-protein metabolism, not elsewhere classified; B95.8 Unspecified staphylococcus as the cause of diseases classified elsewhere; M19.90 Unspecified osteoarthritis, unspecified site
CPT/HCPCS: 12345; 36415; 71045; 71275; 80053; 80202; 80500; 81001; 81003; 82042; 82150; 82164; 82274; 82465; 82533; 82550; 82607; 82746; 82945; 83605; 83615; 83630; 83735; 83880; 83986; 84075; 84100; 84145; 84157; 84315; 84443; 84478; 84484; 84560; 85025; 86140; 86403; 87015; 87040; 87070; 87075; 87077; 87086; 87102; 87116; 87186; 87205; 87206; 87281; 87305; 87426; 87449; 87493; 87506; 87635; 87641; 87801; 88112; 88305; 89050; 93005; 93308; 93971; 93975; 94640; 94664; 96372; 96375; 97110; 97116; 97161; 97530; 99283; J0692; J1644; J1650; J1940; J1956; J2543; J3370; J7050; Q9967

== ENCOUNTER 2020-04-15 06:01 | Outpatient (CLI) | payer MEDICARE, SELFPAY ==
[2020-04-15 09:19] LABS: Basophils # 0.1 10^3/uL (0.0-0.1); Basophils % 0.6 %; Eosinophils # 0.3 10^3/uL (0.0-0.8); Eosinophils % 3.4 %; Hematocrit 31.4 % (37.0-47.0); Hemoglobin 9.4 g/dL (11.5-15.3); Lymphocytes # 0.5 10^3/uL (0.8-4.8); Lymphocytes % 6.6 %; Mean Corpuscular HGB Conc 29.9 g/dL (30.0-36.0); Mean Corpuscular Hemoglobin 25.4 pg (28.0-34.0); Mean Corpuscular Volume 84.9 fL (81-99); Mean Platelet Volume 9.1 fL (7.4-10.4); Monocytes # 0.5 10^3/uL (0.2-0.9); Monocytes % 6.5 %; Neutrophils # 6.77 10^3/uL (1.8-7.7); Neutrophils % 82.5 %; Nucleated Red Blood Cells % 0 %; Platelet Count 303 10^3/cmm (130-400); Red Cell Distribution Width 24.3 % (12.1-15.1); White Blood Count 8.2 10^3/uL (4.0-10.0)
[2020-04-15 09:39] LABS: Alanine Aminotransferase 45 U/L (0-33); Albumin Level 2.5 g/dL (3.5-5.2); Alkaline Phosphatase 65 IU/L (35-105); Anion Gap 14.1 (5-19); Aspartate Amino Transferase 53 U/L (0-32); Blood Urea Nitrogen 22 mg/dL (8-23); Calcium 8.5 mg/dL (8.5-10.5); Carbon Dioxide 25 mmol/L (22-29); Chloride 102 mmol/L (98-107); Globulin 3.5 g/dL (1.3-4.6); Glucose 99 mg/dL (65-115); Osmolality Calculated 287 mOsm/kg (285-295); Potassium 4.1 mmol/L (3.5-5.1); Sodium 137 mmol/L (136-145); Total Bilirubin 0.3 mg/dL (0.15-1.2)
== END 2020-04-15 06:02 | disposition home or self-care (01) ==
LOC: ONCMED 06:03
PROVIDERS: PCP Family Medicine; Visit Provider Internal Medicine Hematology & Oncology
DX: C18.2 Malignant neoplasm of ascending colon (principal); C77.2 Secondary and unspecified malignant neoplasm of intra-abdominal lymph nodes
CPT/HCPCS: 36415; 80053; 85025

== ENCOUNTER 2020-04-19 05:43 | Outpatient (CLI) | payer MEDICARE, SELFPAY ==
--- NOTE | 2020-04-19 14:39 | ONC FU_ITS ---
Dr. Ramsey follow up note Patient: Natasha Gustafson Unit #: [id number]: [id number] Dicatated By: Megan Ramsey M.D.Date of Visit:Apr 19, 2020 Onc Med Follow-up/Prog Note History of Present Illness: Ms. Gustafson is an 84-year-old female with a history of progressive generalized weakness and fatigue and dizziness. She went to hospital for evaluation on November 29, 2019, at that time she was found to have a hemoglobin around 7 g. She was given 3 units of packed RBCs, as per daughter her hemoglobin improved up to 9 g and patient felt much better. Ms Gustafson underwent CT scan of the abdomen which showed soft tissue thickening involving the area of ileocecal valve but no evidence of metastatic disease, her CEA was checked and it was 1.4. 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 She subsequently underwent exploratory laparotomy with right hemicolectomy on January 08, 2020. The report came back as moderately differentiated adenocarcinoma with mucinous and micropapillary features, tumor invades through muscularis propria T2, clear surgical margins, lymphovascular is invasion seen, 5 out of 14 lymph nodes were positive for metastatic disease, N2 With normal expression of DNA mismatch repair proteins Her past medical history significant for hypertension, arthritis, CAD, weight loss. patient denies alcohol use or smoking. Was seen and was recommended that she pursue treatment with single agent Xeloda. Her treatment would be day 1 through 14 of a 21-day cycle and the current plan is for 8 cycles. But before she could start her adjuvant chemotherapy with oral Xeloda patient was admitted to hospital on March 08, 2020 with bilateral pneumonia at that time she was treated with IV antibiotic responded well and she was discharged home on March 11, 2020 but patient returned to hospital on March 22, 2020 with progressive shortness of breath and had a persistent bilateral lower lobe pulmonary infiltrates along with pleural effusion, as per patient daughter and the patient underwent thoracentesis on March 26, 2020 and cytology came back negative, patient was discharged home not on an antibiotic and she had follow-up chest x-ray done on April 08, 2020 which showed increasing consolidation in the lower lungs and continued to have large left pleural effusion and diffuse interstitial lung disease in the lower alba and the area of lung consolidation. As per family patient is scheduled see Dr. Murphy on , April 22, 2020. Came for follow-up, complaining of generalized weakness and fatigue but denies any hemoptysis or hematemesis denies any melena or hematochezia denies any jaundice but shortness of breath on exertion, since her last admission she is on home oxygen, and use 2 pillows to breathe better. Patient did not start her chemotherapy because of recent episode of bilateral pneumonia requiring hospitalization twice in March 2020. Medications: amLODIPine Besylate 1 Tablet (of 5 mg) Oral daily, Aspirin 81 1 Tablet (of 81 mg) Tablet, chewable Oral daily, Ferrous Sulfate 1 Tablet (of 325 (65 fe) mg) Oral b.i.d., hydroCHLOROthiazide 1 Tablet (of 25 mg) Oral daily, Metoprolol Succinate ER 1 Tablet (of 25 mg) Tablet SR 24 HR Oral daily, Nitroglycerin 1 Tablet (of 0.4 mg) Tablet, sublingual Sublingual PRN, Potassium Chloride ER 1 Tablet Tablet, controlled release Oral daily, Rosuvastatin Calcium 1 Tablet (of 40 mg) Oral at bedtime Allergies: Latex Review of Systems: Constitutional - Appetite is poor and weight is stable. No fever, night sweats, or hot flashes. Energy level is poor, ENMT - No sinus congestion/drainage. No mouth sores. No sore throat or difficulty swallowing, Hematologic/Lymphatic - No abnormal bruising or bleeding, Respiratory - Positive for shortness of breath and cough. Positive for pleuritic pain, no hemoptysis, Cardiovascular - No angina pain. No palpitations, Gastrointestinal - No nausea or vomiting. No heartburn or acid reflux. No diarrhea or constipation. No blood in the stool or black stools, Genitourinary (F) - No dysuria or hematuria. No urinary frequency. No urgency or incontinence, Musculoskeletal - No joint or bone pain, Neurologic - No headache or dizziness. No numbness or tingling. No other focal neurologic symptoms, Psychiatric - No anxiety or depression. No insomnia. Vital Signs: Performed on Apr 19, 2020 09:19 Height - 53.00 in Weight - lbs Temperature - 98.7 F Pulse - 87 /min Respiration - 26 /min BP - 141/82 mm(hg) (HIGH) O2 Sat - 81 % (LOW) Pain - 0 Performance Status: 2 - Ambulatory/capable of all self-care, unable to perform any work activities. Up and about more than 50% of waking hours. (ECOG) Physical Examination: ENMT - No mouth sores, no thrush, no jaundice, Respiratory - No breath sounds heard at lung bases and bilateral crackles with mild wheezing, Cardiovascular - Regular rate and rhythm of heart, Abdomen - Soft, bowel sounds present, Extremities - 1+ edema bilaterally. Lab/Imaging: Test performed on Mar 03, 2020 15:50 Sodium 129 mmol/L Potassium 3.6 mmol/L Chloride 91 mmol/L CO2 26 mmol/L Anion Gap 15.6 BUN 11 mg/dL Creatinine 0.4 mg/dL Cr Clearance (Est) 90.5700 mL/min Glucose 112 mg/dL Osmolality - Calculated 268 mOsm/kg Calcium 8.6 mg/dL Protein, Total 6.6 g/dL Albumin 3.3 g/dL Globulin 3.3 g/dL Bilirubin, Total 0.4 mg/dL ALT (SGPT) 15 U/L AST (SGOT) 32 U/L Alkaline Phosphatase 60 IU/L WBC 6.9 10 3/uL RBC 4.66 10 6/uL HGB 11.2 g/dL HCT 36.4 % MCV 78.1 fL MCH 24.0 pg MCHC 30.8 g/dL RDW 18.6 % Platelet Count 285 10 3/cmm MPV 8.5 fL Neutrophils 5.24 10 3/uL Lymphocytes 1.1 10 3/uL Monocytes 0.4 10 3/uL Eosinophils 0.1 10 3/uL Basophils 0.0 10 3/uL Neutrophil % 75.9 % Lymphocyte % 16.2 % Monocyte % 5.8 % Eosinophil % 1.4 % Basophils % 0.4 % NRBC % 0 % CEA 1.5 ng/mL Test performed on Jan 28, 2020 12:15 Ferritin 48 ng/mL Iron 36 mcg/dL Iron Binding Capacity (TIBC) 349 mcg/dl % Iron Saturation 10.3 % UIBC 313 mcg/dL 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 status post right hemicolectomy done on January 08, 2020 Tumor invades through muscularis propria T2 5 out of 14 lymph node positive for metastatic disease N2 Stage IIIb, Normal expression of DNA mismatch repair proteins History of anemia History of arthritis discussed with patient her mismatch repair protein testing which showed normal expression. In that case, considering her age and overall performance status and comorbid condition, will recommend adjuvant chemotherapy with oral Xeloda alone. At this point will consider starting her on thousand milligram per meter square twice daily day 1 through 14 and repeat every 21 days for 8 cycles. But before she could start her adjuvant chemotherapy with oral Xeloda, on March 08, 2020, she was admitted to hospital with double pneumonia and she was treated with IV antibiotic and recovered well and discharged home on March 11, 2020 but readmitted on March 22, 2020 through April 02, 2020, at this time with progressive shortness of breath and follow-up scan shows bilateral pleural effusions , as per family, patient underwent thoracentesis on March 26, 2020, cytology came back negative for malignancy. Plan: Discussed with patient regarding her labs white blood count 8.2 hemoglobin 9.4 g compared to 11.2 g on March 03, 2020 hematocrit 31.4 platelets 303,000 CMP within normal limits except albumin 2.5 ALT 45, AST 53, and chest x-ray done on April 08, 2020 shows, when compared to chest x-ray done on April 02, 2020, patient continued to have large left pleural effusion, diffuse interstitial lung changes in the lower alba with area of lung consolidation. Clinically, patient doing reasonably well not in acute distress but complaining of generalized weakness and fatigue, her follow-up labs shows drop in her hemoglobin from 11.2 g on March 03, 2020 now 9.4 g which could be multifactorial including diagnostic phlebotomy done in the hospital during her 2 admissions in March 2020 and other possibility could be anemia of chronic disease due to recurrent infections and, considering her age underlying myelodysplasia cannot be ruled out. Per patient was earlier diagnosed with iron deficiency for which she is on oral iron, taking twice a day. We will continue to monitor blood counts and then return to clinic in 3 weeks with CBC and iron studies if iron studies shows persistent iron deficiency and further drop in her hemoglobin, will consider parenteral iron. As far as adjuvant chemotherapy with oral Xeloda is concerned, patient has large pleural effusion, and still recovering from bilateral pneumonia, will continue to hold her adjuvant chemotherapy until her current condition resolves which including pleural effusion. As far as the left pleural effusion seen on chest x-ray done on April 08, 2020, patient is supposed to see pulmonology on April 22, 2020, patient was advised in case there is a worsening of symptoms she need to go to hospital otherwise follow-up with pulmonology and his recommendations. Patient return to clinic in 3 weeks with CBC and iron studies and if she feels better, may consider starting her on adjuvant chemotherapy with oral Xeloda. Signed By: Megan Ramsey M.D. <<Signature on File>>
== END 2020-04-19 05:44 | disposition home or self-care (01) ==
LOC: ONCMED 05:47
PROVIDERS: PCP Family Medicine; Visit Provider Internal Medicine Hematology & Oncology
DX: C18.2 Malignant neoplasm of ascending colon (principal); C77.2 Secondary and unspecified malignant neoplasm of intra-abdominal lymph nodes; D64.9 Anemia, unspecified; M19.90 Unspecified osteoarthritis, unspecified site; R53.1 Weakness; R53.83 Other fatigue; J90 Pleural effusion, not elsewhere classified; Z92.21 Personal history of antineoplastic chemotherapy; Z79.899 Other long term (current) drug therapy
CPT/HCPCS: 99214

== ENCOUNTER 2020-06-05 04:25 | Inpatient (IN) | payer MEDICARE, OTHER, SELFPAY ==
[2020-06-05] VITALS (10 sets, daily range): BP systolic 120–148; BP diastolic 75–105; PULSE 78–132; RESP 16–40; TEMP 36.5–36.9; O2SAT 93–100; BMI 23.3
--- NOTE | 2020-06-05 04:41 | XRR_ITS ---
PROCEDURE INFORMATION: Exam: XR Chest, 1 View Exam date and time: 06/05/2020 4:43 AM Age: 85 years old Clinical indication: Dyspnea and shortness of breath; Patient HX: SOB and dyspnea TECHNIQUE: Imaging protocol: XR of the chest Views: 1 view. COMPARISON: CR XR chest 1V portable [id number] 05/21/2020 11:38 AM FINDINGS: Lungs: Emphysematous change and bilateral interstitial/airspace disease, consistent with pulmonary edema in the appropriate clinical setting. Pleural space: Asymmetric pleural effusions, left greater than right. Heart/Mediastinum: Cardiomegaly and increased caliber of the pulmonary vasculature. Bones/joints: Osteopenia and degenerative change. Soft tissues: Left-sided skin fold. XR/XR chest 1V portable [id number] IMPRESSION: 1. Emphysematous change and bilateral interstitial/airspace disease, consistent with pulmonary edema in the appropriate clinical setting. 2. Asymmetric pleural effusions, left greater than right.
[2020-06-05] MEDS: FUROsemide 10 mg/mL SDV 10mL 60 MG IVP (05:00)
--- NOTE | 2020-06-05 05:05 | ED_ITS ---
HPI - SOB/Dyspnea General: Chief Complaint: ER Hold Stated Complaint: SOB Time Seen by Provider: 06/05/20 04:27 History of Present Illness: HPI Narrative: 85-year-old lady with history of diastolic heart failure, anemia, and chronic kidney disease. She presents with increasing shortness of breath the last couple of days. She was in the hospital recently, discharged on 23 May for exacerbation of above problems. She presents tonight short of breath denies fever. She states she has had a cough. She has had swelling. Appears pale. MD elicited complaint: shortness of breath and cough Pertinent past history: congestive heart failure and other Onset (ago): day(s) Context: recent illness Timing: constant Severity: moderate Exacerbating factors: exertion Relieving factors: nothing Known history of: congestive heart failure Associated symptoms: Reports nausea; Deny abdominal pain, chest pain, cough or fever(s) Treatment prior to arrival: oxygen Review of Systems Const: Denies: fever(s) Card: Denies: chest pain Resp: Reports: dyspnea and non-productive cough; Denies: productive cough or wheezing GI: Reports: nausea; Denies: abdominal pain PFSH ED PFSH: Medical History Acute kidney injury superimposed on CKD Ascending colon malignant neoplasm Status post right hemicolectomy on 01/08/2020. CAD (coronary artery disease) -s/p stenting x 2 (2005) Diastolic heart failure SEN (dyspnea on exertion) Dysphagia Elevated troponin Hypercholesteremia Continue statin. Hypertension . Hypokalemia Hyponatremia Iron deficiency anemia -recent blood transfusion due to worsening anemia (11/03/2019) Persistent pneumonia Postoperative anemia Status post transfusion. Hemoglobin 9.5. Skin cancer of face Vertigo Weakness Surgical History H/O heart artery stent H/O hemicolectomy H/O: hysterectomy History of left hip replacement Family History Denies family history of CAD (coronary artery disease) Social History Smoking and tobacco status: never smoked Second hand smoke exposure: No Smoking risk assessment/counseling performed?: No Alcohol intake: never Caregiver/support person: Yes Lives independently: Yes Household members: spouse and children Housing: House Marital status: Marital status details: Takes care of her at home who has Alzheimer's dementia. Current occupational status: retired History of recent travel: No Current gender identity: Female Physical Exam Const: GENERAL APPEARANCE: cooperative, in distress, lethargic, ill appearing and frail appearing ORIENTATION/CONSCIOUSNESS: Yes awake, Yes oriented to person, Yes oriented to place, Yes confused and Yes lethargic; not oriented to time Resp: EFFORT & INSPECTION: Yes symmetric chest movement, Yes tachypneic and Yes respiratory distress AUSCULTATION: rales bilateral Cardio: COMMON NORMALS: regular rhythm RATE: tachycardic RHYTHM: regular rhythm GI: COMMON NORMALS: Normal to inspection, nondistended, normoactive bowel sounds present Extremity: NARRATIVE EXTREMITY EXAM: 2-3+ eema bilaterally Neuro: SENSORIUM/ORIENTATION: Yes oriented to person, Yes oriented to place, No oriented to time and Yes lethargic Course Consultations: Consultation #1: herlinda Vital Signs: Vital signs: Vital Signs Temperature 98.5 F 06/05/20 23:54 Pulse Rate 103 H 06/05/20 23:54 Respiratory Rate 23 H 06/05/20 23:54 Blood Pressure 120/75 06/05/20 23:54 Pulse Oximetry 97 06/05/20 23:54 MDM - SOB/Dyspnea MDM Narrative: Medical decision making narrative: 85-year-old female with a history of diastolic heart failure. She presents to the emergency department in respiratory failure essentially. She initially did okay on nasal cannula oxygen, but soon began to decompensate. She became very tachypneic, and was not keeping her saturations up. X-ray shows florid pulmonary edema with bilateral effusions that are large. She was placed on BiPAP, and did well in the ER with this. She is admitted to the ICU. She is a limited resuscitation patient, with a request not to intubate. Lab Data: Labs: Lab Results 06/05/20 06/05/20 06/05/20 Range/Units 04:40 04:40 04:40 WBC 7.6 (4.0-10.0) 10^3/ uL RBC 3.03 L (4.1-5.3) 10^6/u L Hgb 8.4 L (11.5-15.3) g/dL Hct 28.8 L (37.0-47.0) % MCV 95.0 (81-99) fL MCH 27.7 L (28.0-34.0) pg MCHC 29.2 L (30.0-36.0) g/dL RDW 19.8 H (12.1-15.1) % Plt Count 164 (130-400) 10^3/c mm MPV 9.9 (7.4-10.4) fL Neut % (Auto) 77.9 % Lymph % (Auto) 16.1 % [place] % (Auto) 5.3 % Eos % (Auto) 0.0 % Baso % (Auto) 0.4 % Neut # (Auto) 5.89 (1.8-7.7) 10^3/u L Lymph # (Auto) 1.2 (0.8-4.8) 10^3/u L [place] # (Auto) 0.4 (0.2-0.9) 10^3/u L Eos # (Auto) 0.0 (0.0-0.8) 10^3/u L Baso # (Auto) 0.0 (0.0-0.1) 10^3/u L Nucleated RBC % (a uto) 0 % Nucleated RBCs # 0.0 /100WBC PT 14.30 (12.1-14.9) SECO NDS INR 1.07 (0.8-1.2) Specimen Type Sample Site ABG pH (7.35-7.45) ABG pCO2 (35-45) mmHg ABG pO2 (80.0-100.0) mmH g ABG HCO3 (22-26) mmol/L ABG Base Excess (-2.0-2.0) mmol/ L Mc Test Hematocrit (37-47) % Hgb O2 Saturation (95-100) % Carboxyhemoglobin (0.4-20.1) %THgb Methemoglobin (0.4-1.5) % Total Hemoglobin (12-16) g/dL O2 Delivery Device O2 Liters/Min % FiO2 % Brine Well Operator ID Sodium 128 L (136-145) mmol/L Potassium 4.4 (3.5-5.1) mmol/L Chloride 91 L (98-107) mmol/L Carbon Dioxide 23 (22-29) mmol/L Anion Gap 18.4 (5-19) BUN 33 H (8-23) mg/dL Creatinine 1.8 H (0.5-0.9) mg/dL GFR Calculation Not Reportable Glucose 127 H (65-115) mg/dL Calculated Osmolal ity 275 L (285-295) mOsm/k g Lactic Acid (0.5-2.2) mmol/L Calcium 9.1 (8.5-10.5) mg/dL Magnesium 1.8 (1.7-2.3) mg/dL Total Bilirubin 0.6 (0.15-1.2) mg/dL AST 85 H (0-32) U/L ALT 56 H (0-33) U/L Alkaline Phosphata se 95 (35-105) IU/L NT-Pro-B Natriuret Pep > 20697 H (0-450) pg/mL Total Protein 6.2 L (6.6-8.7) g/dL Albumin 2.4 L (3.5-5.2) g/dL Globulin 3.8 (1.3-4.6) g/dL Urine Color (Yellow) Urine Appearance (CLEAR) Urine pH (5-7) Ur Specific Gravit y (1.005-1.030) Urine Protein (Negative) Urine Glucose (UA) (Normal) Urine Ketones (Negative) Urine Blood (Negative) Urine Nitrate (Negative) Urine Bilirubin (Negative) Urine Urobilinogen (Negative) mg/dL Ur Leukocyte Adrianne ase (Negative) Urine RBC (0-2) /hpf Urine WBC (0-5) /hpf Ur Squamous Epith Cells (0-5) /hpf Amorphous Sediment /hpf Urine Bacteria (NONE) /hpf 06/05/20 06/05/20 06/05/20 Range/Units 04:40 04:45 05:00 WBC (4.0-10.0) 10^3/ uL RBC (4.1-5.3) 10^6/u L Hgb (11.5-15.3) g/dL Hct (37.0-47.0) % MCV (81-99) fL MCH (28.0-34.0) pg MCHC (30.0-36.0) g/dL RDW (12.1-15.1) % Plt Count (130-400) 10^3/c mm MPV (7.4-10.4) fL Neut % (Auto) % Lymph % (Auto) % [place] % (Auto) % Eos % (Auto) % Baso % (Auto) % Neut # (Auto) (1.8-7.7) 10^3/u L Lymph # (Auto) (0.8-4.8) 10^3/u L [place] # (Auto) (0.2-0.9) 10^3/u L Eos # (Auto) (0.0-0.8) 10^3/u L Baso # (Auto) (0.0-0.1) 10^3/u L Nucleated RBC % (a uto) % Nucleated RBCs # /100WBC PT (12.1-14.9) SECO NDS INR (0.8-1.2) Specimen Type Arterial Sample Site Radial, right ABG pH 7.45 (7.35-7.45) ABG pCO2 34.5 L (35-45) mmHg ABG pO2 64.3 L (80.0-100.0) mmH g ABG HCO3 23.7 (22-26) mmol/L ABG Base Excess -0.1 (-2.0-2.0) mmol/ L Mc Test Pos Hematocrit 28.3 L (37-47) % Hgb O2 Saturation 90.9 L (95-100) % Carboxyhemoglobin 1.1 (0.4-20.1) %THgb Methemoglobin 0.7 (0.4-1.5) % Total Hemoglobin 9.2 L (12-16) g/dL O2 Delivery Device Nc O2 Liters/Min 2.0 % FiO2 28.0 % Brine Well Operator ID [id number] Sodium (136-145) mmol/L Potassium (3.5-5.1) mmol/L Chloride (98-107) mmol/L Carbon Dioxide (22-29) mmol/L Anion Gap (5-19) BUN (8-23) mg/dL Creatinine (0.5-0.9) mg/dL GFR Calculation Glucose (65-115) mg/dL Calculated Osmolal ity (285-295) mOsm/k g Lactic Acid 3.0 H (0.5-2.2) mmol/L Calcium (8.5-10.5) mg/dL Magnesium (1.7-2.3) mg/dL Total Bilirubin (0.15-1.2) mg/dL AST (0-32) U/L ALT (0-33) U/L Alkaline Phosphata se (35-105) IU/L NT-Pro-B Natriuret Pep (0-450) pg/mL Total Protein (6.6-8.7) g/dL Albumin (3.5-5.2) g/dL Globulin (1.3-4.6) g/dL Urine Color Yellow (Yellow) Urine Appearance Hazy A (CLEAR) Urine pH 5 (5-7) Ur Specific Gravit y 1.020 (1.005-1.030) Urine Protein 2+ H (Negative) Urine Glucose (UA) Norm (Normal) Urine Ketones Negative (Negative) Urine Blood 2+ H (Negative) Urine Nitrate Negative (Negative) Urine Bilirubin Neg (Negative) Urine Urobilinogen Norm (Negative) mg/dL Ur Leukocyte Adrianne ase Negative (Negative) Urine RBC 0-4 H (0-2) /hpf Urine WBC None (0-5) /hpf Ur Squamous Epith Cells 0-4 H (0-5) /hpf Amorphous Sediment 4+ /hpf Urine Bacteria Trace (NONE) /hpf Discharge Plan Discharge Patient Disposition: Admitted As Inpatient Admit Provider: Shantel Cruz Clinical Impression: Pleural effusion, bilateral CHF (congestive heart failure), NYHA class IV Qualifiers: Congestive heart failure type: diastolic Congestive heart failure chronicity: acute on chronic Qualified Code(s): I50.33 - Acute on chronic diastolic (congestive) heart failure Condition: Stable Coding Level of Care Code ED Motion Picture Set Up Worker for Chg Fwd Exam Expanded Problem Focused
[2020-06-05 05:11] LABS: ABG PCO2 34.5 mmHg (35-45); ABG PH Result 7.45 (7.35-7.45); Arterial Blood Gas Hematocrit 28.3 % (37-47); Base Excess ABG -0.1 mmol/L (-2.0-2.0); Blood Gas Allen Test Pos; Blood Gas Sample Site Radial, right; Blood Gas Sample Type Arterial; Carboxyhemoglobin 1.1 %THgb (0.4-20.1); HCO3 ABG 23.7 mmol/L (22-26); HGB O2 Sat 90.9 % (95-100); Methemoglobin 0.7 % (0.4-1.5); Oxygen Device NC; PO2 ABG 64.3 mmHg (80.0-100.0); Total Hemoglobin 9.2 g/dL (12-16)
--- NOTE | 2020-06-05 05:37 | ECG_ITS ---
[facility] Test Date: 2020-06-05 Pat Name: Natasha Gustafson Department: Room: Gender: Female Valuation Consultant: : 1935 Requested By: Edson Loyola Order Number: [id number] Marly MD: Rajan Holt M.D. Measurements Intervals [place] Rate: 125 P: 24 IA: 170 QRS: 19 QRSD: 82 T: 114 QT: 304 QTc: 439 Interpretive Statements SINUS TACHYCARDIA LOW QRS VOLTAGE IN EXTREMITY LEADS [QRS DEFLECTION < 0.5 mV IN LIMB LEADS] NONSPECIFIC T-WAVE ABNORMALITY Compared to ECG 05/21/2020 17:58:26 Low QRS voltage now present T-wave abnormality now present Sinus rhythm no longer present Electronically Signed On 06-05-2020 18:06:02 ENVIRONMENTAL MANAGEMENT SPECIALIST by Rajan Holt M.D. [id number]
[2020-06-05 05:42] LABS: Basophils % 0.4 %; Hematocrit 28.8 % (37.0-47.0); Hemoglobin 8.4 g/dL (11.5-15.3); Lymphocytes # 1.2 10^3/uL (0.8-4.8); Lymphocytes % 16.1 %; Mean Corpuscular HGB Conc 29.2 g/dL (30.0-36.0); Mean Corpuscular Hemoglobin 27.7 pg (28.0-34.0); Mean Platelet Volume 9.9 fL (7.4-10.4); Monocytes # 0.4 10^3/uL (0.2-0.9); Monocytes % 5.3 %; Neutrophils # 5.89 10^3/uL (1.8-7.7); Neutrophils % 77.9 %; Nucleated Red Blood Cells % 0 %; Platelet Count 164 10^3/cmm (130-400); Red Blood Count 3.03 10^6/uL (4.1-5.3); Red Cell Distribution Width 19.8 % (12.1-15.1); White Blood Count 7.6 10^3/uL (4.0-10.0)
[2020-06-05 05:55] LABS: INR 1.07 (0.8-1.2)
[2020-06-05] MEDS: ondansetron 2 mg/ML SDV 2 mL 4 MG IVP (05:55)
[2020-06-05] MEDS: morphine 4 mg/mL SDV 1 mL IVP (06:00)
[2020-06-05 06:11] LABS: Alanine Aminotransferase 56 U/L (0-33); Albumin Level 2.4 g/dL (3.5-5.2); Alkaline Phosphatase 95 IU/L (35-105); Blood Urea Nitrogen 33 mg/dL (8-23); Calcium 9.1 mg/dL (8.5-10.5); Carbon Dioxide 23 mmol/L (22-29); Chloride 91 mmol/L (98-107); Globulin 3.8 g/dL (1.3-4.6); Glucose 127 mg/dL (65-115); Magnesium 1.8 mg/dL (1.7-2.3); Osmolality Calculated 275 mOsm/kg (285-295); Sodium 128 mmol/L (136-145); Total Bilirubin 0.6 mg/dL (0.15-1.2); Total Protein 6.2 g/dL (6.6-8.7)
[2020-06-05 06:12] LABS: Bilirubin Urine Neg (Negative); Blood Urine 2+ (Negative); Glucose Urine UA Norm (Normal); Ketones Urine Negative (Negative); Leukocyte Esterase Urine Negative (Negative); Nitrate Urine Negative (Negative); Protein Urine 2+ (Negative); Urine Appearance Hazy (CLEAR); Urine Color Yellow (Yellow); Urobilinogen Urine Norm (Negative); pH Urine 5 (5-7)
[2020-06-05 06:13] LABS: Add Urine Culture? No; Amorphous Sediment Urine 4+ /hpf; Bacteria Urine TRACE /hpf; RBC Urine 0-4 /hpf (0-2); Squamous Epithelial Cell Urine 0-4 /hpf (0-5)
[2020-06-05 06:17] LABS: Anion Gap 18.4 (5-19); Potassium 4.4 mmol/L (3.5-5.1)
[2020-06-05 06:18] LABS: Aspartate Amino Transferase 85 U/L (0-32)
--- NOTE | 2020-06-05 06:20 | P.HP_ITS ---
Providers/Chief Complaint Primary Care Provider: Ming Castellanos DO Chief Complaint: SOB History of Present Illness Natasha Gustafson is a 85 year old female coronary disease status post stent x2 congestive heart failure, moderately differentiated adenocarcinoma of ascending colon, has had multiple hospitalization in the past, has required bilateral thoracentesis secondary to CHF exacerbation, presented today with chief complaint of worsening shortness of breath. Patient was recently discharged from the hospital on 05/23 after management of generalized weakness which was deemed secondary to deconditioning, she also had type II [place] while she remained symptom-free in the hospital. patient stopped taking metolazone, metoprolol, L asix secondary to generalized weakness and not able to eat due to anorexia. At home she uses 2 L of nasal cannula. She was brought in today for worsening shortness of breath, she is not able to give much detail. I called her to get the report. is stating that in last 48 hours her mentation has worsened, she is not able to talk, she is not eating at all, she has seen Dr. Villatoro on 05/31 who started her on Lasix 40 mg a day with potassium supplementation, she has been using 2 to 2.5 L of oxygen at home. But her health is gradually declining. Her quality of life is worsening. was afraid that her lungs are filling up again that is why he sent her to the hospital. On arrival she was tachypneic, hypoxic, she was tripoding, initially she was put on 5 L nasal cannula but because of increased work of breathing she was put on BiPAP which relieved to improve her symptoms, diagnostics in the ER revealed worsening CHF exacerbation bilateral pleural effusion, hyperkalemia, hyponatremia, acute on chronic kidney disease, normocytic anemia EKG showing sinus tachycardia no ischemic or infarctive changes, BNP greater than 70,000, Abnormal transaminases At the time my evaluation she was on BiPAP settings FiO2 50% tidal volume 300, 14/8, O2 saturation 99% she looks very lethargic was not able to give me much detail. Review of Systems General: Reports: ROS unobtainable due to medical condition (Delirium) Medications/Allergies Home Medications Medication Instructions Recorded Confirmed Last Taken Type lorazepam 0.5 - 1 mg PO Q4H PRN 03/08/20 05/21/20 Unknown History Ensure High Protein See Rx Instructions .ROUTE 10/05/21/20 05/21/20 Rx .COMPLEX #5688 ml ferrous sulfate 325 mg PO BID@05/21/20 05/21/20 05/21/20 History fluticasone propionate 1 spray NASAL BID PRN 05/21/20 05/21/20 Unknown History pantoprazole 40 mg tablet,delayed 40 mg PO DAILY@07 06/01/20 Unknown History release Allergies Allergy/AdvReac Type Severity Reaction Status Date / Time atorvastatin [From Lipitor] Allergy ADR-Cough Verified 06/01/20 15:38 latex Allergy ALGY-Rash Verified 06/01/20 15:38 PFSH Acute PFSH: Medical History Acute kidney injury superimposed on CKD Ascending colon malignant neoplasm Status post right hemicolectomy on 01/08/2020. CAD (coronary artery disease) -s/p stenting x 2 (2005) Diastolic heart failure SEN (dyspnea on exertion) Dysphagia Elevated troponin Hypercholesteremia Continue statin. Hypertension . Hypokalemia Hyponatremia Iron deficiency anemia -recent blood transfusion due to worsening anemia (11/03/2019) Persistent pneumonia Postoperative anemia Status post transfusion. Hemoglobin 9.5. Skin cancer of face Vertigo Weakness Surgical History H/O heart artery stent H/O hemicolectomy H/O: hysterectomy History of left hip replacement Family History Denies family history of CAD (coronary artery disease) Social History Smoking and tobacco status: never smoked Second hand smoke exposure: No Smoking risk assessment/counseling performed?: No Alcohol intake: never Caregiver/support person: Yes Lives independently: Yes Household members: spouse and children Housing: House Marital status: Marital status details: Takes care of her at home who has Alzheimer's dementia. Current occupational status: retired History of recent travel: No Current gender identity: Female Vitals/I&O/Wt Last Vital Signs Temp 98.2 F 06/05/20 04:26 Pulse 132 H 06/05/20 05:59 Resp 26 H 06/05/20 06:00 BP 148/105 06/05/20 04:26 Pulse Ox 98 06/05/20 06:00 Weight last 48 hrs Weight 65.771 kg Physical Exam Narrative: EXAM NARRATIVE: Frail elderly female Dry mucosal membranes, with signs of hypovolemia Mentation is fluctuant Not able to give much detail Currently synchronizing her breathing with the BiPAP during 99% As per the nursing report she was tripoding before usage of BiPAP S1, S2 active signs of heart failure Bilateral lower extremity edema 2+ Abdominal wall edema, Assisted breath sounds with rhonchi and crackles with diminished breath sounds bilaterally from mid zones to the lower Pupils reactive bilaterally symmetrical Able to move her arms and legs but very somnolent no strokelike symptoms noted, she is only able to answer my questions in simple words No active cellulitis Abdominal wall nontender, soft bowel sounds present Data : 06/05/20 04:40 06/05/20 04:40 A&P Assessment and plan (1) CHF (congestive heart failure), NYHA class IV: Status: Acute (2) Lower extremity edema: Status: Acute (3) Pleural effusion, bilateral: Status: Acute (4) Hypoxia: Status: Acute (5) Lactic acid acidosis: Status: Acute (6) Acute on chronic kidney failure: Status: Acute Additional A&P Information Acute on chronic congestive heart failure exacerbation Preserved ejection fraction heart failure exacerbation No ischemic or infarctive change on EKG This seems most likely gradual decline in her diastolic dysfunction, her hemoglobin seems to be around baseline, Was recently started on Lasix 40 mg along with potassium supplementation on 08/01 by her electrical equipment technician BNP greater than 70,000, I would use Bumex 1 mg daily, in the ER she received Lasix 60 mg IV with only 75 mL urine output until now Acute on chronic hypoxic respiratory failure Worsening bilateral pleural effusion She might benefit from thoracentesis considering her increased work of breathing Currently on BiPAP FiO2 50% saturating 99% Her previous thoracentesis revealed transudative pleural effusion secondary to CHF I will monitor in ICU and continue BiPAP for now Lactic acidemia most likely secondary to increased work of breathing, there is no leukocytosis, she has been afebrile however tachycardia and tachypnea noted which I believe is secondary to hypoxia and CHF exacerbation I do not see any consolidation on her chest x-ray, decubitus x-rays also obtained Acute on chronic kidney disease: This seems to be cardiorenal in nature anticipating improvement with diuretics, monitor urine output correlate with creatinine Goals of care discussed with the : DNR/DNI Cardiac diet DVT prophylaxis avoid in case she would need thoracentesis, would use SCDs for now Guarded prognosis Attestations Medical Necessity Statement*: Anticipating stay in the hospital course more than 2 midnights she carries guarded prognosis for worsening CHF exacerbation, bilateral pleural effusion worsening of physical deconditioning Time Spent in Patient Care: (>than 50% of time spent in counselling and/or direct pt care on unit) . 50mins Coding Level of Care Code Acute Chief Media Officer for Chg Fwd Diagnoses CHF (congestive heart failure), NYHA class IV I50.9 Lower extremity edema R60.0 Pleural effusion, bilateral J90 Hypoxia R09.02 Lactic acid acidosis E87.2 Acute on chronic kidney failure N17.9; N18.9
--- NOTE | 2020-06-05 06:22 | XRR_ITS ---
PROCEDURE INFORMATION: Exam: XR Chest 1View Exam date and time: 06/05/2020 6:23 AM Age: 85 years old Clinical indication: Shortness of breath; Additional info: Pleural effusion TECHNIQUE: Imaging protocol: Right lateral decubitus chest radiograph COMPARISON: CR XR chest 1V portable [id number] 06/05/2020 4:40 AM FINDINGS: Lungs: Emphysematous change, interstitial prominence, and asymmetric airspace disease. Pleural space: Asymmetric pleural effusions, left greater than right. Heart/Mediastinum: Borderline cardiomegaly. Vasculature: Calcification of the thoracic aorta. Bones/joints: Osteopenia and degenerative change. XR/XR chest RT decubitus [id number] IMPRESSION: Asymmetric pleural effusions, left greater than right.
--- NOTE | 2020-06-05 06:22 | XRR_ITS ---
PROCEDURE INFORMATION: Exam: XR Chest 1View Exam date and time: 06/05/2020 6:23 AM Age: 85 years old Clinical indication: Shortness of breath; Additional info: Pleural effusion TECHNIQUE: Imaging protocol: Left lateral decubitus chest radiograph COMPARISON: CR XR chest 1V portable [id number] 06/05/2020 4:40 AM FINDINGS: Lungs: Emphysematous change, interstitial prominence, and asymmetric airspace disease. Pleural space: Small free-flowing left pleural effusion. Additional small right pleural effusion. Heart/Mediastinum: Borderline cardiomegaly. Vasculature: Calcification of the thoracic aorta. Bones/joints: Osteopenia and degenerative change. XR/XR chest LT decubitus [id number] IMPRESSION: Small free-flowing left pleural effusion.
[2020-06-05 06:55] LABS: NT Pro B Type Natriuretic Pept > 70000 pg/mL (0-450)
[2020-06-05 07:10] LABS: Reflex Lactate Order REFLEX LACTIC ORDERD
[2020-06-05 08:13] LABS: Lactic Acid level (Lactate) 3.5 mmol/L (0.5-2.2)
[2020-06-05] MEDS: bumetanide 0.25 mg/mL SDV 4 mL 1 MG IV (15:22)
[2020-06-05 15:42] LABS: SARS Covid-2 Antigen Negative (Negative)
--- NOTE | 2020-06-05 17:10 | CTR_ITS ---
PROCEDURE INFORMATION: Exam: CT Head Without Contrast Exam date and time: 06/05/2020 7:15 PM Age: 85 years old Clinical indication: Altered mental status/memory loss; Confusion or disorientation; Patient HX: AMS; Additional info: Evalute for metastatsic disease TECHNIQUE: Imaging protocol: Computed tomography of the head without contrast. Radiation optimization: All CT scans at this facility use at least one of these dose optimization techniques: automated exposure control; mA and/or kV adjustment per patient size (includes targeted exams where dose is matched to clinical indication); or iterative reconstruction. COMPARISON: CT head wo con* [id number] 11/29/2019 8:52 AM RADIATION DOSE METRICS: Total DLP (mGy-cm): 690.94 FINDINGS: Brain: There is diffuse cerebral atrophy and chronic microvascular white matter disease. There is no acute intracranial hemorrhage. Cerebral ventricles: There is no significant ventricular dilation. The basal cisterns are unremarkable. Bones/joints: The calvarium is intact. Paranasal sinuses: The paranasal sinuses are clear. Mastoid air cells: The mastoid air cells are clear. Soft tissues: The visible extracranial soft tissues are unremarkable. CT/CT head wo con* [id number] IMPRESSION: No acute findings. Radiation Dose CTDIVOL = (mGy): DLP = 690.94 (mGy-cm)
--- NOTE | 2020-06-05 17:29 | PM.PN ---
Subjective Subjective: Interval history: Patient remains with altered mental status, unable to answer any questions for me, pupils are bilateral mid dilated, she is restless, moves all extremities in bed, however does not follow any commands at this present time. She was taken off BiPAP earlier this morning, currently saturating 97% on 3 L/min. IV Bumex was administered this afternoon at around 3 PM. Urine output not charted at this present time. 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 in bed Urinary Catheter Management^: Claudio: Cath Placed During This Visit: yes Urinary Catheter Date of Insertion: 06/05/20 Urinary Catheter Time of Insertion: 07:04 Data : 06/05/20 04:40 06/05/20 04:40 A&P Assessment and plan (1) CHF (congestive heart failure), NYHA class IV: Status: Acute (2) Lower extremity edema: Status: Acute (3) Pleural effusion, bilateral: Status: Acute (4) Hypoxia: Status: Acute (5) Lactic acid acidosis: Status: Acute (6) Acute on chronic kidney failure: Status: Acute Additional A&P Information Acute on chronic congestive heart failure exacerbation Preserved ejection fraction heart failure exacerbation No ischemic or infarctive change on EKG This seems most likely gradual decline in her diastolic dysfunction BNP greater than 70,000, Continue Bumex 1 mg iv daily, monitor ALYSSA and daily weight Acute on chronic hypoxic respiratory failure Worsening bilateral pleural effusion If fails to improve with diuresis, consult pulmonary to assess for thoracentesis, she was being considered for palliative Pleurx placement as an outpatient, had a repeat appointment with Dr. Murphy on June 16. Her previous thoracentesis revealed transudative pleural effusion secondary to CHF Acute on chronic kidney disease: This seems to be cardiorenal in nature anticipating improvement with diuretics, monitor urine output correlate with creatinine Had an extensive discussion with her son Lang today. Patient has previously stated that given her advanced age, recurrent hospital admissions, failure to thrive and no gross overall clinical improvement along with worsening heart failure she has elected not to proceed with chemotherapy for directed treatment of her cancer. In keeping with this goal, we will try to maximize palliative treatment and focus on patient's comfort. This will include treatment with diuretics, nebulization,pleurex cathter , BiPAP etc. as needed. After discussion with son hospice may be the most appropriate for patient, hospice referral has been generated. AMS: Per son this is new. Patient has been more confused over the past few days, however currently unable to have a conversation, unable to follow commands, this may be related to morphine that she received earlier in the day. Check CT of the head to evaluate for CVA versus metastatic disease to the brain Transaminitis, right upper quadrant ultrasound to evaluate for metastatic disease. Sinus tachycardia start p.o. metoprolol tartrate 12.5 mg p.o. twice daily Goals of care discussed with the : DNR/DNI Cardiac diet DVT prophylaxis start lovenox Guarded prognosis Attestations Medical Necessity Statement*: Continued need for IV diuresis Coding Level of Care Code Acute Forestry Laborer for g Fwd Diagnoses CHF (congestive heart failure), NYHA class IV I50.9 Lower extremity edema R60.0 Pleural effusion, bilateral J90 Hypoxia R09.02 Lactic acid acidosis E87.2 Acute on chronic kidney failure N17.9; N18.9
[2020-06-05] MEDS: enoxaparin 40 mg/0.4 mL Syringe SUBCUT (18:04)
[2020-06-05] MEDS: metoprolol tartrate 25 mg Tablet 12.5 MG PO (18:04)
[2020-06-05] MEDS: potassium chloride ER 20 mEq Tablet PO (18:04)
--- NOTE | 2020-06-05 23:03 | PC.NURSE ---
Patient continually asks if she can go to the bathroom to urinate, this nurse continually redirect patient in that she has a xiong cath which voids for her. Patient appears to not understand.
[2020-06-06 04:00] VITALS: BP 126/78; PULSE 107; RESP 16; TEMP 36.8; O2SAT 95
--- NOTE | 2020-06-06 06:37 | NUR.SHIFT ---
Patient is confused and sometimes able to follow directions. Patient was able to slept much during the night.
[2020-06-06 06:45] LABS: Basophils % 0.1 %; Hematocrit 31.2 % (37.0-47.0); Hemoglobin 9.4 g/dL (11.5-15.3); Lymphocytes # 1.2 10^3/uL (0.8-4.8); Lymphocytes % 9.3 %; Mean Corpuscular HGB Conc 30.1 g/dL (30.0-36.0); Mean Corpuscular Hemoglobin 28.1 pg (28.0-34.0); Mean Corpuscular Volume 93.1 fL (81-99); Mean Platelet Volume 10.8 fL (7.4-10.4); Monocytes # 0.6 10^3/uL (0.2-0.9); Monocytes % 4.6 %; Neutrophils # 10.92 10^3/uL (1.8-7.7); Neutrophils % 85.8 %; Nucleated Red Blood Cells % 0 %; Platelet Count 218 10^3/cmm (130-400); Red Blood Count 3.35 10^6/uL (4.1-5.3); Red Cell Distribution Width 19.8 % (12.1-15.1); White Blood Count 12.7 10^3/uL (4.0-10.0)
[2020-06-06 08:00] VITALS: BP 122/82; PULSE 100; RESP 17; TEMP 36.5; O2SAT 98
[2020-06-06 08:29] VITALS: PULSE 93; O2SAT 94
[2020-06-06] MEDS: bumetanide 0.25 mg/mL SDV 4 mL 1 MG IV (09:25)
[2020-06-06] MEDS: pantoprazole DR 40 mg Tablet PO (09:26)
[2020-06-06] MEDS: potassium chloride ER 20 mEq Tablet PO (09:26)
[2020-06-06] MEDS: metoprolol tartrate 25 mg Tablet 12.5 MG PO ×2 (09:34→22:15)
[2020-06-06 10:07] LABS: Alanine Aminotransferase 60 U/L (0-33); Albumin Level 2.5 g/dL (3.5-5.2); Alkaline Phosphatase 93 IU/L (35-105); Blood Urea Nitrogen 44 mg/dL (8-23); Calcium 8.9 mg/dL (8.5-10.5); Carbon Dioxide 24 mmol/L (22-29); Chloride 93 mmol/L (98-107); Glucose 93 mg/dL (65-115); Osmolality Calculated 285 mOsm/kg (285-295); Sodium 132 mmol/L (136-145); Total Bilirubin 0.4 mg/dL (0.15-1.2); Total Protein 6.5 g/dL (6.6-8.7)
[2020-06-06 10:12] LABS: Anion Gap 19.9 (5-19); Aspartate Amino Transferase 70 U/L (0-32); Potassium 4.9 mmol/L (3.5-5.1)
--- NOTE | 2020-06-06 11:17 | P.PN_ITS ---
Subjective Subjective: Interval history: more awake and alert today, able to tell me her name, and she is in hospital. Unable to tell me correect brthday or age, states she is 61, off biPAP, on NC currently , urine output 600 cccnet negtaive 500cc, cr worsened at 2.1. Ct head without metastasis. US liver with GB stones without cholelithiasis, small ascites and right pleural effusion. 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 Urinary Catheter Management^: Claudio: Cath Placed During This Visit: yes Reason for Continuing Indwelling Catheter: Acute Urinary Retention or Obstruction Urinary Catheter Date of Insertion: 06/05/20 Urinary Catheter Time of Insertion: 07:04 Data : 06/06/20 06:11 06/06/20 09:15 A&P Assessment and plan (1) CHF (congestive heart failure), NYHA class IV: Status: Acute Qualifiers: Congestive heart failure chronicity: acute on chronic Congestive heart failure type: diastolic Qualified Code(s): I50.33 - Acute on chronic diastolic (congestive) heart failure (2) Lower extremity edema: Status: Acute (3) Pleural effusion, bilateral: Status: Acute (4) Hypoxia: Status: Acute (5) Lactic acid acidosis: Status: Acute (6) Acute on chronic kidney failure: Status: Acute (7) AMS (altered mental status): Status: Acute Additional A&P Information Acute on chronic congestive heart failure exacerbation Preserved ejection fraction heart failure exacerbation No ischemic or infarctive change on EKG This seems most likely gradual decline in her diastolic dysfunction BNP greater than 70,000, Lasix 40mg iv q24h, monitor ALYSSA and daily weight urin eoutput only 600 cc, kaela jefferson rising cr and clinical improvement, would continue at 40 iv daily Acute on chronic hypoxic respiratory failure Worsening bilateral pleural effusion If fails to improve with diuresis, consult pulmonary to assess for thoracentesis, she was being considered for palliative Pleurx placement as an outpatient, had a repeat appointment with Dr. Murphy on June 16. Her previous thoracentesis revealed transudative pleural effusion secondary to CHF Acute on chronic kidney disease: This seems to be cardiorenal in nature anticipating improvement with diuretics, monitor urine output correlate with creatinine. worsening cr today Had an extensive discussion with her son Lang . Patient has previously stated that given her advanced age, recurrent hospital admissions, failure to thrive and no gross overall clinical improvement along with worsening heart failure she has elected not to proceed with chemotherapy for directed treatment of her cancer. In keeping with this goal, we will try to maximize palliative treatment and focus on patient's comfort. This will include treatment with diuretics, nebulization,pleurex cathter , BiPAP etc. as needed. After discussion with son hospice may be the most appropriate for patient, hospice referral has been placed. AMS: Per son this is new. Patient has been more confused over the past few days, this is improved today, patient awake, able to speak few simple sentences but remains oriented x 1-2. Ct head without CVA or metastasis Transaminitis, right upper quadrant ultrasound without metastasis Sinus tachycardia start p.o. metoprolol tartrate 12.5 mg p.o. twice daily Goals of care discussed with the son: DNR/DNI, hospice referral Cardiac diet DVT prophylaxis lovenox Guarded prognosis Attestations Medical Necessity Statement*: hospice referral, iv diuresis, assessment for pleurex of no improvement Coding Level of Care Code Acute Neurological Surgery Teacher for [facility] Fwd Diagnoses CHF (congestive heart failure), NYHA class IV I50.33 Congestive heart failure chronicity: acute on chronic Congestive heart failure type: diastolic Lower extremity edema R60.0 Pleural effusion, bilateral J90 Hypoxia R09.02 Lactic acid acidosis E87.2 Acute on chronic kidney failure N17.9; N18.9 AMS (altered mental status) R41.82
[2020-06-06 12:00] VITALS: BP 126/81; PULSE 66; RESP 18; O2SAT 92
[2020-06-06 12:16] LABS: Glucose Point of Care 85 mg/dL (70-110)
[2020-06-06] MEDS: FUROsemide 10 mg/mL SDV 4mL 40 MG IVP (14:44)
[2020-06-06 16:00] VITALS: BP 122/76; PULSE 98; RESP 18; TEMP 37.1; O2SAT 98
--- NOTE | 2020-06-06 17:28 | USR_ITS ---
PROCEDURE INFORMATION: Exam: US Abdomen, Limited; Right Upper Quadrant Exam date and time: 06/06/2020 11:54 AM Age: 85 years old Clinical indication: Abnormal findings; Abnormal lab test; Elevated liver enzymes; Additional info: Transaminitis TECHNIQUE: Imaging protocol: US abdomen. Real time ultrasound with image documentation. Limited exam focused on the right upper quadrant. COMPARISON: CT abdomen pelvis wo con [id number] 03/09/2020 8:15 AM FINDINGS: Pleural space: There is a right pleural effusion. Liver: Normal. No masses. Gallbladder: There is a 1.5 cm stone in the gallbladder. Gallbladder wall is not thickened. Common bile duct: Normal. No stones. No dilation. Pancreas: Limited visualization of the pancreas but no abnormality seen. Right kidney: Normal. No mass. No hydronephrosis. Intraperitoneal space: Ascites is present in the upper abdomen. US/US liver [id number] IMPRESSION: 1. Cholelithiasis. 2. Small ascites. 3. Right pleural effusion.
[2020-06-06] MEDS: enoxaparin 40 mg/0.4 mL Syringe SUBCUT (18:12)
[2020-06-06 20:00] VITALS: BP 133/84; PULSE 103; RESP 20; TEMP 36.4; O2SAT 96
[2020-06-07] VITALS (10 sets, daily range): BP systolic 115–133; BP diastolic 64–82; PULSE 88–95; RESP 16–18; TEMP 36.3–36.6; O2SAT 85–99
--- NOTE | 2020-06-07 04:00 | XR_ITS ---
WS: [id number] PORTABLE CHEST HISTORY: follow up pleural effusion COMPARISON: 06/05/2020 Moderate improvement in the bilateral pleural effusions. Persistent small to moderate bilateral pleur al effusions. Moderate improvement in the pulmonary venous congestion since 06/05/2020. Compressive ate lectasis at the lung bases due to the effusions. Cardiac size: Silhouette is obscured by the pleural effusions and atelectasis. Mediastinum/Aorta: Mild atherosclerosis aorta. No osseous abnormality seen. XR/XR chest 1V portable [id number] IMPRESSION: 1. Small to moderate bilateral pleural effusions with moderate improvement sin ce 06/05/2020. 2. Moderate improvement in the pulmonary edema since 06/05/2020.
[2020-06-07 05:11] LABS: Eosinophils % 0.2 %; Hematocrit 28.9 % (37.0-47.0); Lymphocytes # 0.9 10^3/uL (0.8-4.8); Lymphocytes % 14.1 %; Mean Corpuscular HGB Conc 31.1 g/dL (30.0-36.0); Mean Corpuscular Volume 89.8 fL (81-99); Monocytes # 0.4 10^3/uL (0.2-0.9); Monocytes % 6.7 %; Neutrophils # 5.02 10^3/uL (1.8-7.7); Neutrophils % 78.7 %; Nucleated Red Blood Cells % 0 %; Platelet Count 211 10^3/cmm (130-400); Red Blood Count 3.22 10^6/uL (4.1-5.3); Red Cell Distribution Width 19.7 % (12.1-15.1); White Blood Count 6.4 10^3/uL (4.0-10.0)
[2020-06-07 05:37] LABS: Alanine Aminotransferase 58 U/L (0-33); Albumin Level 2.5 g/dL (3.5-5.2); Alkaline Phosphatase 92 IU/L (35-105); Anion Gap 18.9 (5-19); Aspartate Amino Transferase 57 U/L (0-32); Blood Urea Nitrogen 49 mg/dL (8-23); Calcium 8.6 mg/dL (8.5-10.5); Carbon Dioxide 24 mmol/L (22-29); Chloride 93 mmol/L (98-107); Globulin 3.6 g/dL (1.3-4.6); Glucose 78 mg/dL (65-115); Osmolality Calculated 284 mOsm/kg (285-295); Potassium 4.9 mmol/L (3.5-5.1); Sodium 131 mmol/L (136-145); Total Bilirubin 0.3 mg/dL (0.15-1.2); Total Protein 6.1 g/dL (6.6-8.7)
[2020-06-07 05:42] LABS: INR 1.08 (0.8-1.2)
[2020-06-07] MEDS: metoprolol tartrate 25 mg Tablet 12.5 MG PO (09:30)
[2020-06-07] MEDS: pantoprazole DR 40 mg Tablet PO (09:30)
[2020-06-07] MEDS: potassium chloride ER 20 mEq Tablet PO (09:30)
[2020-06-07] MEDS: acetaminophen 325 mg Tablet 650 MG PO (16:20)
[2020-06-07] MEDS: lanolin oint 7 gm 1 APPLIC TOPICAL (16:21)
--- NOTE | 2020-06-07 17:48 | P.PN_ITS ---
Subjective Subjective: Interval history: more alert and awake today, She is able to converse with me, states and goals of care so need to be discussed with her grandson Marty. Creatinine worsened today , holding lasix today . 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: no focal neuro deficits Urinary Catheter Management^: Claudio: Cath Placed During This Visit: yes Reason for Continuing Indwelling Catheter: Other Urinary Catheter Date of Insertion: 06/05/20 Urinary Catheter Time of Insertion: 07:04 Data : 06/07/20 05:02 06/07/20 05:02 A&P Assessment and plan (1) CHF (congestive heart failure), NYHA class IV: Status: Acute Qualifiers: Congestive heart failure chronicity: acute on chronic Congestive heart failure type: diastolic Qualified Code(s): I50.33 - Acute on chronic diastolic (congestive) heart failure (2) Lower extremity edema: Status: Acute (3) Pleural effusion, bilateral: Status: Acute (4) Hypoxia: Status: Acute (5) Lactic acid acidosis: Status: Acute (6) Acute on chronic kidney failure: Status: Acute (7) AMS (altered mental status): Status: Acute Additional A&P Information Acute on chronic congestive heart failure exacerbation Preserved ejection fraction heart failure exacerbation No ischemic or infarctive change on EKG This seems most likely gradual decline in her diastolic dysfunction BNP greater than 70,000, Holding lasix today given worsening cr Acute on chronic hypoxic respiratory failure Worsening bilateral pleural effusion consult Dr. starr for possible thoracentesis Her previous thoracentesis revealed transudative pleural effusion secondary to CHF Acute on chronic kidney disease: This seems to be cardiorenal in nature anticipating improvement with diuretics, monitor urine output correlate with creatinine. worsening cr today Had an extensive discussion with her son Lang . Patient has previously stated that given her advanced age, recurrent hospital admissions, failure to thrive and no gross overall clinical improvement along with worsening heart failure she has elected not to proceed with chemotherapy for directed treatment of her cancer. In keeping with this goal, we will try to maximize palliative treatment and focus on patient's comfort. This will include treatment with diuretics, nebulization,pleurex cathter , BiPAP etc. as needed. Son is not curerntly interested in hospice, he is under the belief that hospice will change his mom's status to comfort care and that she will not get any further treatment for HF. I have discussed that this does not need to be the case, will discuss with grandlaura Ferguson additionally. AMS: Per son this is new. Patient has been more confused over the past few days, this is improved today, patient awake, alert and oriented. Ct head without CVA or metastasis Transaminitis, right upper quadrant ultrasound without metastasis Sinus tachycardia started p.o. metoprolol tartrate 12.5 mg p.o. twice daily Goals of care discussed with the son: DNR/DNI Cardiac diet DVT prophylaxis lovenox Guarded prognosis Attestations Medical Necessity Statement*: hold lasix, worsening cr, pulmonary consult Coding Level of Care Code Acute Certified Emergency Vehicle Technician for Chg Fwd Diagnoses CHF (congestive heart failure), NYHA class IV I50.33 Congestive heart failure chronicity: acute on chronic Congestive heart failure type: diastolic Lower extremity edema R60.0 Pleural effusion, bilateral J90 Hypoxia R09.02 Lactic acid acidosis E87.2 Acute on chronic kidney failure N17.9; N18.9 AMS (altered mental status) R41.82
[2020-06-07] MEDS: enoxaparin 30 mg/0.3 mL Syringe SUBCUT (17:59)
[2020-06-07] MEDS: albumin 12.5 GM/250 ML VIAL IV (19:54)
--- NOTE | 2020-06-07 22:58 | PM.CONSULT ---
Providers/Reason For Consult Consulting Physican/Specialty*: KINGSLEY MURPHY MD/ PULMONARY Reason for Consult*: BILATERAL PLEURAL EFFUSIONS Attending Physician: Shantel Cruz MD Primary Care Provider: Ming Castellanos DO History of Present Illness History of Present Illness Natasha Gustafson is a 84 year old lady with PMH of moderately differentiated adenocarcinoma of ascending colon, HTN, arthritis, CAD, recently underwent exploratory laparotomy 01/08/2020 with right hemicolectomy on January 07, 2021 biopsy report came back moderately differentiated adenocarcinoma with mucinous and micropapillary features, tumor invades through muscularis propria T2, clear surgical margins, lymphovascular is invasion seen, 5 out of 14 lymph nodes were positive for metastatic disease, N2 With normal expression of DNA mismatch repair proteins. Hospitalized in early march for treatment of pneumonia, treated with Rocephin, azithromycin while in the hospital, rapid COVID-19 antigen as well as PCR testing, with both negative, with no growth on blood or sputum cultures, on discharge was given course of Levaquin to take home, and set up with 2 L of oxygen by nasal cannula. Her images were reviewed at the time, without sign to suggest obvious metastatic disease given recent colon adenocarcinoma with noted positive lymph nodes on biopsy. She was planned to start Xeloda with Dr. Ramsey, however, has not started so far. She returns to the hospital after 10 days in the middle of March due to lack of improvement, continues to have weakness, shortness of breath, intermittent cough, although nonproductive. In ER she is noted to be afebrile, no leukocytosis, no tachycardia, somewhat more hypoxic than previously requiring 4 L of oxygen by nasal cannula. Noted to have consolidation in number of locations on CT Including bilateral lower lobes, right upper lobe, right middle lobe, and lingula. Overall pulmonary disease is worse than last admission 10 days ago. Mild cardiomegaly is noted. Again nonspecific mildly enlarged mediastinal lymph nodes thought to be reactive. Also noted small to moderate bilateral pleural effusions.EKG with nonspecific changes. She denies orthopnea, PND but has ankle swelling. Patient underwent thoracocentesis from both sides on March 23 and . Fluid studies from thoracocentesis was transudative and negative for malignancy. It is believed patient's symptoms are greatly due to hypoalbuminemia due to decreased oral intake for which Remeron was started and she was transitioned over to GI soft diet which she tolerated well and her oral intake was mildly improved. Later patient seen in clinic with bilateral effusions and after discussion with cardiology optimized as CHF medications and patient was followed up in cardiology clinic. She was admitted for 3 days in May 2020 for generalized weakness and dysphagia and discharged. patient stopped taking metolazone, metoprolol, Lasix secondary to generalized weakness and not able to eat due to anorexia. At home she uses 2 L of nasal cannula., But her health is gradually declining, quality of life is worsening and mentation worsened patient got admitted on 06/01/2020. On arrival she was tachypneic, hypoxic, she was tripoding, initially she was put on 5 L nasal cannula but because of increased work of breathing she was put on BiPAP which relieved to improve her symptoms, diagnostics in the ER revealed worsening CHF exacerbation bilateral pleural effusion, hyperkalemia, hyponatremia, acute on chronic kidney disease, normocytic anemia. EKG showing sinus tachycardia no ischemic or infarctive changes, BNP greater than 70,000, Abnormal transaminases. Pulmonary consult called for possible palliative thoracentesis versus Pleurx catheter placement for bilateral pleural effusions due to advanced heart failure. Patient was given Lasix and her mentation improved and today she is seen on 2 L nasal cannula and is able to carry out conversation Review of Systems General: Reports: 10 or more systems reviewed and unremarkable except in HPI and below Meds/Allergies Home Medications and Allergies Home Medications Medication Instructions Recorded Confirmed Last Taken Type lorazepam 1 mg PO BID@08,03/08/20 06/05/20 Unknown History ferrous sulfate 325 mg PO BID@05/21/20 06/05/20 06/04/20 History fluticasone propionate 1 spray NASAL BID 05/21/20 06/05/20 Unknown History pantoprazole 40 mg tablet,delayed 40 mg PO DAILY@06/01/20 06/05/20 06/04/20 History release Zeal Drink See Rx Instructions .ROUTE .COMPLEX 06/05/20 06/05/20 Unknown History furosemide 40 mg PO DAILY@06/05/20 06/05/20 Unknown History potassium chloride 10 meq PO QAM 06/05/20 06/05/20 Unknown History Allergies Allergy/AdvReac Type Severity Reaction Status Date / Time atorvastatin [From Lipitor] Allergy ADR-Cough Verified 06/05/20 10:04 latex Allergy ALGY-Rash Verified 06/05/20 10:04 Current Medications Current Medications Generic Name Dose Route Start Last Admin Trade Name Freq PRN Reason Stop Dose Admin Acetaminophen 650 mg 06/07/20 16:09 06/07/20 16:20 Acetaminophen 325 Mg Tablet PO 650 mg Q8H PRN Administration DISCOMFORT Enoxaparin Sodium 30 mg 06/07/20 18:15 06/07/20 17:59 Enoxaparin 30 Mg/0.3 Ml Syringe SUBCUT 30 mg Q24H LUIS E Administration Furosemide 40 mg 06/06/20 13:45 06/06/20 14:44 Furosemide 10 Mg/Ml Sdv 4ml IVP 40 mg Q24H LUIS E Administration Lanolin 1 applic 06/07/20 16:08 06/07/20 16:21 Lanolin Oint 7 Gm TOPICAL 1 applic PRN PRN Administration DRYNESS Metoprolol Tartrate 12.5 mg 06/05/20 17:30 06/07/20 09:30 Metoprolol Tartrate 25 Mg Tablet PO 12.5 mg BID@0900,2100 LUIS E Administration Pantoprazole Sodium 40 mg 06/06/20 09:00 06/07/20 09:[address] 40 Mg Tablet PO 40 mg DAILY LUIS E Administration Potassium Chloride 20 meq 06/05/20 16:46 06/07/20 09:30 Potassium Chloride Er 20 Meq Tablet PO 20 meq DAILY LUIS E Administration PFSH Acute PFSH: Medical History Acute kidney injury superimposed on CKD Ascending colon malignant neoplasm Status post right hemicolectomy on 01/08/2020. CAD (coronary artery disease) -s/p stenting x 2 (2005) Diastolic heart failure SEN (dyspnea on exertion) Dysphagia Elevated troponin Hypercholesteremia Continue statin. Hypertension . Hypokalemia Hyponatremia Iron deficiency anemia -recent blood transfusion due to worsening anemia (11/03/2019) Persistent pneumonia Postoperative anemia Status post transfusion. Hemoglobin 9.5. Skin cancer of face Vertigo Weakness Surgical History H/O heart artery stent H/O hemicolectomy H/O: hysterectomy History of left hip replacement Family History Denies family history of CAD (coronary artery disease) Social History Smoking and tobacco status: never smoked Second hand smoke exposure: No Smoking risk assessment/counseling performed?: No Alcohol intake: never Caregiver/support person: Yes Lives independently: Yes Household members: spouse and children Housing: House Marital status: Marital status details: Takes care of her at home who has Alzheimer's dementia. Current occupational status: retired History of recent travel: No Current gender identity: Female Vitals/I&O/Wt Last Vital Signs Temp 97.8 F 06/07/20 19:45 Pulse 88 06/07/20 20:50 Resp 17 06/07/20 20:50 BP 125/82 06/07/20 19:45 Pulse Ox 98 06/07/20 20:50 06/07/20 06/07/20 06/07/20 06:59 14:59 22:59 Intake Total 240 / 240 Output Total 200 / 200 100 / 100 Balance -200 / -200 240 / 240 -100 / 140 Physical Exam Narrative: EXAM NARRATIVE: General: alert, NAD HEENT: conj clear, EOMI, PERRL, mmm, Neck: supple, no meningismus Heme: no cervical LAP Pulmonary: Reduced breath sounds on bilateral lower lungs Cardiovascular: rrr, nl s1s2, no mrg Abdomen: soft, nt, nd, no r/g, bs+ Extremities: pulses +, no edema, no c/c : no CVA tenderness Skin: intact, no rash MSK: no back or neck pain Neurologic: grossly intact Urinary Catheter Management^: Claudio: Cath Placed During This Visit: yes Reason for Continuing Indwelling Catheter: Other Urinary Catheter Date of Insertion: 06/05/20 Urinary Catheter Time of Insertion: 07:04 Data Other Data: Other data: reviewed in [employer] A&P Assessment and plan (1) AMS (altered mental status): Status: Acute Qualifiers: Altered mental status type: unspecified Qualified Code(s): R41.82 - Altered mental status, unspecified (2) CHF (congestive heart failure), NYHA class IV: Status: Acute Qualifiers: Congestive heart failure chronicity: acute on chronic Congestive heart failure type: diastolic Qualified Code(s): I50.33 - Acute on chronic diastolic (congestive) heart failure (3) Pleural effusion, bilateral: Status: Acute (4) Ascending colon malignant neoplasm: Status: Acute #Transudative bilateral pleural effusions likely due to underlying CHF and hypoalbumnemia #History of adenocarcinoma of colon s/p hemicolectomy with positive lymph nodes on biopsy -Left thoracentesis on 03/23/2020 yielded 600 cc of straw-colored fluid which was transudative -right side thoracentesis on 03/26/2020 yielded 800 cc. Patient tolerated procedure well no trapped lung from previous infection which can also yield persistent transudative fluid. -Bilateral effusions are transudative and no malignant cells noted-likely secondary to CHF/hypoalbuminemia -CHF NYHA class III ACC/AHA stage C for acute diastolic CHF she was discharged with Lasix 40 daily -strongly recommended protein supplements - With history of colon cancer, although not currently on chemotherapy, plans were to start Xeloda which has not yet been initiated. -Recurrent bilateral pleural effusions which were recently tapped and fluid studies suggestive of transudative nature in the context of NYHA class III stage C CHF and hypoalbuminemia - needs optimization of CHF treatment. -Although today's chest x ray showed improved bilateral effusions compared to 06/05/2020 chest x-ray as was receiving Lasix since admission; Currently Lasix on hold due to worsening renal functions. - -With refractory CHF and resultant recurrent bilateral pleural effusions - other option we have if patient is severely symptomatic is placing Pleurx catheter for palliative purposes which might help her breathing but her chances of losing more protein through drainage will worsen her hypoalbuminemia. If she has decompensated heart failure, refractory to medical therapy, given her age and history of adenocarcinoma of colon with few positive lymph nodes and reduced functional capacity she is not a candidate for MCS. However I will involve land surveyor manager Dr. Steward and will follow her recommendations regarding management of CHF. I informed son Mr. Croft at bedside about the management plan and and also spoke to patient's grandson Mr. Ferguson -They verbalized understanding and understand the patient is advanced heart failure and agree with placing palliative Pleurx catheter placement. #Adenocarcinoma of colon status post hemicolectomy, with positive lymph nodes on biopsy. - Follows with Dr. Ramsey in office. Medical condition, labs, investigations, medications, counseling regarding medication compliance, side effects, importance of follow-up appointments, smoking-its adverse effects and importance of cessation and plan of care-everything explained in detail to the patient and [id number]. They both verbalized understanding and agreed with the plan of care. Consult Attestations Medical Necessity Statement: Recurrent bilateral pleural effusions and patient with advanced CHF and history of colon cancer with positive lymph nodes not on chemo Time Spent in Patient Care: Greater than 35 minutes (>than 50% of time spent in counselling and/or direct pt care on unit). 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
[2020-06-08] VITALS (9 sets, daily range): BP systolic 127–142; BP diastolic 82–85; PULSE 68–101; RESP 16–19; TEMP 36.4–36.6; O2SAT 92–100
[2020-06-08] MEDS: metoprolol tartrate 25 mg Tablet 12.5 MG PO ×3 (00:28→20:26)
[2020-06-08] MEDS: pantoprazole DR 40 mg Tablet PO (09:23)
[2020-06-08] MEDS: potassium chloride ER 20 mEq Tablet PO (09:23)
--- NOTE | 2020-06-08 10:07 | PC.SOCIAL ---
IMM Update Pg. 2 of IMM updated and reviewed with patient's son over the phone. Copy left at bedside as well.
--- NOTE | 2020-06-08 10:32 | US_ITS ---
WS: [id number] RENAL ULTRASOUND HISTORY: CONTRERAS, evaluate for hydronephrosis COMPARISON: None available. TECHNIQUE: 2-D and color Doppler imaging of the kidney submitted. Right kidney: 8.7 cm x 4.0 cm x 4.4 cm. Low normal size kidney. No cortical thinning. No hydronephrosis. Left kidney: 9.3 cm x cm x 4.8 cm. Normal echogenicity. No cortical thinning or hydronephrosis. Aorta: Normal. Urinary Bladder: Nondistended. Claudio catheter is present. Cholelithiasis without acute cholecystitis. US/US renal BI* [id number] IMPRESSION: No renal obstruction or hydronephrosis. No cortical thinning.
[2020-06-08 11:06] LABS: Basophils % 0.2 %; Eosinophils % 0.3 %; Hemoglobin 9.1 g/dL (11.5-15.3); Lymphocytes % 16.3 %; Mean Corpuscular HGB Conc 30.3 g/dL (30.0-36.0); Mean Corpuscular Hemoglobin 28.3 pg (28.0-34.0); Mean Corpuscular Volume 93.2 fL (81-99); Mean Platelet Volume 9.9 fL (7.4-10.4); Monocytes # 0.3 10^3/uL (0.2-0.9); Monocytes % 4.2 %; Neutrophils # 4.88 10^3/uL (1.8-7.7); Neutrophils % 78.7 %; Nucleated Red Blood Cells % 0 %; Platelet Count 247 10^3/cmm (130-400); Red Blood Count 3.22 10^6/uL (4.1-5.3); Red Cell Distribution Width 20.1 % (12.1-15.1); White Blood Count 6.2 10^3/uL (4.0-10.0)
[2020-06-08 11:27] LABS: Alanine Aminotransferase 55 U/L (0-33); Albumin Level 2.6 g/dL (3.5-5.2); Alkaline Phosphatase 87 IU/L (35-105); Anion Gap 19.7 (5-19); Aspartate Amino Transferase 54 U/L (0-32); Blood Urea Nitrogen 53 mg/dL (8-23); Calcium 8.5 mg/dL (8.5-10.5); Carbon Dioxide 23 mmol/L (22-29); Chloride 92 mmol/L (98-107); Globulin 3.5 g/dL (1.3-4.6); Glucose 89 mg/dL (65-115); Osmolality Calculated 284 mOsm/kg (285-295); Potassium 4.7 mmol/L (3.5-5.1); Sodium 130 mmol/L (136-145); Total Bilirubin 0.4 mg/dL (0.15-1.2); Total Protein 6.1 g/dL (6.6-8.7)
--- NOTE | 2020-06-08 12:00 | P.PN_ITS ---
Subjective Subjective: Interval history: Patient alert awake and oriented today, creatinine continues to trend up to 3.1, poor urine output Medications: Reviewed: Yes Vitals/I&O/Wt Last Vital Signs Temp 97.8 F 06/08/20 16:00 Pulse 88 06/08/20 16:00 Resp 17 06/08/20 16:00 BP 137/84 06/08/20 16:00 Pulse Ox 100 06/08/20 16:00 06/08/20 06/08/20 06/08/20 06:59 14:59 22:59 Intake Total 300 / 300 Output Total 350 / 350 Balance -50 / -50 Physical Exam Narrative: EXAM NARRATIVE: GEN: Awake, alert and oriented, no acute distress CVS: S1S2 N RS: CTA B/L Abd: Soft, nt/nd , bs+ SAP BODS DEVELOPER: no focal neuro deficits Extremity 1+ pitting edema over left lower extremity Urinary Catheter Management^: Claudio: Cath Placed During This Visit: yes Reason for Continuing Indwelling Catheter: Other Urinary Catheter Date of Insertion: 06/05/20 Urinary Catheter Time of Insertion: 07:04 Data : 06/08/20 10:52 06/08/20 10:52 A&P Assessment and plan (1) CHF (congestive heart failure), NYHA class IV: Status: Acute Qualifiers: Congestive heart failure chronicity: acute on chronic Congestive heart failure type: diastolic Qualified Code(s): I50.33 - Acute on chronic diastolic (congestive) heart failure (2) Lower extremity edema: Status: Acute (3) Pleural effusion, bilateral: Status: Acute (4) Hypoxia: Status: Acute (5) Lactic acid acidosis: Status: Acute (6) Acute on chronic kidney failure: Status: Acute (7) AMS (altered mental status): Status: Acute Qualifiers: Altered mental status type: unspecified Qualified Code(s): R41.82 - Altered mental status, unspecified Additional A&P Information Acute on chronic congestive heart failure exacerbation Preserved ejection fraction heart failure exacerbation No ischemic or infarctive change on EKG This seems most likely gradual decline in her diastolic dysfunction BNP greater than 70,000, Holding lasix again today given worsening cr, cardiology consult requested for diuresis management in the setting of heart failure per pulmonary recommendati ons and further planning for basement of Pleurx catheters Acute on chronic hypoxic respiratory failure Worsening bilateral pleural effusion Appreciate pulmonary recommendations Her previous thoracentesis revealed transudative pleural effusion secondary to CHF Acute on chronic kidney disease: This seems to be cardiorenal in nature however has not significantly improved with diuretics, monitor urine output correlate with creatinine. worsening cr today with following urine output. I discussed extensively with her grandson janina and patient's son Lang regarding her worsening kidney function. Both Janina and Lang indicate that patient is unlikely to be agreeable for dialysis should the need arise however they will come by at the bedside today and discuss further regarding this possibility. Patient herself defers discussion of these medical issues to her grandson Janina. Patient has previously stated that given her advanced age, recurrent hospital admissions, failure to thrive and no gross overall clinical improvement along with worsening heart failure she has elected not to proceed with chemotherapy for directed treatment of her cancer. Currently focus is on symptomatic management to optimize her respiratory status, this will include treatment with diuretics, nebulization,pleurex cathter , BiPAP etc. as needed. Son is not curerntly interested in hospice. AMS: As a result of hypoxia Transaminitis, right upper quadrant ultrasound without metastasis Sinus tachycardia started p.o. metoprolol tartrate 12.5 mg p.o. twice daily Goals of care discussed with the son: DNR/DNI Cardiac diet DVT prophylaxis lovenox Guarded prognosis Attestations Medical Necessity Statement*: Worsening renal function, cardiology consult, possible Pleurx placement Coding Level of Care Code Acute Account Contact Associate for [facility] Fwd Diagnoses CHF (congestive heart failure), NYHA class IV I50.33 Congestive heart failure chronicity: acute on chronic Congestive heart failure type: diastolic Lower extremity edema R60.0 Pleural effusion, bilateral J90 Hypoxia R09.02 Lactic acid acidosis E87.2 Acute on chronic kidney failure N17.9; N18.9 AMS (altered mental status) R41.82 Altered mental status type: unspecified
--- NOTE | 2020-06-08 13:32 | PM.CONSULT ---
Providers/Reason For Consult Consulting Physican/Specialty*: TRISTAN Pandey MD/cardiology Reason for Consult*: Patient with CHF/recurrent pleural effusion/history of ASHD Attending Physician: Shantel Cruz MD Primary Care Provider: Ming Castellanos DO History of Present Illness History of Present Illness Pain Natasha Gustafson is a 85 year old female, is admitted to hospital with complaints of progressive shortness of breath. She was found to have bilateral pleural effusion and features of congestive heart failure. She is on IV diuresis. Apparently she has recurrent pleural effusions. 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 Had a previous echocardiogram revealed grade 2 left ventricular diastolic dysfunction by echocardiogram. Her LV ejection fraction was normal. Her BNP was found to be markedly elevated. Cardiology consult is requested for the management of recurrent heart failure. Patient is extremely hard of hearing . She also is a very poor historian. Information is mostly from the medical records and also from the nursing staff. No family members are available at this time for other details Patient apparently had recurrent hospital admissions for decompensated heart failure and possible pneumonia. She had a thoracentesis on the right and the left ,, during the previous hospital admissions. This patient has a history of coronary artery disease and had a PCI, in 2006 at [facility] in [place]?. Details of this is not available. Patient apparently had a myocardial perfusion imaging in 2019 , ? In [place] and was found to have no evidence of ischemia-based on the records. Currently she denies any chest pain or chest tightness. Her main complaint is the shortness of breath. She gets extremely short of breath even with minimal movements. Currently she is on 2 L of oxygen by nasal cannula. Her resting oxygen saturation is 97%. She has no fever or chills. No significant cough. Review of Systems Narrative: CONSTITUTIONAL: Has a history of recent pneumonia. The COVID-19 was negative EYES: No recent changes. ENT: Extremely hard of hearing. CARDIOVASCULAR: As mentioned above RESPIRATORY: Recurrent pleural effusion and? Pneumonia GENITOURINARY: No dysuria or hematuria. INTEGUMENTARY: No skin rashes or history of skin cancer. NEURO: No focal motor deficits. PSYCHIATRIC: No history of psychosis or major depression. HEMATOLOGIC: Moderate anemia ENDOCRINE: No history of polyuria or polydipsia. MUSCULOSKELETAL: History of DJD ALLERGY/IMMUNOLOGY: As mentioned above. Meds/Allergies Home Medications and Allergies Home Medications Medication Instructions Recorded Confirmed Last Taken Type lorazepam 1 mg PO BID@03/08/20 06/05/20 Unknown History ferrous sulfate 325 mg PO BID@05/21/20 06/05/20 06/04/20 History fluticasone propionate 1 spray NASAL BID 05/21/20 06/05/20 Unknown History pantoprazole 40 mg tablet,delayed 40 mg PO DAILY@06/01/20 06/05/20 06/04/20 History release Zeal Drink See Rx Instructions .ROUTE .COMPLEX 06/05/20 06/05/20 Unknown History furosemide 40 mg PO DAILY@07 06/05/20 06/05/20 Unknown History potassium chloride 10 meq PO QAM 06/05/20 06/05/20 Unknown History Allergies Allergy/AdvReac Type Severity Reaction Status Date / Time atorvastatin [From Lipitor] Allergy ADR-Cough Verified 06/05/20 10:04 latex Allergy ALGY-Rash Verified 06/05/20 10:04 Current Medications Current Medications Generic Name Dose Route Start Last Admin Trade Name Freq PRN Reason Stop Dose Admin Acetaminophen 650 mg 06/07/20 16:09 06/07/20 16:20 Acetaminophen 325 Mg Tablet PO 650 mg Q8H PRN Administration DISCOMFORT Enoxaparin Sodium 30 mg 06/07/20 18:15 06/07/20 17:59 Enoxaparin 30 Mg/0.3 Ml Syringe SUBCUT 30 mg Q24H LUIS E Administration Furosemide 40 mg 06/06/20 13:45 06/06/20 14:44 Furosemide 10 Mg/Ml Sdv 4ml IVP 40 mg Q24H LUIS E Administration Lanolin 1 applic 06/07/20 16:08 06/07/20 16:21 Lanolin Oint 7 Gm TOPICAL 1 applic PRN PRN Administration DRYNESS Metoprolol Tartrate 12.5 mg 06/05/20 17:30 06/08/20 09:23 Metoprolol Tartrate 25 Mg Tablet PO 12.5 mg BID@0900,2100 LUIS E Administration Pantoprazole Sodium 40 mg 06/06/20 09:00 06/08/20 09:[address] 40 Mg Tablet PO 40 mg DAILY LUIS E Administration Potassium Chloride 20 meq 06/05/20 16:46 06/08/20 09:23 Potassium Chloride Er 20 Meq Tablet PO 20 meq DAILY LUIS E Administration PFSH Acute PFSH: Medical History (Updated 06/08/20 @ 13:50 by Matthew Pandey MD) Acute kidney injury superimposed on CKD Ascending colon malignant neoplasm Status post right hemicolectomy on 01/08/2020. Atherosclerotic heart disease of [place] coronary artery without angina pectoris Benign essential hypertension with target blood pressure below 140/90 CAD (coronary artery disease) -s/p stenting x 2 (2005) Diastolic heart failure SEN (dyspnea on exertion) Dyslipidemia Dysphagia Elevated troponin Hypercholesteremia Continue statin. Hypertension . Hypokalemia Hyponatremia Iron deficiency anemia -recent blood transfusion due to worsening anemia (11/03/2019) Persistent pneumonia Postoperative anemia Status post transfusion. Hemoglobin 9.5. Skin cancer of face Vertigo Weakness Surgical History H/O heart artery stent H/O hemicolectomy H/O: hysterectomy History of left hip replacement Family History Denies family history of CAD (coronary artery disease) Social History Smoking and tobacco status: never smoked Second hand smoke exposure: No Smoking risk assessment/counseling performed?: No Alcohol intake: never Caregiver/support person: Yes Lives independently: Yes Household members: spouse and children Housing: House Marital status: Marital status details: Takes care of her at home who has Alzheimer's dementia. Current occupational status: retired History of recent travel: No Current gender identity: Female Vitals/I&O/Wt Last Vital Signs Temp 97.5 F L 06/08/20 11:12 Pulse 90 06/08/20 11:12 Resp 17 06/08/20 11:12 BP 129/84 06/08/20 11:12 Pulse Ox 96 06/08/20 11:12 06/07/20 06/08/20 06/08/20 22:59 06:59 14:59 Intake Total 60 / 60 Output Total 100 / 100 350 / 350 Balance -100 / 140 -290 / -290 Physical Exam Narrative: EXAM NARRATIVE: GENERAL: The patient is alert and oriented times two. Not in any acute distress. Chronically ill looking HEENT: Moderate pallor, noicterus or lymphadenopathy. The pupils are symmetrical. Oral cavity: There are no mucous membrane lesions. Funduscopic examination: The fundus is not visualized NECK: Trachea appears to be central. No masses noted. No JVD or thyromegaly appreciated. No carotid bruit. RESPIRATORY: Chest is symmetrical. No intercostals muscle retraction or any accessory muscle activation. The breath sounds are markedly diminished in the bases. Bronchovesicular breath sounds in the right mid zone. BREASTS: Deferred. HEART: The PMI is in the 5th left intercostals space just in the midclavicular line. No palpable precordial events. S1 and S2 are normal. No S3 or S4 heard. No pericardial rub or any click heard. Short systolic murmur in the mitral area. ABDOMEN: No vessel pulsations or distention. No tenderness. No organomegaly appreciated. No abdominal bruit. Bowel sounds are normally heard. : Deferred. RECTAL: Deferred. LYMPHATIC: No lymphadenopathy noted in the neck or groin. EXTREMITIES: No edema cyanosis peripheral pulses are palpable but weak bilaterally. MUSCULOSKELETAL: No acute joint deformities or swelling SKIN: There are no significant scars or skin rash noted. NEUROPSYCHIATRIC: The patient is alert and oriented x2. No focal motor deficits. Urinary Catheter Management^: Claudio: Cath Placed During This Visit: yes Reason for Continuing Indwelling Catheter: Other Urinary Catheter Date of Insertion: 06/05/20 Urinary Catheter Time of Insertion: 07:04 Data Labs: Other Labs: Laboratory Last Values WBC 6.2 10^3/uL (4.0- 10.0) 06/08/20 10:52 RBC 3.22 10^6/uL (4.1 -5.3) L 06/08/20 10:52 Hgb 9.1 g/dL (11.5-15 .3) L 06/08/20 10:52 Hct 30.0 % (37.0-47.0 ) L 06/08/20 10:52 MCV 93.2 fL (81-99) 06/08/20 10:52 MCH 28.3 pg (28.0-34. 0) 06/08/20 10:52 MCHC 30.3 g/dL (30.0-3 6.0) 06/08/20 10:52 RDW 20.1 % (12.1-15.1 ) H 06/08/20 10:52 Plt Count 247 10^3/cmm (130 -400) 06/08/20 10:52 MPV 9.9 fL (7.4-10.4) 06/08/20 10:52 Neut % (Auto) 78.7 % 06/08/20 10:52 Lymph % (Auto) 16.3 % 06/08/20 10:52 Mccormick % (Auto) 4.2 % 06/08/20 10:52 Eos % (Auto) 0.3 % 06/08/20 10:52 Baso % (Auto) 0.2 % 06/08/20 10:52 Neut # (Auto) 4.88 10^3/uL (1.8 -7.7) 06/08/20 10:52 Lymph # (Auto) 1.0 10^3/uL (0.8- 4.8) 06/08/20 10:52 Mccormick # (Auto) 0.3 10^3/uL (0.2- 0.9) 06/08/20 10:52 Eos # (Auto) 0.0 10^3/uL (0.0- 0.8) 06/08/20 10:52 Baso # (Auto) 0.0 10^3/uL (0.0- 0.1) 06/08/20 10:52 Nucleated RBC % (a uto) 0 % 06/08/20 10:52 Nucleated RBCs # 0.0 /100WBC 06/08/20 10:52 PT 14.40 SECONDS (12 .1-14.9) 06/07/20 05:02 INR 1.08 (0.8-1.2) 06/07/20 05:02 Specimen Type Arterial 06/05/20 05:00 Sample Site Radial, right 06/05/20 05:00 ABG pH 7.45 (7.35-7.45) 06/05/20 05:00 ABG pCO2 34.5 mmHg (35-45) L 06/05/20 05:00 ABG pO2 64.3 mmHg (80.0-1 00.0) L 06/05/20 05:00 ABG HCO3 23.7 mmol/L (22-2 6) 06/05/20 05:00 ABG Base Excess -0.1 mmol/L (-2.0 -2.0) 06/05/20 05:00 Mc Test Pos 06/05/20 05:00 Hematocrit 28.3 % (37-47) L 06/05/20 05:00 Hgb O2 Saturation 90.9 % (95-100) L 06/05/20 05:00 Carboxyhemoglobin 1.1 %THgb (0.4-20 .1) 06/05/20 05:00 Methemoglobin 0.7 % (0.4-1.5) 06/05/20 05:00 Total Hemoglobin 9.2 g/dL (12-16) L 06/05/20 05:00 O2 Delivery Device Nc 06/05/20 05:00 O2 Liters/Min 2.0 % 06/05/20 05:00 FiO2 28.0 % 06/05/20 05:00 Procedure Rn ID Jlg 06/05/20 05:00 Sodium 130 mmol/L (136-1 45) L 06/08/20 10:52 Potassium 4.7 mmol/L (3.5-5 .1) 06/08/20 10:52 Chloride 92 mmol/L (98-107 ) L 06/08/20 10:52 Carbon Dioxide 23 mmol/L (22-29) 06/08/20 10:52 Anion Gap 19.7 (5-19) H 06/08/20 10:52 BUN 53 mg/dL (8-23) H 06/08/20 10:52 Creatinine 3.1 mg/dL (0.5-0. 9) H 06/08/20 10:52 GFR Calculation Not Reportable 06/08/20 10:52 Glucose 89 mg/dL (65-115) 06/08/20 10:52 POC Glucose 85 mg/dL (70-110) 06/06/20 11:09 Calculated Osmolal ity 284 mOsm/kg (285- 295) L 06/08/20 10:52 Lactic Acid 3.0 mmol/L (0.5-2 .2) H 06/05/20 04:40 Lactic Acid (Sepsi s) 3.5 mmol/L (0.5-2 .2) H 06/05/20 07:40 Calcium 8.5 mg/dL (8.5-10 .5) 06/08/20 10:52 Magnesium 1.8 mg/dL (1.7-2. 3) 06/05/20 04:40 Total Bilirubin 0.4 mg/dL (0.15-1 .2) 06/08/20 10:52 AST 54 U/L (0-32) H 06/08/20 10:52 ALT 55 U/L (0-33) H 06/08/20 10:52 Alkaline Phosphata se 87 IU/L (35-105) 06/08/20 10:52 NT-Pro-B Natriuret Pep > 81071 pg/mL (0- 450) H 06/05/20 04:40 Total Protein 6.1 g/dL (6.6-8.7 ) L 06/08/20 10:52 Albumin 2.6 g/dL (3.5-5.2 ) L 06/08/20 10:52 Globulin 3.5 g/dL (1.3-4.6 ) 06/08/20 10:52 Urine Color Yellow (Yellow) 06/05/20 04:45 Urine Appearance Hazy (CLEAR) A 06/05/20 04:45 Urine pH 5 (5-7) 06/05/20 04:45 Ur Specific Gravit y 1.020 (1.005-1.0 30) 06/05/20 04:45 Urine Protein 2+ (Negative) H 06/05/20 04:45 Urine Glucose (UA) Norm (Normal) 06/05/20 04:45 Urine Ketones Negative (Negati ve) 06/05/20 04:45 Urine Blood 2+ (Negative) H 06/05/20 04:45 Urine Nitrate Negative (Negati ve) 06/05/20 04:45 Urine Bilirubin Neg (Negative) 06/05/20 04:45 Urine Urobilinogen Norm mg/dL (Negat kike) 06/05/20 04:45 Ur Leukocyte Adrianne ase Negative (Negati ve) 06/05/20 04:45 Urine RBC 0-4 /hpf (0-2) H 06/05/20 04:45 Urine WBC None /hpf (0-5) 06/05/20 04:45 Ur Squamous Epith Cells 0-4 /hpf (0-5) H 06/05/20 04:45 Amorphous Sediment 4+ /hpf 06/05/20 04:45 Urine Bacteria Trace /hpf (NONE) 06/05/20 04:45 SARS-CoV-2 Ag (Rap id) Negative (Negati ve) 06/05/20 15:16 Imaging^: Echo: My impression: Echocardiogram on 03/23/2020 revealed Normal left ventricular size and systolic function, EF 63 %. No regional wall motion abnormalities. Mild left ventricular hypertrophy. Thickened aortic valve. There is no pericardial effusion. There are no intracardiac masses. Compared to the study from 03/09/2020, there may not be a significant change CXR: My impression: Chest x-ray on 06/08/2020 revealed Mild cardiomegaly. Moderate pleural effusion on the left side and possibly small effusion on the right side. Prominent pulmonary venous markings. EKG^: EKG 1: My Interpretation: The EKG revealed sinus tachycardia with a rate of 125 bpm. Poor R wave progression. Some diffuse nonspecific T wave changes. A&P Assessment and plan (1) Acute on chronic diastolic heart failure: Patient is a markedly elevated BNP is a concern. She may be treated with IV diuresis. I may go ahead and do a repeat limited 2D echocardiogram to evaluate the LV function. We will try to optimize the diuretic agents. Status: Acute (2) Pleural effusion, bilateral: The recurrent pleural effusion, partly could be related to the heart failure. In view of her multiple comorbidities, other etiologies cannot be excluded Status: Acute (3) Atherosclerotic heart disease of [place] coronary artery without angina pectoris: Since the patient has no specific symptoms of coronary insufficiency except for the shortness of breath, it may be appropriate to continue the medical treatment at this time especially in view of the abnormal kidney function. May consider doing a myocardial perfusion imaging, sometime down the line to evaluate for any coronary ischemia. Status: Acute Qualifiers: [place] vs. transplanted heart: [place] heart Qualified Code(s): I25.10 - Atherosclerotic heart disease of [place] coronary artery without angina pectoris (4) Benign essential hypertension with target blood pressure below 140/90: Need to optimize the antihypertensive medications. Currently the blood pressure is a stage II Status: Acute (5) Ascending colon malignant neoplasm: Management and follow-up as per the oncology service Status: Acute (6) Dyslipidemia: Continue on the current medications. Status: Acute Additional A&P Information The other problems are Moderately differentiated adenocarcinoma of the colon Moderate anemia Worsening kidney function Possible pneumonia Hypoalbuminemia Elevated liver enzymes Proteinuria After reviewing the above and also based on the patient's the clinical progress, further recommendations will be made. Thank you for the opportunity to evaluate this patient and make these recommendations Addendum The echocardiogram was reviewed. Patient was found to have severe LV systolic dysfunction. The etiology is not clear. Ischemia versus a variant of Takotsubo syndrome are considerations. Once the patient becomes clinically stable, may need to consider a myocardial perfusion imaging to evaluate for any underlying coronary ischemia. At this point, I may be focusing on optimizing her medical treatment. Since her blood pressure is slightly elevated, I may add isosorbide mononitrate 30 mg p.o. daily in addition to the current medications. Based on her clinical progress, further recommendations will be made. Patient's overall prognosis is poor. I will be discussing these issues with her family. 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 transplanted heart: [place] heart Benign essential hypertension with target blood pressure below 140/90 I10 Ascending colon malignant neoplasm C18.2 Dyslipidemia E78.5
--- NOTE | 2020-06-08 13:53 | USCV_ITS ---
Natasha Gustafson Age: 85 Gender: F : 1935 Exam Date: 06/08/2020 15:32 Ordering Phys: Matthew Pandey MD ([email or web address]) Technologist: El Brown Exam Location: [facility] [place] Indication: CHF BP: 124 / 75 HR: 104 Rhythm: Sinus Technical Quality: Good MEASUREMENTS (Male / Female) Normal Values 2D ECHO LV Diastolic Diameter PLAX 3.5 cm 4.2 - 5.9 / 3.9 - 5.3 cm LV Systolic Diameter PLAX 2.8 cm IVS Diastolic Thickness 0.7 cm 0.6 - 1.0 / 0.6 - 0.9 cm IVS Systolic Thickness 1.1 cm LVPW Diastolic Thickness 1.0 cm 0.6 - 1.0 / 0.6 - 0.9 cm LVPW Systolic Thickness 1.1 cm LVOT Diameter 2.0 cm LV Ejection Fraction 2D Teich 17.4 % LV Ejection Fraction MOD 2C 42.2 % LV Ejection Fraction 2C AL 42.9 % LA Diameter 3.5 cm LA Width 3.7 cm LA Height 4.1 cm RA Width 3.4 cm RA Height 4.9 cm M-MODE LV Diastolic Diameter MM 4.9 cm 4.2 - 5.9 / 3.9 - 5.3 cm LV Systolic Diameter MM 3.7 cm LV Ejection Fraction MM Teich 48.1 % IVS Diastolic Thickness MM 0.8 cm 0.6 - 1.0 / 0.6 - 0.9 cm IVS Systolic Thickness MM 0.8 cm LVPW Diastolic Thickness MM 0.9 cm 0.6 - 1.0 / 0.6 - 0.9 cm LVPW Systolic Thickness MM 1.7 cm RV Diastolic Diameter MM 1.5 cm Aortic Annulus Diameter 2.6 cm LA Ao Ratio MM 1.3 MV E Point Septal Separation 0.9 cm DOPPLER TR Peak Velocity 371.0 cm/s TR Peak Gradient 55.1 mmHg TV Peak E Velocity 123.0 cm/s Right Atrial Pressure 3.0 mmHg Pulmonary Artery Systolic Pressu 58.1 mmHg PV Peak Velocity 98.0 cm/s FINDINGS Left Ventricle Severe diffuse hypokinesia of the left ventricle, mostly involving the mid and apical segments. LV ejection fraction around 20 to 25% Right Ventricle Appears to be of normal size with slightly diminished ejection fraction Right Atrium Possibly of normal size Left Atrium Possibly of normal size Mitral Valve Thickened mitral valve. Aortic Valve Thickened aortic valve. Tricuspid Valve [id number] tricuspid valve regurgitation. Pulmonic Valve Could not be visualized well Pericardium No pericardial effusion. Large left-sided pleural effusion Aorta Normal aortic annulus size. CONCLUSIONS Dr Matthew Pandey MD [facility] (Electronically Signed) Final Date: 08 June 2020 17:59 S
--- NOTE | 2020-06-08 15:09 | PC.NURSE ---
Bed alarm sounding patient attempted to get out of bed for bedside commode, assisted patient, unable to have BM assisted back to bed, applied barrier ointment to sacrum, call light in reach, bed alarm activated, discussed calling prior to getting out of bed, verbalized understanding.
[2020-06-08] MEDS: morphine 4 mg/mL SDV 1 mL 2 MG IVP (17:02)
--- NOTE | 2020-06-08 17:02 | PC.NURSE ---
consent obtained by Dr. Murphy and witnessed by myself for right pleurex. time out completed. Premedicated with morphine 2mg IV per Dr. Murphy. Patient resting on left side without distress, equal rise and fall of chest.
--- NOTE | 2020-06-08 17:39 | XR_ITS ---
WS: [id number] Portable AP upright chest, 06/08/2020 Clinical Data: bedside procedure of right Pleurx Comparison: Portable chest, 06/07/2020. Findings: A pleural based chest tube has been inserted into the right lower pleural space. The right pleural effusion has diminished greatly but there is a localized right basilar pneumothorax. The left pleural effusion remains the same. There are atelectatic changes at the left lung base. The heart is probably enlarged. The aortic arch shows calcification and tortuosity. Monitor leads are on the ches t wall. XR/XR chest 1V portable [id number] Impression: 1. Placement of basilar right pleural catheter diminishing the right pleural ef fusion. 2. Small right basilar pneumothorax. 2. No change in left pleural effusion, heart size and atelectatic changes.
--- NOTE | 2020-06-08 17:41 | PC.NURSE ---
Procedure completed, site cleaned by physician and dressing applied by physician. Patient resting with eyes open, oriented X3, denies pain, requests something to drink.
--- NOTE | 2020-06-08 17:45 | PC.NURSE ---
1L removed from right pleurex clear yellow in color, tolerated well without distress, physician remained at bedside throughout procedure.
[2020-06-08] MEDS: enoxaparin 30 mg/0.3 mL Syringe SUBCUT (18:05)
--- NOTE | 2020-06-08 18:16 | PM.ACPR ---
Procedure/Consent Time out: Time Out Performed: Yes Consent: Consent for Procedure: Consent obtained from patient, Risks & Benefits reviewed and Agrees to proceed with procedure Procedure Narrative: Name of the procedure: Right-sided Pleurx catheter placement Anesthesia: Local: 1% lidocaine 10 mL. Description of the procedure: The patient was placed in left lateral position. Using the ultrasound a safe fluid pocket was identified in the right ninth intercostal space in the midaxillary line. The site was marked. The patient was then prepared using sterile technique. 1% lidocaine was used to anesthetize the skin and subcutaneous tissue periosteum and the pleural space was entered. Serosanguineous fluid was aspirated. The introducer needle was then introduced into the pleural space. The guide wire was introduced and left in place. About 4 cm from the initial introduction site in the anterolateral chest wall a second incision was made. The pleural catheter was then tunneled under the skin with the help of a trocar. The initial site was then dilated and the Pleurx catheter was advanced into the pleural space without any difficulty. The incision sites were sutured. There was good hemostasis. 1000 cc of serosanguineous fluid was drained. Complications: None Follow-up: 1. The patient will follow-up with me in 10 days time for removal of sutures. Acute Procedures Epistaxis Control: Time out performed: Yes
[2020-06-08 19:00] LABS: Body Fluid Polynuclear #Cells 0.006; Body Fluid WBC 19 /uL; Monocytes # Body Fluid 0.013; RBC, Body Fluid 0 10^3/uL
[2020-06-08 19:28] LABS: Apprearance, Body Fluid CLEAR; Color, Body Fluid PALE YELLOW
[2020-06-08 19:29] LABS: Pleural Fluid Specific Gravity 1.015
[2020-06-08 19:50] LABS: Fluid Alkaline Phos. 7 IU/L; Pleural Fluid Albumin 0.7 g/dL; Pleural Fluid Cholesterol 26 mg/dL; Total Protein Pleural Fluid 1.6 g/dL; Triglycerides, Pleural Fluid 16 mg/dL; Uric Acid Body Fluid 11 mg/dL
[2020-06-08 19:51] LABS: LDH Pleural Fluid 111 U/L
[2020-06-08] MEDS: acetaminophen 325 mg Tablet 650 MG PO (20:26)
[2020-06-08] MEDS: albumin 12.5 GM/250 ML VIAL IV (22:36)
[2020-06-09] VITALS (8 sets, daily range): BP systolic 126–159; BP diastolic 79–93; PULSE 77–91; RESP 16–20; TEMP 36.3–36.7; O2SAT 97–100
[2020-06-09] MEDS: albumin 12.5 GM/250 ML VIAL IV ×3 (05:02→23:03)
--- NOTE | 2020-06-09 07:28 | PC.NURSE ---
Patient resting with eyes closed, awakens easily, denies pain, call light in reach, discussed plan of care, verbalized understanding.
--- NOTE | 2020-06-09 07:43 | NUR.SHIFT ---
At the beginning of the shift, the patient appeared to have more cognitive ability than she did at the end of shift. The patient otherwise had an uneventful night.
--- NOTE | 2020-06-09 09:20 | PC.NURSE ---
Completed ramos care and applied barrier ointment to sacrum.
[2020-06-09] MEDS: metoprolol tartrate 25 mg Tablet 12.5 MG PO (09:32)
[2020-06-09] MEDS: potassium chloride ER 20 mEq Tablet PO (09:32)
[2020-06-09] MEDS: isosorbide mononitrate ER 30 mg Tablet PO (09:32)
[2020-06-09] MEDS: pantoprazole DR 40 mg Tablet PO (09:32)
[2020-06-09] MEDS: polyethylene glycol 3350 Pkt 17 gm PO (12:48)
--- NOTE | 2020-06-09 14:21 | P.PN_ITS ---
Subjective Subjective: Interval history: Status post placement of Pleurx catheter yesterday, creatinine continues to worsen, at 3.1 today, echocardiogram repeated at bedside yesterday which shows severe drop in ejection fraction to 20 to 22% with global left ventricular hypokinesia likely as a result of recent ischemic event. Urine output poor at 150 cc, however noted leaking around her Claudio catheter insertion, which has since been repositioned. 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 Extremities no current lower extremity edema Urinary Catheter Management^: Claudio: Cath Placed During This Visit: yes Reason for Continuing Indwelling Catheter: Other Urinary Catheter Date of Insertion: 06/05/20 Urinary Catheter Time of Insertion: 07:04 Data : 06/08/20 10:52 06/08/20 10:52 Micro: Microbiology 06/08/20 17:55 Gram Stain - Final Pleural Fluid A&P Assessment and plan (1) Cardiomyopathy: Status: Acute Qualifiers: Cardiomyopathy type: unspecified Qualified Code(s): I42.9 - Cardiomyopathy, unspecified (2) CHF (congestive heart failure), NYHA class IV: Status: Acute Qualifiers: Congestive heart failure chronicity: acute on chronic Congestive heart failure type: combined Qualified Code(s): I50.43 - Acute on chronic combined systolic (congestive) and diastolic (congestive) heart failure (3) Lower extremity edema: Status: Acute (4) Pleural effusion, bilateral: Status: Acute (5) Hypoxia: Status: Acute (6) Lactic acid acidosis: Status: Acute (7) Acute on chronic kidney failure: Status: Acute (8) AMS (altered mental status): Status: Acute Qualifiers: Altered mental status type: unspecified Qualified Code(s): R41.82 - Altered mental status, unspecified (9) Colon cancer: Status: Acute Additional A&P Information #Acute on chronic congestive heart failure exacerbation Patient has a history of diastolic heart failure for which she has been following with cardiology as an outpatient. New bedside echo performed yesterday shows drop in ejection fraction now to 20 to 22% with global left ventricular hypokinesia, likely indicative of recent ischemic cardiac event that patient may have suffered. There is no significant change compared to echocardiogram of March 2020 where her LVEF was 70% without any regional wall motion abnormalities Recent admission on May 21, 2020 her troponin was noted to be elevated at 422 with serial negative delta, noted to be type II CO?no chest pain and no corresponding changes on EKG. She was treated for CHF exacerbation at the time. BNP greater than 70,000 Holding lasix again today given worsening cr, cardiology consult requested for diuresis management in the setting of heart failure Started on albumin every 8 hours last night to hopefully help with renal perfusion. #Acute on chronic hypoxic respiratory failure Worsening bilateral pleural effusion, on pleural fluid analysis as previously known to be a transudate of effusion, likely in the setting of worsening heart failure. Appreciate pulmonary recommendations Status post placement of Pleurx catheter on the right side on 06/08/2020 with drainage of 1000 cc of sanguinous fluid. # Acute on chronic kidney disease: This seems to be cardiorenal in nature however has not significantly improved with diuretics, monitor urine output correlate with creatinine. worsening cr today with falling urine output. I discussed extensively with her grandson janina and patient's son Lang regarding her worsening kidney function. Both Janina and Lang indicate that patient is unlikely to be agreeable for dialysis should the need arise however they will come by at the bedside today and discuss further regarding this possibility. Patient herself defers discussion of these medical issues to her grandson Janina. Patient has previously stated that given her advanced age, recurrent hospital admissions, failure to thrive and no gross overall clinical improvement along with worsening heart failure she has elected not to proceed with chemotherapy for directed treatment of her cancer. It appears she was being planned for X eloda as an outpatient. Currently focus is on symptomatic management to optimize her respiratory status, this will include treatment with diuretics, nebulization,pleurex cathter , BiPAP etc. as needed. Son is not curerntly interested in hospice. I have tried to explain the difference between palli ative and hospice services. Palliative services may be appropriate for the patient at this time given that she does not want chemotherapy or other aggressive interventions. Son Lang thinks she will not be agreeable to dialysis however they will be at bedside to discuss a more this evening. Hospi ce was also offered on a recent admission in May, however the family has declined. They are hopeful she will be able to make it o SNF and may benefit from the same and have better endurance. PT assessment ordered. AMS: As a result of hypoxia, now resolved, patient is alert awake and oriented Transaminitis, right upper quadrant ultrasound without metastasis , likely as a result of poor perfusion from falling EF Sinus tachycardia started p.o. metoprolol tartrate 12.5 mg p.o. twice daily Goals of care discussed with the son: DNR/DNI Cardiac diet DVT prophylaxis lovenox Guarded prognosis given comorbidities Attestations Medical Necessity Statement*: worsening renal function, s/p pleurex placement, consideration for further thoracentesis, resuming diuresis when feasible Coding Level of Care Code Acute Ems Coordinator for Chg Fwd Diagnoses Cardiomyopathy I42.9 Cardiomyopathy type: unspecified CHF (congestive heart failure), NYHA class IV I50.43 Congestive heart failure chronicity: acute on chronic Congestive heart failure type: combined Lower extremity edema R60.0 Pleural effusion, bilateral J90 Hypoxia R09.02 Lactic acid acidosis E87.2 Acute on chronic kidney failure N17.9; N18.9 AMS (altered mental status) R41.82 Altered mental status type: unspecified Colon cancer C18.9
--- NOTE | 2020-06-09 14:43 | PC.NURSE ---
patient xiong noted to be leaking slightly when patient was up to bedside commode attempting BM, Dr. Cruz notified but requests xiong to stay due to renal failure needing accurate and close Intake and output measurement.
--- NOTE | 2020-06-09 17:19 | P.PN_ITS ---
Subjective Subjective: Interval history: Natasha Gustafson is a 85 year old female with PMHx of CAD s/p stents x 2 in 2005, recent hospitalization (early March and then mid march) for pneumonia, treated with Rocephin, azithromycin with rapid COVID-19 antigen as well as PCR testing negative. She also has moderately differentiated adenocarcinoma of ascending colon and underwent exploratory lap arotomy 01/08/2020 with right hemicolectomy. Biopsy report showed moderately differentiated adenocarcinoma with mucinous and micropapillary features being managed by Dr. Ramsey. Unfortunately she has had multiple hospital visits since March. Patient underwent thoracocentesis from both sides on March 23 and . Fluid studies from thoracocentesis was transudative and negative for any malignancy. I had increased her dose of Lasix as well as added metolazone as an outpatient. She she lost several pounds with that but her renal function worsened and her blood pressure dropped in 80s. I held her metoprolol as well as Lasix and metolazone however she continued to have poor p.o. intake and decreased urine output as well as low blood pressure and hence was sent to the ER. She received IVF in the hospital and was discharged home after 2 days on 23 May. I saw her in office on 01 June when she had been off diuretics for 12 days. Labs on 05-24 with sodium 134, potassium 3.7, BUN 52, Cr-1.6. She had some lower extremity edema however improved from before but her pleural effusion seem to have worsened on exam and hence I started her on Lasix 40 mg with plan to uptitrate based on her response. The plan was to set her up with Dr. Murphy as an outpatient for consideration of Pleurx catheter placement. I did extensively discussed with the patient and her [id number] about possibility of hospice placement. However shortly thereafter on 05 June she got admitted with worsening shortness of breath, hypoxia tachypnea and was placed on 5 L of oxygen via nasal cannula followed by BiPAP. Chest x-ray showed CHF exacerbation and worsening bilateral pleural effusion. Her BNP was greater than 70,000 and initially she was placed on Bumex followed by Lasix [address] head was done which did not show any acute abnormality and was done for altered mental status on admission. Dr. Pandey was consulted and repeat echocardiogram revealed drop in left ventricular systolic function that appears to be Takotsubo cardiomyopathy. She also underwent right-sided Pleurx catheter placement by Dr. Murphy yesterday. Her UO has been dropping and renal function has been increasing. She at the time of evaluation seems some what tachyepnic. She complains of pain at the site of p leurex catheter. Medications: Reviewed: Yes Medication Review Details: Current Medications Acetaminophen (Acetaminophen 325 Mg Tablet) 650 mg PO Q8H PRN PRN Reason: DISCOMFORT Last Admin: 06/08/20 20:26 Dose: 650 mg Documented by: Enoxaparin Sodium (Enoxaparin 30 Mg/0.3 Ml Syringe) 30 mg SUBCUT Q24H [facility] Last Admin: 06/09/20 17:23 Dose: 30 mg Documented by: Furosemide (Furosemide 10 Mg/Ml Sdv 4ml) 40 mg IVP Q24H [facility] Last Admin: 06/06/20 14:44 Dose: 40 mg Documented by: Albumin Human (Albumin) 12.5 gm in 250 mls @ 300 mls/hr IV Q8H [facility] Last Admin: 06/09/20 12:47 Dose: 300 mls/hr Documented by: Isosorbide Mononitrate (Isosorbide Mononitrate Er 30 Mg Tablet) 30 mg PO DAILY [facility] Last Admin: 06/09/20 09:32 Dose: 30 mg Documented by: Lanolin (Lanolin Oint 7 Gm) 1 applic TOPICAL PRN PRN PRN Reason: DRYNESS Last Admin: 06/07/20 16:21 Dose: 1 applic Documented by: Metoprolol Tartrate (Metoprolol Tartrate 25 Mg Tablet) 12.5 mg PO BID@0900,2100 [facility] Last Admin: 06/09/20 09:32 Dose: 12.5 mg Documented by: Pantoprazole Sodium (Pantoprazole Dr 40 Mg Tablet) 40 mg PO DAILY [facility] Last Admin: 06/09/20 09:32 Dose: 40 mg Documented by: Polyethylene Glycol (Polyethylene Glycol 3350 Pkt 17 Gm) 17 gm PO DAILY PRN PRN Reason: CONSTIPATION Last Admin: 06/09/20 12:48 Dose: 17 gm Documented by: Potassium Chloride (Potassium Chloride Er 20 Meq Tablet) 20 meq PO DAILY [facility] Last Admin: 06/09/20 09:32 Dose: 20 meq Documented by: Intake & Output 06/07/20 06/08/20 06/09/20 06/10/20 06:59 06:59 06:59 06:59 Intake Total 240 / 240 820 / 820 480 / 480 Output Total 200 / 200 100 / 100 575 / 575 75 / 75 Balance -200 / -200 140 / 140 245 / 245 405 / 405 Vitals/I&O/Wt Last Vital Signs Temp 97.7 F 06/09/20 15:46 Pulse 83 06/09/20 15:46 Resp 16 06/09/20 15:46 BP 137/92 06/09/20 15:46 Pulse Ox 100 06/09/20 15:46 06/09/20 06/09/20 06/09/20 06:59 14:59 22:59 Intake Total 500 / 820 480 / 480 Output Total 150 / 575 75 / 75 Balance 350 / 245 480 / 480 -75 / 405 Physical Exam Narrative: EXAM NARRATIVE: Gen: elderly frail patient lying in bed HEENT: pallor+, No icterus, elevated JVD RS: decreases bilateral breath sounds (L>R), pleurex catheter in place 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 and 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 and 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 CVS: S1, S2+, No murmur heard Ext: 1+ bilateral leg edema Urinary Catheter Management^: Claudio: Cath Placed During This Visit: yes Reason for Continuing Indwelling Catheter: Other Urinary Catheter Date of Insertion: 06/05/20 Urinary Catheter Time of Insertion: 07:04 Data : 06/08/20 10:52 06/08/20 10:52 Micro: Microbiology 06/08/20 17:55 Gram Stain - Final Pleural Fluid Intake & Output 06/07/20 06/08/20 06/09/20 06/10/20 06:59 06:59 06:59 06:59 Intake Total 240 / 240 820 / 820 480 / 480 Output Total 200 / 200 100 / 100 575 / 575 75 / 75 Balance -200 / -200 140 / 140 245 / 245 405 / 405 Echo: I personally reviewed and interpreted this imaging study as follows: My impression: CONCLUSIONS: 1. Severe diffuse hypokinesia left ventricle with diminished ejection fraction of 20 to 25%(visual). 2. Right ventricle appears to be normal size with a slightly diminished ejection fraction. 3. Thickened aortic and mitral valves 4. Features of a large left-sided pleural effusion 5. Compared to the study from March 23, 2020, there is significant impairment in the LV systolic function A&P Assessment and plan (1) CHF (congestive heart failure), NYHA class IV: I reviewed the images and it looks like Takotsubo cardiomyopathy with ballooning of mid to apical segments and sparing of basal segments. -Given her overall fraility, worsening renal function and advanced age, I do not recommend any further testing. -She has not received any lasix since 06/06/19. -I will give her lasix 80 mg IV x1 and closely monitor UO and I/O. -Currently on low dose metoprolol tartrate. -Her overall prognosis is not good. I had a long discussion with patient's son Lang about realistic expectations at this point. I do not think she is a good candidate for dialysis if needed or further invasive testing. -Lang mentioned that he has discussed with his and son Marty and they have decided on no DIALYSIS and very strongly considering hospice. Status: Acute Qualifiers: Congestive heart failure chronicity: acute on chronic Congestive heart failure type: combined Qualified Code(s): I50.43 - Acute on chronic combined systolic (congestive) and diastolic (congestive) heart failure (2) Pleural effusion, bilateral: s/p multiple thoracentesis and recent pleurex catheter placement. Status: Acute (3) Atherosclerotic heart disease of [place] coronary artery without angina pectoris: Status: Acute Qualifiers: [place] vs. transplanted heart: [place] heart Qualified Code(s): I25.10 - Atherosclerotic heart disease of [place] coronary artery without angina pectoris (4) Dyslipidemia: Continue on the current medications. Status: Acute Additional A&P Information Moderately differentiated adenocarcinoma of the colon Moderate anemia CONTRER[place] with decreased UO Fraility Hypoalbuminemia Elevated liver enzymes Proteinuria DNR/DNI Attestations Medical Necessity Statement*: CHF, worsening renal function Time Spent in Patient Care: Greater than 35 minutes (>than 50% of time spent in counselling and/or direct pt care on unit) . 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 transplanted heart: [place] heart Dyslipidemia E78.5 Time Spent (min) 40
[2020-06-09] MEDS: enoxaparin 30 mg/0.3 mL Syringe SUBCUT (17:23)
[2020-06-09] MEDS: FUROsemide 10 mg/mL SDV 10mL 80 MG IVP (22:53)
[2020-06-09] MEDS: sennosides 8.6 mg Tablet PO (22:53)
[2020-06-10] VITALS (8 sets, daily range): BP systolic 135–146; BP diastolic 80–99; PULSE 90–104; RESP 18–24; TEMP 36.3–36.7; O2SAT 94–99
[2020-06-10] MEDS: albumin 12.5 GM/250 ML VIAL IV ×3 (05:31→21:18)
[2020-06-10] MEDS: pantoprazole DR 40 mg Tablet PO (08:20)
[2020-06-10] MEDS: potassium chloride ER 20 mEq Tablet PO (08:21)
[2020-06-10] MEDS: isosorbide mononitrate ER 30 mg Tablet 15 MG PO (08:21)
[2020-06-10 08:32] LABS: Basophils % 0.2 %; Eosinophils % 0.3 %; Hematocrit 30.1 % (37.0-47.0); Lymphocytes # 1.3 10^3/uL (0.8-4.8); Lymphocytes % 20.3 %; Mean Corpuscular HGB Conc 29.9 g/dL (30.0-36.0); Mean Corpuscular Hemoglobin 28.6 pg (28.0-34.0); Mean Corpuscular Volume 95.6 fL (81-99); Mean Platelet Volume 9.5 fL (7.4-10.4); Monocytes # 0.3 10^3/uL (0.2-0.9); Monocytes % 4.8 %; Neutrophils # 4.75 10^3/uL (1.8-7.7); Neutrophils % 74.1 %; Nucleated Red Blood Cells % 0 %; Platelet Count 240 10^3/cmm (130-400); Red Blood Count 3.15 10^6/uL (4.1-5.3); Red Cell Distribution Width 21.2 % (12.1-15.1); White Blood Count 6.4 10^3/uL (4.0-10.0)
[2020-06-10 09:14] LABS: Alanine Aminotransferase 43 U/L (0-33); Albumin Level 3.4 g/dL (3.5-5.2); Alkaline Phosphatase 76 IU/L (35-105); Anion Gap 20.3 (5-19); Aspartate Amino Transferase 38 U/L (0-32); Blood Urea Nitrogen 55 mg/dL (8-23); Calcium 9.1 mg/dL (8.5-10.5); Carbon Dioxide 22 mmol/L (22-29); Chloride 95 mmol/L (98-107); Globulin 2.7 g/dL (1.3-4.6); Glucose 87 mg/dL (65-115); Osmolality Calculated 288 mOsm/kg (285-295); Potassium 5.3 mmol/L (3.5-5.1); Sodium 132 mmol/L (136-145); Total Bilirubin 0.5 mg/dL (0.15-1.2); Total Protein 6.1 g/dL (6.6-8.7)
[2020-06-10] MEDS: LORazepam 0.5 mg Tablet PO ×2 (12:20→22:12)
[2020-06-10] MEDS: FUROsemide 10 mg/mL SDV 10mL 80 MG IVP (12:21)
[2020-06-10] MEDS: docusate sodium 100 mg Capsule 200 MG PO (13:15)
--- NOTE | 2020-06-10 14:03 | PM.PN ---
Subjective Subjective: Interval history: Natasha Gustafson is a 85 year old female with PMHx of CAD s/p stents x 2 in 2005, recent hospitalization (early March and then mid march) for pneumonia, treated with Rocephin, azithromycin with rapid COVID-19 antigen as well as PCR testing negative. She also has moderately differentiated adenocarcinoma of ascending colon and underwent exploratory laparotomy 01/08/2020 with right hemicolectomy. Biopsy report showed moderately differentiated adenocarcinoma with mucinous and micropapillary features being managed by Dr. Ramsey. Unfortunately she has had multiple hospital visits since March. Patient underwent thoracocentesis from both sides on March 23 and . Fluid studies from thoracocentesis was transudative and negative for any malignancy. I had increased her dose of Lasix as well as added metolazone as an outpatient. She she lost several pounds with that but her renal function worsened and her blood pressure dropped in 80s. I held her metoprolol as well as Lasix and metolazone however she continued to have poor p.o. intake and decreased urine output as well as low blood pressure and hence was sent to the ER. She received IVF in the hospital and was discharged home after 2 days on 23 May. I saw her in office on 01 June when she had been off diuretics for 12 days. Labs on 05-24 with sodium 134, potassium 3.7, BUN 52, Cr-1.6. She had some lower extremity edema however improved from before but her pleural effusion seem to have worsened on exam and hence I started her on Lasix 40 mg with plan to uptitrate based on her response. The plan was to set her up with Dr. Murphy as an outpatient for consideration of Pleurx catheter placement. I did extensively discussed with the patient and her [id number] about possibility of hospice placement. However shortly thereafter on 05 June she got admitted with worsening shortness of breath, hypoxia tachypnea and was placed on 5 L of oxygen via nasal cannula followed by BiPAP. Chest x-ray showed CHF exacerbation and worsening bilateral pleural effusion. Her BNP was greater than 70,000 and initially she was placed on Bumex followed by Lasix [address] head was done which did not show any acute abnormality and was done for altered mental status on admission. Dr. Pandey was consulted and repeat echocardiogram revealed drop in left ventricular systolic function that appears to be Takotsubo cardiomyopathy. She also underwent right-sided Pleurx catheter placement by Dr. Murphy 06/08. Her UO had dropped and renal function worsened. She complains of pain at the site of pleurex catheter. Today, she is more alert and requests to get Claudio catheter removed. She is hard of hearing and is concerned that her family is not there to visit her. No events on telemetry Medications: Reviewed: Yes Medication Review Details: Current Medications Acetaminophen (Acetaminophen 325 Mg Tablet) 650 mg PO Q8H PRN PRN Reason: DISCOMFORT Last Admin: 06/08/20 20:26 Dose: 650 mg Documented by: Docusate Sodium (Docusate Sodium 100 Mg Capsule) 200 mg PO DAILY PRN PRN Reason: CONSTIPATION Last Admin: 06/10/20 13:15 Dose: 200 mg Documented by: Enoxaparin Sodium (Enoxaparin 30 Mg/0.3 Ml Syringe) 30 mg SUBCUT Q24H [facility] Last Admin: 06/09/20 17:23 Dose: 30 mg Documented by: Albumin Human (Albumin) 12.5 gm in 250 mls @ 300 mls/hr IV Q8H [facility] Last Admin: 06/10/20 05:31 Dose: 300 mls/hr Documented by: Isosorbide Mononitrate (Isosorbide Mononitrate Er 30 Mg Tablet) 15 mg PO DAILY [facility] Last Admin: 06/10/20 08:21 Dose: 15 mg Documented by: Lanolin (Lanolin Oint 7 Gm) 1 applic TOPICAL PRN PRN PRN Reason: DRYNESS Last Admin: 06/07/20 16:21 Dose: 1 applic Documented by: Lorazepam (Lorazepam 0.5 Mg Tablet) 0.5 mg PO Q6H PRN PRN Reason: ANXIETY Last Admin: 06/10/20 12:20 Dose: 0.5 mg Documented by: Metoprolol Succinate (Metoprolol Succinate Er (24 Hr) 25 Mg Tablet) 25 mg PO DAILY [facility] Pantoprazole Sodium (Pantoprazole Dr 40 Mg Tablet) 40 mg PO DAILY [facility] Last Admin: 06/10/20 08:20 Dose: 40 mg Documented by: Polyethylene Glycol (Polyethylene Glycol 3350 Pkt 17 Gm) 17 gm PO DAILY PRN PRN Reason: CONSTIPATION Last Admin: 06/09/20 12:48 Dose: 17 gm Documented by: Senna (Sennosides 8.6 Mg Tablet) 8.6 mg PO BEDTIME [facility] Last Admin: 06/09/20 22:53 Dose: 8.6 mg Documented by: Vitals/I&O/Wt Last Vital Signs Temp 97.5 F L 06/10/20 11:04 Pulse 104 H 06/10/20 11:04 Resp 18 06/10/20 11:04 BP 135/91 06/10/20 11:04 Pulse Ox 96 06/10/20 11:04 06/09/20 06/10/20 06/10/20 22:59 06:59 14:59 Intake Total 250 / 980 Output Total 75 / 75 400 / 475 Balance -75 / 655 -150 / 505 Physical Exam Narrative: EXAM NARRATIVE: EXAM NARRATIVE: Gen: elderly frail patient lying in bed HEENT: pallor+, No icterus, elevated JVD RS: decreases bilateral breath sounds (L>R), pleurex catheter in place 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 and 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 CVS: S1, S2+, No murmur heard Ext: 1+ bilateral leg edema Urinary Catheter Management^: Claudio: Cath Placed During This Visit: yes Reason for Continuing Indwelling Catheter: Acute Urinary Retention or Obstruction Urinary Catheter Date of Insertion: 06/05/20 Urinary Catheter Time of Insertion: 07:04 Data : 06/10/20 08:10 06/10/20 08:10 Micro: Microbiology 06/08/20 17:55 Gram Stain - Final Pleural Fluid Body Fluid Culture - Preliminary Attestation for Other Data: I personally reviewed and interpreted the following: Other data: I personally reviewed and interpreted this imaging study as follows: My impression: CONCLUSIONS: 1. Severe diffuse hypokinesia left ventricle with diminished ejection fraction of 20 to 25%(visual). 2. Right ventricle appears to be normal size with a slightly diminished ejection fraction. 3. Thickened aortic and mitral valves 4. Features of a large left-sided pleural effusion 5. Compared to the study from March 23, 2020, there is significant impairment in the LV systolic function A&P Assessment and plan (1) CHF (congestive heart failure), NYHA class IV: I reviewed the images and it looks like Takotsubo cardiomyopathy with ballooning of mid to apical segments and sparing of basal segments. -Given her overall fraility, worsening renal function and advanced age, I do not recommend any further testing. -She has not received any lasix since 06/06/19. she got one dose last night with UO of 475 ml. -I will give her lasix 80 mg IV x1 and closely monitor UO and I/O. -start on metoprolol sucinate 25 mg daily. -Her overall prognosis is not good. I had a long discussion with patient's son Lang and grandlaura Chester about realistic expectations at this point. I do not think she is a good candidate for dialysis if needed or further invasive testing. Lang mentioned that he has discussed with his and son Marty and they have decided on no DIALYSIS if that is not going to improve her quality of life and are very strongly considering hospice. They still are not sure about home or inpatient hospice. -I will defer that discussion to primary team. Status: Acute Qualifiers: Congestive heart failure chronicity: acute on chronic Congestive heart failure type: combined Qualified Code(s): I50.43 - Acute on chronic combined systolic (congestive) and diastolic (congestive) heart failure (2) Pleural effusion, bilateral: s/p multiple thoracentesis and recent pleurex catheter placement. -plan for CXR tomorrow morning. Status: Acute (3) Atherosclerotic heart disease of [place] coronary artery without angina pectoris: Status: Acute Qualifiers: [place] vs. transplanted heart: [place] heart Qualified Code(s): I25.10 - Atherosclerotic heart disease of [place] coronary artery without angina pectoris (4) Dyslipidemia: Continue on the current medications. Status: Acute Additional A&P Information Hyperkalemia: hold potassium supplementation Moderately differentiated adenocarcinoma of the colon Moderate anemia CONTRERAS with decreased UO: creatine stable, Fraility Hypoalbuminemia Elevated liver enzymes Constipation DNR/DNI Attestations Medical Necessity Statement*: CHF, worsening renal function Time Spent in Patient Care: Greater than 35 minutes (>than 50% of time spent in counselling and/or direct pt care on unit). 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 transplanted heart: [place] heart Dyslipidemia E78.5
--- NOTE | 2020-06-10 16:45 | P.PN_ITS ---
Subjective Subjective: Interval history: Natasha Gustafson is a 85 year old female with PMHx of CAD s/p stents x 2 in 2005, recent hospitalization (early March and then mid march) for pneumonia, treated with Rocephin, azithromycin with rapid COVID-19 antigen as well as PCR testing negative. She also has moderately differentiated adenocarcinoma of ascending colon and underwent exploratory laparotomy 01/08/2020 with right hemicolectomy. Biopsy report showed moderately differentiated adenocarcinoma with mucinous and micropapillary features being managed by Dr. Ramsey. Unfortunately she has had multiple hospital visits since March. Patient underwent thoracocentesis from both sides on March 23 and . Fluid studies from thoracocentesis was transudative and negative for any malignancy. I had increased her dose of Lasix as well as added metolazone as an outpatient. She she lost several pounds with that but her renal function worsened and her blood pressure dropped in 80s. I held her metoprolol as well as Lasix and metolazone however she continued to have poor p.o. intake and decreased urine output as well as low blood pressure and hence was sent to the ER. She received IVF in the hospital and was discharged home after 2 days on 23 May. I saw her in office on 01 June when she had been off diuretics for 12 days. Labs on 05-24 with sodium 134, potassium 3.7, BUN 52, Cr-1.6. She had some lower extremity edema however improved from before but her pleural effusion seem to have worsened on exam and hence I started her on Lasix 40 mg with plan to uptitrate based on her response. The plan was to set her up with Dr. Murphy as an outpatient for consideration of Pleurx catheter placement. I did extensively discussed with the patient and her [id number] about possibility of hospice placement. However shortly thereafter on 05 June she got admitted with worsening shortness of breath, hypoxia tachypnea and was placed on 5 L of oxygen via nasal cannula followed by BiPAP. Chest x-ray showed CHF exacerbation and worsening bilateral pleural effusion. Her BNP was greater than 70,000 and initially she was placed on Bumex followed by Lasix [address] head was done which did not show any acute abnormality and was done for altered mental status on admission. Dr. Pandey was consulted and repeat echocardiogram revealed drop in left ventricular systolic function that appears to be Takotsubo cardiomyopathy. She also underwent right-sided Pleurx catheter placement by Dr. Murphy 06/08. Her UO had dropped and renal function worsened. She complains of pain at the site of pleurex catheter. 06/09/19 She is more alert and requests to get Claudio catheter removed. She is hard of hearing and is concerned that her family is not there to visit her. No events on telemetry 06/10/19 patient was somewhat confused today. Stated that she was having shortness of breath and wanting more oxygen however she was satting 98% on 1 L. No chest pain. No fever chills overnight. No family at bedside. Medications: Reviewed: Yes Medication Review Details: Current Medications Acetaminophen (Acetaminophen 325 Mg Tablet) 650 mg PO Q8H PRN PRN Reason: DISCOMFORT Last Admin: 06/08/20 20:26 Dose: 650 mg Documented by: Docusate Sodium (Docusate Sodium 100 Mg Capsule) 200 mg PO DAILY PRN PRN Reason: CONSTIPATION Last Admin: 06/10/20 13:15 Dose: 200 mg Documented by: Enoxaparin Sodium (Enoxaparin 30 Mg/0.3 Ml Syringe) 30 mg SUBCUT Q24H [facility] Last Admin: 06/09/20 17:23 Dose: 30 mg Documented by: Albumin Human (Albumin) 12.5 gm in 250 mls @ 300 mls/hr IV Q8H [facility] Last Admin: 06/10/20 05:31 Dose: 300 mls/hr Documented by: Isosorbide Mononitrate (Isosorbide Mononitrate Er 30 Mg Tablet) 15 mg PO DAILY [facility] Last Admin: 06/10/20 08:21 Dose: 15 mg Documented by: Lanolin (Lanolin Oint 7 Gm) 1 applic TOPICAL PRN PRN PRN Reason: DRYNESS Last Admin: 06/07/20 16:21 Dose: 1 applic Documented by: Lorazepam (Lorazepam 0.5 Mg Tablet) 0.5 mg PO Q6H PRN PRN Reason: ANXIETY Last Admin: 06/10/20 12:20 Dose: 0.5 mg Documented by: Metoprolol Succinate (Metoprolol Succinate Er (24 Hr) 25 Mg Tablet) 25 mg PO DAILY [facility] Pantoprazole Sodium (Pantoprazole Dr 40 Mg Tablet) 40 mg PO DAILY [facility] Last Admin: 06/10/20 08:20 Dose: 40 mg Documented by: Polyethylene Glycol (Polyethylene Glycol 3350 Pkt 17 Gm) 17 gm PO DAILY PRN PRN Reason: CONSTIPATION Last Admin: 06/09/20 12:48 Dose: 17 gm Documented by: Senna (Sennosides 8.6 Mg Tablet) 8.6 mg PO BEDTIME [facility] Last Admin: 06/09/20 22:53 Dose: 8.6 mg Documented by: Vitals/I&O/Wt Last Vital Signs Temp 98.1 F 06/10/20 15:18 Pulse 102 H 06/10/20 15:18 Resp 18 06/10/20 15:18 BP 135/91 06/10/20 15:18 Pulse Ox 94 06/10/20 15:18 06/10/20 06/10/20 06/10/20 06:59 14:59 22:59 Intake Total 500 / 1230 Output Total 400 / 475 300 / 300 Balance 100 / 755 -300 / -300 Physical Exam Narrative: EXAM NARRATIVE: GEN: Awake, alert and oriented, no acute distress on 1L nc CVS: S1S2 N RS: CTA B/L Abd: Soft, nt/nd , bs+ INCLUSION 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 focal neuro deficits Extremities no current lower extremity edema Urinary Catheter Management^: Claudio: Cath Placed During This Visit: yes Reason for Continuing Indwelling Catheter: Acute Urinary Retention or Obstruction Urinary Catheter Date of Insertion: 06/05/20 Urinary Catheter Time of Insertion: 07:04 Data : 06/10/20 08:10 06/10/20 08:10 Micro: Microbiology 06/08/20 17:55 Gram Stain - Final Pleural Fluid Anaerobic Culture - Preliminary Body Fluid Culture - Preliminary A&P Assessment and plan (1) Cardiomyopathy: Status: Acute Qualifiers: Cardiomyopathy type: unspecified Qualified Code(s): I42.9 - Cardiomyopathy, unspecified (2) CHF (congestive heart failure), NYHA class IV: Status: Acute Qualifiers: Congestive heart failure chronicity: acute on chronic Congestive heart failure type: combined Qualified Code(s): I50.43 - Acute on chronic combined systolic (congestive) and diastolic (congestive) heart failure (3) Lower extremity edema: Status: Acute (4) Pleural effusion, bilateral: Status: Acute (5) Hypoxia: Status: Acute (6) Lactic acid acidosis: Status: Acute (7) Acute on chronic kidney failure: Status: Acute (8) AMS (altered mental status): Status: Acute Qualifiers: Altered mental status type: unspecified Qualified Code(s): R41.82 - Altered mental status, unspecified (9) Colon cancer: Status: Acute Additional A&P Information #Acute on chronic congestive heart failure exacerbation #Acute on chronic hypoxic respiratory failure # Acute on chronic kidney disease with oliguria # Acute Encephalopathy # Hyperkalemia # Transaminitis # GI ppx # DVT ppx Plan: Prior hospitalist and Cardiology consult reviewed Poor urine output Family opted for no HD Will discuss if wanting to pursue hospice Will give kayexelate 15g PO x 1 however Hold on further diagnostic work up Unfortunately poor prognosis Goals of care discussed with the son: DNR/DNI Cardiac diet DVT prophylaxis lovenox Guarded prognosis given comorbidities Attestations Medical Necessity Statement*: Require further hospitalization until final plan for discharge. Time Spent in Patient Care: Greater than 35 minutes (>than 50% of time spent in counselling and/or direct pt care on unit) . Coding Level of Care Code Acute Narrow Fabric Calenderer for Santosg Aylin Diagnoses Cardiomyopathy I42.9 Cardiomyopathy type: unspecified CHF (congestive heart failure), NYHA class IV I50.43 Congestive heart failure chronicity: acute on chronic Congestive heart failure type: combined Lower extremity edema R60.0 Pleural effusion, bilateral J90 Hypoxia R09.02 Lactic acid acidosis E87.2 Acute on chronic kidney failure N17.9; N18.9 AMS (altered mental status) R41.82 Altered mental status type: unspecified Colon cancer C18.9
[2020-06-10] MEDS: enoxaparin 30 mg/0.3 mL Syringe SUBCUT (17:41)
[2020-06-10] MEDS: sodium polystyrene sulfonate 15 gm/60 mL Btl PO (17:41)
[2020-06-10] MEDS: FUROsemide 10 mg/mL SDV 10mL 60 MG IVP (21:05)
[2020-06-10] MEDS: sennosides 8.6 mg Tablet PO (21:05)
[2020-06-10] MEDS: metoprolol succinate ER (24 HR) 25 mg Tablet PO (21:05)
[2020-06-11] VITALS (8 sets, daily range): BP systolic 128–147; BP diastolic 70–96; PULSE 80–94; RESP 16–20; TEMP 36.1–36.7; O2SAT 93–100
[2020-06-11 05:08] LABS: Basophils % 0.2 %; Hematocrit 31.4 % (37.0-47.0); Hemoglobin 9.2 g/dL (11.5-15.3); Lymphocytes # 1.2 10^3/uL (0.8-4.8); Lymphocytes % 19.7 %; Mean Corpuscular HGB Conc 29.3 g/dL (30.0-36.0); Mean Corpuscular Hemoglobin 28.2 pg (28.0-34.0); Mean Corpuscular Volume 96.3 fL (81-99); Mean Platelet Volume 10.1 fL (7.4-10.4); Monocytes # 0.3 10^3/uL (0.2-0.9); Monocytes % 5.2 %; Neutrophils % 74.4 %; Nucleated Red Blood Cells % 0 %; Platelet Count 222 10^3/cmm (130-400); Red Blood Count 3.26 10^6/uL (4.1-5.3); Red Cell Distribution Width 21.6 % (12.1-15.1); White Blood Count 6.2 10^3/uL (4.0-10.0)
[2020-06-11] MEDS: albumin 12.5 GM/250 ML VIAL IV (05:09)
[2020-06-11 05:33] LABS: Alanine Aminotransferase 57 U/L (0-33); Albumin Level 3.5 g/dL (3.5-5.2); Alkaline Phosphatase 75 IU/L (35-105); Anion Gap 22.8 (5-19); Aspartate Amino Transferase 60 U/L (0-32); Blood Urea Nitrogen 56 mg/dL (8-23); Calcium 8.9 mg/dL (8.5-10.5); Carbon Dioxide 20 mmol/L (22-29); Chloride 95 mmol/L (98-107); Glucose 91 mg/dL (65-115); Osmolality Calculated 291 mOsm/kg (285-295); Potassium 4.8 mmol/L (3.5-5.1); Sodium 133 mmol/L (136-145); Total Bilirubin 0.8 mg/dL (0.15-1.2); Total Protein 6.5 g/dL (6.6-8.7)
--- NOTE | 2020-06-11 06:52 | P.PN_ITS ---
Subjective Subjective: Interval history: Patient is sitting in bed. This morning she was started on low-dose dobutamine and received 1 dose of metolazone. Urine output 450 mL since this morning. No events on telemetry. Chest x-ray with worsening bilateral pleural effusion. Medications: Reviewed: Yes Medication Review Details: Current Medications Acetaminophen (Acetaminophen 325 Mg Tablet) 650 mg PO Q8H PRN PRN Reason: DISCOMFORT Last Admin: 06/08/20 20:26 Dose: 650 mg Documented by: Docusate Sodium (Docusate Sodium 100 Mg Capsule) 200 mg PO DAILY PRN PRN Reason: CONSTIPATION Last Admin: 06/10/20 13:15 Dose: 200 mg Documented by: Enoxaparin Sodium (Enoxaparin 30 Mg/0.3 Ml Syringe) 30 mg SUBCUT Q24H [facility] Last Admin: 06/10/20 17:41 Dose: 30 mg Documented by: Albumin Human (Albumin) 12.5 gm in 250 mls @ 300 mls/hr IV Q8H [facility] Last Admin: 06/11/20 05:09 Dose: 300 mls/hr Documented by: Isosorbide Mononitrate (Isosorbide Mononitrate Er 30 Mg Tablet) 15 mg PO DAILY [facility] Last Admin: 06/10/20 08:21 Dose: 15 mg Documented by: Lanolin (Lanolin Oint 7 Gm) 1 applic TOPICAL PRN PRN PRN Reason: DRYNESS Last Admin: 06/07/20 16:21 Dose: 1 applic Documented by: Lorazepam (Lorazepam 0.5 Mg Tablet) 0.5 mg PO Q6H PRN PRN Reason: ANXIETY Last Admin: 06/10/20 22:12 Dose: 0.5 mg Documented by: Metoprolol Succinate (Metoprolol Succinate Er (24 Hr) 25 Mg Tablet) 25 mg PO DAILY [facility] Last Admin: 06/10/20 21:05 Dose: 25 mg Documented by: Pantoprazole Sodium (Pantoprazole Dr 40 Mg Tablet) 40 mg PO DAILY [facility] Last Admin: 06/10/20 08:20 Dose: 40 mg Documented by: Polyethylene Glycol (Polyethylene Glycol 3350 Pkt 17 Gm) 17 gm PO DAILY PRN PRN Reason: CONSTIPATION Last Admin: 06/09/20 12:48 Dose: 17 gm Documented by: Senna (Sennosides 8.6 Mg Tablet) 8.6 mg PO BEDTIME [facility] Last Admin: 06/10/20 21:05 Dose: 8.6 mg Documented by: Vitals/I&O/Wt Last Vital Signs Temp 97.0 F L 06/11/20 04:00 Pulse 94 06/11/20 04:00 Resp 16 06/11/20 04:00 BP 140/96 06/11/20 04:00 Pulse Ox 100 06/11/20 04:00 06/10/20 06/10/20 06/11/20 14:59 22:59 06:59 Intake Total 500 / 500 Output Total 450 / 450 Balance 50 / 50 Physical Exam Narrative: EXAM NARRATIVE: Gen: elderly frail patient lying in bed HEENT: pallor+, No icterus, elevated JVD RS: decreases bilateral breath sounds, pleurex catheter in place 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 and 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 CVS: S1, S2+, No murmur heard Ext: 1+ bilateral leg edema Urinary Catheter Management^: Claudio: Cath Placed During This Visit: yes Reason for Continuing Indwelling Catheter: Acute Urinary Retention or Obstruction Urinary Catheter Date of Insertion: 06/05/20 Urinary Catheter Time of Insertion: 07:04 Data : 06/11/20 04:39 06/11/20 04:39 Micro: Microbiology 06/08/20 17:55 Gram Stain - Final Pleural Fluid Anaerobic Culture - Preliminary Body Fluid Culture - Preliminary A&P Assessment and plan (1) CHF (congestive heart failure), NYHA class IV: I reviewed the images and it looks like Takotsubo cardiomyopathy with ballooning of mid to apical segments and sparing of basal segments. -Given her overall fraility, worsening renal function and advanced age, I do not recommend any further testing. -I will give her lasix 140 mg IV yesterday with not much urine output. Urine output less than 500 mL. -I have started her on low-dose dobutamine and metolazone this morning. We will give her Bumex 2 mg IV x1 today. - And closely monitor UO and I/O. -started on metoprolol sucinate 25 mg daily. -Her overall prognosis is not good. I had a long discussion with patient's son Lang and grandson Marty about realistic expectations at this point. I do not think she is a good candidate for dialysis if needed or further invasive testing. Lang mentioned that he has discussed with his and son Marty and they have decided on no DIALYSIS if that is not going to improve her quality of life and are very strongly considering hospice. They still are not sure about home or inpatient hospice. -I will defer that discussion to primary team. Status: Acute Qualifiers: Congestive heart failure chronicity: acute on chronic Congestive heart failure type: combined Qualified Code(s): I50.43 - Acute on chronic combined systolic (congestive) and diastolic (congestive) heart failure (2) Pleural effusion, bilateral: s/p multiple thoracentesis and recent pleurex catheter placement. Status: Acute (3) Atherosclerotic heart disease of [place] coronary artery without angina pectoris: Status: Acute Qualifiers: [place] vs. transplanted heart: [place] heart Qualified Code(s): I25.10 - Atherosclerotic heart disease of [place] coronary artery without angina pectoris (4) Dyslipidemia: Continue on the current medications. Status: Acute Additional A&P Information Hyperkalemia: Received Kayexalate yesterday, resolved Moderately differentiated adenocarcinoma of the colon Moderate anemia CONTRERAS with decreased UO: creatine stable, Fraility Hypoalbuminemia Elevated liver enzymes Constipation DNR/DNI Attestations Medical Necessity Statement*: CHF, worsening renal function Time Spent in Patient Care: Greater than 35 minutes (>than 50% of time spen t in counselling and/or direct pt care on unit) . Coding Level of Care Code Acute Farm Appraiser for Santosg Fwd Diagnoses CHF (congestive heart failure), NYHA class IV I50.43 Congestive heart failure chronicity: acute on chronic Congestive heart failure type: combined Pleural effusion, bilateral J90 Atherosclerotic heart disease of [place] coronary artery without angina pectoris I25.10 [place] vs. transplanted heart: [place] heart Dyslipidemia E78.5
--- NOTE | 2020-06-11 07:00 | XR_ITS ---
WS: [id number] PORTABLE CHEST HISTORY: SOB, pleural effusion COMPARISON: 06/08/2020, 03/22/2020 Lung volumes are decreased. Mild pulmonary edema is new. 9 mm nodule projects over the upper LEFT tho rax. This nodule has not been present on prior studies and may be external to the patient. There is a small approximately 15 % pneumothorax on the RIGHT. Small RIGHT and [id number] LEFT pleural e ffusion. Cardiac size: Obscured by the pleural effusions. Mediastinum/Aorta: Mild atherosclerosis aorta. No osseous abnormality seen. XR/XR chest 1V portable [id number] IMPRESSION: 1. Persistent small RIGHT pneumothorax. 2. Increasing bilateral pleural effusions, small on the RIGHT and [id number] erate on the LEFT. 3. New mild pulmonary edema.
[2020-06-11] MEDS: DOBUTamine drip 500 MG/250 ML PREMIX 5.9 MG IV (08:19)
[2020-06-11] MEDS: pantoprazole DR 40 mg Tablet PO (08:21)
[2020-06-11] MEDS: metoprolol succinate ER (24 HR) 25 mg Tablet PO (08:21)
[2020-06-11] MEDS: metOLazone 5 MG Tablet PO (08:21)
[2020-06-11] MEDS: isosorbide mononitrate ER 30 mg Tablet 15 MG PO (08:21)
[2020-06-11] MEDS: bumetanide 0.25 mg/mL SDV 10 mL 2 MG IV (13:49)
--- NOTE | 2020-06-11 15:35 | P.PN_ITS ---
Subjective Subjective: Interval history: Natasha Gustafson is a 85 year old female with PMHx of CAD s/p stents x 2 in 2005, recent hospitalization (early March and then mid march) for pneumonia, treated with Rocephin, azithromycin with rapid COVID-19 antigen as well as PCR testing negative. She also has moderately differentiated adenocarcinoma of ascending colon and underwent exploratory laparotomy 01/08/2020 with right hemicolectomy. Biopsy report showed moderately differentiated adenocarcinoma with mucinous and micropapillary features being managed by Dr. Ramsey. Unfortunately she has had multiple hospital visits since March. Patient underwent thoracocentesis from both sides on March 23 and . Fluid studies from thoracocentesis was transudative and negative for any malignancy. I had increased her dose of Lasix as well as added metolazone as an outpatient. She she lost several pounds with that but her renal function worsened and her blood pressure dropped in 80s. I held her metoprolol as well as Lasix and metolazone however she continued to have poor p.o. intake and decreased urine output as well as low blood pressure and hence was sent to the ER. She received IVF in the hospital and was discharged home after 2 days on 23 May. I saw her in office on 01 June when she had been off diuretics for 12 days. Labs on 05-24 with sodium 134, potassium 3.7, BUN 52, Cr-1.6. She had some lower extremity edema however improved from before but her pleural effusion seem to have worsened on exam and hence I started her on Lasix 40 mg with plan to uptitrate based on her response. The plan was to set her up with Dr. Murphy as an outpatient for consideration of Pleurx catheter placement. I did extensively discussed with the patient and her [id number] about possibility of hospice placement. However shortly thereafter on 05 June she got admitted with worsening shortness of breath, hypoxia tachypnea and was placed on 5 L of oxygen via nasal cannula followed by BiPAP. Chest x-ray showed CHF exacerbation and worsening bilateral pleural effusion. Her BNP was greater than 70,000 and initially she was placed on Bumex followed by Lasix [address] head was done which did not show any acute abnormality and was done for altered mental status on admission. Dr. Pandey was consulted and repeat echocardiogram revealed drop in left ventricular systolic function that appears to be Takotsubo cardiomyopathy. She also underwent right-sided Pleurx catheter placement by Dr. Murphy 06/08. Her UO had dropped and renal function worsened. She complains of pain at the site of pleurex catheter. 06/09/20 She is more alert and requests to get Claudio catheter removed. She is hard of hearing and is concerned that her family is not there to visit her. No events on telemetry 06/10/20 patient was somewhat confused today. Stated that she was having shortness of breath and wanting more oxygen however she was satting 98% on 1 L. No chest pain. No fever chills overnight. No family at bedside. 06/11/2020 Patient was weaned off oxygen. He was sitting up in chair. Did not have any visible respiratory distress. Also did not complain of any new symptoms. Low urine output overnight. Was started on dobutamine drip early in the morning. Medications: Reviewed: Yes Medication Review Details: Current Medications Acetaminophen (Acetaminophen 325 Mg Tablet) 650 mg PO Q8H PRN PRN Reason: DISCOMFORT Last Admin: 06/08/20 20:26 Dose: 650 mg Documented by: Docusate Sodium (Docusate Sodium 100 Mg Capsule) 200 mg PO DAILY PRN PRN Reason: CONSTIPATION Last Admin: 06/10/20 13:15 Dose: 200 mg Documented by: Enoxaparin Sodium (Enoxaparin 30 Mg/0.3 Ml Syringe) 30 mg SUBCUT Q24H [facility] Last Admin: 06/09/20 17:23 Dose: 30 mg Documented by: Albumin Human (Albumin) 12.5 gm in 250 mls @ 300 mls/hr IV Q8H [facility] Last Admin: 06/10/20 05:31 Dose: 300 mls/hr Documented by: Isosorbide Mononitrate (Isosorbide Mononitrate Er 30 Mg Tablet) 15 mg PO DAILY [facility] Last Admin: 06/10/20 08:21 Dose: 15 mg Documented by: Lanolin (Lanolin Oint 7 Gm) 1 applic TOPICAL PRN PRN PRN Reason: DRYNESS Last Admin: 06/07/20 16:21 Dose: 1 applic Documented by: Lorazepam (Lorazepam 0.5 Mg Tablet) 0.5 mg PO Q6H PRN PRN Reason: ANXIETY Last Admin: 06/10/20 12:20 Dose: 0.5 mg Documented by: Metoprolol Succinate (Metoprolol Succinate Er (24 Hr) 25 Mg Tablet) 25 mg PO DAILY [facility] Pantoprazole Sodium (Pantoprazole Dr 40 Mg Tablet) 40 mg PO DAILY [facility] Last Admin: 06/10/20 08:20 Dose: 40 mg Documented by: Polyethylene Glycol (Polyethylene Glycol 3350 Pkt 17 Gm) 17 gm PO DAILY PRN PRN Reason: CONSTIPATION Last Admin: 06/09/20 12:48 Dose: 17 gm Documented by: Senna (Sennosides 8.6 Mg Tablet) 8.6 mg PO BEDTIME [facility] Last Admin: 06/09/20 22:53 Dose: 8.6 mg Documented by: Vitals/I&O/Wt Last Vital Signs Temp 97.6 F 06/11/20 15:11 Pulse 80 06/11/20 15:11 Resp 18 06/11/20 15:11 BP 144/70 06/11/20 15:11 Pulse Ox 94 06/11/20 15:11 06/11/20 06/11/20 06/11/20 06:59 14:59 22:59 Intake Total 200 / 200 Balance 200 / 200 Physical Exam Narrative: EXAM NARRATIVE: GEN: Awake, alert and oriented, no acute distress Room air CVS: S1S2 N RS: CTA B/L Abd: Soft, nt/nd , bs+ 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 neuro 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 Extremities no current lower extremity edema Urinary Catheter Management^: Claudio: Cath Placed During This Visit: yes Reason for Continuing Indwelling Catheter: Acute Urinary Retention or Obstruction Urinary Catheter Date of Insertion: 06/05/20 Urinary Catheter Time of Insertion: 07:04 Data : 06/11/20 04:39 06/11/20 04:39 Micro: Microbiology 06/08/20 17:55 Mycobacterial Smear - Preliminary Body Fluids - Pleura,Rt Lung 06/08/20 17:55 Gram Stain - Final Pleural Fluid Anaerobic Culture - Preliminary Body Fluid Culture - Preliminary A&P Assessment and plan (1) Cardiomyopathy: Status: Acute Qualifiers: Cardiomyopathy type: unspecified Qualified Code(s): I42.9 - Cardiomyopathy, unspecified (2) CHF (congestive heart failure), NYHA class IV: Status: Acute Qualifiers: Congestive heart failure chronicity: acute on chronic Congestive heart failure type: combined Qualified Code(s): I50.43 - Acute on chronic combined systolic (congestive) and diastolic (congestive) heart failure (3) Lower extremity edema: Status: Acute (4) Pleural effusion, bilateral: Status: Acute (5) Hypoxia: Status: Acute (6) Lactic acid acidosis: Status: Acute (7) Acute on chronic kidney failure: Status: Acute (8) AMS (altered mental status): Status: Acute Qualifiers: Altered mental status type: unspecified Qualified Code(s): R41.82 - Altered mental status, unspecified (9) Colon cancer: Status: Acute Additional A&P Information #Acute on chronic congestive heart failure exacerbation #Acute on chronic hypoxic respiratory failure # Acute on chronic kidney disease with oliguria # Acute Encephalopathy # Hyperkalemia # Transaminitis # GI ppx # DVT ppx Plan: Cardiology and pulmonary medicine on board Status post PleurX catheter placement Started on dobutamine drip Poor urine output Family to consider dialysis however leaning towards hospice Repeat labs in a.m. Discussed with case management Discharge planning Goals of care discussed with the son: DNR/DNI Cardiac diet DVT prophylaxis lovenox Guarded prognosis given comorbidities Attestations Medical Necessity Statement*: Will require further hospitalization for management of respiratory failure, renal failure and discharge planning Time Spent in Patient Care: Greater than 35 minutes (>than 50% of time spent in counselling and/or direct pt care on unit) . 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
[2020-06-11] MEDS: enoxaparin 30 mg/0.3 mL Syringe SUBCUT (17:52)
[2020-06-11] MEDS: sennosides 8.6 mg Tablet PO (20:54)
[2020-06-12] VITALS (7 sets, daily range): BP systolic 112–147; BP diastolic 71–81; PULSE 79–97; RESP 16–20; TEMP 36.3–36.8; O2SAT 94–99
[2020-06-12] MEDS: LORazepam 0.5 mg Tablet PO (00:43)
--- NOTE | 2020-06-12 01:47 | PC.NURSE ---
PT C/O OF INCREASED ANXIETY. DR NATION ORDERED ATIVAN 0.5MG PO Q6H PRN. ONE WAS GIVEN AND PT SEEMS TO HAVE CALMED DOWN. WILL CONTINUE TO MONITOR.
--- NOTE | 2020-06-12 03:40 | PC.NURSE ---
PT C/O NOT BEING COMFORTABLE. PT REPOSITIONED IN BED SEVERAL TIMES. PT IS GETTING MORE AGITATED THAT STAFF ISN'T DOING WHAT THEY WANT. STAFF IS GOING ABOVE AND BEYOND TO TRY AND MAKE PT COMFORTABLE. PT WAS MADE COMFORTABLE. PT DENIES PAIN. WILL CONTINUE TO MONITOR.
[2020-06-12 04:48] LABS: Eosinophils % 0.5 %; Hematocrit 27.4 % (37.0-47.0); Hemoglobin 8.5 g/dL (11.5-15.3); Lymphocytes # 0.8 10^3/uL (0.8-4.8); Mean Corpuscular Hemoglobin 28.5 pg (28.0-34.0); Mean Corpuscular Volume 91.9 fL (81-99); Mean Platelet Volume 9.2 fL (7.4-10.4); Monocytes # 0.3 10^3/uL (0.2-0.9); Monocytes % 5.2 %; Neutrophils # 4.57 10^3/uL (1.8-7.7); Nucleated Red Blood Cells % 0 %; Platelet Count 164 10^3/cmm (130-400); Red Blood Count 2.98 10^6/uL (4.1-5.3); Red Cell Distribution Width 21.7 % (12.1-15.1); White Blood Count 5.7 10^3/uL (4.0-10.0)
[2020-06-12 05:08] LABS: Alanine Aminotransferase 47 U/L (0-33); Albumin Level 2.9 g/dL (3.5-5.2); Alkaline Phosphatase 64 IU/L (35-105); Anion Gap 15.7 (5-19); Aspartate Amino Transferase 36 U/L (0-32); Blood Urea Nitrogen 59 mg/dL (8-23); Calcium 8.7 mg/dL (8.5-10.5); Carbon Dioxide 26 mmol/L (22-29); Chloride 96 mmol/L (98-107); Globulin 2.9 g/dL (1.3-4.6); Glucose 102 mg/dL (65-115); Magnesium 1.9 mg/dL (1.7-2.3); Osmolality Calculated 295 mOsm/kg (285-295); Potassium 3.7 mmol/L (3.5-5.1); Sodium 134 mmol/L (136-145); Total Bilirubin 0.6 mg/dL (0.15-1.2); Total Protein 5.8 g/dL (6.6-8.7)
[2020-06-12] MEDS: DOBUTamine drip 500 MG/250 ML PREMIX 5.9 MG IV (08:19)
[2020-06-12] MEDS: pantoprazole DR 40 mg Tablet PO (08:20)
[2020-06-12] MEDS: isosorbide mononitrate ER 30 mg Tablet 15 MG PO (08:20)
[2020-06-12] MEDS: metOLazone 5 MG Tablet PO (08:20)
[2020-06-12] MEDS: metoprolol succinate ER (24 HR) 25 mg Tablet PO (08:32)
--- NOTE | 2020-06-12 10:44 | PC.SOCIAL ---
IMM Update Pg.2 of IMM updated with patient's son over the phone. Copy left at bedside with patient.
--- NOTE | 2020-06-12 13:46 | PC.CHAP ---
Pastoral Care Encounter/Spiritual Assessment Type of Contact [] Declined management aide visit [] Patient/Family/Request visit [] Outpatient visit [] Follow-up visit [] Physician referral [] Code/Alert [XX] Routine visit [] Staff referral [] Actively dying [] Patient sleeping [] Family support [] [] Out of room [] Palliative care [] [] Receiving care in room [] Pre-surgical visit [] Trauma [] Long length of stay [] ICU visit [] Other: Relational/Emotional Strength [] Patient feels connected with others/family/visitors/staff [XX] Distress [] Loneliness/isolation [] Abandonment Spirituality of Patient [XX] Person of Celine [] Attends Sikhism of their Celine [XX] Believes in Prayer [] Reads Bible or Bahai materials [] There are Spiritual issues to be addressed Donor Recruiter Interventions [XX] Prayer [] Active listening [XX] Non-anxious presence [] Spiritual/emotional support [] Crisis/trauma care [] Spiritual counseling [] Bereavement support [] Provided bereavement packet [] Provided Bible/devotional materials [] Provided toy/stuffed animal, coloring book to patient or family member [] Provided Communion [] Anointing/[place] [] Salvation [XX] Completed spiritual assessment [] Other: Impact on Illness or Injury [] Angry [] Fearful [] Anxious [] Often cries [] Exhaustion [] Unable to work [] Unable to attend congregational [] Unable to walk/stand [] Unable to read [] Unable to drive [] Unable to eat/drink [] Unable to sleep [] Unable to be with family [] Patient intubated [] Other: Summary: Pt is weak and states that she does not feel well; that she just wants to feel better. Given her state, I offered prayer early in the visit. She welcomed the prayer. Time spent with patient: 6 - 7 mins
--- NOTE | 2020-06-12 14:28 | P.PN_ITS ---
Subjective Subjective: Interval history: Urine output 400 mL last night and 350 ml since morning. She remains length of stay +1 L. No events on tele. She is hard of hearing. She does not seem to have to understanding of what's going on. She states she feels weak and want's to get better and go home. Medications: Reviewed: Yes Medication Review Details: Current Medications Acetaminophen (Acetaminophen 325 Mg Tablet) 650 mg PO Q8H PRN PRN Reason: DISCOMFORT Last Admin: 06/08/20 20:26 Dose: 650 mg Documented by: Docusate Sodium (Docusate Sodium 100 Mg Capsule) 200 mg PO DAILY PRN PRN Reason: CONSTIPATION Last Admin: 06/10/20 13:15 Dose: 200 mg Documented by: Enoxaparin Sodium (Enoxaparin 30 Mg/0.3 Ml Syringe) 30 mg SUBCUT Q24H [facility] Last Admin: 06/11/20 17:52 Dose: 30 mg Documented by: Dobutamine HCl/Dextrose (Dobutamine Drip) 500 mg in 250 mls @ 5.919 mls/hr IV .Q24H [facility] Last Admin: 06/12/20 08:19 Dose: 3 mcg/kg/min, 5.9 mls/hr Documented by: Isosorbide Mononitrate (Isosorbide Mononitrate Er 30 Mg Tablet) 15 mg PO DAILY [facility] Last Admin: 06/12/20 08:20 Dose: 15 mg Documented by: Lanolin (Lanolin Oint 7 Gm) 1 applic TOPICAL PRN PRN PRN Reason: DRYNESS Last Admin: 06/07/20 16:21 Dose: 1 applic Documented by: Lorazepam (Lorazepam 0.5 Mg Tablet) 0.5 mg PO Q6H PRN PRN Reason: ANXIETY Last Admin: 06/12/20 00:43 Dose: 0.5 mg Documented by: Metolazone (Metolazone 5 Mg Tablet) 5 mg PO DAILY [facility] Last Admin: 06/12/20 08:20 Dose: 5 mg Documented by: Metoprolol Succinate (Metoprolol Succinate Er (24 Hr) 25 Mg Tablet) 25 mg PO DAILY [facility] Last Admin: 06/12/20 08:32 Dose: 25 mg Documented by: Pantoprazole Sodium (Pantoprazole Dr 40 Mg Tablet) 40 mg PO DAILY [facility] Last Admin: 06/12/20 08:20 Dose: 40 mg Documented by: Polyethylene Glycol (Polyethylene Glycol 3350 Pkt 17 Gm) 17 gm PO DAILY PRN PRN Reason: CONSTIPATION Last Admin: 06/09/20 12:48 Dose: 17 gm Documented by: Senna (Sennosides 8.6 Mg Tablet) 8.6 mg PO BEDTIME [facility] Last Admin: 06/11/20 20:54 Dose: 8.6 mg Documented by: Vitals/I&O/Wt Last Vital Signs Temp 97.7 F 06/12/20 11:25 Pulse 83 06/12/20 11:25 Resp 17 06/12/20 11:25 BP 112/81 06/12/20 11:25 Pulse Ox 98 06/12/20 11:25 06/11/20 06/12/20 06/12/20 22:59 06:59 14:59 Intake Total 240 / 440 621.6 / 621.6 Output Total 400 / 400 Balance -160 / 40 621.6 / 621.6 Physical Exam Narrative: EXAM NARRATIVE: Gen: elderly frail patient lying in bed HEENT: pallor+, No icterus, elevated JVD RS: decreases bilateral breath sounds, pleurex catheter in place 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 and 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 CVS: S1, S2+, No murmur heard Ext: 1+ bilateral leg edema Urinary Catheter Management^: Claudio: Cath Placed During This Visit: yes Reason for Continuing Indwelling Catheter: Acute Urinary Retention or Obstruction Urinary Catheter Date of Insertion: 06/05/20 Urinary Catheter Time of Insertion: 07:04 Data : 06/12/20 04:18 06/12/20 04:18 Micro: Microbiology 06/08/20 17:55 Gram Stain - Final Pleural Fluid Anaerobic Culture - Preliminary Body Fluid Culture - Final 06/08/20 17:55 Mycobacterial Smear - Preliminary Body Fluids - Pleura,Rt Lung A&P Assessment and plan (1) CHF (congestive heart failure), NYHA class IV: I reviewed the images and it looks like Takotsubo cardiomyopathy with ballooning of mid to apical segments and sparing of basal segments. -Given her overall fraility, worsening renal function and advanced age, I do not recommend any further testing. -I have started her on low-dose dobutamine and add metolazone yesterday morning. We will give her Bumex 2 mg IV BID. - And closely monitor UO and I/O. -continue metoprolol sucinate 25 mg daily. -Her overall prognosis is not good. I had a long discussion with patient's son Lang and grandson Marty about realistic expectations at this point. I do not think she is a good candidate for dialysis if needed or further invasive testing. Lang mentioned that he has discussed with his and son Marty and they have decided on no DIALYSIS if that is not going to improve her quality of life and are very strongly considering hospice. They still are not sure about home or inpatient hospice. -I will defer that discussion to primary team. Status: Acute Qualifiers: Congestive heart failure chronicity: acute on chronic Congestive heart failure type: combined Qualified Code(s): I50.43 - Acute on chronic combined systolic (congestive) and diastolic (congestive) heart failure (2) Pleural effusion, bilateral: s/p multiple thoracentesis and recent pleurex catheter placement. 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 transplanted heart: [place] heart Qualified Code(s): I25.10 - Atherosclerotic heart disease of [place] coronary artery without angina pectoris (4) Dyslipidemia: Continue on the current medications. Status: Acute Additional A&P Information Hyperkalemia: resolved Moderately differentiated adenocarcinoma of the colon Moderate anemia CONTRERAS with decreased UO: creatine stable, Fraility Hypoalbuminemia Elevated liver enzymes Constipation DNR/DNI Attestations Medical Necessity Statement*: CHF, worsening renal function Time Spent in Patient Care: Greater than 35 minutes (>than 50% of time spent in counselling and/or direct pt care on unit) . 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 transplanted heart: [place] heart Dyslipidemia E78.5
--- NOTE | 2020-06-12 16:27 | PC.NURSE ---
Patient has [place] Drain on her right side 550 drained from it at this time.
[2020-06-12] MEDS: bumetanide 0.25 mg/mL SDV 4 mL 1 MG IV (17:14)
[2020-06-12] MEDS: albumin 12.5 GM/250 ML VIAL IV (17:17)
[2020-06-12] MEDS: enoxaparin 30 mg/0.3 mL Syringe SUBCUT (17:22)
--- NOTE | 2020-06-12 18:44 | PC.NURSE ---
Report to Devin OSBORNE
[2020-06-12] MEDS: sennosides 8.6 mg Tablet PO (20:11)
--- NOTE | 2020-06-12 21:39 | PC.NURSE ---
Spoke with family, answered questions accordingly.
[2020-06-13] VITALS (8 sets, daily range): BP systolic 135–149; BP diastolic 68–81; PULSE 74–90; RESP 16–20; TEMP 36.4–36.7; O2SAT 97–99
[2020-06-13] MEDS: LORazepam 0.5 mg Tablet PO ×2 (00:16→16:33)
[2020-06-13] MEDS: bumetanide 0.25 mg/mL SDV 4 mL 1 MG IV ×2 (04:11→16:33)
[2020-06-13 04:39] LABS: Eosinophils % 0.6 %; Hemoglobin 7.7 g/dL (11.5-15.3); Lymphocytes # 0.6 10^3/uL (0.8-4.8); Lymphocytes % 11.5 %; Mean Corpuscular HGB Conc 30.8 g/dL (30.0-36.0); Mean Corpuscular Hemoglobin 28.6 pg (28.0-34.0); Mean Corpuscular Volume 92.9 fL (81-99); Mean Platelet Volume 9.9 fL (7.4-10.4); Monocytes # 0.3 10^3/uL (0.2-0.9); Monocytes % 5.1 %; Neutrophils # 4.16 10^3/uL (1.8-7.7); Neutrophils % 82.4 %; Nucleated Red Blood Cells % 0 %; Platelet Count 161 10^3/cmm (130-400); Red Blood Count 2.69 10^6/uL (4.1-5.3); Red Cell Distribution Width 21.8 % (12.1-15.1); White Blood Count 5.1 10^3/uL (4.0-10.0)
[2020-06-13 05:06] LABS: Alanine Aminotransferase 33 U/L (0-33); Alkaline Phosphatase 61 IU/L (35-105); Anion Gap 12.3 (5-19); Aspartate Amino Transferase 26 U/L (0-32); Blood Urea Nitrogen 55 mg/dL (8-23); Calcium 8.3 mg/dL (8.5-10.5); Carbon Dioxide 30 mmol/L (22-29); Chloride 97 mmol/L (98-107); Globulin 2.5 g/dL (1.3-4.6); Glucose 88 mg/dL (65-115); Magnesium 1.7 mg/dL (1.7-2.3); Osmolality Calculated 297 mOsm/kg (285-295); Potassium 3.3 mmol/L (3.5-5.1); Sodium 136 mmol/L (136-145); Total Bilirubin 0.5 mg/dL (0.15-1.2); Total Protein 5.5 g/dL (6.6-8.7)
--- NOTE | 2020-06-13 06:30 | NUR.SHIFT ---
Patient has slept most of the night and has had good UO 350ml.
[2020-06-13] MEDS: DOBUTamine drip 500 MG/250 ML PREMIX 5.9 MG IV (07:57)
--- NOTE | 2020-06-13 08:05 | P.PN_ITS ---
Subjective Subjective: Interval history: Late entry 06/12/20 Natasha Gustafson is a 85 year old female with PMHx of CAD s/p stents x 2 in 2005, recent hospitalization (early March and then mid march) for pneumonia, treated with Rocephin, azithromycin with rapid COVID-19 antigen as well as PCR testing negative. She also has moderately differentiated adenocarcinoma of ascending colon and underwent exploratory laparotomy 01/08/2020 with right hemicolectomy. Biopsy report showed moderately differentiated adenocarcinoma with mucinous and micropapillary features being managed by Dr. Ramsey. The patient presented with increased hypoxemia and fluid overload. She under went a Pleurx catheter placement on June 08. She has had worsening renal function. Patient also had some change in mental status. She has been seen by pulmonary and cardiology. She has been weaned off oxygen. She is on a dobutamine drip. She is tolerating her medications. Reports a poor appetite. Vitals/I&O/Wt Last Vital Signs Temp 98.0 F 06/13/20 07:07 Pulse 86 06/13/20 07:07 Resp 18 06/13/20 07:07 BP 149/80 06/13/20 07:07 Pulse Ox 98 06/13/20 07:07 06/12/20 06/13/20 06/13/20 22:59 06:59 14:59 Intake Total 270 / 1191.6 200 / 1391.6 139.437 / 139.437 Output Total 800 / 1150 550 / 1700 Balance -530 / 41.6 -350 / -308.4 139.437 / 139.437 Physical Exam Const: COMMON NORMALS: no acute distress and patient oriented x3 GENERAL APPEARANCE: cooperative and comfortable Neck/C-Spine: COMMON NORMALS: no JVD Resp: COMMON NORMALS: normal respiratory effort and No use of accessory muscles Cardio: COMMON NORMALS: no JVD and regular rate RATE: regular rate GI: COMMON NORMALS: Soft to palpation and non-tender PALPATION: Yes Soft to palpation Neuro: COMMON NORMALS: patient oriented x3 and moves all extremities Urinary Catheter Management^: Claudio: Cath Placed During This Visit: yes Reason for Continuing Indwelling Catheter: Accurate Measurement of Urinary Output in Critically Ill Patients Urinary Catheter Date of Insertion: 06/05/20 Urinary Catheter Time of Insertion: 07:04 Data : 06/13/20 04:20 06/13/20 04:20 Micro: Microbiology 06/08/20 17:55 Gram Stain - Final Pleural Fluid Anaerobic Culture - Preliminary Body Fluid Culture - Final A&P Assessment and plan (1) Cardiomyopathy: Status: Acute Qualifiers: Cardiomyopathy type: unspecified Qualified Code(s): I42.9 - Cardiomyopathy, unspecified (2) Acute on chronic kidney failure: Status: Acute (3) CHF (congestive heart failure), NYHA class IV: Status: Acute Qualifiers: Congestive heart failure chronicity: acute on chronic Congestive heart failure type: combined Qualified Code(s): I50.43 - Acute on chronic combined systolic (congestive) and diastolic (congestive) heart failure Additional A&P Information #Acute on chronic congestive heart failure exacerbation -monitor I/O -continue Bumex 1mg IV q12 h -isorbide mononitrae, metolazone, metoprolol ER 25mg -off O2 -PT #Acute on chronic hypoxic respiratory failure -off O2 # Acute on chronic kidney disease with oliguria -monitor Screat -avoid renal toxic medications # Acute Encephalopathy -improved # Hypokalemia -stable, monitor lytes # Transaminitis #normocytic anemia -transfuse for Hgb < 7 #malignancy -followup with Onc # GI ppx # DVT ppx Plan: Cardiology and pulmonary medicine on board Status post PleurX catheter placement Started on dobutamine drip Poor urine output Family to consider dialysis however leaning towards hospice Repeat labs in a.m. 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
[2020-06-13] MEDS: isosorbide mononitrate ER 30 mg Tablet 15 MG PO (08:29)
[2020-06-13] MEDS: potassium chloride oral liq 20 mEq/15 mL UDC PO (08:29)
[2020-06-13] MEDS: pantoprazole DR 40 mg Tablet PO (08:30)
[2020-06-13] MEDS: metOLazone 5 MG Tablet PO (08:30)
[2020-06-13] MEDS: metoprolol succinate ER (24 HR) 25 mg Tablet PO (08:30)
--- NOTE | 2020-06-13 08:37 | P.PN_ITS ---
Subjective Subjective: Interval history: She is a little more awake today. UO 1700 ml, -790 ml ; UO 350 ml last night and 300 cc so far suring the day. Medications: Reviewed: Yes Medication Review Details: Current Medications Acetaminophen (Acetaminophen 325 Mg Tablet) 650 mg PO Q8H PRN PRN Reason: DISCOMFORT Last Admin: 06/08/20 20:26 Dose: 650 mg Documented by: Bumetanide (Bumetanide 0.25 Mg/Ml Sdv 4 Ml) 1 mg IV Q12H [facility] Last Admin: 06/13/20 04:11 Dose: 1 mg Documented by: Docusate Sodium (Docusate Sodium 100 Mg Capsule) 200 mg PO DAILY PRN PRN Reason: CONSTIPATION Last Admin: 06/10/20 13:15 Dose: 200 mg Documented by: Enoxaparin Sodium (Enoxaparin 30 Mg/0.3 Ml Syringe) 30 mg SUBCUT Q24H [facility] Last Admin: 06/12/20 17:22 Dose: 30 mg Documented by: Dobutamine HCl/Dextrose (Dobutamine Drip) 500 mg in 250 mls @ 5.919 mls/hr IV .Q24H [facility] Last Admin: 06/13/20 07:57 Dose: 3 mcg/kg/min, 5.9 mls/hr Documented by: Isosorbide Mononitrate (Isosorbide Mononitrate Er 30 Mg Tablet) 15 mg PO DAILY [facility] Last Admin: 06/13/20 08:29 Dose: 15 mg Documented by: Lanolin (Lanolin Oint 7 Gm) 1 applic TOPICAL PRN PRN PRN Reason: DRYNESS Last Admin: 06/07/20 16:21 Dose: 1 applic Documented by: Lorazepam (Lorazepam 0.5 Mg Tablet) 0.5 mg PO Q6H PRN PRN Reason: ANXIETY Last Admin: 06/13/20 00:16 Dose: 0.5 mg Documented by: Metolazone (Metolazone 5 Mg Tablet) 5 mg PO DAILY [facility] Last Admin: 06/13/20 08:30 Dose: 5 mg Documented by: Metoprolol Succinate (Metoprolol Succinate Er (24 Hr) 25 Mg Tablet) 25 mg PO DAILY [facility] Last Admin: 06/13/20 08:30 Dose: 25 mg Documented by: Pantoprazole Sodium (Pantoprazole Dr 40 Mg Tablet) 40 mg PO DAILY [facility] Last Admin: 06/13/20 08:30 Dose: 40 mg Documented by: Polyethylene Glycol (Polyethylene Glycol 3350 Pkt 17 Gm) 17 gm PO DAILY PRN PRN Reason: CONSTIPATION Last Admin: 06/09/20 12:48 Dose: 17 gm Documented by: Potassium Chloride (Potassium Chloride Oral Liq 20 Meq/15 Ml Udc) 20 meq PO DAILY [facility] Last Admin: 06/13/20 08:29 Dose: 20 meq Documented by: Potassium Chloride (Potassium Chloride Er 20 Meq Tablet) 40 meq PO ONCE ONE Stop: 06/13/20 08:35 Senna (Sennosides 8.6 Mg Tablet) 8.6 mg PO BEDTIME [facility] Last Admin: 06/12/20 20:11 Dose: 8.6 mg Documented by: Vitals/I&O/Wt Last Vital Signs Temp 98.0 F 06/13/20 07:07 Pulse 86 06/13/20 07:07 Resp 18 06/13/20 07:07 BP 149/80 06/13/20 07:07 Pulse Ox 98 06/13/20 07:07 06/12/20 06/13/20 06/13/20 22:59 06:59 14:59 Intake Total 270 / 1191.6 200 / 1391.6 139.437 / 139.437 Output Total 800 / 1150 550 / 1700 Balance -530 / 41.6 -350 / -308.4 139.437 / 139.437 Physical Exam Narrative: EXAM NARRATIVE: Gen: elderly frail patient lying in bed HEENT: pallor+, No icterus, elevated JVD RS: decreases bilateral breath sounds, R pleurex catheter in place 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 and 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 CVS: S1, S2+, No murmur heard Ext: 1+ bilateral leg edema Urinary Catheter Management^: Claudio: Cath Placed During This Visit: yes Reason for Continuing Indwelling Catheter: Accurate Measurement of Urinary Output in Critically Ill Patients Urinary Catheter Date of Insertion: 06/05/20 Urinary Catheter Time of Insertion: 07:04 Data : 06/13/20 04:20 06/13/20 04:20 Micro: Microbiology 06/08/20 17:55 Gram Stain - Final Pleural Fluid Anaerobic Culture - Preliminary Body Fluid Culture - Final A&P Assessment and plan (1) CHF (congestive heart failure), NYHA class IV: I reviewed the images and it looks like Takotsubo cardiomyopathy with ballooning of mid to apical segments and sparing of basal segments. -Given her overall fraility, worsening renal function and advanced age, I do not recommend any further testing. -increase dobutamine to 5 mcg/kg/min, continue metolazone and Bumex 1 mg IV BID. - And closely monitor UO and I/O. -continue metoprolol sucinate 25 mg daily. -Her overall prognosis is not good. I had a long discussion with patient's son Lang and grandlaura Ferguson about realistic expectations at this point. I do not think she is a good candidate for dialysis if needed or further invasive testing. Lang mentioned that he has discussed with his and son Marty and they have decided on no DIALYSIS if that is not going to improve her quality of life and are very strongly considering hospice. They still are not sure about home or inpatient hospice. -I will defer that discussion to primary team. Status: Acute Qualifiers: Congestive heart failure chronicity: acute on chronic Congestive heart failure type: combined Qualified Code(s): I50.43 - Acute on chronic combined systolic (congestive) and diastolic (congestive) heart failure (2) Pleural effusion, bilateral: s/p multiple thoracentesis and recent pleurex catheter placement. Status: Acute (3) Atherosclerotic heart disease of [place] coronary artery without angina pectoris: Status: Acute Qualifiers: [place] vs. transplanted heart: [place] heart Qualified Code(s): I25.10 - Atherosclerotic heart disease of [place] coronary artery without angina pectoris (4) Dyslipidemia: Continue on the current medications. Status: Acute Additional A&P Information Hypokalemia: replaced Moderately differentiated adenocarcinoma of the colon Anemia: Hb dropped to 7.7, if continues to decrease may need blood transfusion CONTRERAS on CKD: creatine stable today, F/U on BMP Fraility Hypoalbuminemia Elevated liver enzymes : resolved Constipation : resolved DNR/DNI Attestations Medical Necessity Statement*: CHF, worsening renal function Time Spent in Patient Care: Greater than 35 minutes (>than 50% of time spent in counselling and/or direct pt care on unit) . 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 transplanted heart: [place] heart Dyslipidemia E78.5
[2020-06-13] MEDS: potassium chloride ER 20 mEq Tablet 40 MEQ PO (09:23)
--- NOTE | 2020-06-13 12:12 | P.PN_ITS ---
Subjective Subjective: Interval history: Natasha Gustafson is a 85 year old female with PMHx of CAD s/p stents x 2 in 2005, recent hospitalization (early March and then mid march) for pneumonia, treated with Rocephin, azithromycin with rapid COVID-19 antigen as well as PCR testing negative. She also has moderately differentiated adenocarcinoma of ascending colon and underwent exploratory lap arotomy 01/08/2020 with right hemicolectomy. Biopsy report showed moderately differentiated adenocarcinoma with mucinous and micropapillary features being managed by Dr. Ramsey. The patient presented with increased hypoxemia and fluid overload. She under went a Pleurx catheter placement on June 08. She has had worsening renal function. Patient also had some change in mental status. She has been seen by pulmonary and cardiology. She has been weaned off oxygen. She is on a dobutamine drip. She is tolerating her medications. diuretics adjusted no HD, consideration for hospice Medications: Reviewed: Yes Medication Review Details: Current Medications Acetaminophen (Acetaminophen 325 Mg Tablet) 650 mg PO Q8H PRN PRN Reason: DISCOMFORT Last Admin: 06/08/20 20:26 Dose: 650 mg Documented by: Bumetanide (Bumetanide 0.25 Mg/Ml Sdv 4 Ml) 1 mg IV Q12H [facility] Last Admin: 06/13/20 04:11 Dose: 1 mg Documented by: Docusate Sodium (Docusate Sodium 100 Mg Capsule) 200 mg PO DAILY PRN PRN Reason: CONSTIPATION Last Admin: 06/10/20 13:15 Dose: 200 mg Documented by: Enoxaparin Sodium (Enoxaparin 30 Mg/0.3 Ml Syringe) 30 mg SUBCUT Q24H [facility] Last Admin: 06/12/20 17:22 Dose: 30 mg Documented by: Dobutamine HCl/Dextrose (Dobutamine Drip) 500 mg in 250 mls @ 5.919 mls/hr IV .Q24H [facility] Last Admin: 06/13/20 07:57 Dose: 3 mcg/kg/min, 5.9 mls/hr Documented by: Isosorbide Mononitrate (Isosorbide Mononitrate Er 30 Mg Tablet) 15 mg PO DAILY [facility] Last Admin: 06/13/20 08:29 Dose: 15 mg Documented by: Lanolin (Lanolin Oint 7 Gm) 1 applic TOPICAL PRN PRN PRN Reason: DRYNESS Last Admin: 06/07/20 16:21 Dose: 1 applic Documented by: Lorazepam (Lorazepam 0.5 Mg Tablet) 0.5 mg PO Q6H PRN PRN Reason: ANXIETY Last Admin: 06/13/20 00:16 Dose: 0.5 mg Documented by: Metolazone (Metolazone 5 Mg Tablet) 5 mg PO DAILY [facility] Last Admin: 06/13/20 08:30 Dose: 5 mg Documented by: Metoprolol Succinate (Metoprolol Succinate Er (24 Hr) 25 Mg Tablet) 25 mg PO DAILY [facility] Last Admin: 06/13/20 08:30 Dose: 25 mg Documented by: Pantoprazole Sodium (Pantoprazole Dr 40 Mg Tablet) 40 mg PO DAILY [facility] Last Admin: 06/13/20 08:30 Dose: 40 mg Documented by: Polyethylene Glycol (Polyethylene Glycol 3350 Pkt 17 Gm) 17 gm PO DAILY PRN PRN Reason: CONSTIPATION Last Admin: 06/09/20 12:48 Dose: 17 gm Documented by: Potassium Chloride (Potassium Chloride Oral Liq 20 Meq/15 Ml Udc) 20 meq PO DAILY [facility] Last Admin: 06/13/20 08:29 Dose: 20 meq Documented by: Potassium Chloride (Potassium Chloride Er 20 Meq Tablet) 40 meq PO ONCE ONE Stop: 06/13/20 08:35 Senna (Sennosides 8.6 Mg Tablet) 8.6 mg PO BEDTIME [facility] Last Admin: 06/12/20 20:11 Dose: 8.6 mg Documented by: Vitals/I&O/Wt Last Vital Signs Temp 98.1 F 06/13/20 11:27 Pulse 74 06/13/20 11:27 Resp 18 06/13/20 11:27 BP 138/81 06/13/20 11:27 Pulse Ox 99 06/13/20 11:27 06/12/20 06/13/20 06/13/20 22:59 06:59 14:59 Intake Total 270 / 1191.6 200 / 1391.6 139.437 / 139.437 Output Total 800 / 1150 550 / 1700 Balance -530 / 41.6 -350 / -308.4 139.437 / 139.437 Physical Exam Const: COMMON NORMALS: no acute distress and patient oriented x3 GENERAL APPEARANCE: cooperative and comfortable Neck/C-Spine: COMMON NORMALS: no JVD Resp: COMMON NORMALS: normal respiratory effort and No use of accessory muscles Cardio: COMMON NORMALS: no JVD and regular rate RATE: regular rate GI: COMMON NORMALS: Soft to palpation and non-tender PALPATION: Yes Soft to palpation Neuro: COMMON NORMALS: patient oriented x3 and moves all extremities Urinary Catheter Management^: Claudio: Cath Placed During This Visit: yes Reason for Continuing Indwelling Catheter: Accurate Measurement of Urinary Output in Critically Ill Patients Urinary Catheter Date of Insertion: 06/05/20 Urinary Catheter Time of Insertion: 07:04 Data : 06/13/20 04:20 06/13/20 04:20 Micro: Microbiology 06/08/20 17:55 Gram Stain - Final Pleural Fluid Anaerobic Culture - Preliminary Body Fluid Culture - Final A&P Assessment and plan (1) Cardiomyopathy: Status: Acute Qualifiers: Cardiomyopathy type: unspecified Qualified Code(s): I42.9 - Cardiomyopathy, unspecified (2) Acute on chronic kidney failure: Status: Acute (3) CHF (congestive heart failure), NYHA class IV: Status: Acute Qualifiers: Congestive heart failure chronicity: acute on chronic Congestive heart failure type: combined Qualified Code(s): I50.43 - Acute on chronic combined systolic (congestive) and diastolic (congestive) heart failure Additional A&P Information #Acute on chronic congestive heart failure exacerbation -monitor I/O -continue Bumex 1mg IV q12 h -dobutamine -isorbide mononitrae, metolazone, metoprolol ER 25mg -off O2 -PT #Acute on chronic hypoxic respiratory failure -off O2 # Acute on chronic kidney disease with oliguria -monitor Screat -avoid renal toxic medications # Acute Encephalopathy -improved # Hypokalemia -replace lyts # Transaminitis #normocytic anemia -transfuse for Hgb < 7 #malignancy -followup with Onc # GI ppx # DVT ppx Plan: Cardiology and pulmonary medicine on board Status post PleurX catheter placement Started on dobutamine drip Poor urine output Family to consider dialysis however leaning towards hospice will call family today Discharge planning Attestations Medical Necessity Statement*: Natasha Gustafson's hospital stay will require greater than 2 midnights for chf Coding Level of Care Code Acute Ambulance Driver for [facility] Fwd Diagnoses Cardiomyopathy I42.9 Cardiomyopathy type: unspecified Acute on chronic kidney failure N17.9; N18.9 CHF (congestive heart failure), NYHA class IV I50.43 Congestive heart failure chronicity: acute on chronic Congestive heart failure type: combined
[2020-06-13] MEDS: enoxaparin 30 mg/0.3 mL Syringe SUBCUT (17:18)
[2020-06-14 04:00] VITALS: BP 145/76; PULSE 88; RESP 16; TEMP 36.3; O2SAT 98
[2020-06-14 04:38] LABS: Basophils % 0.2 %; Eosinophils # 0.1 10^3/uL (0.0-0.8); Eosinophils % 1.1 %; Hematocrit 27.8 % (37.0-47.0); Hemoglobin 8.5 g/dL (11.5-15.3); Lymphocytes # 0.6 10^3/uL (0.8-4.8); Lymphocytes % 13.9 %; Mean Corpuscular HGB Conc 30.6 g/dL (30.0-36.0); Mean Corpuscular Hemoglobin 28.4 pg (28.0-34.0); Mean Platelet Volume 9.2 fL (7.4-10.4); Monocytes # 0.3 10^3/uL (0.2-0.9); Monocytes % 7.1 %; Neutrophils # 3.51 10^3/uL (1.8-7.7); Neutrophils % 77.5 %; Nucleated Red Blood Cells % 0 %; Platelet Count 138 10^3/cmm (130-400); Red Blood Count 2.99 10^6/uL (4.1-5.3); Red Cell Distribution Width 21.9 % (12.1-15.1); White Blood Count 4.5 10^3/uL (4.0-10.0)
[2020-06-14 05:06] LABS: Alanine Aminotransferase 32 U/L (0-33); Albumin Level 2.8 g/dL (3.5-5.2); Alkaline Phosphatase 64 IU/L (35-105); Aspartate Amino Transferase 27 U/L (0-32); Blood Urea Nitrogen 55 mg/dL (8-23); Calcium 8.3 mg/dL (8.5-10.5); Carbon Dioxide 28 mmol/L (22-29); Chloride 95 mmol/L (98-107); Globulin 2.8 g/dL (1.3-4.6); Glucose 97 mg/dL (65-115); Osmolality Calculated 291 mOsm/kg (285-295); Sodium 133 mmol/L (136-145); Total Bilirubin 0.6 mg/dL (0.15-1.2); Total Protein 5.6 g/dL (6.6-8.7)
[2020-06-14 05:16] LABS: Anion Gap 13.9 (5-19); Potassium 3.9 mmol/L (3.5-5.1)
[2020-06-14] MEDS: bumetanide 0.25 mg/mL SDV 4 mL 1 MG IV ×2 (05:22→18:45)
[2020-06-14] MEDS: LORazepam 0.5 mg Tablet PO ×2 (05:35→14:14)
[2020-06-14 07:11] VITALS: BP 156/79; PULSE 86; RESP 18; TEMP 36.9; O2SAT 100
--- NOTE | 2020-06-14 07:46 | PM.PN ---
Subjective Subjective: Interval history: She is stting in chair today, she feels a little better today. UO 600 ml, -300 ml Medications: Reviewed: Yes Medication Review Details: Current Medications Acetaminophen (Acetaminophen 325 Mg Tablet) 650 mg PO Q8H PRN PRN Reason: DISCOMFORT Last Admin: 06/08/20 20:26 Dose: 650 mg Documented by: Bumetanide (Bumetanide 0.25 Mg/Ml Sdv 4 Ml) 1 mg IV Q12H [facility] Last Admin: 06/14/20 05:22 Dose: 1 mg Documented by: Docusate Sodium (Docusate Sodium 100 Mg Capsule) 200 mg PO DAILY PRN PRN Reason: CONSTIPATION Last Admin: 06/10/20 13:15 Dose: 200 mg Documented by: Enoxaparin Sodium (Enoxaparin 30 Mg/0.3 Ml Syringe) 30 mg SUBCUT Q24H [facility] Last Admin: 06/13/20 17:18 Dose: 30 mg Documented by: Dobutamine HCl/Dextrose (Dobutamine Drip) 500 mg in 250 mls @ 9.866 mls/hr IV .Q24H [facility] Last Infusion: 06/13/20 14:31 Dose: 5 mcg/kg/min, 9.9 mls/hr Documented by: Isosorbide Mononitrate (Isosorbide Mononitrate Er 30 Mg Tablet) 15 mg PO DAILY [facility] Last Admin: 06/13/20 08:29 Dose: 15 mg Documented by: Lanolin (Lanolin Oint 7 Gm) 1 applic TOPICAL PRN PRN PRN Reason: DRYNESS Last Admin: 06/07/20 16:21 Dose: 1 applic Documented by: Lorazepam (Lorazepam 0.5 Mg Tablet) 0.5 mg PO Q6H PRN PRN Reason: ANXIETY Last Admin: 06/14/20 05:35 Dose: 0.5 mg Documented by: Metolazone (Metolazone 5 Mg Tablet) 5 mg PO DAILY [facility] Last Admin: 06/13/20 08:30 Dose: 5 mg Documented by: Metoprolol Succinate (Metoprolol Succinate Er (24 Hr) 25 Mg Tablet) 25 mg PO DAILY [facility] Last Admin: 06/13/20 08:30 Dose: 25 mg Documented by: Pantoprazole Sodium (Pantoprazole Dr 40 Mg Tablet) 40 mg PO DAILY [facility] Last Admin: 06/13/20 08:30 Dose: 40 mg Documented by: Polyethylene Glycol (Polyethylene Glycol 3350 Pkt 17 Gm) 17 gm PO DAILY PRN PRN Reason: CONSTIPATION Last Admin: 06/09/20 12:48 Dose: 17 gm Documented by: Potassium Chloride (Potassium Chloride Oral Liq 20 Meq/15 Ml Udc) 20 meq PO DAILY [facility] Last Admin: 06/13/20 08:29 Dose: 20 meq Documented by: Senna (Sennosides 8.6 Mg Tablet) 8.6 mg PO BEDTIME PRN PRN Reason: CONSTIPATION Vitals/I&O/Wt Last Vital Signs Temp 98.4 F 06/14/20 07:11 Pulse 86 06/14/20 07:11 Resp 18 06/14/20 07:11 BP 156/79 06/14/20 07:11 Pulse Ox 100 06/14/20 07:11 06/13/20 06/14/20 06/14/20 22:59 06:59 14:59 Intake Total 120 / 298.180 Output Total 300 / 300 300 / 600 Balance -180 / -1.820 -300 / -301.820 Physical Exam Narrative: EXAM NARRATIVE: Gen: elderly frail patient lying in bed HEENT: pallor+, No icterus, elevated JVD RS: decreases bilateral breath sounds, R pleurex catheter in place 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 and 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 and 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 CVS: S1, S2+, No murmur heard Ext: trace bilateral leg edema Urinary Catheter Management^: Claudio: Cath Placed During This Visit: yes Reason for Continuing Indwelling Catheter: Accurate Measurement of Urinary Output in Critically Ill Patients Urinary Catheter Date of Insertion: 06/05/20 Urinary Catheter Time of Insertion: 07:04 Data : 06/14/20 04:23 06/14/20 04:23 Micro: Microbiology 06/08/20 17:55 Gram Stain - Final Pleural Fluid Anaerobic Culture - Preliminary Body Fluid Culture - Final A&P Assessment and plan (1) CHF (congestive heart failure), NYHA class IV: I reviewed the images and it looks like Takotsubo cardiomyopathy with ballooning of mid to apical segments and sparing of basal segments. -Given her overall fraility, worsening renal function and advanced age, I do not recommend any further testing. -contiue dobutamineo 5 mcg/kg/min, continue metolazone and Bumex 1 mg IV BID another day. - And closely monitor UO and I/O. -continue metoprolol sucinate 25 mg daily. Runs of A tach and PAC's seen on monitor. -Her overall prognosis is not good. I had a long discussion with patient's son Lang and grandlaura Ferguson about realistic expectations at this point. I do not think she is a good candidate for dialysis if needed or further invasive testing. Lang mentioned that he has discussed with his and son Marty and they have decided on no DIALYSIS if that is not going to improve her quality of life and are very strongly considering hospice. They still are not sure about home or inpatient hospice. -I will defer that discussion to primary team. Status: Acute Qualifiers: Congestive heart failure chronicity: acute on chronic Congestive heart failure type: combined Qualified Code(s): I50.43 - Acute on chronic combined systolic (congestive) and diastolic (congestive) heart failure (2) Pleural effusion, bilateral: s/p multiple thoracentesis and recent pleurex catheter placement. Status: Acute (3) Atherosclerotic heart disease of [place] coronary artery without angina pectoris: Status: Acute Qualifiers: [place] vs. transplanted heart: [place] heart Qualified Code(s): I25.10 - Atherosclerotic heart disease of [place] coronary artery without angina pectoris (4) Dyslipidemia: Continue on the current medications. Status: Acute Additional A&P Information Hypokalemia: replaced Moderately differentiated adenocarcinoma of the colon Anemia: Hb dropped to 7.7, if continues to decrease may need blood transfusion; Hb -8.5 today CONTRERAS on CKD: creatine stable today, F/U on BMP Fraility Hypoalbuminemia Elevated liver enzymes : resolved Constipation : resolved DNR/DNI Attestations Medical Necessity Statement*: CHF, worsening renal function Time Spent in Patient Care: Greater than 35 minutes (>than 50% of time spent in counselling and/or direct pt care on unit). Coding Level of Care Code Acute Valve Setter for [facility] Diagnoses CHF (congestive heart failure), NYHA class IV I50.43 Congestive heart failure chronicity: acute on chronic Congestive heart failure type: combined Pleural effusion, bilateral J90 Atherosclerotic heart disease of [place] coronary artery without angina pectoris I25.10 [place] vs. transplanted heart: [place] heart Dyslipidemia E78.5
[2020-06-14] MEDS: isosorbide mononitrate ER 30 mg Tablet 15 MG PO (08:51)
[2020-06-14] MEDS: pantoprazole DR 40 mg Tablet PO (08:51)
[2020-06-14] MEDS: metOLazone 5 MG Tablet PO (08:52)
[2020-06-14] MEDS: potassium chloride oral liq 20 mEq/15 mL UDC PO (08:52)
[2020-06-14] MEDS: metoprolol succinate ER (24 HR) 25 mg Tablet PO (08:52)
--- NOTE | 2020-06-14 11:18 | PC.SOCIAL ---
IMM UPDATE Pg 2 of IMM update. Copy provided to pt.
[2020-06-14 11:23] VITALS: BP 139/80; PULSE 89; RESP 18; TEMP 37; O2SAT 99
--- NOTE | 2020-06-14 13:17 | ECG_ITS ---
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 Measurements Intervals [place] Rate: 84 P: 54 IA: 171 QRS: 7 QRSD: 77 T: 184 QT: 364 QTc: 432 Interpretive Statements SINUS RHYTHM WITH OCCASIONAL SUPRAVENTRICULAR PREMATURE COMPLEXES ST DEVIATION AND MODERATE T-WAVE ABNORMALITY, CONSIDER LATERAL ISCHEMIA [-0.1+ mV T WAVE IN I/aVL/V5/V6] Compared to ECG 06/05/2020 04:35:05 Possible ischemia now present Sinus tachycardia no longer present T-wave abnormality still present Electronically Signed On 06-14-2020 17:29:23 X RAY EQUIPMENT MECHANIC by Olga Lidia Steward M.D. [id number]
[2020-06-14] MEDS: DOBUTamine drip 500 MG/250 ML PREMIX 9.9 MG IV (14:14)
[2020-06-14 15:12] VITALS: BP 145/80; PULSE 85; RESP 18; TEMP 36.6; O2SAT 99
--- NOTE | 2020-06-14 17:06 | P.PN_ITS ---
Subjective Subjective: Interval history: No overnight events patient off o2 Medications: Reviewed: Yes Medication Review Details: Current Medications Acetaminophen (Acetaminophen 325 Mg Tablet) 650 mg PO Q8H PRN PRN Reason: DISCOMFORT Last Admin: 06/08/20 20:26 Dose: 650 mg Documented by: Bumetanide (Bumetanide 0.25 Mg/Ml Sdv 4 Ml) 1 mg IV Q12H [facility] Last Admin: 06/14/20 05:22 Dose: 1 mg Documented by: Docusate Sodium (Docusate Sodium 100 Mg Capsule) 200 mg PO DAILY PRN PRN Reason: CONSTIPATION Last Admin: 06/10/20 13:15 Dose: 200 mg Documented by: Enoxaparin Sodium (Enoxaparin 30 Mg/0.3 Ml Syringe) 30 mg SUBCUT Q24H [facility] Last Admin: 06/13/20 17:18 Dose: 30 mg Documented by: Dobutamine HCl/Dextrose (Dobutamine Drip) 500 mg in 250 mls @ 9.866 mls/hr IV .Q24H [facility] Last Infusion: 06/13/20 14:31 Dose: 5 mcg/kg/min, 9.9 mls/hr Documented by: Isosorbide Mononitrate (Isosorbide Mononitrate Er 30 Mg Tablet) 15 mg PO DAILY [facility] Last Admin: 06/13/20 08:29 Dose: 15 mg Documented by: Lanolin (Lanolin Oint 7 Gm) 1 applic TOPICAL PRN PRN PRN Reason: DRYNESS Last Admin: 06/07/20 16:21 Dose: 1 applic Documented by: Lorazepam (Lorazepam 0.5 Mg Tablet) 0.5 mg PO Q6H PRN PRN Reason: ANXIETY Last Admin: 06/14/20 05:35 Dose: 0.5 mg Documented by: Metolazone (Metolazone 5 Mg Tablet) 5 mg PO DAILY [facility] Last Admin: 06/13/20 08:30 Dose: 5 mg Documented by: Metoprolol Succinate (Metoprolol Succinate Er (24 Hr) 25 Mg Tablet) 25 mg PO DAILY [facility] Last Admin: 06/13/20 08:30 Dose: 25 mg Documented by: Pantoprazole Sodium (Pantoprazole Dr 40 Mg Tablet) 40 mg PO DAILY [facility] Last Admin: 06/13/20 08:30 Dose: 40 mg Documented by: Polyethylene Glycol (Polyethylene Glycol 3350 Pkt 17 Gm) 17 gm PO DAILY PRN PRN Reason: CONSTIPATION Last Admin: 06/09/20 12:48 Dose: 17 gm Documented by: Potassium Chloride (Potassium Chloride Oral Liq 20 Meq/15 Ml Udc) 20 meq PO DAILY [facility] Last Admin: 06/13/20 08:29 Dose: 20 meq Documented by: Senna (Sennosides 8.6 Mg Tablet) 8.6 mg PO BEDTIME PRN PRN Reason: CONSTIPATION Vitals/I&O/Wt Last Vital Signs Temp 97.6 F 06/14/20 19:39 Pulse 82 06/14/20 19:58 Resp 20 H 06/14/20 19:39 BP 120/69 06/14/20 19:39 Pulse Ox 96 06/14/20 19:58 06/14/20 06/14/20 06/14/20 06:59 14:59 22:59 Intake Total 331.257 / 331.257 Output Total 300 / 600 Balance -300 / -301.820 331.257 / 331.257 Physical Exam Narrative: EXAM NARRATIVE: GEN: Awake, alert and oriented, no acute distress Room air CVS: S1S2 N RS: CTA B/L Abd: Soft, nt/nd , bs+ 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 focal neuro deficits Extremities no current lower extremity edema Urinary Catheter Management^: Claudio: Cath Placed During This Visit: yes Reason for Continuing Indwelling Catheter: Accurate Measurement of Urinary Output in Critically Ill Patients Urinary Catheter Date of Insertion: 06/05/20 Urinary Catheter Time of Insertion: 07:04 Data : 06/14/20 04:23 06/14/20 04:23 Micro: Microbiology 06/08/20 17:55 Gram Stain - Final Pleural Fluid Anaerobic Culture - Preliminary Body Fluid Culture - Final A&P Assessment and plan (1) Cardiomyopathy: Status: Acute Qualifiers: Cardiomyopathy type: unspecified Qualified Code(s): I42.9 - Cardiomyopathy, unspecified (2) Acute on chronic kidney failure: Status: Acute (3) CHF (congestive heart failure), NYHA class IV: Status: Acute Qualifiers: Congestive heart failure chronicity: acute on chronic Congestive heart failure type: combined Qualified Code(s): I50.43 - Acute on chronic combined systolic (congestive) and diastolic (congestive) heart failure Additional A&P Information #Acute on chronic congestive heart failure exacerbation -monitor I/O -continue Bumex 1mg IV q12 h -dobutamine -isosorbide mononitrae, metolazone, metoprolol ER 25mg -PT #Acute on chronic hypoxic respiratory failure -off O2 #Acute on chronic kidney disease with oliguria -monitor Screat -avoid renal toxic medications #Acute Encephalopathy -improved #Hypokalemia -replace Lytes #Transaminitis #Normocytic anemia -transfuse for Hgb < 7 #malignancy -followup with Onc # GI ppx # DVT ppx Plan: Plan to transition to hospice However will need to be off dobutamine Will d/w cardiology, patient and family in am Possible d/c SNF with hospice vs inpatient hospice Attestations Medical Necessity Statement*: Will like to continue hospitalization for discharge planning. Time Spent in Patient Care: Greater than 35 minutes (>than 50% of time spent in counselling and/or direct pt care on unit) . Coding Level of Care Code Acute Tooth Cutter for [facility] Diagnoses Cardiomyopathy I42.9 Cardiomyopathy type: unspecified Acute on chronic kidney failure N17.9; N18.9 CHF (congestive heart failure), NYHA class IV I50.43 Congestive heart failure chronicity: acute on chronic Congestive heart failure type: combined
[2020-06-14] MEDS: enoxaparin 30 mg/0.3 mL Syringe SUBCUT (18:44)
[2020-06-14 19:39] VITALS: BP 120/69; PULSE 87; RESP 20; TEMP 36.4; O2SAT 98
[2020-06-14 19:58] VITALS: PULSE 82; O2SAT 96
[2020-06-15] VITALS (8 sets, daily range): BP systolic 130–151; BP diastolic 67–81; PULSE 77–90; RESP 16–24; TEMP 36.4–36.9; O2SAT 94–99
[2020-06-15] MEDS: LORazepam 0.5 mg Tablet PO ×2 (02:45→10:14)
[2020-06-15] MEDS: bumetanide 0.25 mg/mL SDV 4 mL 1 MG IV ×2 (05:25→09:00)
[2020-06-15 08:08] LABS: Basophils % 0.2 %; Eosinophils # 0.1 10^3/uL (0.0-0.8); Eosinophils % 2.4 %; Hematocrit 26.4 % (37.0-47.0); Hemoglobin 8.2 g/dL (11.5-15.3); Lymphocytes # 0.5 10^3/uL (0.8-4.8); Lymphocytes % 10.8 %; Mean Corpuscular HGB Conc 31.1 g/dL (30.0-36.0); Mean Corpuscular Hemoglobin 28.7 pg (28.0-34.0); Mean Corpuscular Volume 92.3 fL (81-99); Mean Platelet Volume 9.7 fL (7.4-10.4); Monocytes # 0.4 10^3/uL (0.2-0.9); Monocytes % 7.8 %; Neutrophils # 3.64 10^3/uL (1.8-7.7); Neutrophils % 78.6 %; Nucleated Red Blood Cells % 0 %; Platelet Count 142 10^3/cmm (130-400); Red Blood Count 2.86 10^6/uL (4.1-5.3); Red Cell Distribution Width 21.4 % (12.1-15.1); White Blood Count 4.6 10^3/uL (4.0-10.0)
[2020-06-15 08:19] LABS: Anion Gap 11.9 (5-19); Blood Urea Nitrogen 55 mg/dL (8-23); Calcium 8.5 mg/dL (8.5-10.5); Carbon Dioxide 32 mmol/L (22-29); Chloride 93 mmol/L (98-107); Glucose 87 mg/dL (65-115); Magnesium 1.7 mg/dL (1.7-2.3); Osmolality Calculated 290 mOsm/kg (285-295); Potassium 3.9 mmol/L (3.5-5.1); Sodium 133 mmol/L (136-145)
[2020-06-15] MEDS: metoprolol succinate ER (24 HR) 25 mg Tablet PO (09:00)
[2020-06-15] MEDS: potassium chloride oral liq 20 mEq/15 mL UDC PO (09:00)
[2020-06-15] MEDS: isosorbide mononitrate ER 30 mg Tablet 15 MG PO (09:00)
[2020-06-15] MEDS: pantoprazole DR 40 mg Tablet PO (09:00)
[2020-06-15] MEDS: metOLazone 5 MG Tablet PO (09:00)
[2020-06-15] MEDS: polyethylene glycol 3350 Pkt 17 gm PO (10:14)
[2020-06-15] MEDS: docusate sodium 100 mg Capsule 200 MG PO (10:14)
[2020-06-15] MEDS: DOBUTamine drip 500 MG/250 ML PREMIX 9.9 MG IV (15:12)
[2020-06-15] MEDS: bumetanide 0.25 mg/mL SDV 10 mL 2 MG IV ×2 (15:12→22:16)
--- NOTE | 2020-06-15 18:04 | P.PN_ITS ---
Subjective Subjective: Interval history: She looks more alert today. UO 900 ml, -550ml. Medications: Reviewed: Yes Medication Review Details: Current Medications Acetaminophen (Acetaminophen 325 Mg Tablet) 650 mg PO Q8H PRN PRN Reason: DISCOMFORT Last Admin: 06/08/20 20:26 Dose: 650 mg Documented by: Bumetanide (Bumetanide 0.25 Mg/Ml Sdv 10 Ml) 2 mg IV 0800,1600 [facility] Last Admin: 06/15/20 15:12 Dose: 2 mg Documented by: Docusate Sodium (Docusate Sodium 100 Mg Capsule) 200 mg PO DAILY PRN PRN Reason: CONSTIPATION Last Admin: 06/15/20 10:14 Dose: 200 mg Documented by: Enoxaparin Sodium (Enoxaparin 30 Mg/0.3 Ml Syringe) 30 mg SUBCUT Q24H [facility] Last Admin: 06/14/20 18:44 Dose: 30 mg Documented by: Dobutamine HCl/Dextrose (Dobutamine Drip) 500 mg in 250 mls @ 9.866 mls/hr IV .Q24H [facility] Last Admin: 06/15/20 15:12 Dose: 5 mcg/kg/min, 9.9 mls/hr Documented by: Isosorbide Mononitrate (Isosorbide Mononitrate Er 30 Mg Tablet) 15 mg PO DAILY [facility] Last Admin: 06/15/20 09:00 Dose: 15 mg Documented by: Lanolin (Lanolin Oint 7 Gm) 1 applic TOPICAL PRN PRN PRN Reason: DRYNESS Last Admin: 06/07/20 16:21 Dose: 1 applic Documented by: Lorazepam (Lorazepam 0.5 Mg Tablet) 0.5 mg PO Q6H PRN PRN Reason: ANXIETY Last Admin: 06/15/20 10:14 Dose: 0.5 mg Documented by: Metolazone (Metolazone 5 Mg Tablet) 5 mg PO DAILY [facility] Last Admin: 06/15/20 09:00 Dose: 5 mg Documented by: Metoprolol Succinate (Metoprolol Succinate Er (24 Hr) 25 Mg Tablet) 25 mg PO DAILY [facility] Last Admin: 06/15/20 09:00 Dose: 25 mg Documented by: Pantoprazole Sodium (Pantoprazole Dr 40 Mg Tablet) 40 mg PO DAILY [facility] Last Admin: 06/15/20 09:00 Dose: 40 mg Documented by: Polyethylene Glycol (Polyethylene Glycol 3350 Pkt 17 Gm) 17 gm PO DAILY PRN PRN Reason: CONSTIPATION Last Admin: 06/15/20 10:14 Dose: 17 gm Documented by: Potassium Chloride (Potassium Chloride Oral Liq 20 Meq/15 Ml Udc) 20 meq PO DAILY [facility] Last Admin: 06/15/20 09:00 Dose: 20 meq Documented by: Senna (Sennosides 8.6 Mg Tablet) 8.6 mg PO BEDTIME PRN PRN Reason: CONSTIPATION Vitals/I&O/Wt Last Vital Signs Temp 97.8 F 06/15/20 15:10 Pulse 80 06/15/20 15:59 Resp 18 06/15/20 15:10 BP 145/81 06/15/20 15:10 Pulse Ox 94 06/15/20 15:59 06/15/20 06/15/20 06/15/20 06:59 14:59 22:59 Intake Total 360 / 360 247.17 / 607.17 Output Total 900 / 900 Balance -900 / -568.743 360 / 360 247.17 / 607.17 Physical Exam Narrative: EXAM NARRATIVE: Gen: elderly frail patient lying in bed HEENT: pallor+, No icterus, elevated JVD RS: decreases bilateral breath sounds, R pleurex catheter in place 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 and 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 CVS: S1, S2+, No murmur heard Ext: trace bilateral leg edema Urinary Catheter Management^: Claudio: Cath Placed During This Visit: yes Reason for Continuing Indwelling Catheter: Assist Healing of Perineal & Sacral Wounds- Incontinent Patients Urinary Catheter Date of Insertion: 06/05/20 Urinary Catheter Time of Insertion: 07:04 Data : 06/15/20 07:50 06/15/20 07:50 Micro: Microbiology 06/08/20 17:55 Gram Stain - Final Pleural Fluid Anaerobic Culture - Preliminary Body Fluid Culture - Final A&P Assessment and plan (1) CHF (congestive heart failure), NYHA class IV: I reviewed the images and it looks like Takotsubo cardiomyopathy with ballooning of mid to apical segments and sparing of basal segments. -Given her overall fraility, worsening renal function and advanced age, I do not recommend any further testing. -contiue dobutamineo 5 mcg/kg/min, continue metolazone and Bumex 2 mg IV BID another day. - And closely monitor UO and I/O. -continue metoprolol succinate 25 mg daily. Runs of A tach and PAC's seen on monitor. -Her overall prognosis is not good. I had a long discussion with patient's son Lang and grandlaura Ferguson about realistic expectations at this point. I do not think she is a good candidate for dialysis if needed or further invasive testing. Lang mentioned that he has discussed with his and son Marty and they have decided on no DIALYSIS if that is not going to improve her quality of life and are very strongly considering hospice. They still are not sure about home or inpatient hospice. -I will defer that discussion to primary team. Status: Acute Qualifiers: Congestive heart failure chronicity: acute on chronic Congestive heart failure type: combined Qualified Code(s): I50.43 - Acute on chronic combined systolic (congestive) and diastolic (congestive) heart failure (2) Pleural effusion, bilateral: s/p multiple thoracentesis and recent pleurex catheter placement. Status: Acute (3) Atherosclerotic heart disease of [place] coronary artery without angina pectoris: Status: Acute Qualifiers: [place] vs. transplanted heart: [place] heart Qualified Code(s): I25.10 - Atherosclerotic heart disease of [place] coronary artery without angina pectoris (4) Dyslipidemia: Continue on the current medications. Status: Acute Additional A&P Information Hypokalemia: replaced Moderately differentiated adenocarcinoma of the colon Anemia CONTRERAS on CKD: creatine stable today, F/U on BMP Fraility Hypoalbuminemia Elevated liver enzymes : resolved Constipation : resolved DNR/DNI Attestations Medical Necessity Statement*: CHF, worsening renal function Time Spent in Patient Care: Greater than 35 minutes (>than 50% of time spent in counselling and/or direct pt care on unit) . 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 transplanted heart: [place] heart Dyslipidemia E78.5
[2020-06-15] MEDS: enoxaparin 30 mg/0.3 mL Syringe SUBCUT (18:41)
--- NOTE | 2020-06-15 19:11 | PM.PN ---
Subjective Subjective: Interval history: Patient was sitting up in bed alert awake. Was wanting to go home. Was continued on dobutamine drip. Urine output has slowly increased. Denies any chest pain or shortness of breath. Was restarted on 2 L of O2 via nasal cannula. Medications: Reviewed: Yes Medication Review Details: Current Medications Acetaminophen (Acetaminophen 325 Mg Tablet) 650 mg PO Q8H PRN PRN Reason: DISCOMFORT Last Admin: 06/08/20 20:26 Dose: 650 mg Documented by: Bumetanide (Bumetanide 0.25 Mg/Ml Sdv 4 Ml) 1 mg IV Q12H [facility] Last Admin: 06/14/20 05:22 Dose: 1 mg Documented by: Docusate Sodium (Docusate Sodium 100 Mg Capsule) 200 mg PO DAILY PRN PRN Reason: CONSTIPATION Last Admin: 06/10/20 13:15 Dose: 200 mg Documented by: Enoxaparin Sodium (Enoxaparin 30 Mg/0.3 Ml Syringe) 30 mg SUBCUT Q24H [facility] Last Admin: 06/13/20 17:18 Dose: 30 mg Documented by: Dobutamine HCl/Dextrose (Dobutamine Drip) 500 mg in 250 mls @ 9.866 mls/hr IV .Q24H [facility] Last Infusion: 06/13/20 14:31 Dose: 5 mcg/kg/min, 9.9 mls/hr Documented by: Isosorbide Mononitrate (Isosorbide Mononitrate Er 30 Mg Tablet) 15 mg PO DAILY [facility] Last Admin: 06/13/20 08:29 Dose: 15 mg Documented by: Lanolin (Lanolin Oint 7 Gm) 1 applic TOPICAL PRN PRN PRN Reason: DRYNESS Last Admin: 06/07/20 16:21 Dose: 1 applic Documented by: Lorazepam (Lorazepam 0.5 Mg Tablet) 0.5 mg PO Q6H PRN PRN Reason: ANXIETY Last Admin: 06/14/20 05:35 Dose: 0.5 mg Documented by: Metolazone (Metolazone 5 Mg Tablet) 5 mg PO DAILY [facility] Last Admin: 06/13/20 08:30 Dose: 5 mg Documented by: Metoprolol Succinate (Metoprolol Succinate Er (24 Hr) 25 Mg Tablet) 25 mg PO DAILY [facility] Last Admin: 06/13/20 08:30 Dose: 25 mg Documented by: Pantoprazole Sodium (Pantoprazole Dr 40 Mg Tablet) 40 mg PO DAILY [facility] Last Admin: 06/13/20 08:30 Dose: 40 mg Documented by: Polyethylene Glycol (Polyethylene Glycol 3350 Pkt 17 Gm) 17 gm PO DAILY PRN PRN Reason: CONSTIPATION Last Admin: 06/09/20 12:48 Dose: 17 gm Documented by: Potassium Chloride (Potassium Chloride Oral Liq 20 Meq/15 Ml Udc) 20 meq PO DAILY [facility] Last Admin: 06/13/20 08:29 Dose: 20 meq Documented by: Senna (Sennosides 8.6 Mg Tablet) 8.6 mg PO BEDTIME PRN PRN Reason: CONSTIPATION Vitals/I&O/Wt Last Vital Signs Temp 97.8 F 06/15/20 15:10 Pulse 80 06/15/20 15:59 Resp 18 06/15/20 15:10 BP 145/81 06/15/20 15:10 Pulse Ox 94 06/15/20 15:59 06/15/20 06/15/20 06/15/20 06:59 14:59 22:59 Intake Total 360 / 360 247.17 / 607.17 Output Total 900 / 900 900 / 900 Balance -900 / -568.743 360 / 360 -652.83 / -292.83 Physical Exam Narrative: EXAM NARRATIVE: GEN: Awake, alert and oriented, no acute distress On 2 L CVS: S1S2 N RS: CTA B/L Abd: Soft, nt/nd , bs+ GOLD BUYER: no focal neuro deficits Extremities no current lower extremity edema Urinary Catheter Management^: Claudio: Cath Placed During This Visit: yes Reason for Continuing Indwelling Catheter: Assist Healing of Perineal & Sacral Wounds- Incontinent Patients Urinary Catheter Date of Insertion: 06/05/20 Urinary Catheter Time of Insertion: 07:04 Data : 06/15/20 07:50 06/15/20 07:50 Micro: Microbiology 06/08/20 17:55 Gram Stain - Final Pleural Fluid Anaerobic Culture - Preliminary Body Fluid Culture - Final A&P Assessment and plan (1) Cardiomyopathy: Status: Acute Qualifiers: Cardiomyopathy type: unspecified Qualified Code(s): I42.9 - Cardiomyopathy, unspecified (2) Acute on chronic kidney failure: Status: Acute (3) CHF (congestive heart failure), NYHA class IV: Status: Acute Qualifiers: Congestive heart failure chronicity: acute on chronic Congestive heart failure type: combined Qualified Code(s): I50.43 - Acute on chronic combined systolic (congestive) and diastolic (congestive) heart failure Additional A&P Information #Acute on chronic congestive heart failure exacerbation -monitor I/O -continue Bumex 1mg IV q12 h -dobutamine drip. -isosorbide mononitrae, metolazone, metoprolol ER 25mg -PT #Acute on chronic hypoxic respiratory failure - requiring intermittent use of o2 for comfort #Acute on chronic kidney disease with oliguria -monitor Screat -avoid renal toxic medications -u/o improving in past few days -no plan for hd -nephrology not consulted #Acute Encephalopathy -improved #Hypokalemia -replace Lytes #Transaminitis #Normocytic anemia -transfuse for Hgb < 7 #malignancy -followup with Onc # GI ppx # DVT ppx Plan: D/w Case management Plan to d/w family in regards to SNF on hospice care [facility] unable to accept patient due to pleurex catheter Patients family unable to care for patient at home on hospice Attestations Medical Necessity Statement*: Patient will require further hospitalization until discharge placement can be arranged. Time Spent in Patient Care: Greater than 35 minutes (>than 50% of time spent in counselling and/or direct pt care on unit). Coding Level of Care Code Acute Scaler for [facility] Diagnoses Cardiomyopathy I42.9 Cardiomyopathy type: unspecified Acute on chronic kidney failure N17.9; N18.9 CHF (congestive heart failure), NYHA class IV I50.43 Congestive heart failure chronicity: acute on chronic Congestive heart failure type: combined
[2020-06-15] MEDS: acetaminophen 325 mg Tablet 650 MG PO (20:14)
[2020-06-16] VITALS (8 sets, daily range): BP systolic 141–155; BP diastolic 69–83; PULSE 18–83; RESP 17–20; TEMP 36.5–36.9; O2SAT 99
[2020-06-16 05:24] LABS: Basophils % 0.2 %; Eosinophils # 0.1 10^3/uL (0.0-0.8); Eosinophils % 2.3 %; Hematocrit 25.9 % (37.0-47.0); Hemoglobin 8.1 g/dL (11.5-15.3); Lymphocytes # 0.6 10^3/uL (0.8-4.8); Lymphocytes % 13.4 %; Mean Corpuscular HGB Conc 31.3 g/dL (30.0-36.0); Mean Corpuscular Hemoglobin 28.8 pg (28.0-34.0); Mean Corpuscular Volume 92.2 fL (81-99); Mean Platelet Volume 9.9 fL (7.4-10.4); Monocytes # 0.3 10^3/uL (0.2-0.9); Monocytes % 7.3 %; Neutrophils # 3.39 10^3/uL (1.8-7.7); Neutrophils % 76.8 %; Nucleated Red Blood Cells % 0 %; Platelet Count 138 10^3/cmm (130-400); Red Blood Count 2.81 10^6/uL (4.1-5.3); Red Cell Distribution Width 20.6 % (12.1-15.1); White Blood Count 4.4 10^3/uL (4.0-10.0)
[2020-06-16 05:43] LABS: Anion Gap 11.7 (5-19); Blood Urea Nitrogen 59 mg/dL (8-23); Calcium 8.5 mg/dL (8.5-10.5); Carbon Dioxide 32 mmol/L (22-29); Chloride 91 mmol/L (98-107); Glucose 96 mg/dL (65-115); Magnesium 1.7 mg/dL (1.7-2.3); Osmolality Calculated 288 mOsm/kg (285-295); Potassium 3.7 mmol/L (3.5-5.1); Sodium 131 mmol/L (136-145)
--- NOTE | 2020-06-16 07:12 | PM.PN ---
Subjective Subjective: Interval history: Patient was taken off dobutamine drip this morning and she has been made inpatient hospice Medications: Reviewed: Yes Medication Review Details: Current Medications Acetaminophen (Acetaminophen 325 Mg Tablet) 650 mg PO Q8H PRN PRN Reason: DISCOMFORT Last Admin: 06/15/20 20:14 Dose: 650 mg Documented by: Albuterol Sulfate (Albuterol 2.5 Mg/0.5 Ml Neb) 2.5 mg INHALATION Q4H.RESPIRATORY PRN PRN Reason: SHORTNESS OF BREATH Artificial Tears (Artificial Tears Op Soln 15 Ml Btl) 2 drop EYE-BOTH Q2H PRN PRN Reason: DRY EYE(S) Atropine Sulfate (Atropine 1% Op Soln 5 Ml Btl) 3 drop SUBLINGUAL Q4H PRN PRN Reason: Excessive Secretions, Rattling Bumetanide (Bumetanide 0.25 Mg/Ml Sdv 10 Ml) 2 mg IV 0800,1600 [facility] Last Admin: 06/16/20 17:38 Dose: 2 mg Documented by: Camphor/Menthol/Phenol (Blistex Lip Oint 7 Gm Tube) 1 applic TOPICAL Q2H PRN PRN Reason: DRY LIPS Diphenhydramine HCl (Diphenhydramine 25 Mg Capsule) 25 mg PO Q4H PRN PRN Reason: ITCHING Docusate Sodium (Docusate Sodium 100 Mg Capsule) 200 mg PO DAILY PRN PRN Reason: CONSTIPATION Last Admin: 06/15/20 10:14 Dose: 200 mg Documented by: Enoxaparin Sodium (Enoxaparin 30 Mg/0.3 Ml Syringe) 30 mg SUBCUT Q24H [facility] Last Admin: 06/16/20 17:39 Dose: 30 mg Documented by: Epinephrine (Racepinephrine 0.5 Ml Neb) 0.5 ml INHALATION Q4H.RESPIRATORY PRN PRN Reason: Stridor Glycopyrrolate (Glycopyrrolate 0.2 Mg/Ml Sdv 2 Ml) 0.2 mg IV Q4H PRN PRN Reason: Excessive Secretions, Rattling Isosorbide Mononitrate (Isosorbide Mononitrate Er 30 Mg Tablet) 15 mg PO DAILY [facility] Last Admin: 06/16/20 09:27 Dose: 15 mg Documented by: Lanolin (Lanolin Oint 7 Gm) 1 applic TOPICAL PRN PRN PRN Reason: DRYNESS Last Admin: 06/07/20 16:21 Dose: 1 applic Documented by: Lorazepam (Lorazepam 0.5 Mg Tablet) 0.5 mg PO Q6H PRN PRN Reason: ANXIETY Last Admin: 06/16/20 18:41 Dose: 0.5 mg Documented by: Lorazepam (Lorazepam 2 Mg/Ml Inj 1 Ml) 1 - 2 mg IVP Q8H PRN PRN Reason: Anxiety, Agitation or Restless Metolazone (Metolazone 5 Mg Tablet) 5 mg PO DAILY [facility] Last Admin: 06/16/20 09:27 Dose: 5 mg Documented by: Metoprolol Succinate (Metoprolol Succinate Er (24 Hr) 25 Mg Tablet) 25 mg PO DAILY [facility] Last Admin: 06/16/20 09:27 Dose: 25 mg Documented by: Morphine Sulfate (Morphine 4 Mg/Ml Sdv 1 Ml) 2 - 10 mg IVP Q15M PRN PRN Reason: Moderate To Severe Pain or SOB Morphine Sulfate (Morphine 20 Mg/Ml Oral Liq Ud) 2 - 10 mg SUBLINGUAL Q2H PRN PRN Reason: Moderate To Severe Pain or SOB Ondansetron HCl (Ondansetron 2 Mg/Ml Sdv 2 Ml) 4 mg IVP Q8H PRN PRN Reason: NAUSEA AND VOMITING Pantoprazole Sodium (Pantoprazole Dr 40 Mg Tablet) 40 mg PO DAILY [facility] Last Admin: 06/16/20 09:27 Dose: 40 mg Documented by: Polyethylene Glycol (Polyethylene Glycol 3350 Pkt 17 Gm) 17 gm PO DAILY PRN PRN Reason: CONSTIPATION Last Admin: 06/15/20 10:14 Dose: 17 gm Documented by: Potassium Chloride (Potassium Chloride Oral Liq 20 Meq/15 Ml Udc) 20 meq PO DAILY [facility] Last Admin: 06/16/20 09:27 Dose: 20 meq Documented by: Saliva Substitute (Saliva Stimulant [place] 44 Ml Btl) 1 spray MUCOUS MEM Q2H PRN PRN Reason: DRY MOUTH Senna (Sennosides 8.6 Mg Tablet) 8.6 mg PO BEDTIME PRN PRN Reason: CONSTIPATION Vitals/I&O/Wt Last Vital Signs Temp 97.8 F 06/16/20 04:07 Pulse 81 06/16/20 04:07 Resp 17 06/16/20 04:07 BP 145/81 06/16/20 04:07 Pulse Ox 99 06/16/20 04:07 06/15/20 06/16/20 06/16/20 22:59 06:59 14:59 Intake Total 367.17 / 727.17 Output Total 900 / 900 400 / 1300 Balance -532.83 / -172.83 -400 / -572.83 Physical Exam Narrative: EXAM NARRATIVE: Gen: elderly frail patient lying in bed HEENT: pallor+, No icterus, elevated JVD RS: decreases bilateral breath sounds, R pleurex catheter in place SCHOOL SUPERVISOR: awake and alert and 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 CVS: S1, S2+, No murmur heard Ext: trace bilateral leg edema Urinary Catheter Management^: Claudio: Cath Placed During This Visit: yes Reason for Continuing Indwelling Catheter: Acute Urinary Retention or Obstruction Urinary Catheter Date of Insertion: 06/05/20 Urinary Catheter Time of Insertion: 07:04 Data : 06/16/20 04:56 06/16/20 04:56 Micro: Microbiology 06/08/20 17:55 Gram Stain - Final Pleural Fluid Anaerobic Culture - Preliminary Body Fluid Culture - Final A&P Assessment and plan (1) CHF (congestive heart failure), NYHA class IV: I reviewed the images and it looks like Takotsubo cardiomyopathy with ballooning of mid to apical segments and sparing of basal segments. -Given her overall fraility, worsening renal function and advanced age, I do not recommend any further testing. - continue metolazone and Bumex 2 mg IV BID another day. - And closely monitor UO and I/O. -continue metoprolol succinate 25 mg daily. Runs of A tach and PAC's seen on monitor. -Dobutamine drip stopped today. -Her overall prognosis is not good. I had a long discussion with patient's son Lang and grandson Marty about realistic expectations at this point. I do not think she is a good candidate for dialysis if needed or further invasive testing. Lang mentioned that he has discussed with his and son Marty and they have decided on no DIALYSIS if that is not going to improve her quality of life and are very strongly considering hospice. They still are not sure about home or inpatient hospice. Status: Acute Qualifiers: Congestive heart failure chronicity: acute on chronic Congestive heart failure type: combined Qualified Code(s): I50.43 - Acute on chronic combined systolic (congestive) and diastolic (congestive) heart failure (2) Pleural effusion, bilateral: s/p multiple thoracentesis and recent pleurex catheter placement. Status: Acute (3) Atherosclerotic heart disease of [place] coronary artery without angina pectoris: Status: Acute Qualifiers: [place] vs. transplanted heart: [place] heart Qualified Code(s): I25.10 - Atherosclerotic heart disease of [place] coronary artery without angina pectoris (4) Dyslipidemia: Continue on the current medications. Status: Acute Additional A&P Information Hypokalemia: replaced Moderately differentiated adenocarcinoma of the colon Anemia CONTRERAS on CKD: creatine stable today Fraility Hypoalbuminemia Elevated liver enzymes : resolved Constipation : resolved DNR/DNI I will sign off. Attestations Medical Necessity Statement*: As per primary team Coding Level of Care Code Acute Mercury Purifier for [facility]iera Diagnoses CHF (congestive heart failure), NYHA class IV I50.43 Congestive heart failure chronicity: acute on chronic Congestive heart failure type: combined Pleural effusion, bilateral J90 Atherosclerotic heart disease of [place] coronary artery without angina pectoris I25.10 [place] vs. transplanted heart: [place] heart Dyslipidemia E78.5
--- NOTE | 2020-06-16 08:18 | PC.NURSE ---
pt is complaining of not being able to breathe well. i have repositioned her and made sure she was comfortable notified nurse.
[2020-06-16] MEDS: metoprolol succinate ER (24 HR) 25 mg Tablet PO (09:27)
[2020-06-16] MEDS: bumetanide 0.25 mg/mL SDV 10 mL 2 MG IV ×2 (09:27→17:38)
[2020-06-16] MEDS: potassium chloride oral liq 20 mEq/15 mL UDC PO (09:27)
[2020-06-16] MEDS: LORazepam 0.5 mg Tablet PO ×2 (09:27→18:41)
[2020-06-16] MEDS: pantoprazole DR 40 mg Tablet PO (09:27)
[2020-06-16] MEDS: metOLazone 5 MG Tablet PO (09:27)
[2020-06-16] MEDS: isosorbide mononitrate ER 30 mg Tablet 15 MG PO (09:27)
--- NOTE | 2020-06-16 10:57 | PC.SOCIAL ---
*IMM UPDATE* Gave pt IMM, gave her copy of pg.2 of IMM Signed, dated, timed and placed in chart.
--- NOTE | 2020-06-16 11:58 | P.PN_ITS ---
Subjective Subjective: Interval history: Patient was accepted to inpatient hospice today. Dobutamine was off. Was noted to have adequate urine output last evening. Noted to be 1750. no fever chills. No nausea vomiting. Patient was comfortable. Attempted to contact patient's son and grandson however unsuccessful. Voicemail was left. Medications: Reviewed: Yes Medication Review Details: Current Medications Acetaminophen (Acetaminophen 325 Mg Tablet) 650 mg PO Q8H PRN PRN Reason: DISCOMFORT Last Admin: 06/08/20 20:26 Dose: 650 mg Documented by: Bumetanide (Bumetanide 0.25 Mg/Ml Sdv 4 Ml) 1 mg IV Q12H [facility] Last Admin: 06/14/20 05:22 Dose: 1 mg Documented by: Docusate Sodium (Docusate Sodium 100 Mg Capsule) 200 mg PO DAILY PRN PRN Reason: CONSTIPATION Last Admin: 06/10/20 13:15 Dose: 200 mg Documented by: Enoxaparin Sodium (Enoxaparin 30 Mg/0.3 Ml Syringe) 30 mg SUBCUT Q24H [facility] Last Admin: 06/13/20 17:18 Dose: 30 mg Documented by: Dobutamine HCl/Dextrose (Dobutamine Drip) 500 mg in 250 mls @ 9.866 mls/hr IV .Q24H [facility] Last Infusion: 06/13/20 14:31 Dose: 5 mcg/kg/min, 9.9 mls/hr Documented by: Isosorbide Mononitrate (Isosorbide Mononitrate Er 30 Mg Tablet) 15 mg PO DAILY [facility] Last Admin: 06/13/20 08:29 Dose: 15 mg Documented by: Lanolin (Lanolin Oint 7 Gm) 1 applic TOPICAL PRN PRN PRN Reason: DRYNESS Last Admin: 06/07/20 16:21 Dose: 1 applic Documented by: Lorazepam (Lorazepam 0.5 Mg Tablet) 0.5 mg PO Q6H PRN PRN Reason: ANXIETY Last Admin: 06/14/20 05:35 Dose: 0.5 mg Documented by: Metolazone (Metolazone 5 Mg Tablet) 5 mg PO DAILY [facility] Last Admin: 06/13/20 08:30 Dose: 5 mg Documented by: Metoprolol Succinate (Metoprolol Succinate Er (24 Hr) 25 Mg Tablet) 25 mg PO DAILY [facility] Last Admin: 06/13/20 08:30 Dose: 25 mg Documented by: Pantoprazole Sodium (Pantoprazole Dr 40 Mg Tablet) 40 mg PO DAILY [facility] Last Admin: 06/13/20 08:30 Dose: 40 mg Documented by: Polyethylene Glycol (Polyethylene Glycol 3350 Pkt 17 Gm) 17 gm PO DAILY PRN PRN Reason: CONSTIPATION Last Admin: 06/09/20 12:48 Dose: 17 gm Documented by: Potassium Chloride (Potassium Chloride Oral Liq 20 Meq/15 Ml Udc) 20 meq PO DAILY [facility] Last Admin: 06/13/20 08:29 Dose: 20 meq Documented by: Senna (Sennosides 8.6 Mg Tablet) 8.6 mg PO BEDTIME PRN PRN Reason: CONSTIPATION Vitals/I&O/Wt Last Vital Signs Temp 98.4 F 06/16/20 11:34 Pulse 83 06/16/20 11:41 Resp 18 06/16/20 11:34 BP 141/69 06/16/20 11:34 Pulse Ox 99 06/16/20 11:41 06/15/20 06/16/20 06/16/20 22:59 06:59 14:59 Intake Total 367.17 / 727.17 196.845 / 196.845 Output Total 900 / 900 400 / 1300 450 / 450 Balance -532.83 / -172.83 -400 / -572.83 -253.155 / -253.155 Physical Exam Narrative: EXAM NARRATIVE: GEN: Awake, alert and oriented, no acute distress On 2 L CVS: S1S2 N RS: CTA B/L Abd: Soft, nt/nd , bs+ AUDIO VISUAL ARTS DIRECTOR: no focal neuro deficits Extremities no current lower extremity edema Urinary Catheter Management^: Claudio: Cath Placed During This Visit: yes Reason for Continuing Indwelling Catheter: Acute Urinary Retention or Obstruction Urinary Catheter Date of Insertion: 06/05/20 Urinary Catheter Time of Insertion: 07:04 Data : 06/16/20 04:56 06/16/20 04:56 Micro: Microbiology 06/08/20 17:55 Gram Stain - Final Pleural Fluid Anaerobic Culture - Preliminary Body Fluid Culture - Final A&P Assessment and plan (1) Cardiomyopathy: Status: Acute Qualifiers: Cardiomyopathy type: unspecified Qualified Code(s): I42.9 - Cardiomyopathy, unspecified (2) Acute on chronic kidney failure: Status: Acute (3) CHF (congestive heart failure), NYHA class IV: Status: Acute Qualifiers: Congestive heart failure chronicity: acute on chronic Congestive heart failure type: combined Qualified Code(s): I50.43 - Acute on chronic combined systolic (congestive) and diastolic (congestive) heart failure Additional A&P Information #Acute on chronic congestive heart failure exacerbation -monitor I/O -continue Bumex 1mg IV q12 h -dobutamine drip discontinued -isosorbide mononitrae, metolazone, metoprolol ER 25mh #Acute on chronic hypoxic respiratory failure - requiring intermittent use of o2 for comfort #Acute on chronic kidney disease with oliguria -monitor Screat 2.9 today -avoid renal toxic medications -u/o improving in past few days -no plan for hd -nephrology not consulted -u/o 0.25 ml/kg/hr -negative 1185 ml balance #Acute Encephalopathy -improved #Hypokalemia -replace Lytes #Transaminitis #Normocytic anemia -transfuse for Hgb < 7 #malignancy -followup with Onc # GI ppx # DVT ppx Plan: D/w Case management Accepted to Inpatient hospice Attempted to contact both sons and also ameya roa. VM left D/w Cardiology - agree with inpatient hospice level of care Will continue Bumex for now Attestations Medical Necessity Statement*: Level of her care transition to inpatient hospice status Patient require further hospitalization Time Spent in Patient Care: Greater than 35 minutes (>than 50% of time spent in counselling and/or direct pt care on unit) . 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
[2020-06-16] MEDS: enoxaparin 30 mg/0.3 mL Syringe SUBCUT (17:39)
--- NOTE | 2020-06-16 17:59 | PC.NURSE ---
[facility] in room to do hospice admission.
[2020-06-17] VITALS (7 sets, daily range): BP systolic 139–150; BP diastolic 80–82; PULSE 66–89; RESP 17–24; TEMP 36.4–36.7; O2SAT 97–100
[2020-06-17] MEDS: morphine 4 mg/mL SDV 1 mL IVP (02:26)
[2020-06-17] MEDS: LORazepam 2 mg/mL INJ 1 mL IVP (02:26)
--- NOTE | 2020-06-17 02:38 | PC.NURSE ---
0225 Patient rithing in bed and stated, Im hurting so bad! Help me!
--- NOTE | 2020-06-17 02:50 | PC.NURSE ---
Patient stated, Im better now .
--- NOTE | 2020-06-17 08:41 | PC.PT ---
Discharge PT; Pt to comfort care
[2020-06-17] MEDS: bumetanide 0.25 mg/mL SDV 10 mL 2 MG IV ×2 (10:05→16:23)
[2020-06-17] MEDS: potassium chloride oral liq 20 mEq/15 mL UDC PO (10:06)
[2020-06-17] MEDS: metOLazone 5 MG Tablet PO (10:07)
[2020-06-17] MEDS: pantoprazole DR 40 mg Tablet PO (10:07)
[2020-06-17] MEDS: metoprolol succinate ER (24 HR) 25 mg Tablet PO (10:07)
[2020-06-17] MEDS: isosorbide mononitrate ER 30 mg Tablet 15 MG PO (10:07)
--- NOTE | 2020-06-17 12:06 | PM.PN ---
Subjective Subjective: Interval history: Patient was quite drowsy at the time of my evaluation. Had received medication for pain and agitation overnight. Respiratory status was stable. Medications: Reviewed: Yes Medication Review Details: Current Medications Acetaminophen (Acetaminophen 325 Mg Tablet) 650 mg PO Q8H PRN PRN Reason: DISCOMFORT Last Admin: 06/08/20 20:26 Dose: 650 mg Documented by: Bumetanide (Bumetanide 0.25 Mg/Ml Sdv 4 Ml) 1 mg IV Q12H [facility] Last Admin: 06/14/20 05:22 Dose: 1 mg Documented by: Docusate Sodium (Docusate Sodium 100 Mg Capsule) 200 mg PO DAILY PRN PRN Reason: CONSTIPATION Last Admin: 06/10/20 13:15 Dose: 200 mg Documented by: Enoxaparin Sodium (Enoxaparin 30 Mg/0.3 Ml Syringe) 30 mg SUBCUT Q24H [facility] Last Admin: 06/13/20 17:18 Dose: 30 mg Documented by: Dobutamine HCl/Dextrose (Dobutamine Drip) 500 mg in 250 mls @ 9.866 mls/hr IV .Q24H [facility] Last Infusion: 06/13/20 14:31 Dose: 5 mcg/kg/min, 9.9 mls/hr Documented by: Isosorbide Mononitrate (Isosorbide Mononitrate Er 30 Mg Tablet) 15 mg PO DAILY [facility] Last Admin: 06/13/20 08:29 Dose: 15 mg Documented by: Lanolin (Lanolin Oint 7 Gm) 1 applic TOPICAL PRN PRN PRN Reason: DRYNESS Last Admin: 06/07/20 16:21 Dose: 1 applic Documented by: Lorazepam (Lorazepam 0.5 Mg Tablet) 0.5 mg PO Q6H PRN PRN Reason: ANXIETY Last Admin: 06/14/20 05:35 Dose: 0.5 mg Documented by: Metolazone (Metolazone 5 Mg Tablet) 5 mg PO DAILY [facility] Last Admin: 06/13/20 08:30 Dose: 5 mg Documented by: Metoprolol Succinate (Metoprolol Succinate Er (24 Hr) 25 Mg Tablet) 25 mg PO DAILY [facility] Last Admin: 06/13/20 08:30 Dose: 25 mg Documented by: Pantoprazole Sodium (Pantoprazole Dr 40 Mg Tablet) 40 mg PO DAILY [facility] Last Admin: 06/13/20 08:30 Dose: 40 mg Documented by: Polyethylene Glycol (Polyethylene Glycol 3350 Pkt 17 Gm) 17 gm PO DAILY PRN PRN Reason: CONSTIPATION Last Admin: 06/09/20 12:48 Dose: 17 gm Documented by: Potassium Chloride (Potassium Chloride Oral Liq 20 Meq/15 Ml Udc) 20 meq PO DAILY [facility] Last Admin: 06/13/20 08:29 Dose: 20 meq Documented by: Senna (Sennosides 8.6 Mg Tablet) 8.6 mg PO BEDTIME PRN PRN Reason: CONSTIPATION Vitals/I&O/Wt Last Vital Signs Temp 97.7 F 06/17/20 11:37 Pulse 89 06/17/20 11:37 Resp 18 06/17/20 11:37 BP 150/81 06/17/20 11:37 Pulse Ox 97 06/17/20 11:37 06/16/20 06/17/20 06/17/20 22:59 06:59 14:59 Intake Total 120 / 316.845 Output Total 1000 / 1450 1000 / 2450 Balance -880 / -1133.155 -1000 / -2133.155 Physical Exam Narrative: EXAM NARRATIVE: GEN: Drowsy, no acute distress On 2 L CVS: S1S2 N RS: CTA B/L Abd: Soft, nt/nd , bs+ RESIDENTIAL LIFE DIRECTOR: no focal neuro deficits Extremities no current lower extremity edema Urinary Catheter Management^: Claudio: Cath Placed During This Visit: yes Reason for Continuing Indwelling Catheter: Hospice/Comfort/Palliative Care Urinary Catheter Date of Insertion: 06/05/20 Urinary Catheter Time of Insertion: 07:04 Data : 06/16/20 04:56 06/16/20 04:56 Micro: Microbiology 06/08/20 17:55 Gram Stain - Final Pleural Fluid Anaerobic Culture - Final Body Fluid Culture - Final A&P Assessment and plan (1) Cardiomyopathy: Status: Acute Qualifiers: Cardiomyopathy type: unspecified Qualified Code(s): I42.9 - Cardiomyopathy, unspecified (2) Acute on chronic kidney failure: Status: Acute (3) CHF (congestive heart failure), NYHA class IV: Status: Acute Qualifiers: Congestive heart failure chronicity: acute on chronic Congestive heart failure type: combined Qualified Code(s): I50.43 - Acute on chronic combined systolic (congestive) and diastolic (congestive) heart failure Additional A&P Information #Acute on chronic congestive heart failure exacerbation -monitor I/O -continue Bumex 1mg IV q12 h -dobutamine drip discontinued -isosorbide mononitrae, metolazone, metoprolol ER 25mh #Acute on chronic hypoxic respiratory failure - Etiology multifactorial - recurrent effusion s/p pleurex - Atypical cells noted on cytology - Small apical ptx on 06/11 - requiring intermittent use of o2 for comfort - no further work up due to hospice/comfort care #Acute on chronic kidney disease -monitor Screat 2.9 -avoid renal toxic medications -u/o improving in past few days -no plan for hd -nephrology not consulted #Acute Encephalopathy #Hypokalemia #Transaminiti #Normocytic anemia #malignancy # GI ppx # DVT ppx Plan: Patient was oversedation with current pain/anxiety meds - Will decrease dose - Stable respiratory status - Continue comfort meds - Will likely need to discharge to [place] on hospice level of care - Will continue remainder of chronic meds - May consider draining from pleurex Attestations Medical Necessity Statement*: Will require further hospitalization for hospice level of care until discharge placement for hospice can be arranged. Time Spent in Patient Care: Greater than 35 minutes (>than 50% of time spent in counselling and/or direct pt care on unit). 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
[2020-06-17] MEDS: LORazepam 0.5 mg Tablet PO (16:23)
--- NOTE | 2020-06-17 16:39 | PM.DCS ---
Discharge Providers Date of Admission: 06/05/20 06:33 Date of Discharge: June 17, 2020 Attending Provider at Admission: Shantel Cruz MD Attending Provider at Discharge: Mal Monzon Primary Care Provider: Ming Castellanos DO Diagnoses at Discharge Discharge Diagnosis (1) Cardiomyopathy: Status: Acute Qualifiers: Cardiomyopathy type: unspecified Qualified Code(s): I42.9 - Cardiomyopathy, unspecified (2) Acute on chronic kidney failure: Status: Acute (3) CHF (congestive heart failure), NYHA class IV: Status: Acute Qualifiers: Congestive heart failure chronicity: acute on chronic Congestive heart failure type: combined Qualified Code(s): I50.43 - Acute on chronic combined systolic (congestive) and diastolic (congestive) heart failure Reason for Visit Reason for Visit: SOB Hospital Course Hospital Course 85 year old female coronary disease status post stent x2 congestive heart failure, moderately differentiated adenocarcinoma of ascending colon, has had multiple hospitalization in the past, has required bilateral thoracentesis secondary to CHF exacerbation, presented today with chief complaint of worsening shortness of breath. Patient was recently discharged from the hospital on 05/23 after management of generalized weakness which was deemed secondary to deconditioning, she also had type II DC while she remained symptom-free in the hospital. patient stopped taking metolazone, metoprolol, Lasix secondary to generalized weakness and not able to eat due to anorexia. At home she uses 2 L of nasal cannula. She was brought in today for worsening shortness of breath, she is not able to give much detail. is stating that in last 48 hours her mentation has worsened, she is not able to talk, she is not eating at all, she has seen Dr. Steward on 05/31 who started her on Lasix 40 mg a day with potassium supplementation, she has been using 2 to 2.5 L of oxygen at home. But her health is gradually declining. Her quality of life is worsening. was afraid that her lungs are filling up again that is why he sent her to the hospital. On arrival she was tachypneic, hypoxic, she was tripoding, initially she was put on 5 L nasal cannula but because of increased work of breathing she was put on BiPAP which relieved to improve her symptoms, diagnostics in the ER revealed worsening CHF exacerbation bilateral pleural effusion, hyperkalemia, hyponatremia, acute on chronic kidney disease, normocytic anemia. EKG showing sinus tachycardia no ischemic or infarctive changes, BNP greater than 70,000, Abnormal transaminases She was on BiPAP settings FiO2 50% tidal volume 300, 14/8, O2 saturation 99% Upon admission patient was started on IV diuretics. She was continued on supplemental oxygen. She did not show much improvement in overall condition. Previous hospitalist note was reviwed and discuss with patients son Lang was noted. Apperantly patient had previously stated that given her advanced age, recurrent hospital admissions, failure to thrive and no gross overall clinical improvement along with worsening heart failure she had elected not to proceed with chemotherapy for directed treatment of her cancer. In keeping with this goal, plan was then to maximize palliative treatment and focus on patient's comfort.. Pulmonary medicine was consulted and on 06/08 a right sided pleurex catheter was placed for additional control of respiratory support along with additional palliative care measures. Echo was performed on 06/08 which showed Severe diffuse hypokinesia left ventricle with diminished ejection fraction of 20 to 25%(visual). Right ventricle appears to be normal size with a slightly diminished ejection fraction. Thickened aortic and mitral valves and features of a large left-sided pleural effusion. Consideration for placement of left pleurex however patients respiratory status was fairly stable and she did not require this. Hospitalization was further complicated with worsening renal dysfunction along with poor urine output while on diuretics. Patient and family opted to hold on dialysis. Cardiology was then consulted and she was started on dobutamine drip. Urine output did improve subsequently. However still noted to have progressive decline. Family opted for inpatient hospice which was initiated and on 06/17 she was transitioned to home with hospice per family request. Physical Exam Narrative: EXAM NARRATIVE: GEN: Drowsy, no acute distress On 2 L CVS: S1S2 N RS: CTA B/L Abd: Soft, nt/nd , bs+ METAL CASTER: no focal neuro deficits Extremities no current lower extremity edema Urinary Catheter Management^: Claudio: Cath Placed During This Visit: yes Reason for Continuing Indwelling Catheter: Hospice/Comfort/Palliative Care Urinary Catheter Date of Insertion: 06/05/20 Urinary Catheter Time of Insertion: 07:04 Discharge Data Data Completed and Pending: Completed Studies During Hospitalization Category Date Time Status CT head wo con* 7 0450 Routine Cat Scan 06/05/20 17:10 Completed XR chest 1V sherry ble [id number] AM LABS Exams 06/07/20 04:00 Completed XR chest 1V sherry ble [id number] Routine Exams 06/08/20 17:39 Completed XR chest 1V sherry ble [id number] Routine Exams 06/11/20 07:00 Completed XR chest 1V sherry ble [id number] Urgent Exams 06/05/20 04:41 Completed XR chest LT decub itus 00040 Stat Exams 06/05/20 06:22 Completed XR chest RT decub itus [id number] Stat Exams 06/05/20 06:22 Completed Cytology [PTH] Ro utine Pth 06/08/20 18:11 Completed US echo limited [ CV echo limited 93 308] Routine Ultrasound 06/08/20 13:53 Completed US liver [id number] Ro utine Ultrasound 06/06/20 17:28 Completed US renal BI* 7677 0 Routine Ultrasound 06/08/20 10:32 Completed Pending at discharge Category Date Time Status Mycobacteria, Cul ture w/Fluor Routi ne Lab 06/08/20 17:55 Results Vitals: Last Vital Signs Temp 97.7 F 06/17/20 16:14 Pulse 89 06/17/20 16:14 Resp 18 06/17/20 16:14 BP 150/81 06/17/20 16:14 Pulse Ox 97 06/17/20 16:14 Discharge Plan Discharge Patient Disposition: Hospice - Home Condition: Stable Prescriptions: New bumetanide 1 mg tablet 1 mg PO BID Qty: 30 RF: 0 isosorbide mononitrate 30 mg Tablet Extended Release 24 Hr 30 mg PO DAILY Qty: 30 RF: 0 metolazone 5 mg Tablet 5 mg PO DAILY Qty: 30 RF: 0 metoprolol succinate 25 mg Tablet Extended Release 24 Hr 25 mg PO DAILY Qty: 30 RF: 0 Continued lorazepam 1 mg tablet 1 mg PO BID@, RF: 0 pantoprazole 40 mg tablet,delayed release (DR/EC) 40 mg PO DAILY@07 RF: 0 potassium chloride 10 mEq capsule, extended release 10 meq PO QAM RF: 0 Discontinued ferrous sulfate 325 mg (65 mg iron) tablet,delayed release (DR/EC) 325 mg PO BID@, RF: 0 fluticasone propionate 50 mcg/actuation spray,suspension 1 spray nasal BID RF: 0 furosemide 40 mg tablet 40 mg PO DAILY@07 RF: 0 Zeal Drink See Rx Instructions .ROUTE .COMPLEX RF: 0 Discharge Orders: Discharge Order (Routine); Ordered 06/17/20 Ordered By: Mal Monzon Referrals: Ming Castellanos DO [Primary Care Provider] - None (Follow up as needed ) Discharge Diet: Advance as tolerated Discharge Activity: Increase activity as tolerated Patient Instructions: Hospice Care (GEN) Discharge Attestations Time Spent in Discharge Care*: greater than 30 min Specific Discharge Activities: educating patient, discussing with pcp/other providers, discussing with binder caser/social workers/dc planners, documenting/other paperwork and evaluating patient/reviewing data Status at Discharge: Cognitive status at discharge: mildly impaired cognition, Behavioral status at discharge: cooperative, Functional status at discharge: other assisted ambulation Overall status at discharge: patient is not back to baseline Quality Metrics Clinical Quality Measures During this hospital stay, did patient experience: None Coding Level of Care Code Acute Line Supply for [employer] Diagnoses Cardiomyopathy I42.9 Cardiomyopathy type: unspecified Acute on chronic kidney failure N17.9; N18.9 CHF (congestive heart failure), NYHA class IV I50.43 Congestive heart failure chronicity: acute on chronic Congestive heart failure type: combined
--- NOTE | 2020-06-17 17:38 | PC.NURSE ---
Pt left via stretcher with [facility] ambulance personnel.
== END 2020-06-17 17:38 | disposition hospice, home (50) | DRG 291 ==
LOC: ER 08:03 → ER IP 13:26 → MEDSURG 15:43
PROVIDERS: Emergency Medicine; Internal Medicine; Internal Medicine Cardiovascular Disease; Admitting Provider Student in an Organized Health Care Education/Training Program; Emergency Provider Student in an Organized Health Care Education/Training Program; PCP Electrodiagnostic Medicine; Visit Provider Hospitalist
DX: I13.0 Hypertensive heart and chronic kidney disease with heart failure and stage 1 through stage 4 chronic kidney disease, or unspecified chronic kidney disease (principal); I50.43 Acute on chronic combined systolic (congestive) and diastolic (congestive) heart failure; J96.21 Acute and chronic respiratory failure with hypoxia; C18.2 Malignant neoplasm of ascending colon; C77.2 Secondary and unspecified malignant neoplasm of intra-abdominal lymph nodes; E87.1 Hypo-osmolality and hyponatremia; N17.9 Acute kidney failure, unspecified; E87.2 Acidosis; R18.8 Other ascites; G93.40 Encephalopathy, unspecified; J90 Pleural effusion, not elsewhere classified; N18.9 Chronic kidney disease, unspecified; I25.10 Atherosclerotic heart disease of native coronary artery without angina pectoris; Z95.5 Presence of coronary angioplasty implant and graft; I25.2 Old myocardial infarction; E87.5 Hyperkalemia; D63.1 Anemia in chronic kidney disease; Z90.49 Acquired absence of other specified parts of digestive tract; E78.00 Pure hypercholesterolemia, unspecified; Z87.01 Personal history of pneumonia (recurrent); Z85.828 Personal history of other malignant neoplasm of skin; Z96.642 Presence of left artificial hip joint; K80.80 Other cholelithiasis without obstruction; Z99.81 Dependence on supplemental oxygen; I42.9 Cardiomyopathy, unspecified; E78.5 Hyperlipidemia, unspecified; Z66 Do not resuscitate
CPT/HCPCS: 12345; 36415; 36416; 36600; 51702; 70450; 71045; 76705; 76770; 80048; 80053; 80500; 81001; 82042; 82150; 82465; 82805; 82945; 82962; 83605; 83615; 83735; 83880; 83986; 84075; 84157; 84315; 84478; 84560; 85025; 85610; 87015; 87070; 87075; 87116; 87205; 87206; 87426; 87801; 88305; 89050; 92610; 93005; 93308; 94660; 96372; 97162; 97530; 99281; J1250; J1650; J1940; J2060; J2270; J2405; J3490; P9041